=== PATIENT | female | born 1940 | race Caucasian/White ===

== ENCOUNTER 2017-09-10 00:07 | Inpatient (IN) ==
[2017-09-10] MEDS: Metoprolol Tartrate 25 MG Tablet PO SCH ×3 (08:24→18:34)
--- NOTE | 2017-09-10 08:25 | P.HP ---
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 Lawler from nephrology service, diabetic neuroapthy, Anxiety disorder who presented to ER complaining of chest pain- anterior chest wall steady burning pain 10 out of 10. There was no assoicated nausea, vomiting or diaphoresis. persistent prompted consult to [facility]. EKG show sinus rhythm, LAD, LAHB, incomplete LBBB patter. Initial troponin was .07. Patient was given ASA and Nitrol paste and is now chest pain free. REpeat troponin was 15. Patient transfered here for further evaluation and management Inpatient Certification: I certify that the inpatient services were ordered in accordance with Medicare regulations governing the order. This includes certification that hospital inpatient services are reasonable and necessary and in the case of services not specified as inpatient-only under 42 CFR 419.22(n), that they are appropriately provided as inpatient services in accordance to with the 2-midnight benchmark under 43 CFR 412.3(e) Estimated Total Length of Stay (Days): 2 Plans for Post Hospital Care: Not yet determined Review of Systems no melena or hematochezia no cough no weight los + neuropathy denies leg swelling PMFSH - History History Provided By: Patient - Medical History Medical History: Medical History (Last Updated 09/10/17 @ 00:19 by Michaela Pritchard) Diabetes Hypertension Neuropathy - Surgical History Surgical History: Surgical History (Last Updated 09/10/17 @ 00:19 by Michaela Pritchard) H/O exploratory laparotomy H/O lithotripsy Hx of appendectomy Medications and Allergies Active Medications: Active Medications Aspirin (Ecotrin) 325 mg PO DAILY ABHI Metoprolol Tartrate (Lopressor) 25 mg PO TID ABHI Nitroglycerin (Nitro-Bid 2% Oint) 1 inch TOPICAL Q6HR ABHI Allergies Allergy/AdvReac Type Severity Reaction Status Date / Time guaifenesin [From Mucinex] Allergy Anxiety Verified 09/10/17 00:12 Penicillins Allergy Itching Verified 09/10/17 00:12 Exam Vital signs: BP 2125/92 HR 102 T afebrile, heavy set Narrative: anicteric no nuchal rigidity no bruit lungs- no rales, decrease breath sounds regular rhythm HR 102 abdomen-flabby soft, nontender extremtiities= trace pretibial edema neuro exma- non focal Caprini VTE Risk Assessment Caprini VTE Risk Assessment: Moderate/High Risk (score >= 2) (on heparin drip for ACS) Caprini Risk Assessment Model: Point Value = 1 Point Value = 2 Point Value = 3 Point Value = 5 Age 41-60 Minor surgery BMI > 25 kg/m2 Swollen legs Varicose veins or History of unexplained or recurrent spontaneous Oral contraceptives or hormone replacement Sepsis (< 1 month) Serious lung disease, including pneumonia (< 1 month) Abnormal pulmonary function Acute myocardial infarction Congestive heart failure (< 1 month) History of inflammatory bowel disease Medical patient at bed rest Age 61-74 Arthroscopic surgery Major open surgery (> 45 min) Laparoscopic surgery (> 45 min) Malignancy Confined to bed (> 72 hours) Immobilizing plaster cast Central venous access Age >= 75 History of VTE Family history of VTE Factor V Leiden Prothrombin [id number] Lupus anticoagulant Anticardiolipin antibodies Elevated serum homocysteine Heparin-induced thrombocytopenia Other congenital or acquired thrombophilia Stroke (< 1 month) Elective arthroplasty Hip, pelvis, or leg fracture Acute spinal cord injury (< 1 month) Prophylaxis Regimen: Total Risk Factor Score Risk Level Prophylaxis Regimen 0-1 Low Early ambulation 2 Moderate Order ONE of the following: *Sequential Compression Device (SCD) *Heparin 5000 units SQ BID 3-4 Higher Order ONE of the following medications: *Heparin 5000 units SQ TID *Enoxaparin/Lovenox 40 mg SQ daily (WT < 150 kg, CrCl > 30 mL/min) *Enoxaparin/Lovenox 30 mg SQ daily (WT < 150 kg, CrCl > 10-29 mL/min) *Enoxaparin/Lovenox 30 mg SQ BID (WT < 150 kg, CrCl > 30 mL/min) AND/OR *Sequential Compression Device (SCD) 5 or more Highest Order ONE of the following medications: *Heparin 5000 units SQ TID (Preferred with Epidurals) *Enoxaparin/Lovenox 40 mg SQ daily (WT < 150 kg, CrCl > 30 mL/min) *Enoxaparin/Lovenox 30 mg SQ daily (WT < 150 kg, CrCl > 10-29 mL/min) *Enoxaparin/Lovenox 30 mg SQ BID (WT < 150 kg, CrCl > 30 mL/min) AND *Sequential Compression Device (SCD) Assessment and Plan - Plan 77 years old female ACS, NSTEMI Hypertension - start on heparin drip - ASA daily - start Lopressor 25 mg po q8 first dose now - Nitrol ointment 1 in to ant chest wall q 6 - get Echo - cardiology consult- d/w Dr. Foreman - ask family to bring in her meds - start statins- Lipitor 20 mg hs - get lipid panel, LFTs, CMP, TSH Diabetes mellitus, type 2, insulin requiring - NPO for now for possible procedure - sliding scale. check hemoglobin A1C - at home on Lantus 20 units q am, 25 units q pm- hold for now Diabetic nephropathy History of right urethral stone extraction , right in the past - nephrology consult for recommendation- patient will need cath - she is ff by Dr. Lawler as OP - start gentle hydration 42 cc/hr - get renal ultrasound - close monitoring of renal functions if we proceed with cardiac cath diabetic neuropathy - on Gabapentin as OP Anxiety disorder - continue on Xanax prn for anxiety Transfer to CIC bed- no bed available- get an C bed
[2017-09-10] MEDS ORDERED: Sod Chloride 0.9% Inj 1,000 ML IV.CONT SCH (08:30)
[2017-09-10] MEDS ORDERED: Dextrose 50% in Water 50 ML Vial IV.PUSH PRN (08:36)
[2017-09-10] MEDS ORDERED: Heparin 10,000 UNITS/10 ML Vial (for IV use) IV.PUSH STA (08:40)
[2017-09-10] MEDS ORDERED: Heparin/NS PF Inj 1,000 ML ONE (10:14)
[2017-09-10] MEDS ORDERED: Heparin 10,000 UNITS/10 ML Vial (for IV use) ONE (10:14)
[2017-09-10] MEDS ORDERED: fentaNYL Citrate Inj 100 MCG/2 ML Ampul ONE (10:29)
[2017-09-10] MEDS ORDERED: Lidocaine PF 1% Inj 30 ML Vial ONE (10:30)
--- NOTE | 2017-09-10 10:52 | MB ---
cc: Lemuel Foreman MD DATE: 09/10/2017 DATE OF CONSULTATION: 09/10/2017 INDICATION: Non-ST elevation myocardial infarction. HISTORY OF PRESENT ILLNESS: This is a 77-year-old Zimbabwean-speaking female. Her daughter was present at the bedside to [facility]. She has a history of hypertension, diabetes and diabetic nephropathy with chronic kidney disease, followed by Nephrology. She presented to the emergency department in [place] with acute onset of substernal chest pain. Electrocardiogram showed incomplete left bundle branch block pattern. Initial troponin was 0.07. She was transferred to [place] and her troponin went up to over 5. She is currently chest pain free. We are consulted for further recommendations. I called her service desk specialist's office, Dr. Lawler and her baseline creatinine looks to be about 2.3-2.5; that most recently was in June and there was discussion already about potential dialysis. PAST MEDICAL HISTORY: Diabetes, hypertension, neuropathy. MEDICATIONS: Aspirin and metoprolol. REVIEW OF SYSTEMS: A 12-point review of systems was performed, negative unless otherwise noted in the History Of Present Illness. PHYSICAL EXAMINATION: VITAL SIGNS: Temperature is 98, pulse 93, blood pressure 173/90 mmHg. GENERAL: Alert and oriented x 3, in no acute distress. HEENT: Shows pupils reactive to light and accommodation. Extraocular movements are intact. NECK: No elevation of jugular venous distention. No thyromegaly. No lymphadenopathy. No carotid bruits. LUNGS: Clear to auscultation bilaterally. CARDIOVASCULAR: Regular rate and rhythm without murmurs, rubs or gallops. ABDOMEN: Soft, nontender, nondistended. Good bowel sounds. No hepatosplenomegaly. EXTREMITIES: Show no clubbing, cyanosis or edema. Good peripheral pulses. NEUROLOGIC: Cranial nerves intact. Motor, sensory grossly intact. LABORATORY DATA: Hemoglobin is 10.2, platelet count is 278. Sodium 139, potassium 4.2, BUN 54, creatinine is 2.6. Serial troponins 5.4 and 6. Electrocardiogram shows sinus rhythm with ST depression inferiorly, incomplete left bundle branch block pattern. ASSESSMENT: 1. Non-ST elevation myocardial infarction. 2. Diabetes with diabetic nephropathy, chronic kidney disease. 3. Hypertension. 4. Hyperlipidemia. PLAN: At this point, she is pretty much at her baseline for her kidney function. I do not anticipate that her function is going to get much better. We will gently hydrate her. Risks, benefits, alternatives were discussed with the patient. We are going to plan to do a cardiac catheterization today and minimize contrast as much as absolutely possible. It is likely going to be only a diagnostic heart catheterization. If intervention is required, we may stage that in order to allow her kidneys to flush to minimize the risk for hemodialysis. The patient is aware that the risk for hemodialysis is potentially high given her baseline function. We will obtain a 2-D echocardiogram. We will monitor closely for any arrhythmias. She is currently on heparin drip. MD HEIDE Shore/SB , 10:32 AM , 10:52 AM
[2017-09-10] MEDS ORDERED: Sodium Chlor 0.9% Inj 250 ML IV.SIG ONE (11:35)
[2017-09-10] MEDS ORDERED: Atropine Inj 1 MG/ML Vial IV.PUSH PRN (11:35)
--- NOTE | 2017-09-10 11:38 | CATHPROC ---
Eventable HIS Report Study Information Study Number Admission Scheduled Start Study Start [id number] Sep 10 2017 7:22AM 09/10/2017 Sep 10 2017 8:52AM [place] [facility] Cardiac Pacer/ICD Admit Source Facility Department Other [facility] [address] - Chlorinator Physician and Clinical Staff Initial Lemuel Ivey [employer] Blaze Blum,RN Recorder Leeann Diamond,RT(R) [place]rub [place]a Begum ,RT(R) Procedures Performed Procedure Location (Site) Vessel Name Coronary Angiograms LCA Left Coronary Coronary Angiograms RCA Right Coronary L Heart Cath Wire insertion Radial (right) Radial Art. Equipment Time Fluid Pump Operator Description Size Mfg Part Number Used/Scraped TRANSDUCER, TRUWAVE [id number] 09:17 NOVOA MTZ * Used W/STOCKCOCK *[id number] 11:22 CARDIVA MEDICAL VASCADE, FR5 CLOSURE SYSTEM FR 5 Used *[id number] *[id number] [id number] *[id number] *[id number] WIRE, HYDROSTEER 150CM [id number] 10:56 DAIG/ST. KEVIN MEDICAL 150CM Used ANGLED GLIDE *[id number] 09:17 LifeLock BLANKET,WARM AIR CCL * Used *[id number] 09:17 LifeLock PACK, CCL CUSTOM * Used *[id number] 09:17 LifeLock SUPPORT, ARTERIAL ADULT 63283 *[id number] Used [id number] 09:17 Task Messenger PACER PEN, SKIN DUAL W/ RULER * Used *[id number] 10:55 CasenetTRONIC JL 3.5 DXTERITY CATHETER FR 5 Used *[id number] BAND, RADIAL COMPRESSION TR [id number] 11:27 Picaboo 24CM Used SHORT 24 *[id number] SHEATH, FR6 RADIAL PRELUDE 09:17 Picaboo FR 6 [id number] Used EASE 11CM [id number] 09:17 [employer]oo WIRE, EXCHANGE 260CM 3MMJ 260CM Used *[id number] 09:17 NAMIC MANIFOLD, 4 PORT * Used *[id number] 09:17 NYCOMED OMNIPAQUE, 350 MG, 150ML 150ML [id number] Used DYEVERT, CONTRAST HVOFF-RRS 10:19 [employer] INC NG Used MODULATION SYSTEM NG *[id number] 11:04 TERUMO MEDICAL SHEATH, FR5 TERUMO (10CM) FR 5 Used *[id number] Equipment Model, Serial, Lot Number and Expiration Data Description Model Number Serial Number Lot Number Expiration Date AVNI GIBBSEER 150CM [id number] 05-30-2020 ANGLED GLIDE History: Current Medications Medication Dosage/Unit Route Frequency Last Date/Time Taken ASA LIPITOR Glucophage LOPRESSOR History: Allergies Allergy Reaction Penicillins Itching guaifenesin Anxiety History: Risk Factors Family History of Hypertension Dyslipidemia Previous CT Previous Heart Failure Premature CAD Yes No No No No Prior Valve Prior PCI Prior CABG Surgery No No No Cerebrovascular Peripheral Artery Chronic Lung On Dialysis Diabetes Diabetes Therapy Disease Disease Disease No No No No Yes Insulin Labs Hgb (g/dl) Hct (%) WBC (l/cumm) Platelets (thousands) 11.60-17.00 35.00-51.00 4.00-11.00 150.00-450.00 10.2 29.7 8.9 278 Glucose (mg/dl) BUN (mg/dl) Creatinine (mg/dl) BUN:Creatinine (1:x) 74.00-106.00 7.00-18.00 0.50-1.30 10.00-20.00 289 54 2.6 20.8 Na (meq/l) K (meq/l) 136.00-145.00 3.50-5.10 139 4.2 INR (PTT:PT) 0.90-1.10 1 Troponin I (ng/ml) CPK (u/l) CPK-MB (ng/ML) 0.02-0.05 26.00-308.00 0.50-3.60 5.46 33.8 10.6 Medication Medication Total Dose (Bolus/Oral) Medication Total Dosage/Unit 1% XYLOCAINE 25 mL FENTANYL 50 mcg HEPARIN 3000 units NTG (IC) 200 mcg VERSED 3 mg Medications (Bolus/Oral) Medication Time Given Dosage/Unit Administered By Reason VERSED 09/10/2017 10:47:07 AM 2 mg Kulwant, Blaze 2 mg VERSED given in lab by Blaze Blum, RN in Left Antecubital via Peripheral IV. Ordered by Lemuel Foreman. FENTANYL 09/10/2017 10:49:19 AM 25 mcg Kulwant, Blaze 25 mcg FENTANYL given in lab by Blaze Blum RN in Left Antecubital via Peripheral IV. Ordered by Lemuel Gutierrez. 1% XYLOCAINE 09/10/2017 10:49:31 AM 5 mL Lemuel Foreman 5 mL 1% XYLOCAINE given in lab by Lemuel Foreman in Right Radial via Subcutaneous. NTG (IC) 09/10/2017 10:53:18 AM 200 mcg Lemuel Foreman 200 mcg NTG (IC) given in lab by Lemuel Foreman in Right Radial via Intra-arterial. HEPARIN 09/10/2017 10:53:36 AM 3000 units Blaze Blum 3000 units HEPARIN given in lab by Blaze Blum RN in Left Antecubital via Peripheral IV. Ordered by Lemuel Foreman. FENTANYL 09/10/2017 10:54:03 AM 25 mcg Blaze Blum 25 mcg FENTANYL given in lab by Blaze Blum RN in Left Antecubital via Peripheral IV. Ordered by Lemuel Gutierrez. VERSED 09/10/2017 10:56:03 AM 1 mg Blaze Blum 1 mg VERSED given in lab by Blaze Blum RN in Left Antecubital via Peripheral IV. Ordered by Lemuel Foreman. 1% XYLOCAINE 09/10/2017 11:06:23 AM 20 mL Lemuel Foreman 20 mL 1% XYLOCAINE given in lab by Lemuel Foreman in Right Groin via Subcutaneous. Medication (Drip) Medication Time Given Dosage/Unit Concentration/Unit Diluent (ml) Solution IV Solutions 09/10/2017 10:18:13 AM 50 mL (IV) NaCl .9 IV Solutions given in lab by Blaze Blum RN in Left Antecubital via Peripheral IV. Pump/Drip Flow u sing NaCl .9. Initial Case Assessment Cardiovascular HR Rhythm NIBP Chest Pain 95 tachy 180/95 0 Edema Present Skin color Skin None Normal Warm Dry Circulatory - Right Pulses Dorsalis Pedis Femoral Radial 1 1 2 Scale (0,1,2,3,4,d) Scale (0,1,2,3,4,d) Neurological State Oriented to time-place- Alert Moves all extremities person Respiration - General Respiration Rate SpO2 (%) (B/min) 13 97 Chronological Log Time Study Chronological Log 10:12:31 Patient arrived via Bed. 10:17:36 Patient Name, D.O.B, / Armband Verified By R.N. 10:17:37 Consent signed by the physician and the patient and verified by the Chlorinator staff. 10:17:37 Pre-op and post- op instructions given; patient acknowledges understanding of instructions. 10:17:38 Verbal Stimulation=2 Physical Stimulation=2 Airway=2 Respiration=2 TOTAL=8. (0=absent, 1=li mited, 2=present) 10:17:47 Presedation assessment performed by Chlorinator RN. 10:17:50 Patient has been NPO for More than 6Hrs. 10:17:53 Allens test performed on the right radial and ulnar artery. 10:17:55 Skin Breakdown-irritation in beliateral groins 10:17:59 Patient Warmer Placed on the Table. 10:18:02 Lacie Prominences Protected 10:18:04 A # 20 IV was noted in the Antecubital (left). Grade = 0 10:18:04 A # 20 IV was noted in the Antecubital (right). Grade = 0 10:18:13 IV Solutions given in lab by Blaze Blum RN in Left Antecubital via Peripheral IV. Pump/D rip Flow using NaCl .9. 10:18:24 History and physical on the chart or being dictated. Assessment: Initial Case, HR=95 BPM, Rhythm=tachy, NBGQ=372/95 mmhg, Chest Pain=0, Edema=None, Color=Normal, Skin = Warm, Dry 10:18:25 Right Pulses: Linwood Ped=1, Femoral=1, Radial=2 Neurological: State=Alert, Ox3, [place] Respiration: Resp=13 B/min, SpO2=97 % 10:25:52 Reference ECG taken Vitals capture started with the following parameters, Patient=Adult, Interval=5 min, Initial Pr vkatzf=549 mmHg, 10:25:54 Deflation Rate=5 mmHg, Cuff placed on Right Arm 10:27:09 HR=96 bpm, WODM=749/95 mmhg, SpO2=98.0 %, Resp=13 B/min, Pain=0, Sae=10, Baltazar=2 10:28:30 Right Radial and right groin prepped with 2% chlorhexidine, and draped after a 3 min. waiti ng time. 10:31:38 HR=95 bpm, RUVR=521/100 mmhg, SpO2=96.0 %, Resp=8 B/min 10:36:41 HR=96 bpm, GYJL=546/97 mmhg, SpO2=95.0 %, Resp=8 B/min 10:38:48 Pressure channel 1 zeroed. 10:41:40 HR=95 bpm, IAZR=626/101 mmhg, SpO2=95.0 %, Resp=12 B/min 10:42:19 MD paged Time Out. Correct patient, correct procedure, correct physician, labs, allergies, and equipment verified with lab manager 10:45:14 team present. Fire risk assesment completed (see hard stop sheet for coding). Time Out Conc urred by MD and individual staff in procedure. 10:45:37 MD arrived. 10:46:43 HR=95 bpm, GQJA=011/102 mmhg, SpO2=95.0 %, Resp=12 B/min 10:47:07 2 mg VERSED given in lab by Blaze Blum RN in Left Antecubital via Peripheral IV. Ordered by Lemuel Foreman. 10:49:19 25 mcg FENTANYL given in lab by Blaze Blum RN in Left Antecubital via Peripheral IV. Ord ered by Lemuel Foreman. 10:49:30 Case Start 10:49:31 5 mL 1% XYLOCAINE given in lab by Lemuel Foreman in Right Radial via Subcutaneous. 10:51:40 HR=86 bpm, XNFH=947/92 mmhg, SpO2=94.0 %, Resp=14 B/min 10:52:26 Access site was Right Radial Artery. A SHEATH, FR6 RADIAL PRELUDE EASE 11CM FR 6 was advanced into the Radial (right) using the Perc utaneous 10:53:09 technique. 10:53:18 200 mcg NTG (IC) given in lab by Lemuel Foreman in Right Radial via Intra-arterial. 10:53:36 3000 units HEPARIN given in lab by Blaze Blum RN in Left Antecubital via Peripheral IV. Ordered by Lemuel Foreman. 10:54:03 25 mcg FENTANYL given in lab by Blaze Blum RN in Left Antecubital via Peripheral IV. Ord ered by Lemuel Foreman. A JR 5.0 INFINITI CATHETER FR 5 was advanced over a wire. OMNIPAQUE, 350 MG, 150ML 150ML was us ed for 10:54:31 injections. 10:56:03 1 mg VERSED given in lab by Blaze Blum, RN in Left Antecubital via Peripheral IV. Ordered by Lemuel Foreman. 10:56:26 Catheter was removed 10:56:43 HR=86 bpm, XPFC=706/90 mmhg, SpO2=96.0 %, Resp=9 B/min A JR 4.0 INFINITI CATHETER FR 4 was advanced over a wire. OMNIPAQUE, 350 MG, 150ML 150ML was us ed for 10:59:14 injections. 10:59:25 A WIRE, HYDROSTEER 150CM ANGLED GLIDE 150CM was inserted via Radial (right). 10:59:30 Wire removed Recorded Pressure: Ao, HR=84, Condition=Condition 1 10:59:38 (Aorta) Ao 172/75/115 11:01:44 HR=83 bpm, DVVO=015/83 mmhg, SpO2=95.0 %, Resp=8 B/min 11:03:48 Catheter was removed 11:04:15 Radial access aborted 11:06:23 20 mL 1% XYLOCAINE given in lab by Lemuel Foreman in Right Groin via Subcutaneous. 11:06:35 Access site was Right Femoral Artery. 11:06:42 A SHEATH, FR5 TERUMO (10CM) FR 5 was advanced into the Fem Art (right) using the Percutaneo us technique. 11:07:20 HR=86 bpm, LIPL=255/100 mmhg, SpO2=97.0 %, Resp=10 B/min A JL 3.5 DXTERITY CATHETER FR 5 was advanced over a wire. OMNIPAQUE, 350 MG, 150ML 150ML was us ed for 11:09:19 injections. 11:10:19 The LCA was injected and visualized at various angles. OMNIPAQUE, 350 MG, 150ML 150ML used . 11:11:44 HR=84 bpm, MSOL=737/104 mmhg, SpO2=99.0 %, Resp=8 B/min 11:13:33 Catheter was removed A JR 5.0 INFINITI CATHETER FR 5 was advanced over a wire. OMNIPAQUE, 350 MG, 150ML 150ML was us ed for 11:14:43 injections. Recorded Pressure: LV, HR=67, Condition=Condition 1 11:15:23 (Left Ventricle) LV 180/-3/20 Recorded Pressure: LV, Ao, HR=94, Condition=Condition 1 11:15:31 (Left Ventricle) LV 190/2/27, (Aorta) Ao 171/73/116 11:16:47 HR=84 bpm, YCLI=983/105 mmhg, FqP3=246.0 %, Resp=9 B/min After removing the current catheter a 3DRC INFINITI CATHETER FR 5 was advanced over a WIRE, EXC HANGE 260CM 11:17:11 3MMJ 260CM. 11:19:45 The RCA was injected and visualized at various angles. OMNIPAQUE, 350 MG, 150ML 150ML used . 11:20:02 Catheter was removed 11:21:32 Case End (Physician broke scrub) 11:21:46 HR=84 bpm, NWVT=716/90 mmhg, SpO2=99.0 %, Resp=9 B/min 11:26:39 VASCADE, FR5 CLOSURE SYSTEM FR 5 placement in the Fem Art (right) Radial Compression Device Used. 13 mLs of air placed in BAND, RADIAL COMPRESSION TR SHORT 24 24 CM. Affected 11:26:46 hand 98 % O2 saturation. 11:26:50 HR=84 bpm, LGHU=503/101 mmhg, SpO2=99.0 %, Resp=12 B/min 11:26:56 Sterile dressing applied to site 11:27:09 No case complications noted. 11:27:11 Cine recording checked. 11:27:14 Bedside Report will be given. 11:27:14 Implantable Device card placed in patient's chart. 11:27:19 A Left Heart Cath was performed. 11:31:51 HR=85 bpm, FVTM=022/109 mmhg, SpO2=98.0 %, Resp=14 B/min 11:37:50 Vitals capture stopped. 11:40:20 [facility] Study - Contrast Media Used In Study Contrast Total Opened (mL) Total Used (mL) Total Wasted (mL) Omnipaque 20 20 0 End Study - Maximum Contrast Load Max Contrast Load (mL) 187.9 End Study - Radiation Exposure Fluoro Time (minutes) 6.2 End Study - Patient Disposition Complications Transferred To Interventional Outcome No Telemetry Bed No attempt made
--- NOTE | 2017-09-10 11:57 | MA ---
cc: Lemuel Foreman MD DATE: 09/10/2017 TOTAL AMOUNT OF CONTRAST ADMINISTERED: 20 mL. PROCEDURES PERFORMED: 1. Fluoroscopy with interpretation. 2. Left heart catheterization. 3. Coronary angiography. METHOD: Risks, benefits and alternatives were discussed with the patient. The patient understood and consented to the procedure. The patient was brought to the cardiac catheterization lab, placed on the catheterization table, right wrist and right groin were prepped and draped in sterile fashion. The right wrist was anesthetized with 2% lidocaine. Right radial artery was cannulated. We had difficulty navigating the radial artery and axillary, probably due to recurrent radial loop. Ultimately, we aborted radial access and obtained right common femoral access with a 5-Nigerien, 11 cm sheath. LEFT HEART CATHETERIZATION: Intraventricular hemodynamics were measured at 110/14 mmHg. CORONARY ANGIOGRAPHY: 1. Left main coronary artery has mild luminal irregularities. 2. Left anterior descending coronary artery has mild luminal irregularities. There is a smaller caliber size diagonal branch with 60-70% stenosis, but it is a less than 2 mm caliber size vessel. 3. Left circumflex has a 75% stenosis just prior to the bifurcation of the first obtuse marginal branch. There are several obtuse marginal branches, 4 in total, most are along the inferolateral distal distribution. There is a 50% stenosis throughout that distal portion smaller caliber size vessels. 4. Right coronary artery is heavily calcified proximally. There is a 90% stenosis. The mid segment has an 80% tubular stenosis. The right coronary artery is a dominant vessel. CONCLUSIONS: 1. Primarily 2-vessel [place] coronary artery disease involving the proximal left circumflex and right coronary arteries. 2. Small branch vessel coronary artery disease is also involved. 3. Normal left-sided filling pressures. PLAN: At this point, we will have to have a further discussion with the patient. We really tried to minimize the amount of contrast and did very well, but the next portion of the procedure with anticipation for intervention will likely require further contrast administration and may additionally risk the kidneys for need for dialysis. We will hopefully hydrate her and see how things go, may then make a decision in the next few days whether or not elective percutaneous intervention will be undertaken. Left anterior descending coronary artery is not involved and therefore cardiothoracic surgery for consideration of bypass surgery would not be necessary. MD MARY GRACE Shore , 11:40 AM , 11:56 AM
[2017-09-10 12:59] LABS: Hemoglobin 11.2 gm/dL (11.6-15.3); Mean Corpuscular HGB Conc 32.8 % (32.0-36.0); Mean Corpuscular Hemoglobin 29.7 pg (27.0-34.0); Mean Corpuscular Volume 90.5 fL (80.0-100.0); Mean Platelet Volume 8.3 fL (7.0-11.0); Platelet Count 286 th/mm3 (150-450); Red Blood Count 3.75 mil/mm3 (4.00-5.30); Red Cell Distribution Width 14.5 % (11.6-17.2); White Blood Count 9.1 th/mm3 (4.0-11.0)
[2017-09-10 13:09] LABS: Activated Partial Thrombo Time 55.3 sec (24.3-30.1); INR 1.1 Ratio; Prothrombin Time 10.7 sec (9.8-11.6)
[2017-09-10] MEDS: Sod Chloride 0.9% Inj 1,000 ML IV.CONT SCH (13:28)
[2017-09-10] MEDS: Insulin NovoLOG Aspart Correctional Sugar Inj SQ SCH ×3 (13:40→22:15)
[2017-09-10] MEDS ORDERED: Iohexol 350 MG/ML 50 ML Vial (for Cath Lab) IVCONTRAST ONE (14:21)
--- NOTE | 2017-09-10 18:14 | P.CONNP ---
<Iveth Millan - Last Filed: 09/10/17 17:52> History of Present Illness Service: Nephrology Consult date: 09/10/17 Requesting Physician: Vincent Ly Reason for Consult: CKD stage 4 Primary Care Provider: Raphael Clayton Chief Complaint: chest pain History of Present Illness: The patient is a 77 yo female who presented to [facility] today with complaints of chest pain and SOB. She was transferred to the main hospital as NSTEMI. Underwent diagnostic cardiac catheterization this AM showing 2 vessel disease: left circumflex and RCA. She has CKD stage [address] Mathur in [place]. Her baseline SCr is said to be 2.3-2.5 and this AM on admission was 2.6 with a estimated GFR of 18. Etiology of her renal disease is said to be related to sclerosis iof hypertension and diabetic nephropathy. She does state that she has been counseled about the severity of her renal decline and likely need for dialytic intervention very soon. Does not have specific plans regarding dialysis and no dialysis access. We have been consulted regarding opinion of risks associated with proceeding with intervention cardiac catheterization in relation to her renal disease. She is currently asymptomatic regarding chest pain and SOB. No known hx of CHF. [facility] - History History Provided By: Patient - Medical History Medical History: Medical History (Last Updated 09/10/17 @ 18:01 by RAFI Baumann) Chronic kidney disease, stage IV (severe) Diabetes Hypertension Neuropathy - Surgical History Surgical History: Surgical History (Last Updated 09/10/17 @ 00:19 by Michaela Pritchard) H/O exploratory laparotomy H/O lithotripsy Hx of appendectomy - Tobacco History Second Hand Smoke Exposure: No Tobacco Use In Past 30 Days: No Smoking Status: Never smoker - Alcohol History How Often Do You Have a Drink Containing Alcohol: Never - Substance Use History Substance History: No History of Abuse Medications and Allergies Allergies Allergy/AdvReac Type Severity Reaction Status Date / Time guaifenesin [From Mucinex] Allergy Anxiety Verified 09/10/17 00:12 Penicillins Allergy Itching Verified 09/10/17 00:12 Active Medications: Active Medications Aspirin (Ecotrin) 325 mg PO DAILY ABHI Atorvastatin Calcium (Lipitor) 20 mg PO HS ABHI Atropine Sulfate (Atropine Inj) 0.5 mg IV.PUSH UNSCH PRN PRN Reason: VAGAL REPONSE Chlorhexidine Gluconate (Chlorhexidine 2% Cloth) 3 pack TOPICAL DAILY@0400 ABHI Stop: 09/16/17 03:59 Chlorhexidine Gluconate (Chlorhexidine 2% Cloth) 3 pack TOPICAL DAILY@0400 PRN PRN Reason: Extra cloth needed Stop: 09/16/17 03:59 Dextrose (D50w Vial) 50 ml IV.PUSH UNSCH PRN PRN Reason: PER HYPOGLYCEMIA PROTOCOL Glucagon (Glucagon Inj) 1 mg OTHER PRN PRN PRN Reason: for Hypoglycemia Protocol Sodium Chloride (Ns Inj) 1,000 mls @ 42 mls/hr IV.CONT .[id number] [facility] Sodium Chloride (Ns Inj) 1,000 mls @ 100 mls/hr IV.CONT .Q10H [facility] Last Admin: 09/10/17 13:28 Dose: 100 mls/hr Insulin Aspart (Novolog Insulin Suppl Scale Inj) 0 unit SQ ACHS [facility]; Protocol Last Admin: 09/10/17 13:40 Dose: Not Given Metoprolol Tartrate (Lopressor) 25 mg PO TID [facility] Last Admin: 09/10/17 13:28 Dose: 25 mg Nitroglycerin (Nitro-Bid 2% Oint) 1 inch TOPICAL Q6HR [facility] Last Admin: 09/10/17 13:28 Dose: 1 inch Oxycodone/Acetaminophen (Percocet 5/325 Mg) 1 tab PO Q4H PRN PRN Reason: pain 1-10cath site Last Admin: 09/10/17 13:27 Dose: 1 tab Sodium Chloride (Ns Flush) 2 ml IV.FLUSH BID [facility] Sodium Chloride (Ns Flush) 2 ml IV.FLUSH PRN PRN PRN Reason: FLUSH AFTER USING IV ACCESS Exam Vital signs: Vital Signs 09/10/17 08:00 09/10/17 11:50 09/10/17 12:05 Temperature 98.1 F 97.6 F 97.6 F Pulse Rate 93 H 83 76 Respiratory Rate 14 14 22 Blood Pressure 173/90 H 176/79 H 195/86 H Pulse Oximetry 99 97 99 09/10/17 12:19 09/10/17 12:50 09/10/17 13:20 Temperature 97.7 F 97.7 F 97.7 F Pulse Rate 76 85 78 Respiratory Rate 16 14 22 Blood Pressure 185/88 H 177/76 H 181/81 H Pulse Oximetry 99 97 100 09/10/17 13:50 09/10/17 14:20 Temperature 97.8 F 97.7 F Pulse Rate 70 73 Respiratory Rate 10 L 18 Blood Pressure 187/85 H 187/85 H Pulse Oximetry 96 97 - Constitutional no acute distress - Routine HEENT Exam Head: Present: normocephalic, atraumatic - Routine Neck Exam Present: supple - Routine Respiratory Exam Present: CTA bilaterally - Routine Cardiovascular Exam Present: RRR, S1, S2 - Routine Abdominal Exam Present: soft, normoactive bowel sounds - Routine Extremities Exam Present: pulses intact, normal capillary refill - Routine Skin Exam Present: intact, warm - Routine Neurological Exam Present: alert, oriented X3 Results - Lab Results 09/10/17 12:15 Assessment and Plan - Assessment (1) Chronic kidney disease, stage IV (severe) Code(s): N18.4 - Chronic kidney disease, stage 4 (severe) Status: Acute Plan: Renal functions appear to be at her baseline. In regards to her risk of renal injury with iodinated contrast exposure, she was counselled there is no definitive treatment for this except hydration. Literature says that Mucomyst can be of some benefit as well. Given her current labs and co-morbidities accounting for 100mL contrast dose, she is at ~57% risk for development of contrast nephropathy that may or may not be reversible. She is at ~13% risk for sustaining renal injury that may require dialytic intervention. Given her already severely impaired renal functions, it is uncertain if dialysis would be temporary measure, and in all likelihood be chronic if needed. The risk would have to be assumed by the patient and the clearance coordinator, and risks versus benefits weighed. The patient and her daughter have both been counselled of the aforementioned (daughter did translate to Icelandic for the patient's better understanding) and they do seem to be in agreement to proceed. Will defer to cardiology in regards to the urgency to proceed as Dr. Foreman's note seems to indicate that he would like to wait a few days before next procedure. For the present, to continue on IV hydration with isotonic solution. (2) Non-ST elevated myocardial infarction (non-STEMI) Code(s): I21.4 - Non-ST elevation (NSTEMI) myocardial infarction Status: Acute Plan: As above. (3) Essential (primary) hypertension Code(s): I10 - Essential (primary) hypertension Status: Acute Plan: BP elevated. Will start on Amlodipine for better control. Consider Hydralazine if still not improved. (4) Diabetes mellitus Code(s): E11.9 - Type 2 diabetes mellitus without complications Status: Acute Plan: Mgmt as per primary <Marie Cedeno - Last Filed: 09/10/17 18:50> History of Present Illness Primary Care Provider: Raphael Clayton [facility] - Medical History Medical History: Medical History (Last Updated 09/10/17 @ 18:01 by RAFI Baumann) Chronic kidney disease, stage IV (severe) Diabetes Hypertension Neuropathy - Surgical History Surgical History: Surgical History (Last Updated 09/10/17 @ 00:19 by Michaela Pritchard) H/O exploratory laparotomy H/O lithotripsy Hx of appendectomy Medications and Allergies Active Medications: Active Medications Amlodipine Besylate (Norvasc) 5 mg PO DAILY ABHI Aspirin (Ecotrin) 325 mg PO DAILY [facility]HI Atorvastatin Calcium (Lipitor) 20 mg PO HS [facility] Atropine Sulfate (Atropine Inj) 0.5 mg IV.PUSH UNSCH PRN PRN Reason: VAGAL REPONSE Chlorhexidine Gluconate (Chlorhexidine 2% Cloth) 3 pack TOPICAL DAILY@0400 ABHI Stop: 09/16/17 03:59 Chlorhexidine Gluconate (Chlorhexidine 2% Cloth) 3 pack TOPICAL DAILY@0400 PRN PRN Reason: Extra cloth needed Stop: 09/16/17 03:59 Clonidine HCl (Catapres) 0.1 mg PO Q6H PRN PRN Reason: SBP>160, DBP>90 Dextrose (D50w Vial) 50 ml IV.PUSH UNSCH PRN PRN Reason: PER HYPOGLYCEMIA PROTOCOL Glucagon (Glucagon Inj) 1 mg OTHER PRN PRN PRN Reason: for Hypoglycemia Protocol Sodium Chloride (Ns Inj) 1,000 mls @ 100 mls/hr IV.CONT .Q10H [facility] Last Infusion: 09/10/17 18:40 Dose: Infused Insulin Aspart (Novolog Insulin Suppl Scale Inj) 0 unit SQ ACHS [facility]; Protocol Last Admin: 09/10/17 18:11 Dose: Not Given Metoprolol Tartrate (Lopressor) 25 mg PO TID [facility] Last Admin: 09/10/17 18:34 Dose: 25 mg Nitroglycerin (Nitro-Bid 2% Oint) 1 inch TOPICAL Q6HR [facility] Last Admin: 09/10/17 18:12 Dose: Not Given Oxycodone/Acetaminophen (Percocet 5/325 Mg) 1 tab PO Q4H PRN PRN Reason: pain 1-10cath site Last Admin: 09/10/17 18:34 Dose: 1 tab Sodium Chloride (Ns Flush) 2 ml IV.FLUSH BID [facility] Sodium Chloride (Ns Flush) 2 ml IV.FLUSH PRN PRN PRN Reason: FLUSH AFTER USING IV ACCESS Exam Vital signs: Vital Signs 09/10/17 08:00 09/10/17 11:50 09/10/17 12:05 Temperature 98.1 F 97.6 F 97.6 F Pulse Rate 93 H 83 76 Respiratory Rate 14 14 22 Blood Pressure 173/90 H 176/79 H 195/86 H Pulse Oximetry 99 97 99 09/10/17 12:19 09/10/17 12:50 09/10/17 13:20 Temperature 97.7 F 97.7 F 97.7 F Pulse Rate 76 85 78 Respiratory Rate 16 14 22 Blood Pressure 185/88 H 177/76 H 181/81 H Pulse Oximetry 99 97 100 09/10/17 13:50 09/10/17 14:20 09/10/17 15:20 Temperature 97.8 F 97.7 F 97.6 F Pulse Rate 70 73 73 Respiratory Rate 10 L 18 20 Blood Pressure 187/85 H 187/85 H 184/84 H Pulse Oximetry 96 97 95 09/10/17 16:20 09/10/17 17:20 Temperature 97.6 F 97.7 F Pulse Rate 73 86 Respiratory Rate 22 23 Blood Pressure 195/87 H 198/82 H Pulse Oximetry 96 97 Intake & Output 09/09/17 09/10/17 09/10/17 18:59 06:59 18:59 Intake Total 1120 / 1120 Balance 1120 / 1120 Intake: IV 1000 / 1000 NS Inj 1,000 ML @ 100 mls/hr IV 1000 / 1000 .CONT .Q10H [facility] Rx#:[id number] Oral 120 / 120 Other: # Voids 4 Results - Lab Results 09/10/17 12:15 Assessment and Plan - Assessment (1) Chronic kidney disease, stage IV (severe) Code(s): N18.4 - Chronic kidney disease, stage 4 (severe) Status: Acute (2) Non-ST elevated myocardial infarction (non-STEMI) Code(s): I21.4 - Non-ST elevation (NSTEMI) myocardial infarction Status: Acute (3) Essential (primary) hypertension Code(s): I10 - Essential (primary) hypertension Status: Acute (4) Diabetes mellitus Code(s): E11.9 - Type 2 diabetes mellitus without complications Status: Acute - Attending Attestation The exam, history, and the medical decision-making described in the above note were completed with the assistance of the AIDA. I reviewed and agree with the findings presented. I attest that I had a [id number] encounter with the patient on the same day, and personally performed and documented my assessment and findings in the medical record. Estimated risk for development of acute renal insufficiency secondary to contrast nephrotoxicity as indicated above. Contrast exposure is not absolutely contraindicated but the risk-benefit ratio has to be considered as discussed with the patient. Will defer to cardiology and patient in regard to making final decision for cardiac catheterization with probable stent placement.
[2017-09-10] MEDS ORDERED: ALPRAZolam 0.25 MG Tablet PO ONE (21:39)
[2017-09-11] MEDS: Sod Chloride 0.9% Inj 1,000 ML IV.CONT SCH ×3 (00:54→14:57)
--- NOTE | 2017-09-11 01:12 | US ---
EXAM DATE: 09/10/2017 11:59 PM EDT AGE/SEX: 77 years / Female INDICATIONS: Increased lab values. CLINICAL DATA: This is the patient's initial encounter. Patient reports that signs and symptoms have been present for 1 day and indicates a pain score of 10/10. MEDICAL/SURGICAL HISTORY: Diabetes mellitus type II. Hypertension. Diabetic neuropathy. Appen dectomy. Lithotripsy. Exploratory laparotomy. COMPARISON: No prior exams available for comparison. MEASUREMENTS: Right Kidney:__10.0 x 4.8 x 5.0 cm Left Kidney:__10.2 x 5.0 x 5.5 cm FINDINGS: Right Kidney: Borderline echogenic. Minimal perinephric fluid. No mass or hydronephrosis. Small simpl e cyst measures 11 mm. Left Kidney: Borderline echogenic. Echogenic focus left mid kidney measures 5 mm. Bladder: Within normal limits given the degree of distension. Other: None. CONCLUSION: 1. Kidneys are borderline echogenic which can be seen with medical renal disease. 2. Simple right renal cyst. 3. Possible nonobstructing left renal calculus. Electronically signed by: Guy Delgadillo MD 09/11/2017 1:11 AM EDT
[2017-09-11] MEDS ORDERED: Chlorhexidine Gluconate 2% 1 Pack (2 Cloths) TOPICAL PRN (04:00)
[2017-09-11 05:41] LABS: Baso % (Auto) 0.6 % (0.0-2.0); Eos # (Auto) 0.3 th/mm3 (0.0-0.4); Eos % (Auto) 3.5 % (0.0-4.0); Hemoglobin 8.7 gm/dL (11.6-15.3); Lymph # (Auto) 1.5 th/mm3 (1.0-4.8); Mean Corpuscular HGB Conc 33.6 % (32.0-36.0); Mean Corpuscular Hemoglobin 30.4 pg (27.0-34.0); Mean Corpuscular Volume 90.4 fL (80.0-100.0); Mean Platelet Volume 8.1 fL (7.0-11.0); Mono # (Auto) 0.6 th/mm3 (0.0-0.9); Mono % (Auto) 7.9 % (0.0-8.0); Neut # (Auto) 4.9 th/mm3 (1.8-7.7); Platelet Count 233 th/mm3 (150-450); Red Blood Count 2.88 mil/mm3 (4.00-5.30); Red Cell Distribution Width 14.5 % (11.6-17.2); White Blood Count 7.4 th/mm3 (4.0-11.0)
[2017-09-11 05:53] LABS: Alanine Aminotransferase 20 U/L (10-53); Albumin 2.4 g/dL (3.4-5.0); Anion Gap 9 meq/L (5-15); Aspartate Aminotransferase 70 U/L (15-37); Blood Urea Nitrogen 37 mg/dL (7-18); Calcium 7.8 mg/dL (8.5-10.1); Carbon Dioxide 22.1 meq/L (21.0-32.0); Chloride 112 meq/L (98-107); Cholesterol 236 mg/dL (120-200); Glomerular Filtration Rate 23 mL/min (>89); Glucose,Random 115 mg/dL (74-106); Phosphorus 3.2 mg/dL (2.5-4.9); Potassium 4.3 meq/L (3.5-5.1); Sodium 143 meq/L (136-145); Triglycerides 251 mg/dL (42-150)
[2017-09-11 05:55] LABS: Alkaline Phosphatase 103 U/L (45-117); Chol/HDL Ratio 6.36 Ratio; HDL Cholesterol 37.1 mg/dL (40.0-60.0); LDL Cholesterol,Calculated 149 mg/dL (0-99); Total Protein 5.7 g/dL (6.4-8.2)
[2017-09-11] MEDS: Chlorhexidine Gluconate 2% 1 Pack (2 Cloths) TOPICAL SCH (06:37)
[2017-09-11] MEDS: amLODIPine 5 MG Tablet PO SCH ×2 (06:39→08:43)
[2017-09-11] MEDS: Metoprolol Tartrate 25 MG Tablet PO SCH (08:43)
[2017-09-11] MEDS: Insulin NovoLOG Aspart Correctional Sugar Inj SQ SCH ×4 (08:43→20:45)
--- NOTE | 2017-09-11 09:19 | P.PNCA ---
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 No further chest pain or shortness of breath. The patient was seen by nephrology and is considering her options regarding catheterization and possible risks involved with that; spoke with patient at length regarding this. She is leaning towards being agreeable to catheterization with PCI on Thursday after hydration for kidneys. Physical Exam Vital signs: Vital Signs 09/10/17 11:50 09/10/17 12:05 09/10/17 12:19 Temperature 97.6 F 97.6 F 97.7 F Pulse Rate 83 76 76 Respiratory Rate 14 22 16 Blood Pressure 176/79 H 195/86 H 185/88 H Pulse Oximetry 97 99 99 09/10/17 12:50 09/10/17 13:20 09/10/17 13:50 Temperature 97.7 F 97.7 F 97.8 F Pulse Rate 85 78 70 Respiratory Rate 14 22 10 L Blood Pressure 177/76 H 181/81 H 187/85 H Pulse Oximetry 97 100 96 09/10/17 14:20 09/10/17 15:20 09/10/17 16:20 Temperature 97.7 F 97.6 F 97.6 F Pulse Rate 73 73 73 Respiratory Rate 18 20 22 Blood Pressure 187/85 H 184/84 H 195/87 H Pulse Oximetry 97 95 96 09/10/17 17:20 09/10/17 18:20 09/10/17 20:00 Temperature 97.7 F 97.8 F Pulse Rate 86 96 H 77 Respiratory Rate 23 22 Blood Pressure 198/82 H 206/90 H Pulse Oximetry 97 98 09/10/17 23:16 09/11/17 00:00 09/11/17 04:00 Temperature 98.1 F 98.2 F Pulse Rate 78 70 63 Respiratory Rate 16 13 18 Blood Pressure 168/76 H 176/79 H 148/55 H Pulse Oximetry 98 Intake & Output 09/10/17 09/11/17 09/11/17 18:59 06:59 18:59 Intake Total 1120 / 1120 480 / 480 1000 / 1000 Balance 1120 / 1120 480 / 480 1000 / 1000 Intake: IV 1000 / 1000 1000 / 1000 NS Inj 1,000 ML @ 100 mls/hr IV 1000 / 1000 1000 / 1000 .CONT .Q10H [facility] Rx#:[id number] Oral 120 / 120 480 / 480 Other: # Voids 4 4 # Bowel Movements 0 Weight On Admission 201 lb 11.567 oz Narrative: GENERAL: Well-developed well-nourished. In no acute distress. NECK: No carotid bruits. No JVD. CARDIOVASCULAR: Regular rate and rhythm. No murmur appreciated. Right wrist access site clean with intact pulses. RESPIRATORY: No accessory muscle use. Clear to auscultation. Breath sounds equal bilaterally. MUSCULOSKELETAL: No clubbing or cyanosis. No edema. NEUROLOGICAL: Awake and alert. Normal speech. Assessment and Plan - Plan 77-year-old Nauruan-speaking female with past medical history of HTN, DM, diabetic nephropathy, CKD who presented for chest pain/non-STEMI. CAD: LHC 09/10 showed primarily 2 vessel [place] CAD involving the proximal LCx and RCA. PCI on hold pending optimization of renal function, discussed risks/ benefits of elective PCI in the next few days, patient considering options. Echocardiogram pending. CKD: Continue IVF. Nephrology consulted to assist with risk stratification with possible LHC/PCI and advanced renal disease. Hypertension: Poorly controlled. Patient has been to bring in her medications for reconciliation. Amlodipine and metoprolol started. Clonidine as needed. <Lemuel Foreman - Last Filed: 09/11/17 14:17> Physical Exam Vital signs: Vital Signs 09/10/17 14:20 09/10/17 15:20 09/10/17 16:20 Temperature 97.7 F 97.6 F 97.6 F Pulse Rate 73 73 73 Respiratory Rate 18 20 22 Blood Pressure 187/85 H 184/84 H 195/87 H Pulse Oximetry 97 95 96 09/10/17 17:20 09/10/17 18:20 09/10/17 20:00 Temperature 97.7 F 97.8 F Pulse Rate 86 96 H 77 Respiratory Rate 23 22 Blood Pressure 198/82 H 206/90 H Pulse Oximetry 97 98 09/10/17 23:16 09/11/17 00:00 09/11/17 04:00 Temperature 98.1 F 98.2 F Pulse Rate 78 70 63 Respiratory Rate 16 13 18 Blood Pressure 168/76 H 176/79 H 148/55 H Pulse Oximetry 98 09/11/17 08:00 09/11/17 10:00 09/11/17 12:00 Temperature 98.3 F 98 F 98.1 F Pulse Rate 81 74 61 Respiratory Rate 16 18 15 Blood Pressure 199/94 H 188/75 H 188/81 H Pulse Oximetry Intake & Output 09/10/17 09/11/17 09/11/17 18:59 06:59 18:59 Intake Total 1120 / 1120 480 / 480 1000 / 1000 Balance 1120 / 1120 480 / 480 1000 / 1000 Weight 92.1 kg Intake: IV 1000 / 1000 1000 / 1000 NS Inj 1,000 ML @ 100 mls/hr IV 1000 / 1000 1000 / 1000 .CONT .Q10H [facility] Rx#:[id number] Oral 120 / 120 480 / 480 Other: # Voids 4 4 # Bowel Movements 0 Weight On Admission 91.5 kg Assessment and Plan - Attending Attestation NSTEMI 2 vessel CAD CKD Cr stable discussed options. Continue gentle hydration. Plan for PCI LCx and RCA on thursday. NPO p MN thursday no further cp ok to DC heparin gtt BP control. add hydralazine
[2017-09-11] MEDS: Metoprolol Tartrate 50 MG Tablet PO SCH ×3 (10:40→17:27)
--- NOTE | 2017-09-11 10:53 | P.PN ---
Subjective Interval history: telemetry- sinus rhythm SBPs still in the > 170s range denies any chest pains/shortness of breath Physical Exam Vital signs: Vital Signs 09/10/17 11:50 09/10/17 12:05 09/10/17 12:19 Temperature 97.6 F 97.6 F 97.7 F Pulse Rate 83 76 76 Respiratory Rate 14 22 16 Blood Pressure 176/79 H 195/86 H 185/88 H Pulse Oximetry 97 99 99 09/10/17 12:50 09/10/17 13:20 09/10/17 13:50 Temperature 97.7 F 97.7 F 97.8 F Pulse Rate 85 78 70 Respiratory Rate 14 22 10 L Blood Pressure 177/76 H 181/81 H 187/85 H Pulse Oximetry 97 100 96 09/10/17 14:20 09/10/17 15:20 09/10/17 16:20 Temperature 97.7 F 97.6 F 97.6 F Pulse Rate 73 73 73 Respiratory Rate 18 20 22 Blood Pressure 187/85 H 184/84 H 195/87 H Pulse Oximetry 97 95 96 09/10/17 17:20 09/10/17 18:20 09/10/17 20:00 Temperature 97.7 F 97.8 F Pulse Rate 86 96 H 77 Respiratory Rate 23 22 Blood Pressure 198/82 H 206/90 H Pulse Oximetry 97 98 09/10/17 23:16 09/11/17 00:00 09/11/17 04:00 Temperature 98.1 F 98.2 F Pulse Rate 78 70 63 Respiratory Rate 16 13 18 Blood Pressure 168/76 H 176/79 H 148/55 H Pulse Oximetry 98 Intake & Output 09/10/17 09/11/17 09/11/17 18:59 06:59 18:59 Intake Total 1120 / 1120 480 / 480 1000 / 1000 Balance 1120 / 1120 480 / 480 1000 / 1000 Intake: IV 1000 / 1000 1000 / 1000 NS Inj 1,000 ML @ 100 mls/hr IV 1000 / 1000 1000 / 1000 .CONT .Q10H [facility] Rx#:[id number] Oral 120 / 120 480 / 480 Other: # Voids 4 4 # Bowel Movements 0 Weight On Admission 91.5 kg Results - Labs CBC & Chem 7: 09/11/17 04:36 09/11/17 04:36 Laboratory Results - last 24 hr 09/10/17 09/10/17 09/10/17 09:00 12:15 12:15 WBC 9.1 RBC 3.75 L Hgb 11.2 L Hct 34.0 L MCV 90.5 MCH 29.7 MCHC 32.8 RDW 14.5 Plt Count 286 MPV 8.3 Neut % (Auto) Lymph % (Auto) [place] % (Auto) Eos % (Auto) Baso % (Auto) Neut # (Auto) Lymph # (Auto) [place] # (Auto) Eos # (Auto) Baso # (Auto) WBC Differential Differential Comment PT 10.7 INR 1.1 APTT 55.3 H D Sodium Potassium Chloride Carbon Dioxide Anion Gap BUN Creatinine Estimated GFR POC Glucose Random Glucose Calcium Phosphorus Total Bilirubin AST ALT Alkaline Phosphatase Total Protein Albumin Triglycerides Cholesterol LDL Cholesterol, Calc HDL Cholesterol Cholesterol/HDL Ratio Nasal Screen MRSA (PCR) Not detected 09/10/17 09/10/17 09/11/17 17:23 20:37 04:36 WBC RBC Hgb Hct MCV MCH MCHC RDW Plt Count MPV Neut % (Auto) Lymph % (Auto) [place] % (Auto) Eos % (Auto) Baso % (Auto) Neut # (Auto) Lymph # (Auto) [place] # (Auto) Eos # (Auto) Baso # (Auto) WBC Differential Differential Comment PT INR APTT 25.1 D Sodium 143 Potassium 4.3 Chloride 112 H D Carbon Dioxide 22.1 Anion Gap 9 BUN 37 H Creatinine 2.08 H Estimated GFR 23 L POC Glucose 173 H Random Glucose 115 H D Calcium 7.8 L D Phosphorus 3.2 Total Bilirubin 0.4 AST 70 H ALT 20 Alkaline Phosphatase 103 Total Protein 5.7 L Albumin 2.4 L Triglycerides 251 H Cholesterol 236 H LDL Cholesterol, Calc 149 H HDL Cholesterol 37.1 L Cholesterol/HDL Ratio 6.36 Nasal Screen MRSA (PCR) 09/11/17 09/11/17 04:36 04:36 WBC 7.4 RBC 2.88 L Hgb 8.7 L D Hct 26.0 L MCV 90.4 MCH 30.4 MCHC 33.6 RDW 14.5 Plt Count 233 MPV 8.1 Neut % (Auto) 67.0 Lymph % (Auto) 21.0 [place] % (Auto) 7.9 Eos % (Auto) 3.5 Baso % (Auto) 0.6 Neut # (Auto) 4.9 Lymph # (Auto) 1.5 [place] # (Auto) 0.6 Eos # (Auto) 0.3 Baso # (Auto) 0.0 WBC Differential . Differential Comment Auto diff final PT INR APTT 40.4 H D Sodium Potassium Chloride Carbon Dioxide Anion Gap BUN Creatinine Estimated GFR POC Glucose Random Glucose Calcium Phosphorus Total Bilirubin AST ALT Alkaline Phosphatase Total Protein Albumin Triglycerides Cholesterol LDL Cholesterol, Calc HDL Cholesterol Cholesterol/HDL Ratio Nasal Screen MRSA (PCR) - Imaging Impressions Abdomen/Bladder Ultrasound 09/10/17 00:00 CONCLUSION: 1. Kidneys are borderline echogenic which can be seen with medical renal disease. 2. Simple right renal cyst. 3. Possible nonobstructing left renal calculus. Assessment and Plan - Plan 77 years old female ACS, NSTEMI S/P cardiac cath Hypertension,uncontrolled - start on heparin drip - ASA daily - Increase Lopresor to 50 mg po q8 - continue on Amlodipine 5 mg daily (per patient at home was on CCB- Nifedipine) - Nitrol ointment 1 in to ant chest wall q 6 - get Echo - pending - cardiology ff - ask family to bring in her meds - start statins- Lipitor 20 mg hs - plan to eventually proceed with PCI- Diabetes mellitus, type 2, insulin requiring - cardaic diet/diabetic diet - sliding scale. check hemoglobin A1C- pending - at home on Lantus 20 units q am, 25 units q pm- hold for now Diabetic nephropathy- creatinine trended down from 2.6- 2.08- post cath History of right urethral stone extraction , right in the past - nephrology consult for recommendation- patient will need cath - she is ff by Dr. Lawler as OP - on hydration - post cath - get renal ultrasound- pending diabetic neuropathy - on Gabapentin as OP Anxiety disorder - continue on Xanax prn for anxiety Transfer to [facility] bed-
[2017-09-11] MEDS ORDERED: hydrALAZINE HCl Inj 20 MG/ML Vial IV.PUSH ONE (11:03)
[2017-09-11] MEDS ORDERED: Heparin 10,000 UNITS/10 ML Vial (for IV use) IV.PUSH STA (14:09)
[2017-09-11] MEDS ORDERED: Heparin Drip 25,000 UNIT/250 ML BAG IV.CONT PRN (14:15)
--- NOTE | 2017-09-11 15:17 | P.PNNP ---
Subjective Interval history: The patient is a 77 yo female who presented to [facility] today with complaints of chest pain and SOB. She was transferred to the main hospital as NSTEMI. Underwent diagnostic cardiac catheterization this AM showing 2 vessel disease: left circumflex and RCA. She has CKD stage [address] Mathur in [place]. Her baseline SCr is said to be 2.3-2.5 and this AM on admission was 2.6 with a estimated GFR of 18. Etiology of her renal disease is said to be related to sclerosis iof hypertension and diabetic nephropathy. She does state that she has been counseled about the severity of her renal decline and likely need for dialytic intervention very soon. Does not have specific plans regarding dialysis and no dialysis access. We have been consulted regarding opinion of risks associated with proceeding with intervention cardiac catheterization in relation to her renal disease. She is currently asymptomatic regarding chest pain and SOB. No known hx of CHF. Patient had no verbal complaints today. Physical Exam Vital signs: Vital Signs 09/10/17 15:20 09/10/17 16:20 09/10/17 17:20 Temperature 97.6 F 97.6 F 97.7 F Pulse Rate 73 73 86 Respiratory Rate 20 22 23 Blood Pressure 184/84 H 195/87 H 198/82 H Pulse Oximetry 95 96 97 09/10/17 18:20 09/10/17 20:00 09/10/17 23:16 Temperature 97.8 F 98.1 F Pulse Rate 96 H 77 78 Respiratory Rate 22 16 Blood Pressure 206/90 H 168/76 H Pulse Oximetry 98 09/11/17 00:00 09/11/17 04:00 09/11/17 08:00 Temperature 98.2 F 98.3 F Pulse Rate 70 63 81 Respiratory Rate 13 18 16 Blood Pressure 176/79 H 148/55 H 199/94 H Pulse Oximetry 98 09/11/17 10:00 09/11/17 12:00 Temperature 98 F 98.1 F Pulse Rate 74 61 Respiratory Rate 18 15 Blood Pressure 188/75 H 188/81 H Pulse Oximetry Intake & Output 09/10/17 09/11/17 09/11/17 18:59 06:59 18:59 Intake Total 1120 / 1120 480 / 480 3000 / 3000 Balance 1120 / 1120 480 / 480 3000 / 3000 Weight 92.1 kg Intake: IV 1000 / 1000 3000 / 3000 NS Inj 1,000 ML @ 100 mls/hr IV 1000 / 1000 3000 / 3000 .CONT .Q10H [facility] Rx#:[id number] Oral 120 / 120 480 / 480 Other: # Voids 4 4 # Bowel Movements 0 Weight On Admission 91.5 kg - Constitutional no acute distress - Routine HEENT Exam ENT: Present: mucous membranes moist - Routine Respiratory Exam Present: CTA bilaterally - Routine Cardiovascular Exam Present: RRR - Routine Abdominal Exam Present: soft - Routine Neurological Exam Present: alert Assessment and Plan - Assessment (1) Chronic kidney disease, stage IV (severe) Code(s): N18.4 - Chronic kidney disease, stage 4 (severe) Status: Acute Plan: Patient's renal indices have actually improved somewhat overnight. Continue IV hydration. Patient does appear to be clinically euvolemic at this time. Patient and family have accepted risk of nephrotoxicity associated with the cardiac angiogram and it is tentatively scheduled for this Thursday. Given her current labs and co-morbidities accounting for 100mL contrast dose, she is at ~57% risk for development of contrast nephropathy that may or may not be reversible. She is at ~13% risk for sustaining renal injury that may require dialytic intervention. Given her already severely impaired renal functions, it is uncertain if dialysis would be temporary measure, and in all likelihood be chronic if needed. The risk would have to be assumed by the patient and the supervisor blood donor recruiters, and risks versus benefits weighed. The patient and her daughter have both been counselled of the aforementioned (daughter did translate to Lao for the patient's better understanding) and they do seem to be in agreement to proceed. Will defer to cardiology in regards to the urgency to proceed Medications should be adjusted for the patient's estimated GFR if clinically indicated. Avoid additional agents with significant potential for nephrotoxicity if possible including NSAIDs for analgesia, s. Gadolinium is contraindicated if the GFR is below 30. (2) Non-ST elevated myocardial infarction (non-STEMI) Code(s): I21.4 - Non-ST elevation (NSTEMI) myocardial infarction Status: Inactive Plan: As above. (3) Essential (primary) hypertension Code(s): I10 - Essential (primary) hypertension Status: Acute Plan: BP elevated. Will start on Amlodipine for better control. Consider Hydralazine if still not improved. (4) Diabetes mellitus Code(s): E11.9 - Type 2 diabetes mellitus without complications Status: Acute Plan: Mgmt as per primary
--- NOTE | 2017-09-11 15:41 | ECHRPT ---
Indication: chest pain CONCLUSIONS The left ventricular systolic function is normal with an estimated ejection fraction in the range of 55-60%. Normal left ventricular size. Mild concentric left ventricular hypertrophy. No regional wall motion abnormalities are present. Trace mitral valve regurgitation. Aortic valve sclerosis is present. Trace aortic valve regurgitation. The pulmonary valve is not well visualized. BP: / HR: Rhythm: Sinus MEASUREMENTS (Male / Female) Normal Values Technical Quality:Fair 2D ECHO LV Diastolic Diameter PLAX 4.3 cm 4.2 - 5.9 / 3.9 - 5.3 cm LV Systolic Diameter PLAX 3.2 cm IVS Diastolic Thickness 1.3 cm 0.6 - 1.0 / 0.6 - 0.9 cm LVPW Diastolic Thickness 1.3 cm 0.6 - 1.0 / 0.6 - 0.9 cm LV Relative Wall Thickness 0.6 LVOT Diameter 2.0 cm LA Systolic Diameter LX 3.0 cm 3.0 - 4.0 / 2.7 - 3.8 cm M-MODE Aortic Root Diameter MM 2.3 cm AV Cusp Separation MM 1.5 cm DOPPLER AV Peak Velocity 114.0 cm/s AV Peak Gradient 5.2 mmHg AI Peak Velocity 289.0 cm/s AI Peak Gradient 33.4 mmHg AI Pressure Half Time 1178.5 ms LVOT Peak Velocity 81.4 cm/s LVOT Peak Gradient 2.7 mmHg AV Area Cont Eq pk 2.2 cm MV Area PHT 4.4 cm Mitral E Point Velocity 96.3 cm/s Mitral A Point Velocity 105.0 cm/s Mitral E to A Ratio 0.9 LV E' Lateral Velocity 6.4 cm/s Mitral E to LV E' Lateral Ratio 15.0 LV E' Septal Velocity 5.4 cm/s Mitral E to LV E' Septal Ratio 18.0 FINDINGS LEFT VENTRICLE The left ventricular systolic function is normal with an estimated ejection fraction in the range of 55-60%. Normal left ventricular size. Mild concentric left ventricular hypertrophy. No regional wall motion abnormalities are present. RIGHT VENTRICLE Normal right ventricular size and systolic function. LEFT ATRIUM The left atrial size is normal. RIGHT ATRIUM The right atrial size is normal. ATRIAL SEPTUM Normal atrial septal thickness without atrial level shunting by limited color doppler interrogation. AORTA The aortic root and proximal ascending aorta are normal in size on limited imaging. MITRAL VALVE Structurally normal mitral valve. Trace mitral valve regurgitation. AORTIC VALVE Trileaflet aortic valve. Aortic valve sclerosis is present. Trace aortic valve regurgitation. TRICUSPID VALVE Structurally normal tricuspid valve. No tricuspid valve stenosis or regurgitation. PULMONARY VALVE The pulmonary valve is not well visualized. VESSELS The inferior vena cava is normal in size. PERICARDIUM No pericardial effusion. Lemuel Foreman MD, FACC (Electronically Signed) Final Date:11 September 2017 15:41
[2017-09-11] MEDS: ALPRAZolam 0.25 MG Tablet PO PRN ×2 (15:54→20:44)
[2017-09-11 17:24] LABS: Hemoglobin A1c 8.1 % (4.3-6.0)
[2017-09-11] MEDS ORDERED: hydrALAZINE 50 MG Tablet PO SCH (18:00)
--- NOTE | 2017-09-11 19:22 | ECG ---
Date Performed: 09/11/2017 Time Performed: 11:08:40 PTAGE: 77 years EKG: Sinus rhythm . Left axis deviation Left ventricular hypertrophy Lateral ST-T changes are probably due to ventricul ar hypertrophy Abnormal ECG NO PREVIOUS TRACING DOCTOR: Sohail Andrews Interpretating Date/Time 09/11/2017 19:21:02
[2017-09-11] MEDS ORDERED: Heparin 10,000 UNITS/10 ML Vial (for IV use) IV.PUSH PRN ×2 (20:11)
[2017-09-11] MEDS: Gabapentin 300 MG Capsule PO SCH (20:44)
[2017-09-12] MEDS: Sod Chloride 0.9% Inj 1,000 ML IV.CONT SCH ×3 (04:53→14:58)
[2017-09-12] MEDS: Chlorhexidine Gluconate 2% 1 Pack (2 Cloths) TOPICAL SCH (04:55)
[2017-09-12 07:35] LABS: Hematocrit 26.6 % (35.0-46.0); Hemoglobin 9.1 gm/dL (11.6-15.3); Mean Corpuscular Hemoglobin 30.8 pg (27.0-34.0); Mean Corpuscular Volume 90.4 fL (80.0-100.0); Mean Platelet Volume 8.5 fL (7.0-11.0); Platelet Count 230 th/mm3 (150-450); Red Blood Count 2.94 mil/mm3 (4.00-5.30); Red Cell Distribution Width 14.4 % (11.6-17.2); White Blood Count 9.1 th/mm3 (4.0-11.0)
--- NOTE | 2017-09-12 07:56 | P.PN ---
Subjective Interval history: patient awake and alert, no chest pain or shortness of breath', no nausea or vomiting states "neuropathia" Physical Exam Vital signs: Vital Signs 09/11/17 08:00 09/11/17 10:00 09/11/17 12:00 Temperature 98.3 F 98 F 98.1 F Pulse Rate 81 74 61 Respiratory Rate 16 18 15 Blood Pressure 199/94 H 188/75 H 188/81 H 09/11/17 16:00 09/11/17 20:00 09/12/17 00:00 Temperature 98.7 F 98.2 F Pulse Rate 71 75 67 Respiratory Rate 13 16 16 Blood Pressure 164/83 H 161/70 H 146/66 H Intake & Output 09/11/17 09/12/17 09/12/17 18:59 06:59 18:59 Intake Total 3900 / 3900 1720 / 1720 Output Total 1600 / 1600 2000 / 1999 Balance 2300 / 2300 -280 / -280 Weight 92.1 kg Intake: IV 3000 / 3000 1000 / 1000 NS Inj 1,000 ML @ 100 mls/hr IV 3000 / 3000 1000 / 1000 .CONT .Q10H [facility] Rx#:[id number] Oral 900 / 900 720 / 720 Output: Urine 1600 / 1600 1999 / 1999 Stool 0 / 0 Narrative: awake and alert, no acute distress anicteric neck supple lungs- clear regular rhythm abdomen-soft nontender extremiteis no edema neuro exam- non focal Results - Labs CBC & Chem 7: 09/12/17 06:28 09/11/17 04:36 Laboratory Results - last 24 hr 09/11/17 09/11/17 09/11/17 04:36 13:45 17:17 WBC RBC Hgb Hct MCV MCH MCHC RDW Plt Count MPV APTT 41.2 H POC Glucose 218 H Hemoglobin A1c 8.1 H 09/11/17 09/12/17 20:34 06:28 WBC 9.1 RBC 2.94 L Hgb 9.1 L Hct 26.6 L MCV 90.4 MCH 30.8 MCHC 34.0 RDW 14.4 Plt Count 230 MPV 8.5 APTT POC Glucose 174 H Hemoglobin A1c Assessment and Plan - Plan 77 years old female ACS, NSTEMI S/P cardiac cath 2VD Hypertension- better controlled- SBPs- 140s HYperlipidemia - ASA daily - Lopresor to 50 mg po q8 - continue on Amlodipine 5 mg daily (per patient at home was on CCB- Nifedipine) - Nitrol ointment 1 in to ant chest wall q 6 - Echo 55.60%, normal LV size - cardiology ff - started statins- Lipitor 20 mg hs- LDL 149 - plan to eventually proceed with PCI- Thursday- with close monitoring of renal functions - continue to monitor BPs and adjust Diabetes mellitus, type 2, insulin requiring - cardaic diet/diabetic diet - sliding scale. check hemoglobin A1C- 8.1 - at home on Lantus 20 units q am, 25 units q pm- hold for now - start levemer q am daily today Diabetic nephropathy- ff creatinine, non oliguric History of right urethral stone extraction , right in the past - nephrology ff- Dr. Cedeno - she is ff by Dr. Lawler as OP - on hydration - post cath- will continue IVF- as plan for another cardiac cath on Thursday - check BMP today - Renal US- echogenic kidneys, possible left ureteral calculus diabetic neuropathy - continue on Gabapentin Anxiety disorder - continue on Xanax prn for anxiety Transfer to [facility] bed- May be out of be d to chair for all meal start Lovenox SQ for DVT prophylaxis
[2017-09-12 08:17] LABS: % Iron Saturation 21.9 % (20-50)
[2017-09-12] MEDS ORDERED: Enoxaparin Inj 30 MG/0.3 ML Syringe SQ SCH (09:00)
[2017-09-12] MEDS: Gabapentin 300 MG Capsule PO SCH ×2 (09:43→21:25)
[2017-09-12] MEDS: amLODIPine 5 MG Tablet PO SCH ×3 (09:44→21:25)
[2017-09-12] MEDS: Insulin Detemir Inj 1,000 UNIT/10 ML Vial SQ SCH (09:44)
[2017-09-12] MEDS: Insulin NovoLOG Aspart Correctional Sugar Inj SQ SCH ×4 (09:47→21:31)
--- NOTE | 2017-09-12 09:48 | P.PNCA ---
Subjective Interval history: No further chest pain or dyspnea. Only complaint is mild neck pain. tele - no events. echo - LVEF 55%, no RWMAs, no significant valvular disease Physical Exam Vital signs: Vital Signs 09/11/17 10:00 09/11/17 12:00 09/11/17 16:00 Temperature 98 F 98.1 F 98.7 F Pulse Rate 74 61 71 Respiratory Rate 18 15 13 Blood Pressure 188/75 H 188/81 H 164/83 H 09/11/17 20:00 09/12/17 00:00 Temperature 98.2 F Pulse Rate 75 67 Respiratory Rate 16 16 Blood Pressure 161/70 H 146/66 H Intake & Output 09/11/17 09/12/17 09/12/17 18:59 06:59 18:59 Intake Total 3900 / 3900 1720 / 1720 Output Total 1600 / 1600 1999 / 1999 Balance 2300 / 2300 -280 / -280 Weight 92.1 kg Intake: IV 3000 / 3000 1000 / 1000 NS Inj 1,000 ML @ 100 mls/hr IV 3000 / 3000 1000 / 1000 .CONT .Q10H [facility] Rx#:[id number] Oral 900 / 900 720 / 720 Output: Urine 1600 / 1600 2000 / 2000 Stool 0 / 0 Narrative: awake and alert, no acute distress anicteric neck supple lungs- clear regular rhythm abdomen-soft nontender extremiteis no edema neuro exam- non focal Assessment and Plan - Plan 77-year-old Turkmen-speaking female with past medical history of HTN, DM, diabetic nephropathy, CKD who presented for chest pain due to non-STEMI. NSTEMI: LHC 09/10 showed primarily 2 vessel [place] CAD involving the proximal LCx and RCA. PCI on hold pending optimization of renal function, discussed risks/benefits of elective PCI in the next few days, patient wishes to proceed. Will plan for [facility] with PCI on Thursday. Change lovenox dvt ppx dose to heparin gtt for medical management of NSTEMI and d/c on Thursday AM. Continue ASA, Atorvastatin, change metoprolol to atenolol for improved BP control. Hypertension: Poorly controlled. Amlodipine 5mg daily, Clonidine 0.1mg q8hr prn SBP > 160, d/c NTG paste and start Imdur 60mg daily, increase Hydralazine to 100mg q8hr, change metoprolol to atenolol 50mg bid with holding parameters. CKD: Continue IVF. Nephrology consulted to assist with risk stratification with possible LHC/PCI and advanced renal disease.
[2017-09-12 09:49] LABS: Calcium 8.4 mg/dL (8.5-10.1); Carbon Dioxide 17.2 meq/L (21.0-32.0); Potassium 4.2 meq/L (3.5-5.1)
[2017-09-12] MEDS: ALPRAZolam 0.25 MG Tablet PO PRN ×2 (10:27→19:25)
[2017-09-12 11:37] LABS: INR 1.1 Ratio; Prothrombin Time 10.7 sec (9.8-11.6)
[2017-09-12] MEDS: Heparin Drip 25,000 UNIT/250 ML BAG IV.CONT PRN (11:46)
[2017-09-12] MEDS: Isosorbide Mononitrate 60 MG ER 24HR Tablet (Imdur) PO SCH (12:35)
--- NOTE | 2017-09-12 13:43 | P.PNNP ---
Subjective Interval history: Remains asymptomatic. Family present in room. Daughter translates. Physical Exam Vital signs: Vital Signs 09/11/17 16:00 09/11/17 20:00 09/12/17 00:00 Temperature 98.7 F 98.2 F Pulse Rate 71 75 67 Respiratory Rate 13 16 16 Blood Pressure 164/83 H 161/70 H 146/66 H 09/12/17 08:00 Temperature 98.5 F Pulse Rate 88 Respiratory Rate 18 Blood Pressure 202/86 H Intake & Output 09/11/17 09/12/17 09/12/17 18:59 06:59 18:59 Intake Total 3900 / 3900 1720 / 1720 Output Total 1600 / 1600 2000 / 2000 Balance 2300 / 2300 -280 / -280 Weight 92.1 kg Intake: IV 3000 / 3000 1000 / 1000 NS Inj 1,000 ML @ 100 mls/hr IV 3000 / 3000 1000 / 1000 .CONT .Q10H [facility] Rx#:[id number] Oral 900 / 900 720 / 720 Output: Urine 1600 / 1600 1999 / 1999 Stool 0 / 0 - Constitutional no acute distress - Routine HEENT Exam Head: Present: normocephalic, atraumatic - Routine Neck Exam Present: supple - Routine Respiratory Exam Present: CTA bilaterally - Routine Cardiovascular Exam Present: RRR, S1, S2 - Routine Abdominal Exam Present: soft, normoactive bowel sounds - Routine Skin Exam Present: intact - Routine Neurological Exam Present: alert, oriented X3 - Routine Psychiatric Exam Present: normal affect, normal thought process Assessment and Plan - Assessment (1) Chronic kidney disease, stage IV (severe) Code(s): N18.4 - Chronic kidney disease, stage 4 (severe) Status: Acute Plan: Renal function stable. Cath planned on Thursday. Continue on IVF, but decrease rate given her hypertension. Continue adequate po intake. Given her current labs and co-morbidities accounting for 100mL contrast dose, she is at ~57% risk for development of contrast nephropathy that may or may not be reversible. She is at ~13% risk for sustaining renal injury that may require dialytic intervention. Given her already severely impaired renal functions, it is uncertain if dialysis would be temporary measure, and in all likelihood be chronic if needed. The risk would have to be assumed by the patient and the application engineer, and risks versus benefits weighed. The patient and her daughter have both been counselled of the aforementioned (daughter did translate to South Korean for the patient's better understanding) and they do seem to be in agreement to proceed. Will defer to cardiology in regards to the urgency to proceed Medications should be adjusted for the patient's estimated GFR if clinically indicated. Avoid additional agents with significant potential for nephrotoxicity if possible including NSAIDs for analgesia, s. Gadolinium is contraindicated if the GFR is below 30. (2) Essential (primary) hypertension Code(s): I10 - Essential (primary) hypertension Status: Acute Plan: BP remains elevated. Will decrease IVF to 40mL/hr Increase amlodipine to 5mg BID. (3) Diabetes mellitus Code(s): E11.9 - Type 2 diabetes mellitus without complications Status: Acute Plan: Mgmt as per primary
[2017-09-12] MEDS: Sodium Bicarbonate 650 MG Tablet PO SCH (17:45)
[2017-09-12] MEDS: Atenolol 50 MG Tablet PO SCH (21:24)
[2017-09-13] MEDS: Chlorhexidine Gluconate 2% 1 Pack (2 Cloths) TOPICAL SCH (06:13)
[2017-09-13] MEDS: Isosorbide Mononitrate 60 MG ER 24HR Tablet (Imdur) PO SCH (06:13)
--- NOTE | 2017-09-13 08:09 | P.PNCA ---
<Dayo Talbot - Last Filed: 09/13/17 08:05> Subjective Interval history: RN at bedside. No chest pain or shortness of breath. BP is better controlled today. Planning for cardiac catheterization tomorrow, all questions answered. Physical Exam Vital signs: Vital Signs 09/12/17 12:00 09/12/17 14:30 09/12/17 14:31 Temperature Pulse Rate 84 92 H Respiratory Rate 25 H 22 Blood Pressure 192/79 H 135/63 Pulse Oximetry 97 97 09/12/17 14:45 09/12/17 15:00 09/12/17 15:15 Temperature Pulse Rate 95 H 88 87 Respiratory Rate 30 H 15 22 Blood Pressure 136/58 L 144/64 H 141/56 H Pulse Oximetry 96 97 98 09/12/17 15:30 09/12/17 15:45 09/12/17 16:00 Temperature 98.8 F Pulse Rate 89 87 90 Respiratory Rate 38 H 16 19 Blood Pressure 148/66 H 144/65 H 141/65 H Pulse Oximetry 97 96 96 09/12/17 16:16 09/12/17 16:31 09/12/17 16:45 Temperature Pulse Rate 89 91 H 97 H Respiratory Rate 33 H 24 20 Blood Pressure 148/65 H 119/56 L 123/60 Pulse Oximetry 98 98 96 09/12/17 17:00 09/12/17 17:16 09/12/17 17:30 Temperature Pulse Rate 101 H 108 H 92 H Respiratory Rate 22 38 H 22 Blood Pressure 134/56 L 161/67 H 131/57 L Pulse Oximetry 97 97 98 09/12/17 19:24 09/12/17 20:00 09/13/17 00:00 Temperature 98.2 F 98.1 F Pulse Rate 109 H 68 Respiratory Rate 16 16 16 Blood Pressure 139/60 134/65 Pulse Oximetry 09/13/17 04:00 Temperature Pulse Rate 68 Respiratory Rate 18 Blood Pressure 141/61 H Pulse Oximetry Intake & Output 09/12/17 09/13/17 09/13/17 18:59 06:59 18:59 Intake Total 1720 / 1720 480 / 480 Output Total 1000 / 1000 1500 / 1500 Balance 720 / 720 -1020 / -1020 Weight 208 lb 5.389 oz Intake: IV 1000 / 1000 NS Inj 1,000 ML @ 40 mls/hr IV. 1000 / 1000 CONT .Q24H [facility] Rx#:[id number] Oral 720 / 720 480 / 480 Output: Urine 1000 / 1000 1500 / 1500 Stool 0 / 0 Other: # Bowel Movements 0 0 Narrative: GENERAL: Well-developed well-nourished. In no acute distress. NECK: No carotid bruits. No JVD. CARDIOVASCULAR: Regular rate and rhythm. No murmur appreciated. RESPIRATORY: No accessory muscle use. Clear to auscultation. Breath sounds equal bilaterally. MUSCULOSKELETAL: No clubbing or cyanosis. No edema. NEUROLOGICAL: Awake and alert. Normal speech. Assessment and Plan - Plan 77-year-old Lao-speaking female with past medical history of HTN, DM, diabetic nephropathy, CKD who presented for chest pain due to non-STEMI. NSTEMI: LHC 09/10 showed primarily 2 vessel [place] CAD involving the proximal LCx and RCA. PCI on hold pending optimization of renal function, discussed risks/benefits of elective PCI in the next few days, patient wishes to proceed. Will plan for LHC with PCI on Thursday. Continue heparin gtt for medical management of NSTEMI and d/c on Thursday AM. Continue ASA, Atorvastatin, change metoprolol to atenolol for improved BP control. Hypertension: Improved controlled. Amlodipine was increased to 5mg twice daily by nephrology. Clonidine 0.1mg q8hr prn SBP > 160. Cont Imdur 60mg daily, Hydralazine to 100mg q8hr, atenolol 50mg bid with holding parameters. CKD: Continue IVF. Nephrology consulted to assist with risk stratification with possible LHC/PCI and advanced renal disease. <Martin Gamino - Last Filed: 09/13/17 09:57> Physical Exam Vital signs: Vital Signs 09/12/17 12:00 09/12/17 14:30 09/12/17 14:31 Temperature Pulse Rate 84 92 H Respiratory Rate 25 H 22 Blood Pressure 192/79 H 135/63 Pulse Oximetry 97 97 09/12/17 14:45 09/12/17 15:00 09/12/17 15:15 Temperature Pulse Rate 95 H 88 87 Respiratory Rate 30 H 15 22 Blood Pressure 136/58 L 144/64 H 141/56 H Pulse Oximetry 96 97 98 09/12/17 15:30 09/12/17 15:45 09/12/17 16:00 Temperature 98.8 F Pulse Rate 89 87 90 Respiratory Rate 38 H 16 19 Blood Pressure 148/66 H 144/65 H 141/65 H Pulse Oximetry 97 96 96 09/12/17 16:16 09/12/17 16:31 09/12/17 16:45 Temperature Pulse Rate 89 91 H 97 H Respiratory Rate 33 H 24 20 Blood Pressure 148/65 H 119/56 L 123/60 Pulse Oximetry 98 98 96 09/12/17 17:00 09/12/17 17:16 09/12/17 17:30 Temperature Pulse Rate 101 H 108 H 92 H Respiratory Rate 22 38 H 22 Blood Pressure 134/56 L 161/67 H 131/57 L Pulse Oximetry 97 97 98 09/12/17 19:24 09/12/17 20:00 09/13/17 00:00 Temperature 98.2 F 98.1 F Pulse Rate 109 H 68 Respiratory Rate 16 16 16 Blood Pressure 139/60 134/65 Pulse Oximetry 09/13/17 04:00 Temperature Pulse Rate 68 Respiratory Rate 18 Blood Pressure 141/61 H Pulse Oximetry Intake & Output 09/12/17 09/13/17 09/13/17 18:59 06:59 18:59 Intake Total 1720 / 1720 480 / 480 Output Total 1000 / 1000 1500 / 1500 Balance 720 / 720 -1020 / -1020 Weight 94.5 kg Intake: IV 1000 / 1000 NS Inj 1,000 ML @ 40 mls/hr IV. 1000 / 1000 CONT .Q24H [facility] Rx#:[id number] Oral 720 / 720 480 / 480 Output: Urine 1000 / 1000 1500 / 1500 Stool 0 / 0 Other: # Bowel Movements 0 0 Assessment and Plan - Plan agree with above with change to clonidine 0.1mg q8hrs standing with holding parameters. [facility] tomorrow for PCI Labs from today are pending.
[2017-09-13] MEDS: amLODIPine 5 MG Tablet PO SCH ×2 (08:30→21:06)
[2017-09-13] MEDS: Atenolol 50 MG Tablet PO SCH ×2 (08:30→21:07)
[2017-09-13] MEDS: Insulin Detemir Inj 1,000 UNIT/10 ML Vial SQ SCH (08:31)
[2017-09-13] MEDS: Sodium Bicarbonate 650 MG Tablet PO SCH ×3 (08:31→18:16)
[2017-09-13] MEDS: Gabapentin 300 MG Capsule PO SCH ×2 (08:31→21:07)
[2017-09-13] MEDS: Insulin NovoLOG Aspart Correctional Sugar Inj SQ SCH ×4 (08:32→21:09)
[2017-09-13] MEDS: ALPRAZolam 0.25 MG Tablet PO PRN ×2 (08:42→21:08)
--- NOTE | 2017-09-13 10:49 | P.PNNP ---
Subjective Interval history: No family present. Language barrier, but voiced no specific complaints except that she was anxious about her procedure tomorrow. Physical Exam Vital signs: Vital Signs 09/12/17 12:00 09/12/17 14:30 09/12/17 14:31 Temperature Pulse Rate 84 92 H Respiratory Rate 25 H 22 Blood Pressure 192/79 H 135/63 Pulse Oximetry 97 97 09/12/17 14:45 09/12/17 15:00 09/12/17 15:15 Temperature Pulse Rate 95 H 88 87 Respiratory Rate 30 H 15 22 Blood Pressure 136/58 L 144/64 H 141/56 H Pulse Oximetry 96 97 98 09/12/17 15:30 09/12/17 15:45 09/12/17 16:00 Temperature 98.8 F Pulse Rate 89 87 90 Respiratory Rate 38 H 16 19 Blood Pressure 148/66 H 144/65 H 141/65 H Pulse Oximetry 97 96 96 09/12/17 16:16 09/12/17 16:31 09/12/17 16:45 Temperature Pulse Rate 89 91 H 97 H Respiratory Rate 33 H 24 20 Blood Pressure 148/65 H 119/56 L 123/60 Pulse Oximetry 98 98 96 09/12/17 17:00 09/12/17 17:16 09/12/17 17:30 Temperature Pulse Rate 101 H 108 H 92 H Respiratory Rate 22 38 H 22 Blood Pressure 134/56 L 161/67 H 131/57 L Pulse Oximetry 97 97 98 09/12/17 19:24 09/12/17 20:00 09/13/17 00:00 Temperature 98.2 F 98.1 F Pulse Rate 109 H 68 Respiratory Rate 16 16 16 Blood Pressure 139/60 134/65 Pulse Oximetry 09/13/17 04:00 09/13/17 08:00 Temperature 98.4 F Pulse Rate 68 64 Respiratory Rate 18 16 Blood Pressure 141/61 H 137/68 Pulse Oximetry 92 L Intake & Output 09/12/17 09/13/17 09/13/17 18:59 06:59 18:59 Intake Total 1720 / 1720 480 / 480 Output Total 1000 / 1000 1500 / 1500 Balance 720 / 720 -1020 / -1020 Weight 94.5 kg Intake: IV 1000 / 1000 NS Inj 1,000 ML @ 40 mls/hr IV. 1000 / 1000 CONT .Q24H ABHI Rx#:[id number] Oral 720 / 720 480 / 480 Output: Urine 1000 / 1000 1500 / 1500 Stool 0 / 0 Other: # Bowel Movements 0 0 - Constitutional no acute distress - Routine HEENT Exam Head: Present: normocephalic - Routine Neck Exam Present: supple - Routine Respiratory Exam Present: accessory muscle use, CTA bilaterally - Routine Cardiovascular Exam Present: RRR, S1, S2 - Routine Abdominal Exam Present: soft, normoactive bowel sounds - Routine Extremities Exam Absent: edema - Routine Skin Exam Present: intact - Routine Neurological Exam Present: alert, oriented X3 - Routine Psychiatric Exam Present: normal affect, normal thought process Assessment and Plan - Assessment (1) Chronic kidney disease, stage IV (severe) Code(s): N18.4 - Chronic kidney disease, stage 4 (severe) Status: Acute Plan: No labs today. Check in the AM. Will increase IVF tonight at 2200 impending cath tomorrow. Will continue to follow. Discussed again her relative risk for procedure. If contrast injury were to occur, usually happens within 24-48h post-exposure. Given her current labs and co-morbidities accounting for 100mL contrast dose, she is at ~57% risk for development of contrast nephropathy that may or may not be reversible. She is at ~13% risk for sustaining renal injury that may require dialytic intervention. Given her already severely impaired renal functions, it is uncertain if dialysis would be temporary measure, and in all likelihood be chronic if needed. The risk would have to be assumed by the patient and the biology professor, and risks versus benefits weighed. The patient and her daughter have both been counselled of the aforementioned (daughter did translate to Cambodian for the patient's better understanding) and they do seem to be in agreement to proceed. Will defer to cardiology in regards to the urgency to proceed Medications should be adjusted for the patient's estimated GFR if clinically indicated. Avoid additional agents with significant potential for nephrotoxicity if possible including NSAIDs for analgesia, s. Gadolinium is contraindicated if the GFR is below 30. (2) Essential (primary) hypertension Code(s): I10 - Essential (primary) hypertension Status: Acute Plan: Improved (3) Diabetes mellitus Code(s): E11.9 - Type 2 diabetes mellitus without complications Status: Acute Plan: Mgmt as per primary
[2017-09-13 13:13] LABS: Albumin 2.7 g/dL (3.4-5.0); Calcium 8.2 mg/dL (8.5-10.1); Carbon Dioxide 18.6 meq/L (21.0-32.0); Phosphorus 4.2 mg/dL (2.5-4.9); Potassium 4.4 meq/L (3.5-5.1)
[2017-09-13] MEDS: Heparin Drip 25,000 UNIT/250 ML BAG IV.CONT PRN (14:23)
[2017-09-13 16:03] LABS: Baso # (Auto) 0.1 th/mm3 (0.0-0.2); Baso % (Auto) 0.9 % (0.0-2.0); Eos # (Auto) 0.1 th/mm3 (0.0-0.4); Eos % (Auto) 1.3 % (0.0-4.0); Hematocrit 28.3 % (35.0-46.0); Hemoglobin 9.5 gm/dL (11.6-15.3); Lymph % (Auto) 10.5 % (9.0-44.0); Mean Corpuscular HGB Conc 33.5 % (32.0-36.0); Mean Corpuscular Hemoglobin 30.7 pg (27.0-34.0); Mean Corpuscular Volume 91.7 fL (80.0-100.0); Mean Platelet Volume 8.9 fL (7.0-11.0); Mono # (Auto) 0.6 th/mm3 (0.0-0.9); Mono % (Auto) 6.2 % (0.0-8.0); Neut % (Auto) 81.1 % (16.0-70.0); Platelet Count 237 th/mm3 (150-450); Red Blood Count 3.08 mil/mm3 (4.00-5.30); Red Cell Distribution Width 14.5 % (11.6-17.2); White Blood Count 9.9 th/mm3 (4.0-11.0)
--- NOTE | 2017-09-13 18:10 | P.PN ---
Subjective Interval history: no complains of chest pain ro shortness of breath voiding Physical Exam Vital signs: Vital Signs 09/12/17 19:24 09/12/17 20:00 09/13/17 00:00 Temperature 98.2 F 98.1 F Pulse Rate 109 H 68 Respiratory Rate 16 16 16 Blood Pressure 139/60 134/65 Pulse Oximetry 09/13/17 04:00 09/13/17 08:00 09/13/17 12:00 Temperature 98.4 F 98.6 F Pulse Rate 68 64 77 Respiratory Rate 18 16 18 Blood Pressure 141/61 H 137/68 138/62 Pulse Oximetry 92 L 92 L 09/13/17 16:00 Temperature 98.8 F Pulse Rate 71 Respiratory Rate 20 Blood Pressure 118/57 L Pulse Oximetry 93 L Intake & Output 09/12/17 09/13/17 09/13/17 18:59 06:59 18:59 Intake Total 1720 / 1720 480 / 480 250 / 250 Output Total 1000 / 1000 1500 / 1500 Balance 720 / 720 -1020 / -1020 250 / 250 Weight 94.5 kg Intake: IV 1000 / 1000 250 / 250 Heparin/D5W 25,000 U/250 mL 25, 250 / 250 000 unit In 250 ml @ Per Protocol IV.CONT TITRATE PRN Rx #:[id number] NS Inj 1,000 ML @ 40 mls/hr IV. 1000 / 1000 CONT .Q24H ABHI Rx#:[id number] Oral 720 / 720 480 / 480 Output: Urine 1000 / 1000 1500 / 1500 Stool 0 / 0 Other: # Bowel Movements 0 0 Results - Labs CBC & Chem 7: 09/13/17 14:48 09/13/17 12:17 Laboratory Results - last 24 hr 09/12/17 09/12/17 09/13/17 17:08 21:10 07:37 WBC RBC Hgb Hct MCV MCH MCHC RDW Plt Count MPV Neut % (Auto) Lymph % (Auto) [place] % (Auto) Eos % (Auto) Baso % (Auto) Neut # (Auto) Lymph # (Auto) [place] # (Auto) Eos # (Auto) Baso # (Auto) WBC Differential Differential Comment APTT 27.1 Sodium Potassium Chloride Carbon Dioxide Anion Gap BUN Creatinine Estimated GFR POC Glucose 181 H 204 H Random Glucose Calcium Phosphorus Albumin 09/13/17 09/13/17 09/13/17 12:17 13:29 14:48 WBC 9.9 RBC 3.08 L Hgb 9.5 L Hct 28.3 L MCV 91.7 MCH 30.7 MCHC 33.5 RDW 14.5 Plt Count 237 MPV 8.9 Neut % (Auto) 81.1 H Lymph % (Auto) 10.5 [place] % (Auto) 6.2 Eos % (Auto) 1.3 Baso % (Auto) 0.9 Neut # (Auto) 8.0 H Lymph # (Auto) 1.0 [place] # (Auto) 0.6 Eos # (Auto) 0.1 Baso # (Auto) 0.1 WBC Differential . Differential Comment Auto diff final APTT Sodium 139 Potassium 4.4 Chloride 110 H Carbon Dioxide 18.6 L Anion Gap 10 BUN 35 H Creatinine 2.57 H Estimated GFR 18 L POC Glucose 250 H Random Glucose 158 H Calcium 8.2 L Phosphorus 4.2 Albumin 2.7 L 09/13/17 14:48 WBC RBC Hgb Hct MCV MCH MCHC RDW Plt Count MPV Neut % (Auto) Lymph % (Auto) [place] % (Auto) Eos % (Auto) Baso % (Auto) Neut # (Auto) Lymph # (Auto) [place] # (Auto) Eos # (Auto) Baso # (Auto) WBC Differential Differential Comment APTT 36.4 H D Sodium Potassium Chloride Carbon Dioxide Anion Gap BUN Creatinine Estimated GFR POC Glucose Random Glucose Calcium Phosphorus Albumin Assessment and Plan - Plan 77 years old female ACS, NSTEMI S/P cardiac cath 2VD Hypertension- better controlled- HYperlipidemia - ASA daily - BB- Atenolol 50 mg bid - continue on Amlodipine 5 mg daily (per patient at home was on CCB- Nifedipine) - Clonidine 0.1 mg po q 8- started - Hydralazine 100 mg tid - Imdur 60mg daily - Echo 55.60%, normal LV size - cardiology ff - Lipitor 20 mg hs- LDL 149 - plan to eventually proceed with PCI- tomorrow - with close monitoring of renal functions - continue to monitor BP/renal functions Diabetes mellitus, type 2, insulin requiring - cardaic diet/diabetic diet - sliding scale. check hemoglobin A1C- 8.1. BS 170- low 200s - at home on Lantus 20 units q am, 25 units q pm- hold for now - Increase Levemir to 5 units bid- while here Diabetic nephropathy- ff creatinine, non oliguric - creatinine increasing History of right urethral stone extraction , right in the past - nephrology ff- Dr. Cedeno - she is ff by Dr. Lawler as OP - on hydration - post cath- will continue IVF- as plan for another cardiac cath on Thursday - BMP in am . ff renal functionspost cath - closely if proceeds with cath - Renal US- echogenic kidneys, possible left ureteral calculus diabetic neuropathy - continue on Gabapentin Anxiety disorder - continue on Xanax prn for anxiety Transfer to [facility] bed- May be out of be d to chair for all meal start Lovenox SQ for DVT prophylaxis
[2017-09-13] MEDS ORDERED: Sod Chloride 0.9% Inj 1,000 ML IV.CONT SCH (22:00)
[2017-09-14] MEDS: Chlorhexidine Gluconate 2% 1 Pack (2 Cloths) TOPICAL SCH (05:34)
[2017-09-14] MEDS: Isosorbide Mononitrate 60 MG ER 24HR Tablet (Imdur) PO SCH (06:14)
[2017-09-14 06:33] LABS: Baso # (Auto) 0.1 th/mm3 (0.0-0.2); Baso % (Auto) 1.1 % (0.0-2.0); Eos # (Auto) 0.2 th/mm3 (0.0-0.4); Eos % (Auto) 2.5 % (0.0-4.0); Hematocrit 26.1 % (35.0-46.0); Hemoglobin 8.9 gm/dL (11.6-15.3); Lymph # (Auto) 1.4 th/mm3 (1.0-4.8); Lymph % (Auto) 15.4 % (9.0-44.0); Mean Corpuscular HGB Conc 33.9 % (32.0-36.0); Mean Corpuscular Hemoglobin 31.1 pg (27.0-34.0); Mean Corpuscular Volume 91.7 fL (80.0-100.0); Mean Platelet Volume 8.4 fL (7.0-11.0); Mono # (Auto) 0.7 th/mm3 (0.0-0.9); Mono % (Auto) 7.4 % (0.0-8.0); Neut # (Auto) 6.8 th/mm3 (1.8-7.7); Neut % (Auto) 73.6 % (16.0-70.0); Platelet Count 222 th/mm3 (150-450); Red Blood Count 2.85 mil/mm3 (4.00-5.30); Red Cell Distribution Width 14.9 % (11.6-17.2); White Blood Count 9.3 th/mm3 (4.0-11.0)
[2017-09-14 07:12] LABS: Albumin 2.3 g/dL (3.4-5.0); Calcium 8.4 mg/dL (8.5-10.1); Carbon Dioxide 18.6 meq/L (21.0-32.0); Phosphorus 4.5 mg/dL (2.5-4.9); Potassium 4.3 meq/L (3.5-5.1)
--- NOTE | 2017-09-14 07:43 | P.PNCA ---
<Dayo Talbot - Last Filed: 09/14/17 07:39> Subjective Interval history: RN and family at bedside. Reports some chest pain overnight. No shortness of breath. No questions today. Physical Exam Vital signs: Vital Signs 09/13/17 08:00 09/13/17 12:00 09/13/17 16:00 Temperature 98.4 F 98.6 F 98.8 F Pulse Rate 64 77 71 Respiratory Rate 16 18 20 Blood Pressure 137/68 138/62 118/57 L Pulse Oximetry 92 L 92 L 93 L 09/13/17 20:00 09/13/17 22:05 09/13/17 23:00 Temperature 98.2 F Pulse Rate 85 63 Respiratory Rate 14 18 Blood Pressure 135/63 Pulse Oximetry 98 09/14/17 00:00 09/14/17 01:00 09/14/17 02:00 Temperature 98.7 F Pulse Rate 62 62 64 Respiratory Rate 18 Blood Pressure 141/65 H Pulse Oximetry 98 09/14/17 03:00 09/14/17 04:00 09/14/17 05:00 Temperature 98.9 F Pulse Rate 64 68 73 Respiratory Rate 18 Blood Pressure 143/80 H Pulse Oximetry 93 L 09/14/17 06:00 09/14/17 06:19 Temperature Pulse Rate 70 Respiratory Rate 18 Blood Pressure Pulse Oximetry Intake & Output 09/13/17 09/14/17 09/14/17 18:59 06:59 18:59 Intake Total 1050 / 1050 Output Total 1000 / 1000 200 / 200 Balance 50 / 50 -200 / -200 Weight 208 lb 5.389 oz Intake: IV 250 / 250 Heparin/D5W 25,000 U/250 mL 25, 250 / 250 000 unit In 250 ml @ Per Protocol IV.CONT TITRATE PRN Rx #:[id number] Oral 800 / 800 Output: Urine 1000 / 1000 200 / 200 Stool 0 / 0 Other: # Bowel Movements 0 Narrative: GENERAL: Well-developed well-nourished. In no acute distress. NECK: No carotid bruits. No JVD. CARDIOVASCULAR: Regular rate and rhythm. No murmur appreciated. RESPIRATORY: No accessory muscle use. Clear to auscultation. Breath sounds equal bilaterally. MUSCULOSKELETAL: No clubbing or cyanosis. No edema. NEUROLOGICAL: Awake and alert. Normal speech. Assessment and Plan - Plan 77-year-old Italian-speaking female with past medical history of HTN, DM, diabetic nephropathy, CKD who presented for chest pain due to non-STEMI. NSTEMI: LHC 09/10 showed primarily 2 vessel [place] CAD involving the proximal LCx and RCA. PCI on hold pending optimization of renal function, discussed risks/benefits of elective PCI, patient wishes to proceed. Will plan for LHC with PCI on Thursday. Continue heparin gtt for medical management of NSTEMI and d /c on Thursday AM. Continue ASA, Atorvastatin, beta-gonzález. Hypertension: Improved controlled. Amlodipine was increased to 5mg twice daily by nephrology. Continue clonidine 0.1mg q8hr, Imdur 60mg daily, Hydralazine to 100mg q8hr, atenolol 50mg bid with holding parameters. CKD: Continue IVF. Nephrology on board to assist with risk stratification and renal management with possible LHC/PCI and advanced renal disease. <Minor,Lemuel - Last Filed: 09/14/17 10:40> Physical Exam Vital signs: Vital Signs 09/13/17 12:00 09/13/17 16:00 09/13/17 20:00 Temperature 98.6 F 98.8 F 98.2 F Pulse Rate 77 71 85 Respiratory Rate 18 20 14 Blood Pressure 138/62 118/57 L 135/63 Pulse Oximetry 92 L 93 L 98 09/13/17 22:05 09/13/17 23:00 09/14/17 00:00 Temperature 98.7 F Pulse Rate 63 62 Respiratory Rate 18 18 Blood Pressure 141/65 H Pulse Oximetry 98 09/14/17 01:00 09/14/17 02:00 09/14/17 03:00 Temperature Pulse Rate 62 64 64 Respiratory Rate Blood Pressure Pulse Oximetry 09/14/17 04:00 09/14/17 05:00 09/14/17 06:00 Temperature 98.9 F Pulse Rate 68 73 70 Respiratory Rate 18 Blood Pressure 143/80 H Pulse Oximetry 93 L 09/14/17 06:19 09/14/17 07:54 Temperature 98.5 F Pulse Rate 69 Respiratory Rate 18 18 Blood Pressure 136/70 Pulse Oximetry 91 L Intake & Output 09/13/17 09/14/17 09/14/17 18:59 06:59 18:59 Intake Total 1050 / 1050 Output Total 1000 / 1000 200 / 200 Balance 50 / 50 -200 / -200 Weight 94.5 kg Intake: IV 250 / 250 Heparin/D5W 25,000 U/250 mL 25, 250 / 250 000 unit In 250 ml @ Per Protocol IV.CONT TITRATE PRN Rx #:[id number] Oral 800 / 800 Output: Urine 1000 / 1000 200 / 200 Stool 0 / 0 Other: # Bowel Movements 0 Assessment and Plan - 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 place carr catheter strict I/O's iron sulfate IV lasix monitor Cr closely hold on plavix for now, if creatine rises further, may need hemodialysis and port/catheter placement possible cath tomorrow or mid week depending upon status
[2017-09-14] MEDS: Sodium Bicarbonate 650 MG Tablet PO SCH ×3 (09:26→17:37)
[2017-09-14] MEDS: Gabapentin 300 MG Capsule PO SCH ×2 (09:27→21:23)
[2017-09-14] MEDS: Atenolol 50 MG Tablet PO SCH ×2 (09:27→21:23)
[2017-09-14] MEDS: amLODIPine 5 MG Tablet PO SCH ×2 (09:27→21:23)
[2017-09-14] MEDS: Insulin Detemir Inj 1,000 UNIT/10 ML Vial SQ SCH ×2 (09:28→21:25)
[2017-09-14] MEDS ORDERED: Heparin/NS PF Inj 1,500 ML ONE (10:07)
[2017-09-14] MEDS ORDERED: fentaNYL Citrate Inj 100 MCG/2 ML Ampul ONE (10:08)
--- NOTE | 2017-09-14 10:27 | CATHPROC ---
[employer] HIS Report Study Information Study Number Admission Scheduled Start Study Start [id number] Sep 10 2017 7:22AM 09/10/2017 Sep 14 2017 9:50AM [place] [facility] Cardiac Pacer/ICD Admit Source Facility Department Other [facility] - Software Sales Consultant Physician and Clinical Staff Initial MD Foreman, Lemuel [employer] Facertino Wyman RN, Mariano Recorder Roya Begum ,RT(R) Scrub Mary Jane Menezes,RT(R) (BS) Scrub Student, CASH APPLICATIONS COORDINATOR/RT(R) Equipment Time Base Filler Operator Description Size Mfg Part Number Used/Scraped COPILOT VALVE, BLEEDBACK [id number] 09:52 [employer] Used CONTROL *[id number] TRANSDUCER, TRUWAVE [id number] 09:52 NOVOA MTZ * Used W/STOCKCOCK *[id number] 09:52 [employer] BLANKET,WARM AIR CCL * Used *[id number] 09:52 [employer] PACK, CCL CUSTOM * Used *[id number] 09:52 [employer] PACER PEN, SKIN DUAL W/ RULER * Used *[id number] 09:52 [employer] Business Plan SHEATH, FR6.5 PRELUDE 11CM FR 6.5 038ACT Used *[id number] 09:52 [employer] Business Plan WIRE, 3MMJ .035 180CM 180CM Used *[id number] 09:52 NAMIC MANIFOLD, 4 PORT * Used *[id number] 09:52 [employer]COMED OMNIPAQUE, 350 MG, 150ML 150ML [id number] Used History: Current Medications Medication Dosage/Unit Route Frequency Last Date/Time Taken ASA LIPITOR Glucophage LOPRESSOR History: Allergies Allergy Reaction Penicillins Itching guaifenesin Anxiety History: Risk Factors Family History of Hypertension Dyslipidemia Previous KS Previous Heart Failure Premature CAD Yes No No No No Prior Valve Prior PCI Prior CABG Surgery No No No Cerebrovascular Peripheral Artery Chronic Lung On Dialysis Diabetes Diabetes Therapy Disease Disease Disease No No No No Yes Insulin History: Stress Tests Stress or Imaging Studies Performed No Labs Hgb (g/dl) Hct (%) RBC (MIL/MM3) WBC (l/cumm) Platelets (thousands) 11.60-17.00 35.00-51.00 4.00-5.90 4.00-11.00 150.00-450.00 8.9 26.1 2.8 9.3 222 Glucose (mg/dl) BUN (mg/dl) Creatinine (mg/dl) BUN:Creatinine (1:x) 74.00-106.00 7.00-18.00 0.50-1.30 10.00-20.00 155 42 2.8 15 Na (meq/l) K (meq/l) 136.00-145.00 3.50-5.10 139 4.3 INR (PTT:PT) 0.90-1.10 1.1 CPK-MB (ng/ML) 0.50-3.60 Not Drawn Medication Medication Total Dose (Bolus/Oral) Medication Total Dosage/Unit OXYGEN 4 l/min Medications (Bolus/Oral) Medication Time Given Dosage/Unit Administered By Reason OXYGEN 09/14/2017 10:15:26 AM 4 l/min Garo LUEVANO, Mariano 4 l/min OXYGEN given in lab by Mariano Wyman RN via Nasal. Ordered by Lemuel Foreman. Medication (Drip) Medication Time Given Dosage/Unit Concentration/Unit Diluent (ml) Solution HEPARIN DRIP STOPPED 09/14/2017 9:50:48 AM 0 units/hr 0 0 units/hr HEPARIN DRIP STOPPED given pre op in Right Antecubital via Peripheral IV. Pump/Drip Flow = 13 ml/hr using [Solution Name]. IV Solutions 09/14/2017 10:13:43 AM 50 mL (IV) NaCl .9 Patient arrived on IV Solutions in Left Antecubital via Peripheral IV. Pump/Drip Flow using NaCl .9. Initial Case Assessment Cardiovascular HR NIBP 81 179/82 Edema Present Skin color Skin Mild Normal Warm Dry Circulatory - Right Pulses Dorsalis Pedis Femoral 1 1 Scale (0,1,2,3,4,d) Circulatory - Left Pulses Dorsalis Pedis Femoral 1 1 Scale (0,1,2,3,4,d) Neurological State Oriented to time-place- Alert Moves all extremities person Respiration - General Respiration Rate SpO2 (%) O2 (lpm) (B/min) 26 86 4 Chronological Log Time Study Chronological Log 0 units/hr HEPARIN DRIP STOPPED given pre op in Right Antecubital via Peripheral IV. Pump/Drip Flow = 13 ml/hr 9:50:48 using [Solution Name]. 9:58:16 Patient arrived via Bed. 9:58:17 Patient Name, D.O.B, / Armband Verified By RMohinderN. 10:08:14 Reference ECG taken Vitals capture started with the following parameters, Patient=Adult, Interval=5 min, Initial Pr wjiafs=800 mmHg, 10:11:01 Deflation Rate=5 mmHg, Cuff placed on Right Arm 10:12:14 HR=82 bpm, XSPD=050/82 mmhg, SpO2=87.0 %, Resp=12 B/min 10:13:17 Pre-op and post- op instructions given; patient acknowledges understanding of instructions. 10:13:18 Verbal Stimulation=2 Physical Stimulation=2 Airway=2 Respiration=2 TOTAL=8. (0=absent, 1=li mited, 2=present) 10:13:28 Patient has been NPO for More than 6Hrs. 10:13:29 Skin Breakdown- rash in groin 10:13:34 Patient Warmer Placed on the Table. 10:13:36 Lacie Prominences Protected 10:13:42 A # 20 IV was noted in the Antecubital (left). Grade = 0 10:13:43 Patient arrived on IV Solutions in Left Antecubital via Peripheral IV. Pump/Drip Flow using NaCl .9. 10:13:43 History and physical on the chart or being dictated. Assessment: Initial Case, HR=81 BPM, AOTA=413/82 mmhg, Edema=Mild, Color=Normal, Skin = Warm, D ry Right Pulses: [place] Ped=1, Femoral=1 10:13:48 Left Pulses: [place] Ped=1, Femoral=1 Neurological: State=Alert, Ox3, [place] Respiration: Resp=26 B/min, SpO2=86 %, O2=4 lpm 10:15:26 4 l/min OXYGEN given in lab by Mariano Wyman RN via Nasal. Ordered by Lemuel Foreman. 10:15:47 arrived. 10:17:19 HR=82 bpm, AOZN=067/83 mmhg, SpO2=90.0 %, Resp=30 B/min 10:22:09 Case Cancelled 10:22:32 HR=84 bpm, ZAUZ=391/97 mmhg, SpO2=86.0 %, Resp=13 B/min 10:26:11 Vitals capture stopped. End Study - Maximum Contrast Load Max Contrast Load (mL) 168.8 End Study - Patient Disposition Complications No
--- NOTE | 2017-09-14 10:55 | P.PNFP ---
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 Nursing reports that it was not done because the patient developed acute onset shortness of breath and hypoxia. She desaturated to 84% on room air and was up to 6L O2 to stay high-80, low-90s saturation. The patient is complaining of centralized chest pressure. She feels short of breath and is coughing. Per her daughter, who is present at the bedside, the patient was breathing normally overnight and this morning but when asked the patient admits she started to feel "funny" overnight. She also had several episodes of urinary incontinence overnight. Results - Labs Result diagrams: 09/14/17 04:42 09/14/17 04:42 Abnormal lab results 09/13/17 09/13/17 09/13/17 Range/Units 12:17 13:29 14:48 RBC 3.08 L (4.00-5.30) mil/mm3 Hgb 9.5 L (11.6-15.3) gm/dL Hct 28.3 L (35.0-46.0) % Neut % (Auto) 81.1 H (16.0-70.0) % Neut # (Auto) 8.0 H (1.8-7.7) th/mm3 APTT (24.3-30.1) sec Chloride 110 H (98-107) meq/L Carbon Dioxide 18.6 L (21.0-32.0) meq/L BUN 35 H (7-18) mg/dL Creatinine 2.57 H (0.50-1.00) mg/dL Estimated GFR 18 L (>89) mL/min POC Glucose 250 H (68-110) mg/dl Random Glucose 158 H (74-106) mg/dL Calcium 8.2 L (8.5-10.1) mg/dL Albumin 2.7 L (3.4-5.0) g/dL 09/13/17 09/13/17 09/13/17 Range/Units 14:48 20:40 21:49 RBC (4.00-5.30) mil/mm3 Hgb (11.6-15.3) gm/dL Hct (35.0-46.0) % Neut % (Auto) (16.0-70.0) % Neut # (Auto) (1.8-7.7) th/mm3 APTT 36.4 H D 37.6 H (24.3-30.1) sec Chloride (98-107) meq/L Carbon Dioxide (21.0-32.0) meq/L BUN (7-18) mg/dL Creatinine (0.50-1.00) mg/dL Estimated GFR (>89) mL/min POC Glucose 134 H (68-110) mg/dl Random Glucose (74-106) mg/dL Calcium (8.5-10.1) mg/dL Albumin (3.4-5.0) g/dL 09/14/17 09/14/17 09/14/17 Range/Units 04:42 04:42 04:42 RBC 2.85 L (4.00-5.30) mil/mm3 Hgb 8.9 L (11.6-15.3) gm/dL Hct 26.1 L (35.0-46.0) % Neut % (Auto) 73.6 H (16.0-70.0) % Neut # (Auto) (1.8-7.7) th/mm3 APTT 55.3 H D (24.3-30.1) sec Chloride 109 H (98-107) meq/L Carbon Dioxide 18.6 L (21.0-32.0) meq/L BUN 42 H (7-18) mg/dL Creatinine 2.83 H (0.50-1.00) mg/dL Estimated GFR 16 L (>89) mL/min POC Glucose (68-110) mg/dl Random Glucose 155 H (74-106) mg/dL Calcium 8.4 L (8.5-10.1) mg/dL Albumin 2.3 L (3.4-5.0) g/dL 09/14/17 Range/Units 08:09 RBC (4.00-5.30) mil/mm3 Hgb (11.6-15.3) gm/dL Hct (35.0-46.0) % Neut % (Auto) (16.0-70.0) % Neut # (Auto) (1.8-7.7) th/mm3 APTT (24.3-30.1) sec Chloride (98-107) meq/L Carbon Dioxide (21.0-32.0) meq/L BUN (7-18) mg/dL Creatinine (0.50-1.00) mg/dL Estimated GFR (>89) mL/min POC Glucose 188 H (68-110) mg/dl Random Glucose (74-106) mg/dL Calcium (8.5-10.1) mg/dL Albumin (3.4-5.0) g/dL Short CBC 09/13/17 09/14/17 Range/Units 14:48 04:42 WBC 9.9 9.3 (4.0-11.0) th/mm3 Hgb 9.5 L 8.9 L (11.6-15.3) gm/dL Hct 28.3 L 26.1 L (35.0-46.0) % Plt Count 237 222 (150-450) th/mm3 BMP 09/13/17 09/14/17 12:17 04:42 Sodium 139 139 Potassium 4.4 4.3 Chloride 110 H 109 H Carbon Dioxide 18.6 L 18.6 L BUN 35 H 42 H Creatinine 2.57 H 2.83 H Calcium 8.2 L 8.4 L Liver Function 09/13/17 09/14/17 Range/Units 12:17 04:42 Albumin 2.7 L 2.3 L (3.4-5.0) g/dL Physical Exam Vital signs: Vital Signs 09/13/17 12:00 09/13/17 16:00 09/13/17 20:00 Temperature 98.6 F 98.8 F 98.2 F Pulse Rate 77 71 85 Respiratory Rate 18 20 14 Blood Pressure 138/62 118/57 L 135/63 Pulse Oximetry 92 L 93 L 98 09/13/17 22:05 09/13/17 23:00 09/14/17 00:00 Temperature 98.7 F Pulse Rate 63 62 Respiratory Rate 18 18 Blood Pressure 141/65 H Pulse Oximetry 98 09/14/17 01:00 09/14/17 02:00 09/14/17 03:00 Temperature Pulse Rate 62 64 64 Respiratory Rate Blood Pressure Pulse Oximetry 09/14/17 04:00 09/14/17 05:00 09/14/17 06:00 Temperature 98.9 F Pulse Rate 68 73 70 Respiratory Rate 18 Blood Pressure 143/80 H Pulse Oximetry 93 L 09/14/17 06:19 09/14/17 07:54 Temperature 98.5 F Pulse Rate 69 Respiratory Rate 18 18 Blood Pressure 136/70 Pulse Oximetry 91 L Intake & Output 09/13/17 09/14/17 09/14/17 18:59 06:59 18:59 Intake Total 1050 / 1050 Output Total 1000 / 1000 200 / 200 Balance 50 / 50 -200 / -200 Weight 94.5 kg Intake: IV 250 / 250 Heparin/D5W 25,000 U/250 mL 25, 250 / 250 000 unit In 250 ml @ Per Protocol IV.CONT TITRATE PRN Rx #:[id number] Oral 800 / 800 Output: Urine 1000 / 1000 200 / 200 Stool 0 / 0 Other: # Bowel Movements 0 Narrative: GENERAL: Obese female sitting up in bed, appears anxious. SKIN: Warm and dry. NECK: JVD difficult to assess secondary to neck habitus. HEART: RRR no m/r/g. LUNGS: Labored breathing. Diffuse crackles and inspiratory wheezing in all lung bang. ABDOMEN: +BS, soft, NT, ND. EXTREMITIES: Trace LE edema. NEURO: Awake and alert. PSYCH: Anxious. Assessment and Plan - Assessment and Plan 77 year old female with IDDM, HTN, CKD, and anxiety presented to [facility] ED on 09/10 with chest pain and subsequently transferred to the main hospital when her second troponin was found to be 5 (up from 0.07). 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 Given her renal insufficiency, it was decided to hold off on PCI given the amount of contrast needed for intervention. 1. NSTEMI - Troponins in the ED: 0.07, 5.46 - EKG in the ED with no ST changes - Echo 55-60% - Cardiology ff - Cath done 09/10 showing 2V-CAD involving L circumflex and RCA; PCI held off at the time secondary to renal function - Was scheduled for PCI today but patient developed acute respiratory distress, hypoxia, and chest pain on the table. Stat EKG showed some ST-depression in the lateral leads and a stat troponin was 1.03 (decreased from troponin on 09/10) - Continue heparin drip - Started on nitro drip today - Continue beta gonzález, Imdur, and ASA 2. Pulmonary edema - Stat CXR this morning showing hazy bilateral central interstitial and alveolar infiltrates, R>L - Lasix 40 mg IV BID - Supplemental O2 3. PNA - Start Levaquin - Supplemental O2 - DuoNeb Q4 4. Acute on CKD - Renal indices continuing to worsen - Likely secondary to recent contrast exposure during cath as well as cardiorenal decompensation - Nephrology following - Now with pulmonary edema, treating with diuresis - Avoid nephrotoxic agents, contrast, etc. - Renally dose meds 5. Anemia - H&H dropping - Likely combo of anemia of chronic disease and iron deficiency - Check Hemoccult - Hemodynamically stable - Monitor closely - Consider transfusion if Hb drops below 8 given her cardiac history 6. Diabetes - Continue Levemir 5 units BID - SSI with Accuchecks per protocol 7. HTN - BPs running high - On nitro gtt - Continue hydralazine, atenolol, Norvasc, and Imdur 8. Anxiety - Xanax PRN DVT prophylaxis: Heparin gtt
[2017-09-14] MEDS ORDERED: Nitroglycerin Drip Premix 50 MG/250 ML BOTTLE ONE (11:09)
[2017-09-14] MEDS ORDERED: Nitroglycerin Drip Premix 50 MG/250 ML BOTTLE IV.CONT PRN (11:22)
--- NOTE | 2017-09-14 11:26 | XR ---
EXAM DATE: 09/14/2017 11:10 AM EDT AGE/SEX: 77 years / Female INDICATIONS: . Shortness of breath. CLINICAL DATA: This is the patient's subsequent encounter. Patient reports that signs and symptoms h ave been present for 4 - 6 days and indicates a pain score of 0/10. MEDICAL/SURGICAL HISTORY: . Hypertension. Diabetes. . Appendectomy. COMPARISON: [facility], CHEST 1V SINGLE AP, 09/10/2017. . FINDINGS: Hazy bilateral central interstitial and alveolar infiltrates are present, right worse than left. Card iac contours are grossly stable. CONCLUSION: Worsening infiltrates Electronically signed by: Jimmie Sesay MD 09/14/2017 11:25 AM EDT
[2017-09-14 11:47] LABS: Reticulocyte Percent 2.7 % (0.4-3.0)
--- NOTE | 2017-09-14 12:09 | P.PNNP ---
Subjective Interval history: Patient's cardiac catheterization was canceled due to development of shortness of breath. Patient seen in her room with RN. She appears to have mild dyspnea. Daughter by bedside. Physical Exam Vital signs: Vital Signs 09/13/17 16:00 09/13/17 20:00 09/13/17 22:05 Temperature 98.8 F 98.2 F Pulse Rate 71 85 Respiratory Rate 20 14 18 Blood Pressure 118/57 L 135/63 Pulse Oximetry 93 L 98 09/13/17 23:00 09/14/17 00:00 09/14/17 01:00 Temperature 98.7 F Pulse Rate 63 62 62 Respiratory Rate 18 Blood Pressure 141/65 H Pulse Oximetry 98 09/14/17 02:00 09/14/17 03:00 09/14/17 04:00 Temperature 98.9 F Pulse Rate 64 64 68 Respiratory Rate 18 Blood Pressure 143/80 H Pulse Oximetry 93 L 09/14/17 05:00 09/14/17 06:00 09/14/17 06:19 Temperature Pulse Rate 73 70 Respiratory Rate 18 Blood Pressure Pulse Oximetry 09/14/17 07:54 09/14/17 10:57 Temperature 98.5 F Pulse Rate 69 82 Respiratory Rate 18 18 Blood Pressure 136/70 Pulse Oximetry 91 L Intake & Output 09/13/17 09/14/17 09/14/17 18:59 06:59 18:59 Intake Total 1050 / 1050 Output Total 1000 / 1000 200 / 200 Balance 50 / 50 -200 / -200 Weight 94.5 kg Intake: IV 250 / 250 Heparin/D5W 25,000 U/250 mL 25, 250 / 250 000 unit In 250 ml @ Per Protocol IV.CONT TITRATE PRN Rx #:[id number] Oral 800 / 800 Output: Urine 1000 / 1000 200 / 200 Stool 0 / 0 Other: # Bowel Movements 0 Narrative: GENERAL: Patient appears to have mild dyspnea. SKIN: Warm and dry. HEAD: Normocephalic. EYES: No scleral icterus. No injection or drainage. NECK: Supple, trachea midline. No JVD or lymphadenopathy. CARDIOVASCULAR: Regular rate and rhythm without murmurs, gallops, or rubs. RESPIRATORY: Breath sounds equal bilaterally. Bibasal rales audible. GASTROINTESTINAL: Abdomen soft, non-tender, nondistended. MUSCULOSKELETAL: No cyanosis, trace edema ankles and pretibial. Assessment and Plan - Assessment (1) Chronic kidney disease, stage IV (severe) Code(s): N18.4 - Chronic kidney disease, stage 4 (severe) Status: Acute Plan: Patient's renal indices have deteriorated progressively over the weekend despite IV hydration and patient now developing signs of pulmonary edema.. Suspect this is related to her previous cardiac catheterization with contrast nephrotoxicity developing. May also reflect progression of her intrinsic renal disease. She has responded to parenteral furosemide administered earlier today. Will give another dose this p.m. If her renal indices continued to deteriorate however we may have to consider initiating dialysis as discussed with the patient daughter and the patient via her daughter. Questions were answered to their satisfaction. I have requested her RN contact me later this afternoon regarding patient's status. Medications should be adjusted for the patient's estimated GFR if clinically indicated. Avoid additional agents with significant potential for nephrotoxicity if possible including NSAIDs for analgesia, s. Gadolinium is contraindicated if the GFR is below 30. (2) Essential (primary) hypertension Code(s): I10 - Essential (primary) hypertension Status: Acute (3) Diabetes mellitus Code(s): E11.9 - Type 2 diabetes mellitus without complications Status: Acute Plan: Mgmt as per primary
[2017-09-14 12:59] LABS: % Iron Saturation 16.5 % (20-50)
[2017-09-14] MEDS: Insulin NovoLOG Aspart Correctional Sugar Inj SQ SCH ×4 (13:46→21:25)
[2017-09-14] MEDS: ALPRAZolam 0.25 MG Tablet PO PRN (15:56)
[2017-09-14] MEDS: Ferrous Sulfate 325 MG Tablet PO SCH ×2 (18:02→21:22)
[2017-09-14 18:48] LABS: Bacteria,Urine Many /hpf; Bilirubin,Urine Negative (Negative); Clarity,Urine Turbid (Clear); Color,Urine Yellow (Yellw/Straw); Glucose,Urine (UA) 50 mg/dL (Negative); Leukocyte Esterase,Urine Large (Negative); Nitrite,Urine Negative (Negative); Specific Gravity,Urine 1.009 (1.002-1.035)
[2017-09-14] MEDS: Heparin Drip 25,000 UNIT/250 ML BAG IV.CONT PRN (19:05)
[2017-09-14 20:49] LABS: Hematocrit 26.1 % (35.0-46.0); Hemoglobin 8.7 gm/dL (11.6-15.3); Mean Corpuscular HGB Conc 33.5 % (32.0-36.0); Mean Corpuscular Hemoglobin 30.7 pg (27.0-34.0); Mean Corpuscular Volume 91.7 fL (80.0-100.0); Mean Platelet Volume 9.3 fL (7.0-11.0); Platelet Count 226 th/mm3 (150-450); Red Blood Count 2.84 mil/mm3 (4.00-5.30); Red Cell Distribution Width 14.7 % (11.6-17.2); White Blood Count 10.5 th/mm3 (4.0-11.0)
[2017-09-14 21:12] LABS: Calcium 8.6 mg/dL (8.5-10.1); Carbon Dioxide 17.3 meq/L (21.0-32.0); Potassium 4.4 meq/L (3.5-5.1)
[2017-09-14] MEDS ORDERED: ALPRAZolam 0.25 MG Tablet PO ONE (22:55)
[2017-09-15 02:14] LABS: Hematocrit 24.5 % (35.0-46.0); Hemoglobin 8.5 gm/dL (11.6-15.3); Mean Corpuscular HGB Conc 34.6 % (32.0-36.0); Mean Corpuscular Hemoglobin 31.6 pg (27.0-34.0); Mean Corpuscular Volume 91.5 fL (80.0-100.0); Mean Platelet Volume 8.5 fL (7.0-11.0); Platelet Count 217 th/mm3 (150-450); Red Blood Count 2.68 mil/mm3 (4.00-5.30); Red Cell Distribution Width 14.5 % (11.6-17.2); White Blood Count 9.5 th/mm3 (4.0-11.0)
[2017-09-15 02:38] LABS: Albumin 2.3 g/dL (3.4-5.0); Calcium 7.9 mg/dL (8.5-10.1); Carbon Dioxide 18.1 meq/L (21.0-32.0); Phosphorus 5.4 mg/dL (2.5-4.9); Potassium 4.2 meq/L (3.5-5.1)
[2017-09-15] MEDS: Chlorhexidine Gluconate 2% 1 Pack (2 Cloths) TOPICAL SCH (04:58)
[2017-09-15] MEDS: Isosorbide Mononitrate 60 MG ER 24HR Tablet (Imdur) PO SCH (06:40)
[2017-09-15] MEDS: Gabapentin 300 MG Capsule PO SCH (08:09)
[2017-09-15] MEDS: Atenolol 50 MG Tablet PO SCH (08:09)
[2017-09-15] MEDS: Ferrous Sulfate 325 MG Tablet PO SCH (08:09)
[2017-09-15] MEDS: Sodium Bicarbonate 650 MG Tablet PO SCH ×3 (08:10→17:04)
[2017-09-15] MEDS: amLODIPine 5 MG Tablet PO SCH (08:10)
[2017-09-15] MEDS: Insulin Detemir Inj 1,000 UNIT/10 ML Vial SQ SCH (08:11)
[2017-09-15] MEDS: Insulin NovoLOG Aspart Correctional Sugar Inj SQ SCH ×3 (08:12→17:05)
--- NOTE | 2017-09-15 08:24 | P.PNCA ---
<Dayo Talbot - Last Filed: 09/15/17 08:18> Subjective Interval history: Daughter and RN at bedside. Was given IV diuretics yesterday with good urine output overnight and shortness of breath has improved today. Reportedly had some chest pain yesterday, resolved nitro drip which has been titrated down. Nephrology considering potential dialysis. Physical Exam Vital signs: Vital Signs 09/14/17 09:00 09/14/17 10:30 09/14/17 10:57 Temperature Pulse Rate 70 82 Respiratory Rate 18 Blood Pressure Pulse Oximetry 95 09/14/17 11:00 09/14/17 12:00 09/14/17 13:00 Temperature 98.2 F Pulse Rate 76 73 70 Respiratory Rate 18 Blood Pressure 152/65 H Pulse Oximetry 96 09/14/17 14:00 09/14/17 15:00 09/14/17 15:05 Temperature Pulse Rate 74 71 70 Respiratory Rate Blood Pressure Pulse Oximetry 09/14/17 15:43 09/14/17 16:00 09/14/17 17:00 Temperature 98.2 F Pulse Rate 87 68 68 Respiratory Rate 18 18 Blood Pressure 123/56 L Pulse Oximetry 97 09/14/17 18:00 09/14/17 19:00 09/14/17 19:24 Temperature Pulse Rate 73 74 74 Respiratory Rate 18 Blood Pressure Pulse Oximetry 99 09/14/17 20:00 09/14/17 21:00 09/14/17 21:30 Temperature 98.8 F Pulse Rate 74 76 Respiratory Rate 16 Blood Pressure 142/60 H 138/70 Pulse Oximetry 99 09/14/17 22:00 09/14/17 23:00 09/14/17 23:28 Temperature Pulse Rate 70 72 68 Respiratory Rate 18 Blood Pressure 138/66 Pulse Oximetry 09/15/17 00:00 09/15/17 01:00 09/15/17 02:00 Temperature 98.5 F Pulse Rate 70 71 67 Respiratory Rate 16 Blood Pressure 136/49 L 134/66 125/62 Pulse Oximetry 98 09/15/17 03:00 09/15/17 04:00 09/15/17 05:00 Temperature 98.3 F Pulse Rate 70 70 69 Respiratory Rate 16 Blood Pressure 133/62 136/60 Pulse Oximetry 97 09/15/17 06:00 09/15/17 06:40 09/15/17 07:00 Temperature 98.3 F Pulse Rate 62 65 Respiratory Rate 18 Blood Pressure 118/53 L 139/71 Pulse Oximetry 97 09/15/17 07:43 Temperature Pulse Rate 66 Respiratory Rate 15 Blood Pressure Pulse Oximetry 95 Intake & Output 09/14/17 09/15/17 09/15/17 18:59 06:59 18:59 Intake Total 730 / 730 Output Total 1000 / 1000 1450 / 1450 Balance -1000 / -1000 -720 / -720 Weight 201 lb 8.04 oz Intake: IV 250 / 250 Heparin/D5W 25,000 U/250 mL 25, 250 / 250 000 unit In 250 ml @ Per Protocol IV.CONT TITRATE PRN Rx #:[id number] Oral 480 / 480 Output: Urine Amount (Catheter) 1000 / 1000 1450 / 1450 Indwelling Urethral Catheter 1000 / 1000 1450 / 1450 Other: # Bowel Movements 0 Narrative: GENERAL: Well-developed well-nourished. In no acute distress. NECK: No carotid bruits. No JVD. CARDIOVASCULAR: Regular rate and rhythm. No murmur appreciated. RESPIRATORY: No accessory muscle use. Clear to auscultation. Breath sounds equal bilaterally. MUSCULOSKELETAL: No clubbing or cyanosis. No edema. NEUROLOGICAL: Awake and alert. Normal speech. - Urinary Catheter Management Indwelling Urethral Catheter Cath placed during this visit: yes Reason for continuing: Hourly intake/output Insertion date: 09/14/17 Insertion time: 14:00 Assessment and Plan - Plan 77-year-old Gabonese-speaking female with past medical history of HTN, DM, diabetic nephropathy, CKD who presented for chest pain due to non-STEMI. NSTEMI: LHC 09/10 showed primarily 2 vessel [place] CAD involving the proximal LCx and RCA. PCI on hold pending optimization of renal function, discussed risks/benefits of elective PCI, patient wishes to proceed. Will tentatively plan for [facility] with PCI after nephrology decision regarding Vas-Cath and GI evaluation. Continue heparin gtt for medical management of NSTEMI. Continue ASA , Atorvastatin, beta-gonzález. Hypertension: Improved controlled. Continue amlodipine 5mg twice daily, clonidine 0.1mg q8hr, Imdur 60mg daily, Hydralazine to 100mg q8hr, atenolol 50mg bid with holding parameters. DONA on CKD: Nephrology on board to assist with risk stratification and renal management with possible LHC/PCI and advanced renal disease. Creatinine worsened yesterday with associated volume retention, improved after IV diuretics. Await nephrology input, if dialysis needed, would recommend Vas- Cath placement prior to cath/Plavix. Normocytic anemia: Hemoglobin 11.2 -> 8.5. Will ask GI to evaluate the patient prior to committing patient to Plavix. Okay from cardiology standpoint to proceed with EGD or colonoscopy if necessary. Discussed Condition With: Patient with RN and daughter at bedside, Dr. Foreman <Lemuel Foreman - Last Filed: 09/15/17 12:31> Physical Exam Vital signs: Vital Signs 09/14/17 13:00 09/14/17 14:00 09/14/17 15:00 Temperature Pulse Rate 70 74 71 Respiratory Rate Blood Pressure Pulse Oximetry 09/14/17 15:05 09/14/17 15:43 09/14/17 16:00 Temperature 98.2 F Pulse Rate 70 87 68 Respiratory Rate 18 18 Blood Pressure 123/56 L Pulse Oximetry 97 09/14/17 17:00 09/14/17 18:00 09/14/17 19:00 Temperature Pulse Rate 68 73 74 Respiratory Rate Blood Pressure Pulse Oximetry 09/14/17 19:24 09/14/17 20:00 09/14/17 21:00 Temperature 98.8 F Pulse Rate 74 74 76 Respiratory Rate 18 16 Blood Pressure 142/60 H Pulse Oximetry 99 99 09/14/17 21:30 09/14/17 22:00 09/14/17 23:00 Temperature Pulse Rate 70 72 Respiratory Rate Blood Pressure 138/70 138/66 Pulse Oximetry 09/14/17 23:28 09/15/17 00:00 09/15/17 01:00 Temperature 98.5 F Pulse Rate 68 70 71 Respiratory Rate 18 16 Blood Pressure 136/49 L 134/66 Pulse Oximetry 98 09/15/17 02:00 09/15/17 03:00 09/15/17 04:00 Temperature 98.3 F Pulse Rate 67 70 70 Respiratory Rate 16 Blood Pressure 125/62 133/62 Pulse Oximetry 97 09/15/17 05:00 09/15/17 06:00 09/15/17 06:40 Temperature Pulse Rate 69 62 Respiratory Rate Blood Pressure 136/60 118/53 L Pulse Oximetry 09/15/17 07:00 09/15/17 07:43 09/15/17 08:00 Temperature 98.3 F Pulse Rate 65 66 74 Respiratory Rate 18 15 Blood Pressure 139/71 Pulse Oximetry 97 95 98 09/15/17 09:00 09/15/17 09:30 09/15/17 10:00 Temperature Pulse Rate 72 66 Respiratory Rate Blood Pressure Pulse Oximetry 93 L 09/15/17 12:04 Temperature Pulse Rate 68 Respiratory Rate 15 Blood Pressure Pulse Oximetry Intake & Output 09/14/17 09/15/17 09/15/17 18:59 06:59 18:59 Intake Total 730 / 730 Output Total 1000 / 1000 1450 / 1450 Balance -1000 / -1000 -720 / -720 Weight 91.4 kg Intake: IV 250 / 250 Heparin/D5W 25,000 U/250 mL 25, 250 / 250 000 unit In 250 ml @ Per Protocol IV.CONT TITRATE PRN Rx #:[id number] Oral 480 / 480 Output: Urine Amount (Catheter) 1000 / 1000 1450 / 1450 Indwelling Urethral Catheter 1000 / 1000 1450 / 1450 Other: # Bowel Movements 0 - Urinary Catheter Management Indwelling Urethral Catheter Cath placed during this visit: no Assessment and Plan - Attending Attestation NSTEMI - 2 vessel CAD Cr worsening. I suspect she will ultimately require dialysis. Should have Vascath prior to PCI and plavix anemia - await GI workup then PCI probably or thursday
--- NOTE | 2017-09-15 09:55 | P.PN ---
Physical Exam Vital signs: Vital Signs 09/14/17 10:30 09/14/17 10:57 09/14/17 11:00 Temperature Pulse Rate 82 76 Respiratory Rate 18 Blood Pressure Pulse Oximetry 95 09/14/17 12:00 09/14/17 13:00 09/14/17 14:00 Temperature 98.2 F Pulse Rate 73 70 74 Respiratory Rate 18 Blood Pressure 152/65 H Pulse Oximetry 96 09/14/17 15:00 09/14/17 15:05 09/14/17 15:43 Temperature Pulse Rate 71 70 87 Respiratory Rate 18 Blood Pressure Pulse Oximetry 09/14/17 16:00 09/14/17 17:00 09/14/17 18:00 Temperature 98.2 F Pulse Rate 68 68 73 Respiratory Rate 18 Blood Pressure 123/56 L Pulse Oximetry 97 09/14/17 19:00 09/14/17 19:24 09/14/17 20:00 Temperature 98.8 F Pulse Rate 74 74 74 Respiratory Rate 18 16 Blood Pressure 142/60 H Pulse Oximetry 99 99 09/14/17 21:00 09/14/17 21:30 09/14/17 22:00 Temperature Pulse Rate 76 70 Respiratory Rate Blood Pressure 138/70 Pulse Oximetry 09/14/17 23:00 09/14/17 23:28 09/15/17 00:00 Temperature 98.5 F Pulse Rate 72 68 70 Respiratory Rate 18 16 Blood Pressure 138/66 136/49 L Pulse Oximetry 98 09/15/17 01:00 09/15/17 02:00 09/15/17 03:00 Temperature Pulse Rate 71 67 70 Respiratory Rate Blood Pressure 134/66 125/62 Pulse Oximetry 09/15/17 04:00 09/15/17 05:00 09/15/17 06:00 Temperature 98.3 F Pulse Rate 70 69 62 Respiratory Rate 16 Blood Pressure 133/62 136/60 Pulse Oximetry 97 09/15/17 06:40 09/15/17 07:00 09/15/17 07:43 Temperature 98.3 F Pulse Rate 65 66 Respiratory Rate 18 15 Blood Pressure 118/53 L 139/71 Pulse Oximetry 97 95 09/15/17 08:00 09/15/17 09:00 Temperature Pulse Rate 74 72 Respiratory Rate Blood Pressure Pulse Oximetry Intake & Output 09/14/17 09/15/17 09/15/17 18:59 06:59 18:59 Intake Total 730 / 730 Output Total 1000 / 1000 1450 / 1450 Balance -1000 / -1000 -720 / -720 Weight 91.4 kg Intake: IV 250 / 250 Heparin/D5W 25,000 U/250 mL 25, 250 / 250 000 unit In 250 ml @ Per Protocol IV.CONT TITRATE PRN Rx #:[id number] Oral 480 / 480 Output: Urine Amount (Catheter) 1000 / 1000 1450 / 1450 Indwelling Urethral Catheter 1000 / 1000 1450 / 1450 Other: # Bowel Movements 0 Narrative: Subjective Interval history: Cath not done yesterday as patient with acute onset shortness of breath and hypoxia. She is less sob now and sattign wellon 2L NC. Improved after Lasix. She has some chest pressure however significantly improved. No nausea vomiting no sweating no diaphoresis no lightheadedness. Physical Exam GENERAL: Obese female appears in not acute distress at this time SKIN: Warm and dry. NECK: JVD difficult to assess secondary to neck habitus. HEART: RRR no m/r/g. LUNGS: Decreased breath sounds no wheezing. ABDOMEN: +BS, soft, NT, ND. EXTREMITIES: Trace LE edema. NEURO: Awake and alert. Assessment and Plan 77 year old female with IDDM, HTN, CKD, and anxiety presented to [place] ED on 09/10 with chest pain and subsequently transferred to the main hospital when her second troponin was found to be 5 (up from 0.07). 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 Given her renal insufficiency, it was decided to hold off on PCI given the amount of contrast needed for intervention. 1. NSTEMI - Troponins in the ED: 0.07, 5.46 - EKG in the ED with no ST changes - Echo 55-60% - Cardiology ff - Cath done 09/10 showing 2V-CAD involving L circumflex and RCA; PCI held off at the time secondary to renal function - Was scheduled for PCI 09/14 but patient developed acute respiratory distress , hypoxia, and chest pain on the table. Stat EKG showed some ST-depression in the lateral leads and a stat troponin was 1.03 (decreased from troponin on 09/10) - Continue heparin drip - Started on nitro drip today - Continue beta gonzález, Imdur, and ASA - Cardiology ff - received lasix with some improvement - nitro drip titrating down - Nephro considers HD 2. Pulmonary edema - 7.16 CXR with hazy bilateral central interstitial and alveolar infiltrates, R>L - Lasix 40 mg IV BID - Supplemental O2 - Monitor oxygen saturation 3. PNA - Start Levaquin - Supplemental O2 - DuoNeb Q4 4. Acute on CKD - Renal indices continuing to worsen - Likely secondary to recent contrast exposure during cath as well as cardiorenal decompensation - Nephrology following - Now with pulmonary edema, treating with diuresis - Avoid nephrotoxic agents, contrast, etc. - Renally dose meds 5. Anemia - H&H dropping - Likely combo of anemia of chronic disease and iron deficiency - Check Hemoccult - Hemodynamically stable - Monitor closely - Consider transfusion if Hb drops below 8 given her cardiac history -Plan for colonoscopy EGD tomorrow 6. Diabetes - Continue Levemir 5 units BID - SSI with Accuchecks per protocol 7. HTN - BPs running high - On nitro gtt - Continue hydralazine, atenolol, Norvasc, and Imdur 8. Anxiety - Xanax PRN DVT prophylaxis: Heparin gtt Discussed with the patient, nurse, family at bedside Discharge plan Discharge when improved and cleared by consultants. Plan for EGD colonoscopy tomorrow. - Urinary Catheter Management Indwelling Urethral Catheter Cath placed during this visit: yes Reason for continuing: Hourly intake/output Insertion date: 09/14/17 Insertion time: 14:00 Results - Labs CBC & Chem 7: 09/15/17 01:52 09/15/17 01:52 Laboratory Results - last 24 hr 09/14/17 09/14/17 09/14/17 11:25 11:25 11:25 WBC RBC Hgb Hct MCV MCH MCHC RDW Plt Count MPV Retic Count 2.7 Absolute Retic 83.9 APTT 34.2 H D Sodium Potassium Chloride Carbon Dioxide Anion Gap BUN Creatinine Estimated GFR POC Glucose Random Glucose Calcium Phosphorus Iron 44 L TIBC 267 % Saturation 16.5 L Ferritin 114 Lactate Dehydrogenase 325 H Troponin I Albumin Urine Color Urine Clarity Urine pH Ur Specific [place] Urine Protein Urine Glucose (UA) Urine Ketones Urine Occult Blood Urine Nitrate Urine Bilirubin Urine Urobilinogen Ur Leukocyte Esterase Urine RBC Urine WBC Urine WBC Clumps Urine Bacteria Micro UA Comment Urine Culture Comments 09/14/17 09/14/17 09/14/17 11:25 13:07 14:55 WBC RBC Hgb Hct MCV MCH MCHC RDW Plt Count MPV Retic Count Absolute Retic APTT Sodium Potassium Chloride Carbon Dioxide Anion Gap BUN Creatinine Estimated GFR POC Glucose 217 H Random Glucose Calcium Phosphorus Iron TIBC % Saturation Ferritin Lactate Dehydrogenase Troponin I 1.03 H* D Albumin Urine Color Yellow Urine Clarity Turbid H Urine pH 5.0 Ur Specific [place] 1.009 Urine Protein 100 H Urine Glucose (UA) 50 Urine Ketones Negative Urine Occult Blood Small H Urine Nitrate Negative Urine Bilirubin Negative Urine Urobilinogen Less than 2 Ur Leukocyte Esterase Large H Urine RBC 13 H Urine WBC Urine WBC Clumps Many H Urine Bacteria Many H Micro UA Comment Cath-culture ind Urine Culture Comments Cath-cult indicated 09/14/17 09/14/17 09/14/17 17:40 19:53 19:53 WBC 10.5 RBC 2.84 L Hgb 8.7 L Hct 26.1 L MCV 91.7 MCH 30.7 MCHC 33.5 RDW 14.7 Plt Count 226 MPV 9.3 Retic Count Absolute Retic APTT 46.0 H D Sodium Potassium Chloride Carbon Dioxide Anion Gap BUN Creatinine Estimated GFR POC Glucose 227 H Random Glucose Calcium Phosphorus Iron TIBC % Saturation Ferritin Lactate Dehydrogenase Troponin I Albumin Urine Color Urine Clarity Urine pH Ur Specific [place] Urine Protein Urine Glucose (UA) Urine Ketones Urine Occult Blood Urine Nitrate Urine Bilirubin Urine Urobilinogen Ur Leukocyte Esterase Urine RBC Urine WBC Urine WBC Clumps Urine Bacteria Micro UA Comment Urine Culture Comments 09/14/17 09/14/17 09/15/17 19:53 20:19 01:52 WBC 9.5 RBC 2.68 L Hgb 8.5 L Hct 24.5 L MCV 91.5 MCH 31.6 MCHC 34.6 RDW 14.5 Plt Count 217 MPV 8.5 Retic Count Absolute Retic APTT Sodium 135 L Potassium 4.4 Chloride 103 Carbon Dioxide 17.3 L Anion Gap 15 BUN 50 H Creatinine 3.15 H Estimated GFR 14 L POC Glucose 267 H Random Glucose 275 H D Calcium 8.6 Phosphorus Iron TIBC % Saturation Ferritin Lactate Dehydrogenase Troponin I Albumin Urine Color Urine Clarity Urine pH Ur Specific [place] Urine Protein Urine Glucose (UA) Urine Ketones Urine Occult Blood Urine Nitrate Urine Bilirubin Urine Urobilinogen Ur Leukocyte Esterase Urine RBC Urine WBC Urine WBC Clumps Urine Bacteria Micro UA Comment Urine Culture Comments 09/15/17 09/15/17 09/15/17 01:52 01:52 07:36 WBC RBC Hgb Hct MCV MCH MCHC RDW Plt Count MPV Retic Count Absolute Retic APTT 55.4 H D Sodium 136 Potassium 4.2 Chloride 104 Carbon Dioxide 18.1 L Anion Gap 14 BUN 52 H Creatinine 3.19 H Estimated GFR 14 L POC Glucose 236 H Random Glucose 194 H Calcium 7.9 L Phosphorus 5.4 H Iron TIBC % Saturation Ferritin Lactate Dehydrogenase Troponin I Albumin 2.3 L Urine Color Urine Clarity Urine pH Ur Specific [place] Urine Protein Urine Glucose (UA) Urine Ketones Urine Occult Blood Urine Nitrate Urine Bilirubin Urine Urobilinogen Ur Leukocyte Esterase Urine RBC Urine WBC Urine WBC Clumps Urine Bacteria Micro UA Comment Urine Culture Comments - Imaging Impressions Chest X-Ray 09/14/17 10:41 CONCLUSION: Worsening infiltrates
--- NOTE | 2017-09-15 11:03 | P.CONGI ---
History of Present Illness Consult date: 09/15/17 Consult reason: Anemia Chief complaint: Non-STEMI, renal insufficiency, elevated d-dimer History of Present Illness: This is a 77 yo F with PMH significant for HTN, DM, diabetic nephropathy with CKD who presented to the [place] [facility] on 09/10 with complaints of chest pain and was found to have an elevated Troponin. Initial cardiac cath on 09/10 revealed 2- vessel [place] CAD involving the proximal left circumflex and right coronary arteries, small branch vessel CAD, and normal left-sided filling pressures. Due to patients poor renal function, java sybase developer attempted to minimize contrast but are anticipating a repeat catheterization with intervention. Pt currently on Heparin gtt. They have cleared here for EGD and colonoscopy. Our service has been consulted to evaluate pt for anemia and to rule out bleeding in anticipation for pt to be placed on Plavix after PCI. Pt denies nausea, vomiting, abdominal pain. States has occasional issues with constipation and uses Glycerin suppositories when needed. Denies hematochezia and melena. Does report some occasion heartburn and takes Tums as needed. Last EGD was over 5 years ago and sounds like pt may have had a gastric ulcer secondary to H. Pylori. Last colonoscopy was 3 years ago and she states findings of polyps. Procedures done by Dr Escobedo in [place]. Denies family history of colon cancer. Denies ETOH and smoking. <Mis Daniels - Last Filed: 09/15/17 10:45> Review of Systems Gastrointestinal: Reports constipation, Reports heartburn, Denies abdominal pain , Denies black, tarry stools, Denies bright, red blood in stools, Denies loose stools, Denies nausea, Denies vomiting <Mis Daniels - Last Filed: 09/15/17 10:45> [facility] - History History Provided By: Patient, Family Member - Medical History Medical History: Medical History (Last Updated 09/10/17 @ 18:01 by RAFI Baumann) Chronic kidney disease, stage IV (severe) Diabetes Hypertension Neuropathy - Surgical History Surgical History: Surgical History (Last Updated 09/10/17 @ 00:19 by Michaela Pritchard) H/O exploratory laparotomy H/O lithotripsy Hx of appendectomy - Tobacco History Second Hand Smoke Exposure: No Tobacco Use In Past 30 Days: No Smoking Status: Never smoker - Alcohol History How Often Do You Have a Drink Containing Alcohol: Never - Substance Use History Substance History: No History of Abuse <Mis Daniels - Last Filed: 09/15/17 10:45> - Medical History Medical History: Medical History (Last Updated 09/10/17 @ 18:01 by RAFI Baumann) Chronic kidney disease, stage IV (severe) Diabetes Hypertension Neuropathy - Surgical History Surgical History: Surgical History (Last Updated 09/10/17 @ 00:19 by Michaela Pritchard) H/O exploratory laparotomy H/O lithotripsy Hx of appendectomy <Dani Collins - Last Filed: 09/15/17 18:19> Medications and Allergies Active Medications: Active Medications Albuterol (Duoneb Neb ([facility])) 1 ampul NEB Q4HR NEB [facility] Last Admin: 09/15/17 07:45 Dose: 1 ampul Alprazolam (Xanax) 0.125 mg PO Q12H PRN PRN Reason: ANXIETY Amlodipine Besylate (Norvasc) 5 mg PO BID [facility] Last Admin: 09/15/17 08:10 Dose: 5 mg Aspirin (Ecotrin) 81 mg PO DAILY [facility] Last Admin: 09/15/17 08:10 Dose: 81 mg Atenolol (Tenormin) 50 mg PO Q12HR [facility] Last Admin: 09/15/17 08:09 Dose: 50 mg Atorvastatin Calcium (Lipitor) 20 mg PO HS [facility] Last Admin: 09/14/17 21:23 Dose: 20 mg Atropine Sulfate (Atropine Inj) 0.5 mg IV.PUSH UNSCH PRN PRN Reason: VAGAL REPONSE Chlorhexidine Gluconate (Chlorhexidine 2% Cloth) 3 pack TOPICAL DAILY@0400 [facility] Stop: 09/16/17 03:59 Last Admin: 09/15/17 04:58 Dose: Not Given Chlorhexidine Gluconate (Chlorhexidine 2% Cloth) 3 pack TOPICAL DAILY@0400 PRN PRN Reason: Extra cloth needed Stop: 09/16/17 03:59 Clonidine HCl (Catapres) 0.1 mg PO Q8HR [facility] Last Admin: 09/15/17 06:41 Dose: 0.1 mg Dextrose (D50w Vial) 50 ml IV.PUSH UNSCH PRN PRN Reason: PER HYPOGLYCEMIA PROTOCOL Ferrous Sulfate (Ferosul) 325 mg PO BID [facility] Last Admin: 09/15/17 08:09 Dose: 325 mg Furosemide (Lasix Inj) 40 mg IV.PUSH BID@0900,1800 [facility] Last Admin: 09/15/17 08:10 Dose: 40 mg Gabapentin (Neurontin) 300 mg PO BID [facility] Last Admin: 09/15/17 08:09 Dose: 300 mg Glucagon (Glucagon Inj) 1 mg OTHER PRN PRN PRN Reason: for Hypoglycemia Protocol Hydralazine HCl (Apresoline) 100 mg PO TID [facility] Last Admin: 09/15/17 08:09 Dose: 100 mg Heparin Sodium/Dextrose (Heparin/D5w 25,000 U/250 Ml) 25,000 unit in 250 mls @ 0 mls/hr IV.CONT TITRATE PRN; Protocol PRN Reason: Per Protocol Last Admin: 09/14/17 19:05 Dose: 1,300 units/hr, 13 mls/hr Nitroglycerin/Dextrose (Nitroglycerin Drip Premix) 50 mg in 250 mls @ 0 mls/hr IV.CONT TITRATE PRN; Protocol PRN Reason: Per Protocol Last Titration: 09/15/17 06:29 Dose: 20 mcg/min, 6 mls/hr Levofloxacin/Dextrose (Levaquin 500 Mg Premix Inj) 500 mg in 100 mls @ 100 mls/ hr IV.SIG Q48H [facility] Insulin Aspart (Novolog Insulin Suppl Scale Inj) 0 unit SQ ACHS [facility]; Protocol Last Admin: 09/15/17 08:12 Dose: 3 unit Insulin Detemir (Levemir Inj) 5 unit SQ BID [facility] Last Admin: 09/15/17 08:11 Dose: 5 unit Isosorbide Mononitrate (Imdur) 60 mg PO DAILY@0700 [facility] Last Admin: 09/15/17 06:40 Dose: 60 mg Miscellaneous (Pill Splitter) 1 each OTHER UNSCH PRN PRN Reason: SEE LABEL COMMENTS Oxycodone/Acetaminophen (Percocet 5/325 Mg) 1 tab PO Q4H PRN PRN Reason: pain 1-10cath site Last Admin: 09/14/17 05:34 Dose: 1 tab Sodium Bicarbonate (Sodium Bicarbonate) 650 mg PO TID [facility] Last Admin: 09/15/17 08:10 Dose: 650 mg Sodium Chloride (Ns Flush) 2 ml IV.FLUSH BID [facility] Last Admin: 09/14/17 21:27 Dose: 2 ml Sodium Chloride (Ns Flush) 2 ml IV.FLUSH PRN PRN PRN Reason: FLUSH AFTER USING IV ACCESS Last Admin: 09/15/17 08:11 Dose: 2 ml Vitamin D (Vitamin D3) 2,000 unit PO DAILY [facility] Last Admin: 09/15/17 08:09 Dose: 2,000 unit <Mis Daniels - Last Filed: 09/15/17 10:45> Active Medications: Active Medications Albuterol (Duoneb Neb ([facility])) 1 ampul NEB Q4HR NEB [facility] Last Admin: 09/15/17 15:09 Dose: 1 ampul Alprazolam (Xanax) 0.125 mg PO Q12H PRN PRN Reason: ANXIETY Amlodipine Besylate (Norvasc) 5 mg PO BID [facility] Last Admin: 09/15/17 08:10 Dose: 5 mg Aspirin (Ecotrin) 81 mg PO DAILY [facility] Last Admin: 09/15/17 08:10 Dose: 81 mg Atenolol (Tenormin) 50 mg PO Q12HR [facility] Last Admin: 09/15/17 08:09 Dose: 50 mg Atorvastatin Calcium (Lipitor) 20 mg PO HS [facility] Last Admin: 09/14/17 21:23 Dose: 20 mg Atropine Sulfate (Atropine Inj) 0.5 mg IV.PUSH UNSCH PRN PRN Reason: VAGAL REPONSE Chlorhexidine Gluconate (Chlorhexidine 2% Cloth) 3 pack TOPICAL DAILY@0400 [facility] Stop: 09/16/17 03:59 Last Admin: 09/15/17 04:58 Dose: Not Given Chlorhexidine Gluconate (Chlorhexidine 2% Cloth) 3 pack TOPICAL DAILY@0400 PRN PRN Reason: Extra cloth needed Stop: 09/16/17 03:59 Clonidine HCl (Catapres) 0.1 mg PO Q8HR [facility] Last Admin: 09/15/17 14:08 Dose: 0.1 mg Dextrose (D50w Vial) 50 ml IV.PUSH UNSCH PRN PRN Reason: PER HYPOGLYCEMIA PROTOCOL Ferrous Sulfate (Ferosul) 325 mg PO BID [facility] Last Admin: 09/15/17 08:09 Dose: 325 mg Furosemide (Lasix Inj) 40 mg IV.PUSH BID@0900,1800 [facility] Last Admin: 09/15/17 17:05 Dose: 40 mg Gabapentin (Neurontin) 300 mg PO BID [facility] Last Admin: 09/15/17 08:09 Dose: 300 mg Glucagon (Glucagon Inj) 1 mg OTHER PRN PRN PRN Reason: for Hypoglycemia Protocol Hydralazine HCl (Apresoline) 100 mg PO TID [facility] Last Admin: 09/15/17 17:04 Dose: 100 mg Heparin Sodium/Dextrose (Heparin/D5w 25,000 U/250 Ml) 25,000 unit in 250 mls @ 0 mls/hr IV.CONT TITRATE PRN; Protocol PRN Reason: Per Protocol Last Admin: 09/15/17 13:01 Dose: 1,300 units/hr, 13 mls/hr Nitroglycerin/Dextrose (Nitroglycerin Drip Premix) 50 mg in 250 mls @ 0 mls/hr IV.CONT TITRATE PRN; Protocol PRN Reason: Per Protocol Last Titration: 09/15/17 11:45 Dose: 10 mcg/min, 3 mls/hr Levofloxacin/Dextrose (Levaquin 500 Mg Premix Inj) 500 mg in 100 mls @ 100 mls/ hr IV.SIG Q48H [facility] Insulin Aspart (Novolog Insulin Suppl Scale Inj) 0 unit SQ ACHS [facility]; Protocol Last Admin: 09/15/17 17:05 Dose: 5 unit Insulin Detemir (Levemir Inj) 5 unit SQ BID [facility] Last Admin: 09/15/17 08:11 Dose: 5 unit Isosorbide Mononitrate (Imdur) 60 mg PO DAILY@0700 [facility] Last Admin: 09/15/17 06:40 Dose: 60 mg Miscellaneous (Pill Splitter) 1 each OTHER UNSCH PRN PRN Reason: SEE LABEL COMMENTS Oxycodone/Acetaminophen (Percocet 5/325 Mg) 1 tab PO Q4H PRN PRN Reason: pain 1-10cath site Last Admin: 09/14/17 05:34 Dose: 1 tab Sodium Bicarbonate (Sodium Bicarbonate) 650 mg PO TID [facility] Last Admin: 09/15/17 17:04 Dose: 650 mg Sodium Chloride (Ns Flush) 2 ml IV.FLUSH BID [facility] Last Admin: 09/15/17 10:49 Dose: 2 ml Sodium Chloride (Ns Flush) 2 ml IV.FLUSH PRN PRN PRN Reason: FLUSH AFTER USING IV ACCESS Last Admin: 09/15/17 08:11 Dose: 2 ml Vitamin D (Vitamin D3) 2,000 unit PO DAILY [facility] Last Admin: 09/15/17 08:09 Dose: 2,000 unit <Dani Collins E - Last Filed: 09/15/17 18:19> Allergies Allergy/AdvReac Type Severity Reaction Status Date / Time guaifenesin [From Mucinex] Allergy Anxiety Verified 09/10/17 00:12 Penicillins Allergy Itching Verified 09/10/17 00:12 Home Medications Medication Instructions Recorded Confirmed Type gabapentin 600 mg PO TID 09/11/17 09/11/17 History metformin 1,000 mg PO BID 09/11/17 09/11/17 History nifedipine 60 mg PO QAM 09/11/17 09/11/17 History Exam Vital signs: Vital Signs 09/14/17 10:57 09/14/17 11:00 09/14/17 12:00 Temperature 98.2 F Pulse Rate 82 76 73 Respiratory Rate 18 18 Blood Pressure 152/65 H Pulse Oximetry 96 09/14/17 13:00 09/14/17 14:00 09/14/17 15:00 Temperature Pulse Rate 70 74 71 Respiratory Rate Blood Pressure Pulse Oximetry 09/14/17 15:05 09/14/17 15:43 09/14/17 16:00 Temperature 98.2 F Pulse Rate 70 87 68 Respiratory Rate 18 18 Blood Pressure 123/56 L Pulse Oximetry 97 09/14/17 17:00 09/14/17 18:00 09/14/17 19:00 Temperature Pulse Rate 68 73 74 Respiratory Rate Blood Pressure Pulse Oximetry 09/14/17 19:24 09/14/17 20:00 09/14/17 21:00 Temperature 98.8 F Pulse Rate 74 74 76 Respiratory Rate 18 16 Blood Pressure 142/60 H Pulse Oximetry 99 99 09/14/17 21:30 09/14/17 22:00 09/14/17 23:00 Temperature Pulse Rate 70 72 Respiratory Rate Blood Pressure 138/70 138/66 Pulse Oximetry 09/14/17 23:28 09/15/17 00:00 09/15/17 01:00 Temperature 98.5 F Pulse Rate 68 70 71 Respiratory Rate 18 16 Blood Pressure 136/49 L 134/66 Pulse Oximetry 98 09/15/17 02:00 09/15/17 03:00 09/15/17 04:00 Temperature 98.3 F Pulse Rate 67 70 70 Respiratory Rate 16 Blood Pressure 125/62 133/62 Pulse Oximetry 97 09/15/17 05:00 09/15/17 06:00 09/15/17 06:40 Temperature Pulse Rate 69 62 Respiratory Rate Blood Pressure 136/60 118/53 L Pulse Oximetry 09/15/17 07:00 09/15/17 07:43 09/15/17 08:00 Temperature 98.3 F Pulse Rate 65 66 74 Respiratory Rate 18 15 Blood Pressure 139/71 Pulse Oximetry 97 95 98 09/15/17 09:00 09/15/17 09:30 09/15/17 10:00 Temperature Pulse Rate 72 66 Respiratory Rate Blood Pressure Pulse Oximetry 93 L Intake & Output 09/14/17 09/15/17 09/15/17 18:59 06:59 18:59 Intake Total 730 / 730 Output Total 1000 / 1000 1450 / 1450 Balance -1000 / -1000 -720 / -720 Weight 91.4 kg Intake: IV 250 / 250 Heparin/D5W 25,000 U/250 mL 25, 250 / 250 000 unit In 250 ml @ Per Protocol IV.CONT TITRATE PRN Rx #:[id number] Oral 480 / 480 Output: Urine Amount (Catheter) 1000 / 1000 1450 / 1450 Indwelling Urethral Catheter 1000 / 1000 1450 / 1450 Other: # Bowel Movements 0 - Constitutional no acute distress - Routine HEENT Exam Head: Present: normocephalic, atraumatic - Routine Respiratory Exam Absent: accessory muscle use - Routine Cardiovascular Exam Present: RRR - Routine Abdominal Exam Present: soft, normoactive bowel sounds. Absent: tenderness, distended, rebound , guarding, firm - Routine Skin Exam Present: dry, warm - Routine Neurological Exam Present: alert, oriented X3 <Mis Daniels - Last Filed: 09/15/17 10:45> Vital signs: Vital Signs 09/14/17 19:00 09/14/17 19:24 09/14/17 20:00 Temperature 98.8 F Pulse Rate 74 74 74 Respiratory Rate 18 16 Blood Pressure 142/60 H Pulse Oximetry 99 99 07/16/18 21:00 09/14/17 21:30 09/14/17 22:00 Temperature Pulse Rate 76 70 Respiratory Rate Blood Pressure 138/70 Pulse Oximetry 09/14/17 23:00 09/14/17 23:28 09/15/17 00:00 Temperature 98.5 F Pulse Rate 72 68 70 Respiratory Rate 18 16 Blood Pressure 138/66 136/49 L Pulse Oximetry 98 09/15/17 01:00 09/15/17 02:00 09/15/17 03:00 Temperature Pulse Rate 71 67 70 Respiratory Rate Blood Pressure 134/66 125/62 Pulse Oximetry 09/15/17 04:00 09/15/17 05:00 09/15/17 06:00 Temperature 98.3 F Pulse Rate 70 69 62 Respiratory Rate 16 Blood Pressure 133/62 136/60 Pulse Oximetry 97 09/15/17 06:40 09/15/17 07:00 09/15/17 07:43 Temperature 98.3 F Pulse Rate 65 66 Respiratory Rate 18 15 Blood Pressure 118/53 L 139/71 Pulse Oximetry 97 95 09/15/17 08:00 09/15/17 09:00 09/15/17 09:30 Temperature Pulse Rate 74 72 Respiratory Rate Blood Pressure Pulse Oximetry 98 93 L 09/15/17 10:00 09/15/17 11:00 09/15/17 12:00 Temperature 98.1 F Pulse Rate 66 69 70 Respiratory Rate 18 Blood Pressure 129/58 L Pulse Oximetry 94 L 09/15/17 12:04 09/15/17 13:00 09/15/17 14:00 Temperature Pulse Rate 68 70 72 Respiratory Rate 15 Blood Pressure Pulse Oximetry 09/15/17 15:00 09/15/17 15:11 09/15/17 15:12 Temperature 98.4 F Pulse Rate 72 72 Respiratory Rate 18 18 Blood Pressure 126/64 Pulse Oximetry 94 L 95 09/15/17 16:00 09/15/17 17:00 Temperature Pulse Rate 70 68 Respiratory Rate Blood Pressure Pulse Oximetry Intake & Output 09/14/17 09/15/17 09/15/17 18:59 06:59 18:59 Intake Total 730 / 730 250 / 250 Output Total 1000 / 1000 1450 / 1450 Balance -1000 / -1000 -720 / -720 250 / 250 Weight 91.4 kg Intake: IV 250 / 250 250 / 250 Heparin/D5W 25,000 U/250 mL 25, 250 / 250 250 / 250 000 unit In 250 ml @ Per Protocol IV.CONT TITRATE PRN Rx #:[id number] Oral 480 / 480 Output: Urine Amount (Catheter) 1000 / 1000 1450 / 1450 Indwelling Urethral Catheter 1000 / 1000 1450 / 1450 Other: # Bowel Movements 0 <Dani Collins E - Last Filed: 09/15/17 18:19> Results - Labs CBC & Chem 7: 09/15/17 01:52 09/15/17 01:52 Labs: Laboratory Results - last 24 hr 09/14/17 09/14/17 09/14/17 11:25 11:25 11:25 WBC RBC Hgb Hct MCV MCH MCHC RDW Plt Count MPV Retic Count 2.7 Absolute Retic 83.9 APTT 34.2 H D Sodium Potassium Chloride Carbon Dioxide Anion Gap BUN Creatinine Estimated GFR POC Glucose Random Glucose Calcium Phosphorus Iron 44 L TIBC 267 % Saturation 16.5 L Ferritin 114 Lactate Dehydrogenase 325 H Troponin I Albumin Urine Color Urine Clarity Urine pH Ur Specific [place] Urine Protein Urine Glucose (UA) Urine Ketones Urine Occult Blood Urine Nitrate Urine Bilirubin Urine Urobilinogen Ur Leukocyte Esterase Urine RBC Urine WBC Urine WBC Clumps Urine Bacteria Micro UA Comment Urine Culture Comments 09/14/17 09/14/17 09/14/17 11:25 13:07 14:55 WBC RBC Hgb Hct MCV MCH MCHC RDW Plt Count MPV Retic Count Absolute Retic APTT Sodium Potassium Chloride Carbon Dioxide Anion Gap BUN Creatinine Estimated GFR POC Glucose 217 H Random Glucose Calcium Phosphorus Iron TIBC % Saturation Ferritin Lactate Dehydrogenase Troponin I 1.03 H* D Albumin Urine Color Yellow Urine Clarity Turbid H Urine pH 5.0 Ur Specific [place] 1.009 Urine Protein 100 H Urine Glucose (UA) 50 Urine Ketones Negative Urine Occult Blood Small H Urine Nitrate Negative Urine Bilirubin Negative Urine Urobilinogen Less than 2 Ur Leukocyte Esterase Large H Urine RBC 13 H Urine WBC Urine WBC Clumps Many H Urine Bacteria Many H Micro UA Comment Cath-culture ind Urine Culture Comments Cath-cult indicated 09/14/17 09/14/17 09/14/17 17:40 19:53 19:53 WBC 10.5 RBC 2.84 L Hgb 8.7 L Hct 26.1 L MCV 91.7 MCH 30.7 MCHC 33.5 RDW 14.7 Plt Count 226 MPV 9.3 Retic Count Absolute Retic APTT 46.0 H D Sodium Potassium Chloride Carbon Dioxide Anion Gap BUN Creatinine Estimated GFR POC Glucose 227 H Random Glucose Calcium Phosphorus Iron TIBC % Saturation Ferritin Lactate Dehydrogenase Troponin I Albumin Urine Color Urine Clarity Urine pH Ur Specific [place] Urine Protein Urine Glucose (UA) Urine Ketones Urine Occult Blood Urine Nitrate Urine Bilirubin Urine Urobilinogen Ur Leukocyte Esterase Urine RBC Urine WBC Urine WBC Clumps Urine Bacteria Micro UA Comment Urine Culture Comments 09/14/17 09/14/17 09/15/17 19:53 20:19 01:52 WBC 9.5 RBC 2.68 L Hgb 8.5 L Hct 24.5 L MCV 91.5 MCH 31.6 MCHC 34.6 RDW 14.5 Plt Count 217 MPV 8.5 Retic Count Absolute Retic APTT Sodium 135 L Potassium 4.4 Chloride 103 Carbon Dioxide 17.3 L Anion Gap 15 BUN 50 H Creatinine 3.15 H Estimated GFR 14 L POC Glucose 267 H Random Glucose 275 H D Calcium 8.6 Phosphorus Iron TIBC % Saturation Ferritin Lactate Dehydrogenase Troponin I Albumin Urine Color Urine Clarity Urine pH Ur Specific [place] Urine Protein Urine Glucose (UA) Urine Ketones Urine Occult Blood Urine Nitrate Urine Bilirubin Urine Urobilinogen Ur Leukocyte Esterase Urine RBC Urine WBC Urine WBC Clumps Urine Bacteria Micro UA Comment Urine Culture Comments 09/15/17 09/15/17 09/15/17 01:52 01:52 07:36 WBC RBC Hgb Hct MCV MCH MCHC RDW Plt Count MPV Retic Count Absolute Retic APTT 55.4 H D Sodium 136 Potassium 4.2 Chloride 104 Carbon Dioxide 18.1 L Anion Gap 14 BUN 52 H Creatinine 3.19 H Estimated GFR 14 L POC Glucose 236 H Random Glucose 194 H Calcium 7.9 L Phosphorus 5.4 H Iron TIBC % Saturation Ferritin Lactate Dehydrogenase Troponin I Albumin 2.3 L Urine Color Urine Clarity Urine pH Ur Specific [place] Urine Protein Urine Glucose (UA) Urine Ketones Urine Occult Blood Urine Nitrate Urine Bilirubin Urine Urobilinogen Ur Leukocyte Esterase Urine RBC Urine WBC Urine WBC Clumps Urine Bacteria Micro UA Comment Urine Culture Comments - Imaging Impressions Chest X-Ray 09/14/17 10:41 CONCLUSION: Worsening infiltrates <Mis Daniels - Last Filed: 09/15/17 10:45> - Labs CBC & Chem 7: 09/15/17 01:52 09/15/17 01:52 Labs: Laboratory Results - last 24 hr 09/14/17 09/14/17 09/14/17 14:55 19:53 19:53 WBC 10.5 RBC 2.84 L Hgb 8.7 L Hct 26.1 L MCV 91.7 MCH 30.7 MCHC 33.5 RDW 14.7 Plt Count 226 MPV 9.3 APTT 46.0 H D Sodium Potassium Chloride Carbon Dioxide Anion Gap BUN Creatinine Estimated GFR POC Glucose Random Glucose Calcium Phosphorus Albumin Urine Color Yellow Urine Clarity Turbid H Urine pH 5.0 Ur Specific [place] 1.009 Urine Protein 100 H Urine Glucose (UA) 50 Urine Ketones Negative Urine Occult Blood Small H Urine Nitrate Negative Urine Bilirubin Negative Urine Urobilinogen Less than 2 Ur Leukocyte Esterase Large H Urine RBC 13 H Urine WBC Urine WBC Clumps Many H Urine Bacteria Many H Micro UA Comment Cath-culture ind Urine Culture Comments Cath-cult indicated 09/14/17 09/14/17 09/15/17 19:53 20:19 01:52 WBC 9.5 RBC 2.68 L Hgb 8.5 L Hct 24.5 L MCV 91.5 MCH 31.6 MCHC 34.6 RDW 14.5 Plt Count 217 MPV 8.5 APTT Sodium 135 L Potassium 4.4 Chloride 103 Carbon Dioxide 17.3 L Anion Gap 15 BUN 50 H Creatinine 3.15 H Estimated GFR 14 L POC Glucose 267 H Random Glucose 275 H D Calcium 8.6 Phosphorus Albumin Urine Color Urine Clarity Urine pH Ur Specific [place] Urine Protein Urine Glucose (UA) Urine Ketones Urine Occult Blood Urine Nitrate Urine Bilirubin Urine Urobilinogen Ur Leukocyte Esterase Urine RBC Urine WBC Urine WBC Clumps Urine Bacteria Micro UA Comment Urine Culture Comments 09/15/17 09/15/17 09/15/17 01:52 01:52 07:36 WBC RBC Hgb Hct MCV MCH MCHC RDW Plt Count MPV APTT 55.4 H D Sodium 136 Potassium 4.2 Chloride 104 Carbon Dioxide 18.1 L Anion Gap 14 BUN 52 H Creatinine 3.19 H Estimated GFR 14 L POC Glucose 236 H Random Glucose 194 H Calcium 7.9 L Phosphorus 5.4 H Albumin 2.3 L Urine Color Urine Clarity Urine pH Ur Specific [place] Urine Protein Urine Glucose (UA) Urine Ketones Urine Occult Blood Urine Nitrate Urine Bilirubin Urine Urobilinogen Ur Leukocyte Esterase Urine RBC Urine WBC Urine WBC Clumps Urine Bacteria Micro UA Comment Urine Culture Comments 09/15/17 09/15/17 09/15/17 10:42 12:12 16:31 WBC RBC Hgb Hct MCV MCH MCHC RDW Plt Count MPV APTT 53.3 H Sodium Potassium Chloride Carbon Dioxide Anion Gap BUN Creatinine Estimated GFR POC Glucose 273 H 276 H Random Glucose Calcium Phosphorus Albumin Urine Color Urine Clarity Urine pH Ur Specific [place] Urine Protein Urine Glucose (UA) Urine Ketones Urine Occult Blood Urine Nitrate Urine Bilirubin Urine Urobilinogen Ur Leukocyte Esterase Urine RBC Urine WBC Urine WBC Clumps Urine Bacteria Micro UA Comment Urine Culture Comments <Dani Collins - Last Filed: 09/15/17 18:19> Assessment and Plan (1) Anemia Status: Acute Code(s): D64.9 - Anemia, unspecified (2) History of Helicobacter pylori infection Status: Acute Code(s): Z86.19 - Personal history of other infectious and parasitic diseases - Plan Assessment: - Anemia, normocytic- Pt presented to ER with chest pain S/P cath on 09/10 with abnormal findings, due to poor renal function, java sybase developer minimized use of contrast but are planning on a repeat cath with PCI. According to notes planning on Plavix after PCI and have cleared pt to undergo EGD and colonoscopy to rule out GIB prior to initiation of Plavix. Currently 8.5/24.5 Denies nausea, vomiting, abdominal pain. Occasional heartburn, takes Tums as needed. Occasional constipation, takes Glycerin suppository as needed. Denies unintentional weight loss. Last EGD over 5 years ago- sounds like pt had an ulcer and H. Pylori infection Last colonoscopy 3 years ago and states colon polyps Procedures done by Dr. Escobedo in [place]. Denies family history of colon cancer. Denies ETOH and smoking. Plan: EGD and colonoscopy tomorrow Obtain consent Clear liquids today Golytely prep NPO after MN Stop Heparin gtt at 5am Further recommendations based on clinical course and results of above Pt has been seen and examined by myself and Dr. Collins and this note is written on his behalf <Mis Daniels - Last Filed: 09/15/17 10:45> (1) Anemia Status: Acute Code(s): D64.9 - Anemia, unspecified (2) History of Helicobacter pylori infection Status: Acute Code(s): Z86.19 - Personal history of other infectious and parasitic diseases - Attending Attestation Patient seen and examined agree with above Continue with current supportive care Monitor labs Plan for an EGD and colonoscopy tomorrow <Dani Collins - Last Filed: 09/15/17 18:19>
--- NOTE | 2017-09-15 11:24 | P.PNNP ---
Subjective Interval history: Pt reports that her breathing and CP has resolved. Daughter and present. Daughter translated partially as well as . Also had hospital staff to translate as well. Physical Exam Vital signs: Vital Signs 09/14/17 12:00 09/14/17 13:00 09/14/17 14:00 Temperature 98.2 F Pulse Rate 73 70 74 Respiratory Rate 18 Blood Pressure 152/65 H Pulse Oximetry 96 09/14/17 15:00 09/14/17 15:05 09/14/17 15:43 Temperature Pulse Rate 71 70 87 Respiratory Rate 18 Blood Pressure Pulse Oximetry 09/14/17 16:00 09/14/17 17:00 09/14/17 18:00 Temperature 98.2 F Pulse Rate 68 68 73 Respiratory Rate 18 Blood Pressure 123/56 L Pulse Oximetry 97 09/14/17 19:00 09/14/17 19:24 09/14/17 20:00 Temperature 98.8 F Pulse Rate 74 74 74 Respiratory Rate 18 16 Blood Pressure 142/60 H Pulse Oximetry 99 99 09/14/17 21:00 09/14/17 21:30 09/14/17 22:00 Temperature Pulse Rate 76 70 Respiratory Rate Blood Pressure 138/70 Pulse Oximetry 09/14/17 23:00 09/14/17 23:28 09/15/17 00:00 Temperature 98.5 F Pulse Rate 72 68 70 Respiratory Rate 18 16 Blood Pressure 138/66 136/49 L Pulse Oximetry 98 09/15/17 01:00 09/15/17 02:00 09/15/17 03:00 Temperature Pulse Rate 71 67 70 Respiratory Rate Blood Pressure 134/66 125/62 Pulse Oximetry 09/15/17 04:00 09/15/17 05:00 09/15/17 06:00 Temperature 98.3 F Pulse Rate 70 69 62 Respiratory Rate 16 Blood Pressure 133/62 136/60 Pulse Oximetry 97 09/15/17 06:40 09/15/17 07:00 09/15/17 07:43 Temperature 98.3 F Pulse Rate 65 66 Respiratory Rate 18 15 Blood Pressure 118/53 L 139/71 Pulse Oximetry 97 95 09/15/17 08:00 09/15/17 09:00 09/15/17 09:30 Temperature Pulse Rate 74 72 Respiratory Rate Blood Pressure Pulse Oximetry 98 93 L 07/17/18 10:00 Temperature Pulse Rate 66 Respiratory Rate Blood Pressure Pulse Oximetry Intake & Output 09/14/17 09/15/17 09/15/17 18:59 06:59 18:59 Intake Total 730 / 730 Output Total 1000 / 1000 1450 / 1450 Balance -1000 / -1000 -720 / -720 Weight 91.4 kg Intake: IV 250 / 250 Heparin/D5W 25,000 U/250 mL 25, 250 / 250 000 unit In 250 ml @ Per Protocol IV.CONT TITRATE PRN Rx #:[id number] Oral 480 / 480 Output: Urine Amount (Catheter) 1000 / 1000 1450 / 1450 Indwelling Urethral Catheter 1000 / 1000 1450 / 1450 Other: # Bowel Movements 0 - Constitutional no acute distress - Routine HEENT Exam Head: Present: normocephalic ENT: Present: mucous membranes moist - Routine Neck Exam Present: supple - Routine Respiratory Exam Present: CTA bilaterally - Routine Cardiovascular Exam Present: RRR, S1, S2 - Routine Abdominal Exam Present: soft - Routine Extremities Exam Present: edema (trace edema in bilat hips, but otherwise improved) - Routine Neurological Exam Present: alert, oriented X3 - Routine Psychiatric Exam Present: normal affect - Urinary Catheter Management Indwelling Urethral Catheter Cath placed during this visit: yes Reason for continuing: Hourly intake/output Insertion date: 09/14/17 Insertion time: 14:00 Assessment and Plan - Assessment (1) Chronic kidney disease, stage IV (severe) Code(s): N18.4 - Chronic kidney disease, stage 4 (severe) Status: Acute Plan: The patient's acute renal decline potentially related to contrast exposure, but may also represent intrinsic decline. She is doing better on Lasix and diuresing well. Episode of CP yesterday that has resolved. Discussion was had with cardiology who does want to proceed with cardiac cath. It is thought that she will require hemodialysis after cardiac cath given her worsening azotemia and previous decompensation. Had discussion with the patient and her family and we will proceed with placement of hemodialysis PermCath in the AM as she will be placed on Plavix post-cath that will preclude placement of CVC once this is started. Will defer to cardiology regarding timing of cardiac cath. We discussed the procedure of PermCath placement as well as dialysis including the risk of bleeding, infection, and . All questions were answered to the patient and her family's satisfaction. NPO after midnight. IR consultation placed. Medications should be adjusted for the patient's estimated GFR if clinically indicated. Avoid additional agents with significant potential for nephrotoxicity if possible including NSAIDs for analgesia, s. Gadolinium is contraindicated if the GFR is below 30. (2) Essential (primary) hypertension Code(s): I10 - Essential (primary) hypertension Status: Acute Plan: Improved (3) Diabetes mellitus Code(s): E11.9 - Type 2 diabetes mellitus without complications Status: Acute Plan: Mgmt as per primary (4) Anemia Code(s): D64.9 - Anemia, unspecified Status: Acute Plan: Mild iron deficiency. 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 GI seeing.
[2017-09-15] MEDS: Heparin Drip 25,000 UNIT/250 ML BAG IV.CONT PRN (13:01)
[2017-09-15] MEDS ORDERED: PEG 3350/E-Lyte Soln 4000 ML Bottle PO ONE (16:00)
--- NOTE | 2017-09-15 21:06 | ECG ---
Date Performed: 09/14/2017 Time Performed: 14:51:48 PTAGE: 77 years EKG: Sinus rhythm . --- Suspect arm lead reversal - only aVF, V1-V6 analyzed --- Lateral ST-T changes suggest myocardia l injury/ischemia Abnormal ECG PREVIOUS TRACING : 09/14/2017 12.08 No significant change when compared with previous DOCTOR: Demetria Handley Interpretating Date/Time 09/15/2017 21:04:40
--- NOTE | 2017-09-15 21:10 | ECG ---
Date Performed: 09/14/2017 Time Performed: 12:08:18 PTAGE: 77 years EKG: Sinus rhythm . --- Suspect arm lead reversal - only aVF, V1-V6 analyzed --- Lateral ST-T changes suggest myocardia l injury/ischemia Abnormal ECG PREVIOUS TRACING : 09/14/2017 10.59 No significant change when compared with previous DOCTOR: Demetria Handley Interpretating Date/Time 09/15/2017 21:08:58
--- NOTE | 2017-09-15 21:12 | ECG ---
Date Performed: 09/14/2017 Time Performed: 10:59:44 PTAGE: 77 years EKG: Sinus rhythm . Left axis deviation Possible lateral infarct - age undetermined Inferior ST-T changes may be due to myocardial ischemia Abnormal ECG PREVIOUS TRACING : 09/11/2017 11.08 When compared with previous there are marked ischemic blanca es DOCTOR: Demetria Handley Interpretating Date/Time 09/15/2017 21:11:15
[2017-09-16] MEDS: Insulin Detemir Inj 1,000 UNIT/10 ML Vial SQ SCH ×3 (00:38→22:00)
[2017-09-16] MEDS: Gabapentin 300 MG Capsule PO SCH ×3 (00:40→21:31)
[2017-09-16] MEDS: Atenolol 50 MG Tablet PO SCH ×3 (00:40→21:31)
[2017-09-16] MEDS: Ferrous Sulfate 325 MG Tablet PO SCH ×3 (00:40→21:32)
[2017-09-16] MEDS: Witch Hazel 50%/Glyderin 12.5% 40 Pad Jar RECTAL PRN (00:40)
[2017-09-16] MEDS: amLODIPine 5 MG Tablet PO SCH ×3 (00:41→23:21)
[2017-09-16] MEDS: Insulin NovoLOG Aspart Correctional Sugar Inj SQ SCH ×4 (00:44→22:00)
[2017-09-16 05:35] LABS: Baso # (Auto) 0.1 th/mm3 (0.0-0.2); Baso % (Auto) 0.5 % (0.0-2.0); Eos # (Auto) 0.1 th/mm3 (0.0-0.4); Eos % (Auto) 0.7 % (0.0-4.0); Hematocrit 25.3 % (35.0-46.0); Hemoglobin 8.5 gm/dL (11.6-15.3); Lymph # (Auto) 1.4 th/mm3 (1.0-4.8); Lymph % (Auto) 12.1 % (9.0-44.0); Mean Corpuscular HGB Conc 33.6 % (32.0-36.0); Mean Corpuscular Hemoglobin 30.6 pg (27.0-34.0); Mean Corpuscular Volume 90.9 fL (80.0-100.0); Mean Platelet Volume 8.8 fL (7.0-11.0); Mono % (Auto) 8.7 % (0.0-8.0); Neut # (Auto) 8.9 th/mm3 (1.8-7.7); Platelet Count 244 th/mm3 (150-450); Red Blood Count 2.78 mil/mm3 (4.00-5.30); Red Cell Distribution Width 14.6 % (11.6-17.2); White Blood Count 11.4 th/mm3 (4.0-11.0)
[2017-09-16 05:46] LABS: Activated Partial Thrombo Time 57.4 sec (24.3-30.1); INR 1.2 Ratio; Prothrombin Time 11.7 sec (9.8-11.6)
[2017-09-16 06:20] LABS: Albumin 2.6 g/dL (3.4-5.0); Calcium 8.3 mg/dL (8.5-10.1); Carbon Dioxide 21.1 meq/L (21.0-32.0); Phosphorus 6.3 mg/dL (2.5-4.9); Potassium 3.7 meq/L (3.5-5.1)
[2017-09-16] MEDS: Isosorbide Mononitrate 60 MG ER 24HR Tablet (Imdur) PO SCH (08:12)
[2017-09-16] MEDS: Sodium Bicarbonate 650 MG Tablet PO SCH ×3 (08:12→20:03)
[2017-09-16] MEDS: ALPRAZolam 0.25 MG Tablet PO PRN (08:13)
--- NOTE | 2017-09-16 08:47 | P.PNCA ---
Subjective Interval history: Some mild chest discomfort overnight but overall improved. no dyspnea. plans for EGD/colonoscopy and placement of vas cath for initiation of HD today. Physical Exam Vital signs: Vital Signs 09/15/17 09:00 09/15/17 09:30 09/15/17 10:00 Temperature Pulse Rate 72 66 Respiratory Rate Blood Pressure Pulse Oximetry 93 L 09/15/17 11:00 09/15/17 12:00 09/15/17 12:04 Temperature 98.1 F Pulse Rate 69 70 68 Respiratory Rate 18 15 Blood Pressure 129/58 L Pulse Oximetry 94 L 09/15/17 13:00 09/15/17 14:00 09/15/17 15:00 Temperature 98.4 F Pulse Rate 70 72 72 Respiratory Rate 18 Blood Pressure 126/64 Pulse Oximetry 94 L 09/15/17 15:11 09/15/17 15:12 09/15/17 16:00 Temperature Pulse Rate 72 70 Respiratory Rate 18 Blood Pressure Pulse Oximetry 95 09/15/17 17:00 09/15/17 18:00 09/15/17 19:00 Temperature Pulse Rate 68 70 71 Respiratory Rate 18 Blood Pressure 153/66 H Pulse Oximetry 95 09/15/17 19:05 09/15/17 20:00 09/15/17 21:00 Temperature Pulse Rate 70 74 70 Respiratory Rate 16 Blood Pressure Pulse Oximetry 09/15/17 22:00 09/15/17 23:00 09/15/17 23:47 Temperature Pulse Rate 68 76 77 Respiratory Rate 18 18 Blood Pressure Pulse Oximetry 95 09/16/17 00:00 09/16/17 01:00 09/16/17 02:00 Temperature Pulse Rate 73 72 66 Respiratory Rate Blood Pressure Pulse Oximetry 09/16/17 03:00 09/16/17 04:00 09/16/17 04:34 Temperature Pulse Rate 74 75 69 Respiratory Rate 18 18 Blood Pressure 157/66 H Pulse Oximetry 94 L 09/16/17 05:00 09/16/17 06:00 09/16/17 07:36 Temperature Pulse Rate 74 76 70 Respiratory Rate 14 Blood Pressure Pulse Oximetry 96 Intake & Output 09/15/17 09/16/17 09/16/17 18:59 06:59 18:59 Intake Total 1210 / 1210 290 / 290 Output Total 1650 / 1650 1510 / 1510 Balance -440 / -440 -1220 / -1220 Weight 99.3 kg Intake: IV 250 / 250 50 / 50 Heparin/D5W 25,000 U/250 mL 25, 250 / 250 000 unit In 250 ml @ Per Protocol IV.CONT TITRATE PRN Rx #:[id number] Nitroglycerin Drip Premix 50 mg 50 / 50 In 250 ml @ Per Protocol IV. CONT TITRATE PRN Rx#:[id number] Oral 960 / 960 240 / 240 Output: Urine 1510 / 1510 Urine Amount (Catheter) 1650 / 1650 Indwelling Urethral Catheter 1650 / 1650 GENERAL: SKIN: Warm and dry. HEAD: Atraumatic. Normocephalic. NECK: Trachea midline. No JVD. CARDIOVASCULAR: Regular rate and rhythm. RESPIRATORY: No accessory muscle use. Clear to auscultation. Breath sounds equal bilaterally. GASTROINTESTINAL: Abdomen soft, non-tender, nondistended. MUSCULOSKELETAL: Extremities without clubbing, cyanosis, or edema. No obvious deformities. NEUROLOGICAL: Awake and alert. No obvious cranial nerve deficits. Normal speech. PSYCHIATRIC: Appropriate mood and affect; insight and judgment normal. - Urinary Catheter Management Indwelling Urethral Catheter Cath placed during this visit: yes Reason for continuing: Acute urinary retention Insertion date: 09/16/17 Insertion time: 14:00 Assessment and Plan - Plan 77-year-old Pakistani-speaking female with past medical history of HTN, DM, diabetic nephropathy, CKD who presented for chest pain due to non-STEMI. NSTEMI: C 09/10 showed primarily 2 vessel chit[place] CAD involving the proximal LCx and RCA. PCI on hold pending optimization of renal function, discussed risks/benefits of elective PCI, patient wishes to proceed. Will tentatively plan for [facility] with PCI after evaluation of anemia with GI today and placement of a Vas-Cath for initiation of HD. Continue heparin gtt for medical management of NSTEMI. Continue ASA, Atorvastatin, beta-gonzález. Hypertension: Improved. Continue amlodipine 5mg twice daily, clonidine 0.1mg q8hr, Imdur 60mg daily, Hydralazine to 100mg q8hr, atenolol 50mg bid with holding parameters. DONA on CKD: Creatinine worsened yesterday with associated volume retention, improved after IV diuretics. Pending Vas-Cath placement prior to cath/Plavix. Normocytic anemia: Hemoglobin 11.2 -> 8.5. GI to evaluate the patient prior to committing patient to Plavix. Okay from cardiology standpoint to proceed with EGD or colonoscopy if necessary.
[2017-09-16] MEDS ORDERED: Vancomycin Inj 1 GM/200 ML PIGGYBACK IV.SIG SCH (10:17)
[2017-09-16] MEDS ORDERED: Lidocaine PF 1% Inj 5 ML Syringe INFILTRATN ONE (12:00)
[2017-09-16] MEDS ORDERED: Vancomycin Inj 1,000 MG in Sodium Chlor 0.9% Inj 250 ML IV.SIG SCH (12:00)
[2017-09-16] MEDS ORDERED: fentaNYL Citrate Inj 100 MCG/2 ML Ampul ONE (13:07)
[2017-09-16] MEDS ORDERED: *Heparin 10,000 UNITS/10 ML Vial Periprocedural ONLY ONE (13:10)
[2017-09-16] MEDS ORDERED: Lidocaine 1%/Epinephrine 1:100,000 Inj 20 ML Vial ONE (13:10)
--- NOTE | 2017-09-16 14:27 | IR ---
EXAM DATE: 09/16/2017 2:17 PM EDT AGE/SEX: 77 years / Female INDICATIONS: Patient needs a permcath for dialysis. CLINICAL DATA: This is the patient's initial encounter. Patient reports that signs and symptoms have been present for 1 week and indicates a pain score of 0/10. MEDICAL/SURGICAL HISTORY: Hypertension. Diabetes. Renal disease. chest pain,neuropathy.kidne y stones Lithotripsy. Appendectomy. exploratory laparotomy COMPARISON: No prior exams available for comparison. FLUORO TIME (min): 0.36 IMAGE SERIES: 1 ACCESS SITE: SEDATION TIME (min): 10 MEDICATION(S): 2 mg midazolam (Versed) IV 100 mcg fentanyl (Sublimaze) IV Prophylactic antibiotics were administered with appropriate pre-procedure timing. Vancomycin within 2 hrs of procedure, Ancef (or alternative) within 1 hr of procedure. DEVICE(S): 19 CM VANESAS CATH . . PROCEDURE: 1. Ultrasound-guided venipuncture. 2. PermaCath placement. 3. Conscious sedation with continuous EKG and oximetry monitoring. The risks, benefits and alternatives to the procedure were explained and verbal and written consent w as obtained. The site was prepped in sterile fashion. Full sterile technique was used, including ca p, mask, sterile gloves and gown and a large sterile sheet. Hand hygiene and 2% chlorhexidine and/or betadine/alcohol prep was utilized per protocol for cutaneous antisepsis. Sterile gel and sterile p robe cover were utilized for ultrasound guidance. The skin and subcutaneous tissues were infiltrated with local anesthetic solution. With ultrasound and fluoroscopic guidance a dermatotomy was created over the prescribed vein. A micr opuncture set was used to access the targeted vein and serial dilatation was performed to accept the prescribed length catheter. A subcutaneous tunnel was created in a retrograde fashion the catheter w as pulled through the tunnel. The catheter was flushed and assembled and locked with heparin. The c atheter was sutured in place. Conscious sedation was performed with the prescribed dosages and duration as above in the presence of an independent trained radiology nurse to assist in the monitoring of the patient. EKG and oximetry remained stable throughout the procedure. The patient tolerated the procedure well and there were n o complications. The patient was sent to post anesthesia recovery in stable condition. CONCLUSION: 1. Uncomplicated PermaCath placement as above. Electronically signed by: Tim Wallace MD 09/16/2017 2:26 PM EDT
--- NOTE | 2017-09-16 14:57 | P.PN ---
Physical Exam Vital signs: Vital Signs 09/15/17 15:00 09/15/17 15:11 09/15/17 15:12 Temperature 98.4 F Pulse Rate 72 72 Respiratory Rate 18 18 Blood Pressure 126/64 Pulse Oximetry 94 L 95 09/15/17 16:00 09/15/17 17:00 09/15/17 18:00 Temperature Pulse Rate 70 68 70 Respiratory Rate Blood Pressure Pulse Oximetry 09/15/17 19:00 09/15/17 19:05 09/15/17 20:00 Temperature Pulse Rate 71 70 74 Respiratory Rate 18 16 Blood Pressure 153/66 H Pulse Oximetry 95 09/15/17 21:00 09/15/17 22:00 09/15/17 23:00 Temperature Pulse Rate 70 68 76 Respiratory Rate 18 Blood Pressure Pulse Oximetry 95 09/15/17 23:47 09/16/17 00:00 09/16/17 01:00 Temperature Pulse Rate 77 73 72 Respiratory Rate 18 Blood Pressure Pulse Oximetry 09/16/17 02:00 09/16/17 03:00 09/16/17 04:00 Temperature Pulse Rate 66 74 75 Respiratory Rate 18 Blood Pressure 157/66 H Pulse Oximetry 94 L 09/16/17 04:34 09/16/17 05:00 09/16/17 06:00 Temperature Pulse Rate 69 74 76 Respiratory Rate 18 Blood Pressure Pulse Oximetry 09/16/17 07:00 09/16/17 07:36 09/16/17 08:00 Temperature 98.2 F Pulse Rate 70 70 74 Respiratory Rate 18 14 Blood Pressure 139/64 Pulse Oximetry 94 L 96 94 L 09/16/17 09:00 09/16/17 10:00 09/16/17 11:00 Temperature 98.8 F Pulse Rate 74 70 73 Respiratory Rate 18 Blood Pressure 146/65 H Pulse Oximetry 96 09/16/17 11:30 Temperature Pulse Rate 68 Respiratory Rate 14 Blood Pressure Pulse Oximetry Intake & Output 09/15/17 09/16/17 09/16/17 18:59 06:59 18:59 Intake Total 1210 / 1210 290 / 290 Output Total 1650 / 1650 1510 / 1510 Balance -440 / -440 -1220 / -1220 Weight 99.3 kg Intake: IV 250 / 250 50 / 50 Heparin/D5W 25,000 U/250 mL 25, 250 / 250 000 unit In 250 ml @ Per Protocol IV.CONT TITRATE PRN Rx #:[id number] Nitroglycerin Drip Premix 50 mg 50 / 50 In 250 ml @ Per Protocol IV. CONT TITRATE PRN Rx#:[id number] Oral 960 / 960 240 / 240 Output: Urine 1510 / 1510 Urine Amount (Catheter) 1650 / 1650 Indwelling Urethral Catheter 1650 / 1650 Narrative: Subjective Interval history: Less sob sattign well on 2L NC. No chest pain , diaphoresis, nausea. No fever or chills. No fever or chills. Physical Exam GENERAL: Obese female appears in not acute distress at this time SKIN: Warm and dry. NECK: JVD difficult to assess secondary to neck habitus. HEART: RRR no m/r/g. LUNGS: Decreased breath sounds no wheezing. ABDOMEN: +BS, soft, NT, ND. EXTREMITIES: Trace LE edema. NEURO: Awake and alert. Assessment and Plan 77 year old female with IDDM, HTN, CKD, and anxiety presented to [place] ED on 09/10 with chest pain and subsequently transferred to the main hospital when her second troponin was found to be 5 (up from 0.07). 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 Given her renal insufficiency, it was decided to hold off on PCI given the amount of contrast needed for intervention. 1. NSTEMI - Troponins in the ED: 0.07, 5.46 - EKG in the ED with no ST changes - Echo 55-60% - Cardiology ff - Cath done 09/10 showing 2V-CAD involving L circumflex and RCA; PCI held off at the time secondary to renal function - Was scheduled for PCI 09/14 but patient developed acute respiratory distress , hypoxia, and chest pain on the table. Stat EKG showed some ST-depression in the lateral leads and a stat troponin was 1.03 (decreased from troponin on 09/10) - Continue heparin drip - Started on nitro drip today - Continue beta gonzález, Imdur, and ASA - Cardiology ff - received lasix with some improvement - nitro drip titrating down - Nephro considers HD. Plan for vascath placement 2. Pulmonary edema - . CXR with hazy bilateral central interstitial and alveolar infiltrates, R>L - Lasix 40 mg IV BID - Supplemental O2 - Monitor oxygen saturation 3. PNA - Start Levaquin - Supplemental O2 - DuoNeb Q4 4. Acute on CKD - Renal indices continuing to worsen - Likely secondary to recent contrast exposure during cath as well as cardiorenal decompensation - Nephrology following - Now with pulmonary edema, treating with diuresis - Avoid nephrotoxic agents, contrast, etc. - Renally dose meds 5. Anemia - H&H dropping - Likely combo of anemia of chronic disease and iron deficiency - Check Hemoccult - Hemodynamically stable - Monitor closely - Consider transfusion if Hb drops below 8 given her cardiac history -Plan for colonoscopy EGD tomorrow 6. Diabetes - Continue Levemir 5 units BID - SSI with Accuchecks per protocol 7. HTN - BPs running high - On nitro gtt - Continue hydralazine, atenolol, Norvasc, and Imdur 8. Anxiety - Xanax PRN DVT prophylaxis: Heparin gtt Discussed with the patient, nurse, family at bedside Discharge plan Discharge when improved and cleared by consultants. Plan for EGD colonoscopy and also for vas cath placement for hd - Urinary Catheter Management Indwelling Urethral Catheter Cath placed during this visit: yes Reason for continuing: Acute urinary retention Insertion date: 09/16/17 Insertion time: 14:00 Results - Labs CBC & Chem 7: 09/16/17 04:50 09/16/17 04:50 Laboratory Results - last 24 hr 09/14/17 09/15/17 09/15/17 14:55 16:31 21:45 WBC RBC Hgb Hct MCV MCH MCHC RDW Plt Count MPV Neut % (Auto) Lymph % (Auto) [place] % (Auto) Eos % (Auto) Baso % (Auto) Neut # (Auto) Lymph # (Auto) [place] # (Auto) Eos # (Auto) Baso # (Auto) WBC Differential Differential Comment PT INR APTT Sodium Potassium Chloride Carbon Dioxide Anion Gap BUN Creatinine Estimated GFR POC Glucose 276 H 221 H Random Glucose Calcium Phosphorus Albumin Urine Color Yellow Urine Clarity Turbid H Urine pH 5.0 Ur Specific [place] 1.009 Urine Protein 100 H Urine Glucose (UA) 50 Urine Ketones Negative Urine Occult Blood Small H Urine Nitrate Negative Urine Bilirubin Negative Urine Urobilinogen Less than 2 Ur Leukocyte Esterase Large H Urine RBC 13 H Urine WBC Urine WBC Clumps Many H Urine Bacteria Many H Micro UA Comment Cath-culture ind Urine Culture Comments Cath-cult indicated 09/16/17 09/16/17 09/16/17 04:50 04:50 04:50 WBC 11.4 H RBC 2.78 L Hgb 8.5 L Hct 25.3 L MCV 90.9 MCH 30.6 MCHC 33.6 RDW 14.6 Plt Count 244 MPV 8.8 Neut % (Auto) 78.0 H Lymph % (Auto) 12.1 [place] % (Auto) 8.7 H Eos % (Auto) 0.7 Baso % (Auto) 0.5 Neut # (Auto) 8.9 H Lymph # (Auto) 1.4 [place] # (Auto) 1.0 H Eos # (Auto) 0.1 Baso # (Auto) 0.1 WBC Differential . Differential Comment Auto diff final PT 11.7 H INR 1.2 APTT 57.4 H Sodium 136 Potassium 3.7 Chloride 101 Carbon Dioxide 21.1 Anion Gap 14 BUN 60 H Creatinine 3.33 H Estimated GFR 13 L POC Glucose Random Glucose 200 H Calcium 8.3 L Phosphorus 6.3 H Albumin 2.6 L Urine Color Urine Clarity Urine pH Ur Specific [place] Urine Protein Urine Glucose (UA) Urine Ketones Urine Occult Blood Urine Nitrate Urine Bilirubin Urine Urobilinogen Ur Leukocyte Esterase Urine RBC Urine WBC Urine WBC Clumps Urine Bacteria Micro UA Comment Urine Culture Comments 09/16/17 09/16/17 07:32 11:34 WBC RBC Hgb Hct MCV MCH MCHC RDW Plt Count MPV Neut % (Auto) Lymph % (Auto) [place] % (Auto) Eos % (Auto) Baso % (Auto) Neut # (Auto) Lymph # (Auto) [place] # (Auto) Eos # (Auto) Baso # (Auto) WBC Differential Differential Comment PT INR APTT Sodium Potassium Chloride Carbon Dioxide Anion Gap BUN Creatinine Estimated GFR POC Glucose 233 H 251 H Random Glucose Calcium Phosphorus Albumin Urine Color Urine Clarity Urine pH Ur Specific [place] Urine Protein Urine Glucose (UA) Urine Ketones Urine Occult Blood Urine Nitrate Urine Bilirubin Urine Urobilinogen Ur Leukocyte Esterase Urine RBC Urine WBC Urine WBC Clumps Urine Bacteria Micro UA Comment Urine Culture Comments Microbiology 09/14/17 14:55 Catheterized Urine Urine Culture - Preliminary gram negative rods Proteus species - Imaging Impressions Central Venous Line 09/16/17 00:00 CONCLUSION: 1. Uncomplicated PermaCath placement as above.
--- NOTE | 2017-09-16 16:16 | P.RAD ---
Post Procedure Progress Note - Pre Procedure Diagnosis (1) Chronic kidney disease, stage IV (severe) - Post Procedure Diagnosis (1) Chronic kidney disease, stage IV (severe) - Procedure Information Supervising Radiologist: Tim Wallace MD - Plan of Activity See PACS Report for procedural detail/treatment. [facility] Radiology Procedures right Internal Jugular Hemodialysis Catheter Tunneled Device: dual lumen
--- NOTE | 2017-09-16 18:12 | P.PNNP ---
Subjective Interval history: Attempted to see patient today, but up in EGD procedure. Spoke to family in room. Had YobaniCatmanpreet placed this AM without any apparent issues. Advised family we would reassess her in the AM and decide if she may require HD prior to cardiac cath. They report she has been in NAD and breathing well. Physical Exam Vital signs: Vital Signs 09/15/17 19:00 09/15/17 19:05 09/15/17 20:00 Temperature Pulse Rate 71 70 74 Respiratory Rate 18 16 Blood Pressure 153/66 H Pulse Oximetry 95 09/15/17 21:00 09/15/17 22:00 09/15/17 23:00 Temperature Pulse Rate 70 68 76 Respiratory Rate 18 Blood Pressure Pulse Oximetry 95 09/15/17 23:47 09/16/17 00:00 09/16/17 01:00 Temperature Pulse Rate 77 73 72 Respiratory Rate 18 Blood Pressure Pulse Oximetry 09/16/17 02:00 09/16/17 03:00 09/16/17 04:00 Temperature Pulse Rate 66 74 75 Respiratory Rate 18 Blood Pressure 157/66 H Pulse Oximetry 94 L 09/16/17 04:34 09/16/17 05:00 09/16/17 06:00 Temperature Pulse Rate 69 74 76 Respiratory Rate 18 Blood Pressure Pulse Oximetry 09/16/17 07:00 09/16/17 07:36 09/16/17 08:00 Temperature 98.2 F Pulse Rate 70 70 74 Respiratory Rate 18 14 Blood Pressure 139/64 Pulse Oximetry 94 L 96 94 L 09/16/17 09:00 09/16/17 10:00 09/16/17 11:00 Temperature 98.8 F Pulse Rate 74 70 73 Respiratory Rate 18 Blood Pressure 146/65 H Pulse Oximetry 96 09/16/17 11:30 09/16/17 12:00 09/16/17 15:00 Temperature 98.3 F Pulse Rate 68 76 66 Respiratory Rate 14 18 Blood Pressure 124/57 L Pulse Oximetry 95 09/16/17 15:33 09/16/17 16:00 09/16/17 17:00 Temperature Pulse Rate 71 70 72 Respiratory Rate 17 Blood Pressure Pulse Oximetry Intake & Output 09/15/17 09/16/17 09/16/17 18:59 06:59 18:59 Intake Total 1210 / 1210 290 / 290 250 / 250 Output Total 1650 / 1650 1510 / 1510 Balance -440 / -440 -1220 / -1220 250 / 250 Weight 99.3 kg Intake: IV 250 / 250 50 / 50 250 / 250 Heparin/D5W 25,000 U/250 mL 25, 250 / 250 000 unit In 250 ml @ Per Protocol IV.CONT TITRATE PRN Rx #:[id number] Nitroglycerin Drip Premix 50 mg 50 / 50 In 250 ml @ Per Protocol IV. CONT TITRATE PRN Rx#:[id number] Vancomycin Inj 1,000 MG In NS 250 / 250 Inj 250 ML @ 250 mls/hr IV.SIG LITIGATION COUNSEL ABHI Rx#:[id number] Oral 960 / 960 240 / 240 Output: Urine 1510 / 1510 Urine Amount (Catheter) 1650 / 1650 Indwelling Urethral Catheter 1650 / 1650 - Urinary Catheter Management Indwelling Urethral Catheter Cath placed during this visit: yes Reason for continuing: Hourly intake/output Insertion date: 09/16/17 Insertion time: 14:00 Assessment and Plan - Assessment (1) Chronic kidney disease, stage IV (severe) Code(s): N18.4 - Chronic kidney disease, stage 4 (severe) Status: Acute Plan: The patient's acute renal decline potentially related to contrast exposure, but may also represent intrinsic decline. As per Subjective. Will see pt tomorrow as she was in procedure today. Medications should be adjusted for the patient's estimated GFR if clinically indicated. Avoid additional agents with significant potential for nephrotoxicity if possible including NSAIDs for analgesia, s. Gadolinium is contraindicated if the GFR is below 30. (2) Essential (primary) hypertension Code(s): I10 - Essential (primary) hypertension Status: Acute Plan: Improved (3) Diabetes mellitus Code(s): E11.9 - Type 2 diabetes mellitus without complications Status: Acute Plan: Mgmt as per primary (4) Anemia Code(s): D64.9 - Anemia, unspecified Status: Acute Plan: Mild iron deficiency. 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 GI seeing.
--- NOTE | 2017-09-16 18:19 | P.PCN ---
Date of procedure: 09/16/17 Pre-op diagnosis: Anemia Post-op diagnosis: other Procedure: PROCEDURE PERFORMED EGD with biopsy followed by a colonoscopy with snare polypectomy and clip placement INDICATION FOR PROCEDURE Anemia PROCEDURE: The procedure, risks and benefits were discussed with Patient/POA and informed consent was obtained. Anesthesia sedated Patient with Diprivan. Patient was placed in the left lateral decubitus position. EGD: The Pentax videoscope was introduced through the oropharynx and advanced to the second portion of the duodenum under direct visualization. Retroflexion was performed in the stomach. FINDINGS: The esophagus this appeared to be unremarkable and within normal limits The stomach there was a small nodule in the upper gastric body this was biopsied there was patchy erythema in the antrum and the and this too was biopsied otherwise the stomach was unremarkable The duodenum this was normal Colonoscopy: The Pentax videoscope was introduced through the rectum and advanced to cecum where the ileocecal valve and appendiceal orifice were identified. Retroflexion was performed in the rectum. Colonic prep was good FINDINGS: Colonic withdrawal time greater than 6 minutes. As the scope was slowly withdrawn colonic mucosa was carefully inspected patient was noted to have 2 polyps in the distal transverse colon the first was small and was excised using cold snare technique the next was large measuring about a centimeter this was excised using hot snare technique and subsequently due to the fact that the patient will be anticoagulated a clip was placed over the polypectomy site the polyps were retrieved for further evaluation the patient was also noted to have mild diverticulosis of the sigmoid region retroflexion in the rectum and rectal examination were unremarkable ESTIMATED BLOOD LOSS: None SPECIMENS REMOVED: Gastric and colon biopsies COMPLICATIONS: None IMPRESSION: Gastric nodule Gastritis Colon polyps Diverticulosis PLAN: Patient cleared from a GI perspective for anticoagulation as necessary Await biopsies Cardiac diet Monitor labs Continue with current supportive care Anesthesia: MAC Surgeon: Dani Collins Pathology: other Condition: stable Disposition: PACU
[2017-09-16] MEDS: Levofloxacin 500 mg Premix Inj 500 MG/100 ML PIGGYBACK IV.SIG SCH (20:03)
[2017-09-17] MEDS: ALPRAZolam 0.25 MG Tablet PO PRN (00:49)
[2017-09-17 06:06] LABS: Baso # (Auto) 0.1 th/mm3 (0.0-0.2); Eos # (Auto) 0.4 th/mm3 (0.0-0.4); Eos % (Auto) 4.2 % (0.0-4.0); Hematocrit 24.2 % (35.0-46.0); Hemoglobin 8.4 gm/dL (11.6-15.3); Lymph # (Auto) 1.4 th/mm3 (1.0-4.8); Lymph % (Auto) 14.8 % (9.0-44.0); Mean Corpuscular HGB Conc 34.5 % (32.0-36.0); Mean Corpuscular Hemoglobin 31.3 pg (27.0-34.0); Mean Corpuscular Volume 90.8 fL (80.0-100.0); Mono # (Auto) 1.1 th/mm3 (0.0-0.9); Neut # (Auto) 6.7 th/mm3 (1.8-7.7); Platelet Count 234 th/mm3 (150-450); Red Blood Count 2.67 mil/mm3 (4.00-5.30); Red Cell Distribution Width 14.7 % (11.6-17.2); White Blood Count 9.7 th/mm3 (4.0-11.0)
[2017-09-17 06:34] LABS: Albumin 2.5 g/dL (3.4-5.0); Calcium 8.5 mg/dL (8.5-10.1); Carbon Dioxide 23.8 meq/L (21.0-32.0); Potassium 3.4 meq/L (3.5-5.1)
[2017-09-17 06:36] LABS: Phosphorus 5.6 mg/dL (2.5-4.9)
--- NOTE | 2017-09-17 07:36 | P.PNCA ---
<AntioneDayo - Last Filed: 09/17/17 07:32> Subjective Interval history: The patient had dialysis catheter placed and EGD/colonoscopy done yesterday. Per nephrology note from yesterday, will reassess patient this morning to decide if she needs dialysis prior to catheterization. The patient denies any chest pain or shortness of breath. Physical Exam Vital signs: Vital Signs 09/16/17 07:36 09/16/17 08:00 09/16/17 09:00 Temperature Pulse Rate 70 74 74 Respiratory Rate 14 Blood Pressure Pulse Oximetry 96 94 L 09/16/17 10:00 09/16/17 11:00 09/16/17 11:30 Temperature 98.8 F Pulse Rate 70 73 68 Respiratory Rate 18 14 Blood Pressure 146/65 H Pulse Oximetry 96 09/16/17 12:00 09/16/17 15:00 09/16/17 15:33 Temperature 98.3 F Pulse Rate 76 66 71 Respiratory Rate 18 17 Blood Pressure 124/57 L Pulse Oximetry 95 09/16/17 16:00 09/16/17 17:00 09/16/17 18:08 Temperature 98.4 F Pulse Rate 70 72 67 Respiratory Rate 16 Blood Pressure 119/56 L Pulse Oximetry 09/16/17 19:00 09/16/17 20:00 09/16/17 21:07 Temperature Pulse Rate 69 69 76 Respiratory Rate 16 14 Blood Pressure 153/63 H Pulse Oximetry 94 L 94 L 09/16/17 22:00 09/16/17 23:00 09/17/17 00:00 Temperature Pulse Rate 76 72 69 Respiratory Rate Blood Pressure Pulse Oximetry 09/17/17 00:16 09/17/17 01:00 09/17/17 02:00 Temperature 99.0 F Pulse Rate 68 71 67 Respiratory Rate 22 18 Blood Pressure 138/67 Pulse Oximetry 92 L 09/17/17 03:00 09/17/17 04:00 09/17/17 04:29 Temperature Pulse Rate 62 84 63 Respiratory Rate 16 17 Blood Pressure Pulse Oximetry 09/17/17 05:00 09/17/17 05:49 09/17/17 06:00 Temperature Pulse Rate 71 66 Respiratory Rate 18 16 Blood Pressure 140/60 Pulse Oximetry 94 L Intake & Output 09/16/17 09/17/17 09/17/17 18:59 06:59 18:59 Intake Total 450 / 450 460 / 460 Output Total 770 / 770 1250 / 1250 Balance -320 / -320 -790 / -790 Weight 217 lb 2.485 oz Intake: IV 250 / 250 100 / 100 Levaquin 500 mg Premix Inj 500 100 / 100 mg In 100 ml @ 100 mls/hr IV. SIG Q48H ABHI Rx#:[id number] Vancomycin Inj 1,000 MG In NS 250 / 250 Inj 250 ML @ 250 mls/hr IV.SIG AUTO WINDER ABHI Rx#:[id number] Oral 360 / 360 Anesthesia Amount 200 / 200 Output: Urine Amount (Catheter) 770 / 770 1250 / 1250 Indwelling Urethral Catheter 770 / 770 1250 / 1250 Other: Date of Last Bowel Movement 09/16/17 Narrative: GENERAL: Well-developed well-nourished. In no acute distress. NECK: No carotid bruits. No JVD. Dialysis catheter in place in right chest wall. CARDIOVASCULAR: Regular rate and rhythm. No murmur appreciated. RESPIRATORY: No accessory muscle use. Clear to auscultation. Breath sounds equal bilaterally. MUSCULOSKELETAL: No clubbing or cyanosis. No edema. NEUROLOGICAL: Awake and alert. Normal speech. - Urinary Catheter Management Indwelling Urethral Catheter Cath placed during this visit: yes Reason for continuing: Acute urinary retention Insertion date: 09/16/17 Insertion time: 14:00 Assessment and Plan - Plan 77-year-old Somali-speaking female with past medical history of HTN, DM, diabetic nephropathy, CKD who presented for chest pain due to non-STEMI. NSTEMI: LHC 09/10 showed primarily 2 vessel ute CAD involving the proximal LCx and RCA. PCI on hold pending optimization of renal function, discussed risks/benefits of elective PCI, patient wishes to proceed. Will tentatively plan for [facility] with PCI when cleared by nephrology. S/P heparin gtt for medical management of NSTEMI. Continue ASA, Atorvastatin, beta-gonzález. Hypertension: Improved. Continue amlodipine 5mg twice daily, clonidine 0.1mg q8hr, Imdur 60mg daily, Hydralazine to 100mg q8hr, atenolol 50mg bid with holding parameters. DONA on CKD: S/P Vas-Cath placement for initiation of HD. Nephrology on board. Normocytic anemia: Hemoglobin 11.2 -> 8.5, currently stable. GI performed EGD and colonoscopy without bleeding noted, cleared from GI perspective for anticoagulation as needed. Per nephrology at least some component of anemia of renal disease. <Martin Gamino - Last Filed: 09/17/17 08:23> Physical Exam Vital signs: Vital Signs 09/16/17 09:00 09/16/17 10:00 09/16/17 11:00 Temperature 98.8 F Pulse Rate 74 70 73 Respiratory Rate 18 Blood Pressure 146/65 H Pulse Oximetry 96 09/16/17 11:30 09/16/17 12:00 09/16/17 15:00 Temperature 98.3 F Pulse Rate 68 76 66 Respiratory Rate 14 18 Blood Pressure 124/57 L Pulse Oximetry 95 09/16/17 15:33 09/16/17 16:00 09/16/17 17:00 Temperature Pulse Rate 71 70 72 Respiratory Rate 17 Blood Pressure Pulse Oximetry 09/16/17 18:08 09/16/17 19:00 09/16/17 20:00 Temperature 98.4 F Pulse Rate 67 69 69 Respiratory Rate 16 16 Blood Pressure 119/56 L 153/63 H Pulse Oximetry 94 L 09/16/17 21:07 09/16/17 22:00 09/16/17 23:00 Temperature Pulse Rate 76 76 72 Respiratory Rate 14 Blood Pressure Pulse Oximetry 94 L 09/17/17 00:00 09/17/17 00:16 09/17/17 01:00 Temperature 99.0 F Pulse Rate 69 68 71 Respiratory Rate 22 18 Blood Pressure 138/67 Pulse Oximetry 92 L 09/17/17 02:00 09/17/17 03:00 09/17/17 04:00 Temperature Pulse Rate 67 62 84 Respiratory Rate 16 Blood Pressure Pulse Oximetry 09/17/17 04:29 09/17/17 05:00 09/17/17 05:49 Temperature Pulse Rate 63 71 Respiratory Rate 17 18 16 Blood Pressure 140/60 Pulse Oximetry 94 L 09/17/17 06:00 09/17/17 08:19 09/17/17 08:20 Temperature Pulse Rate 66 64 Respiratory Rate Blood Pressure Pulse Oximetry 93 L Intake & Output 09/16/17 09/17/17 09/17/17 18:59 06:59 18:59 Intake Total 450 / 450 460 / 460 Output Total 770 / 770 1250 / 1250 Balance -320 / -320 -790 / -790 Weight 98.5 kg Intake: IV 250 / 250 100 / 100 Levaquin 500 mg Premix Inj 500 100 / 100 mg In 100 ml @ 100 mls/hr IV. SIG Q48H ABHI Rx#:[id number] Vancomycin Inj 1,000 MG In NS 250 / 250 Inj 250 ML @ 250 mls/hr IV.SIG AUTO WINDER ABHI Rx#:[id number] Oral 360 / 360 Anesthesia Amount 200 / 200 Output: Urine Amount (Catheter) 770 / 770 1250 / 1250 Indwelling Urethral Catheter 770 / 770 1250 / 1250 Other: Date of Last Bowel Movement 09/16/17 - Urinary Catheter Management Indwelling Urethral Catheter Cath placed during this visit: no Assessment and Plan - Plan s/p Vas-cath placement and EGD/Colonoscopy yesterday. Cleared by GI for DAPT will discuss with Dr Foreman timing of [facility] with PCI to LCx & RCA, later this morning vs tomorrow. <Lemuel Foreman - Last Filed: 09/17/17 08:35> Physical Exam Vital signs: Vital Signs 09/16/17 09:00 09/16/17 10:00 09/16/17 11:00 Temperature 98.8 F Pulse Rate 74 70 73 Respiratory Rate 18 Blood Pressure 146/65 H Pulse Oximetry 96 09/16/17 11:30 09/16/17 12:00 09/16/17 15:00 Temperature 98.3 F Pulse Rate 68 76 66 Respiratory Rate 14 18 Blood Pressure 124/57 L Pulse Oximetry 95 09/16/17 15:33 09/16/17 16:00 09/16/17 17:00 Temperature Pulse Rate 71 70 72 Respiratory Rate 17 Blood Pressure Pulse Oximetry 09/16/17 18:08 09/16/17 19:00 09/16/17 20:00 Temperature 98.4 F Pulse Rate 67 69 69 Respiratory Rate 16 16 Blood Pressure 119/56 L 153/63 H Pulse Oximetry 94 L 09/16/17 21:07 09/16/17 22:00 09/16/17 23:00 Temperature Pulse Rate 76 76 72 Respiratory Rate 14 Blood Pressure Pulse Oximetry 94 L 09/17/17 00:00 09/17/17 00:16 09/17/17 01:00 Temperature 99.0 F Pulse Rate 69 68 71 Respiratory Rate 22 18 Blood Pressure 138/67 Pulse Oximetry 92 L 09/17/17 02:00 09/17/17 03:00 09/17/17 04:00 Temperature Pulse Rate 67 62 84 Respiratory Rate 16 Blood Pressure Pulse Oximetry 09/17/17 04:29 09/17/17 05:00 09/17/17 05:49 Temperature Pulse Rate 63 71 Respiratory Rate 17 18 16 Blood Pressure 140/60 Pulse Oximetry 94 L 09/17/17 06:00 09/17/17 08:19 09/17/17 08:20 Temperature Pulse Rate 66 64 Respiratory Rate Blood Pressure Pulse Oximetry 93 L Intake & Output 09/16/17 09/17/17 09/17/17 18:59 06:59 18:59 Intake Total 450 / 450 460 / 460 Output Total 770 / 770 1250 / 1250 Balance -320 / -320 -790 / -790 Weight 98.5 kg Intake: IV 250 / 250 100 / 100 Levaquin 500 mg Premix Inj 500 100 / 100 mg In 100 ml @ 100 mls/hr IV. SIG Q48H ABHI Rx#:[id number] Vancomycin Inj 1,000 MG In NS 250 / 250 Inj 250 ML @ 250 mls/hr IV.SIG AUTO WINDER ABHI Rx#:[id number] Oral 360 / 360 Anesthesia Amount 200 / 200 Output: Urine Amount (Catheter) 770 / 770 1250 / 1250 Indwelling Urethral Catheter 770 / 770 1250 / 1250 Other: Date of Last Bowel Movement 09/16/17 - Urinary Catheter Management Indwelling Urethral Catheter Cath placed during this visit: no Assessment and Plan - Attending Attestation [facility] scheduled for thursday NPO p MN
[2017-09-17] MEDS: Sodium Bicarbonate 650 MG Tablet PO SCH ×3 (09:56→17:28)
[2017-09-17] MEDS: Gabapentin 300 MG Capsule PO SCH ×2 (09:56→20:46)
[2017-09-17] MEDS: Atenolol 50 MG Tablet PO SCH ×2 (09:56→20:46)
[2017-09-17] MEDS: Isosorbide Mononitrate 60 MG ER 24HR Tablet (Imdur) PO SCH (09:56)
[2017-09-17] MEDS: amLODIPine 5 MG Tablet PO SCH ×2 (09:56→21:49)
[2017-09-17] MEDS: Ferrous Sulfate 325 MG Tablet PO SCH ×2 (09:56→20:46)
[2017-09-17] MEDS: Insulin Detemir Inj 1,000 UNIT/10 ML Vial SQ SCH ×2 (09:57→20:45)
--- NOTE | 2017-09-17 14:22 | P.PN ---
Physical Exam Vital signs: Vital Signs 09/16/17 15:00 09/16/17 15:33 09/16/17 16:00 Temperature 98.3 F Pulse Rate 66 71 70 Respiratory Rate 18 17 Blood Pressure 124/57 L Pulse Oximetry 95 09/16/17 17:00 09/16/17 18:08 09/16/17 19:00 Temperature 98.4 F Pulse Rate 72 67 69 Respiratory Rate 16 16 Blood Pressure 119/56 L 153/63 H Pulse Oximetry 94 L 09/16/17 20:00 09/16/17 21:07 09/16/17 22:00 Temperature Pulse Rate 69 76 76 Respiratory Rate 14 Blood Pressure Pulse Oximetry 94 L 09/16/17 23:00 09/17/17 00:00 09/17/17 00:16 Temperature Pulse Rate 72 69 68 Respiratory Rate 22 Blood Pressure Pulse Oximetry 09/17/17 01:00 09/17/17 02:00 09/17/17 03:00 Temperature 99.0 F Pulse Rate 71 67 62 Respiratory Rate 18 Blood Pressure 138/67 Pulse Oximetry 92 L 09/17/17 04:00 09/17/17 04:29 09/17/17 05:00 Temperature Pulse Rate 84 63 71 Respiratory Rate 16 17 18 Blood Pressure 140/60 Pulse Oximetry 94 L 09/17/17 05:49 09/17/17 06:00 09/17/17 08:00 Temperature 98.1 F Pulse Rate 66 73 Respiratory Rate 16 18 Blood Pressure 146/59 H Pulse Oximetry 92 L 09/17/17 08:19 09/17/17 08:20 09/17/17 11:58 Temperature Pulse Rate 64 65 Respiratory Rate 14 Blood Pressure Pulse Oximetry 93 L Intake & Output 09/16/17 09/17/17 09/17/17 18:59 06:59 18:59 Intake Total 450 / 450 460 / 460 Output Total 770 / 770 1250 / 1250 Balance -320 / -320 -790 / -790 Weight 98.5 kg Intake: IV 250 / 250 100 / 100 Levaquin 500 mg Premix Inj 500 100 / 100 mg In 100 ml @ 100 mls/hr IV. SIG Q48H ABHI Rx#:[id number] Vancomycin Inj 1,000 MG In NS 250 / 250 Inj 250 ML @ 250 mls/hr IV.SIG ROLLER PRINTER ABHI Rx#:[id number] Oral 360 / 360 Anesthesia Amount 200 / 200 Output: Urine Amount (Catheter) 770 / 770 1250 / 1250 Indwelling Urethral Catheter 770 / 770 1250 / 1250 Other: Date of Last Bowel Movement 09/16/17 Narrative: Subjective Interval history: F/up NSTEMI/pulm edema/acute on CKD. Anemia Less sob sattign well on room air at this time. No chest pain , diaphoresis, nausea. No fever or chills. Family at bedside. Cleared by GI for use of anticoagulation .Plan for cardiac cath tomorrow Physical Exam GENERAL: Obese very pleasant female appears in not acute distress. NECK: JVD difficult to assess secondary to neck habitus. HEART: RRR no m/r/g. LUNGS: Decreased breath sounds no wheezing. ABDOMEN: +BS, soft, NT, ND. EXTREMITIES: Trace LE edema. NEURO: Awake and alert. Assessment and Plan 77 year old female with IDDM, HTN, CKD, and anxiety presented to [place] ED on 09/10 with chest pain and subsequently transferred to the main hospital when her second troponin was found to be 5 (up from 0.07). 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 Given her renal insufficiency, it was decided to hold off on PCI given the amount of contrast needed for intervention. 1. NSTEMI - Troponins in the ED: 0.07, 5.46 - EKG in the ED with no ST changes - Echo 55-60% - Cardiology ff - Cath done 09/10 showing 2V-CAD involving L circumflex and RCA; PCI held off at the time secondary to renal function - Was scheduled for PCI 09/14 but patient developed acute respiratory distress , hypoxia, and chest pain on the table. Stat EKG showed some ST-depression in the lateral leads and a stat troponin was 1.03 (decreased from troponin on 09/10) - Continue heparin drip - Started on nitro drip today - Continue beta gonzález, Imdur, and ASA - Cardiology ff - received lasix with some improvement - nitro drip titrating down - Nephro considers HD. Plan for vascath placement 2. Pulmonary edema - 09.14 CXR with hazy bilateral central interstitial and alveolar infiltrates, R>L - Lasix 40 mg IV BID - Supplemental O2 - Monitor oxygen saturation 3. PNA - Start Levaquin - Supplemental O2 - DuoNeb Q4 4. Acute on CKD - Renal indices continuing to worsen - Likely secondary to recent contrast exposure during cath as well as cardiorenal decompensation - Nephrology following - Now with pulmonary edema, treating with diuresis - Avoid nephrotoxic agents, contrast, etc. - Renally dose meds 5. Anemia. Anemia likely of chronic disease (renal) - Monitor H&H and transfuse if symptomatic and or HGB < 7 - Likely combo of anemia of chronic disease and iron deficiency - Check Hemoccult - Hemodynamically stable - Monitor closely - Consider transfusion if Hb drops below 8 given her cardiac history - S/p colonoscopy EGD. Polyps , biopsies taken. cleared by GI for use of anticoagulation 6. Diabetes mellitus insulin dependent - Continue Levemir 5 units BID - SSI with Accuchecks per protocol 7. HTN - BPs running high - On nitro gtt - Continue hydralazine, atenolol, Norvasc, and Imdur 8. Anxiety - Xanax PRN DVT prophylaxis: Heparin gtt Discussed with the patient, nurse, family at bedside Discharge plan Discharge when improved and cleared by consultants. S/p EGD colonoscopy, vas cath placement for HD Plan for cardiac cath . Nephrology to determine and coordinate need of HD prior or post cardiac cath - Urinary Catheter Management Indwelling Urethral Catheter Cath placed during this visit: yes Reason for continuing: Acute urinary retention Insertion date: 09/16/17 Insertion time: 14:00 Results - Labs CBC & Chem 7: 09/17/17 05:03 09/17/17 05:03 Laboratory Results - last 24 hr 09/16/17 09/16/17 09/16/17 16:51 18:31 21:28 WBC RBC Hgb Hct MCV MCH MCHC RDW Plt Count MPV Neut % (Auto) Lymph % (Auto) [place] % (Auto) Eos % (Auto) Baso % (Auto) Neut # (Auto) Lymph # (Auto) [place] # (Auto) Eos # (Auto) Baso # (Auto) WBC Differential Differential Comment Sodium Potassium Chloride Carbon Dioxide Anion Gap BUN Creatinine Estimated GFR POC Glucose 188 H 188 H 343 H Random Glucose Calcium Phosphorus Albumin Blood Type Blood Type Recheck Antibody Screen MTS Gel Crossmatch 09/17/17 09/17/17 09/17/17 05:03 05:03 07:56 WBC 9.7 RBC 2.67 L Hgb 8.4 L Hct 24.2 L MCV 90.8 MCH 31.3 MCHC 34.5 RDW 14.7 Plt Count 234 MPV 9.0 Neut % (Auto) 69.0 Lymph % (Auto) 14.8 [place] % (Auto) 11.0 H Eos % (Auto) 4.2 H Baso % (Auto) 1.0 Neut # (Auto) 6.7 Lymph # (Auto) 1.4 [place] # (Auto) 1.1 H Eos # (Auto) 0.4 Baso # (Auto) 0.1 WBC Differential . Differential Comment Auto diff final Sodium 138 Potassium 3.4 L Chloride 100 Carbon Dioxide 23.8 Anion Gap 14 BUN 65 H Creatinine 3.28 H Estimated GFR 14 L POC Glucose 149 H Random Glucose 121 H Calcium 8.5 Phosphorus 5.6 H Albumin 2.5 L Blood Type Blood Type Recheck Antibody Screen MTS Gel Crossmatch 09/17/17 09/17/17 11:30 12:04 WBC RBC Hgb Hct MCV MCH MCHC RDW Plt Count MPV Neut % (Auto) Lymph % (Auto) [place] % (Auto) Eos % (Auto) Baso % (Auto) Neut # (Auto) Lymph # (Auto) [place] # (Auto) Eos # (Auto) Baso # (Auto) WBC Differential Differential Comment Sodium Potassium Chloride Carbon Dioxide Anion Gap BUN Creatinine Estimated GFR POC Glucose 335 H Random Glucose Calcium Phosphorus Albumin Blood Type O Positive Blood Type Recheck Required Antibody Screen Negative MTS Gel Crossmatch See Detail Microbiology 09/14/17 14:55 Catheterized Urine Urine Culture - Final Klebsiella pneumoniae Proteus mirabilis - Imaging Impressions Central Venous Line 09/16/17 00:00 CONCLUSION: 1. Uncomplicated PermaCath placement as above.
--- NOTE | 2017-09-17 14:57 | P.PNNP ---
Subjective Interval history: Patient lying comfortably in bed. by bedside. Physical Exam Vital signs: Vital Signs 09/16/17 15:00 09/16/17 15:33 09/16/17 16:00 Temperature 98.3 F Pulse Rate 66 71 70 Respiratory Rate 18 17 Blood Pressure 124/57 L Pulse Oximetry 95 09/16/17 17:00 09/16/17 18:08 09/16/17 19:00 Temperature 98.4 F Pulse Rate 72 67 69 Respiratory Rate 16 16 Blood Pressure 119/56 L 153/63 H Pulse Oximetry 94 L 09/16/17 20:00 09/16/17 21:07 09/16/17 22:00 Temperature Pulse Rate 69 76 76 Respiratory Rate 14 Blood Pressure Pulse Oximetry 94 L 09/16/17 23:00 09/17/17 00:00 09/17/17 00:16 Temperature Pulse Rate 72 69 68 Respiratory Rate 22 Blood Pressure Pulse Oximetry 09/17/17 01:00 09/17/17 02:00 09/17/17 03:00 Temperature 99.0 F Pulse Rate 71 67 62 Respiratory Rate 18 Blood Pressure 138/67 Pulse Oximetry 92 L 09/17/17 04:00 09/17/17 04:29 09/17/17 05:00 Temperature Pulse Rate 84 63 71 Respiratory Rate 16 17 18 Blood Pressure 140/60 Pulse Oximetry 94 L 09/17/17 05:49 09/17/17 06:00 09/17/17 08:00 Temperature 98.1 F Pulse Rate 66 73 Respiratory Rate 16 18 Blood Pressure 146/59 H Pulse Oximetry 92 L 09/17/17 08:19 09/17/17 08:20 09/17/17 11:58 Temperature Pulse Rate 64 65 Respiratory Rate 14 Blood Pressure Pulse Oximetry 93 L Intake & Output 09/16/17 09/17/17 09/17/17 18:59 06:59 18:59 Intake Total 450 / 450 460 / 460 Output Total 770 / 770 1250 / 1250 Balance -320 / -320 -790 / -790 Weight 98.5 kg Intake: IV 250 / 250 100 / 100 Levaquin 500 mg Premix Inj 500 100 / 100 mg In 100 ml @ 100 mls/hr IV. 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 No respiratory distress. SKIN: Warm and dry. HEAD: Normocephalic. EYES: No scleral icterus. No injection or drainage. NECK: Supple, trachea midline. No JVD or lymphadenopathy. CARDIOVASCULAR: Regular rate and rhythm without murmurs, gallops, or rubs. RESPIRATORY: Breath sounds equal bilaterally. No accessory muscle use. GASTROINTESTINAL: Abdomen soft, non-tender, nondistended. MUSCULOSKELETAL: No cyanosis, or edema. - Urinary Catheter Management Indwelling Urethral Catheter Cath placed during this visit: yes Reason for continuing: Acute urinary retention Insertion date: 09/16/17 Insertion time: 14:00 Assessment and Plan - Assessment (1) Chronic kidney disease, stage IV (severe) Code(s): N18.4 - Chronic kidney disease, stage 4 (severe) Status: Acute Plan: The patient's acute renal decline potentially related to contrast exposure, but may also represent intrinsic decline. Maintaining good urine output however GFR remains below 15. Scheduled for cardiac catheterization tomorrow with angioplasty and stent placement most likely. Most likely will have to initiate dialysis post procedure either tomorrow or Thursday. Medications should be adjusted for the patient's estimated GFR if clinically indicated. Avoid additional agents with significant potential for nephrotoxicity if possible including NSAIDs for analgesia, s. Gadolinium is contraindicated if the GFR is below 30. (2) Essential (primary) hypertension Code(s): I10 - Essential (primary) hypertension Status: Acute Plan: Improved (3) Diabetes mellitus Code(s): E11.9 - Type 2 diabetes mellitus without complications Status: Acute Plan: Mgmt as per primary (4) Anemia Code(s): D64.9 - Anemia, unspecified Status: Acute Plan: Mild iron deficiency. 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 GI seeing.
--- NOTE | 2017-09-17 17:04 | P.PNGI ---
Subjective Interval history: Pt resting in bed, no GI complaints at this time. <Mis Daniels - Last Filed: 09/17/17 17:02> Physical Exam Vital signs: Vital Signs 09/16/17 18:08 09/16/17 19:00 09/16/17 20:00 Temperature 98.4 F Pulse Rate 67 69 69 Respiratory Rate 16 16 Blood Pressure 119/56 L 153/63 H Pulse Oximetry 94 L 09/16/17 21:07 09/16/17 22:00 09/16/17 23:00 Temperature Pulse Rate 76 76 72 Respiratory Rate 14 Blood Pressure Pulse Oximetry 94 L 09/17/17 00:00 09/17/17 00:16 09/17/17 01:00 Temperature 99.0 F Pulse Rate 69 68 71 Respiratory Rate 22 18 Blood Pressure 138/67 Pulse Oximetry 92 L 09/17/17 02:00 09/17/17 03:00 09/17/17 04:00 Temperature Pulse Rate 67 62 84 Respiratory Rate 16 Blood Pressure Pulse Oximetry 09/17/17 04:29 09/17/17 05:00 09/17/17 05:49 Temperature Pulse Rate 63 71 Respiratory Rate 17 18 16 Blood Pressure 140/60 Pulse Oximetry 94 L 09/17/17 06:00 09/17/17 08:00 09/17/17 08:19 Temperature 98.1 F Pulse Rate 66 73 64 Respiratory Rate 18 Blood Pressure 146/59 H Pulse Oximetry 92 L 09/17/17 08:20 09/17/17 11:58 09/17/17 12:00 Temperature 98.4 F Pulse Rate 65 74 Respiratory Rate 14 16 Blood Pressure 131/98 H Pulse Oximetry 93 L 94 L 09/17/17 14:55 09/17/17 15:51 Temperature 98.5 F Pulse Rate 72 71 Respiratory Rate 18 18 Blood Pressure 138/43 L Pulse Oximetry 97 97 Intake & Output 09/16/17 09/17/17 09/17/17 18:59 06:59 18:59 Intake Total 450 / 450 460 / 460 0 / 0 Output Total 770 / 770 1250 / 1250 Balance -320 / -320 -790 / -790 0 / 0 Weight 98.5 kg Intake: IV 250 / 250 100 / 100 Levaquin 500 mg Premix Inj 500 100 / 100 mg In 100 ml @ 100 mls/hr IV. 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 Absent: tenderness - Routine Skin Exam Present: dry, warm - Routine Neurological Exam Present: alert, oriented X3 - Urinary Catheter Management Indwelling Urethral Catheter Cath placed during this visit: yes Reason for continuing: Acute urinary retention Insertion date: 09/16/17 Insertion time: 14:00 <Mis Daniels - Last Filed: 09/17/17 17:02> Vital signs: Vital Signs 09/16/17 22:00 09/16/17 23:00 09/17/17 00:00 Temperature Pulse Rate 76 72 69 Respiratory Rate Blood Pressure Pulse Oximetry 09/17/17 00:16 09/17/17 01:00 09/17/17 02:00 Temperature 99.0 F Pulse Rate 68 71 67 Respiratory Rate 22 18 Blood Pressure 138/67 Pulse Oximetry 92 L 09/17/17 03:00 09/17/17 04:00 09/17/17 04:29 Temperature Pulse Rate 62 84 63 Respiratory Rate 16 17 Blood Pressure Pulse Oximetry 09/17/17 05:00 09/17/17 05:49 09/17/17 06:00 Temperature Pulse Rate 71 66 Respiratory Rate 18 16 Blood Pressure 140/60 Pulse Oximetry 94 L 09/17/17 07:00 09/17/17 08:00 09/17/17 08:19 Temperature 98.1 F Pulse Rate 64 62 64 Respiratory Rate 18 Blood Pressure 146/59 H Pulse Oximetry 92 L 09/17/17 08:20 09/17/17 10:00 07/19/18 11:58 Temperature Pulse Rate 68 65 Respiratory Rate 14 Blood Pressure Pulse Oximetry 93 L 09/17/17 12:00 09/17/17 13:00 09/17/17 14:00 Temperature 98.4 F Pulse Rate 72 74 74 Respiratory Rate 16 Blood Pressure 131/98 H Pulse Oximetry 94 L 09/17/17 14:55 09/17/17 15:51 09/17/17 16:00 Temperature 98.5 F 98.2 F Pulse Rate 72 71 70 Respiratory Rate 18 18 18 Blood Pressure 138/43 L 131/86 Pulse Oximetry 97 97 09/17/17 17:00 09/17/17 18:00 09/17/17 19:49 Temperature Pulse Rate 73 72 84 Respiratory Rate 18 Blood Pressure Pulse Oximetry Intake & Output 09/17/17 09/17/17 09/18/17 06:59 18:59 06:59 Intake Total 460 / 460 780 / 780 Output Total 1250 / 1250 1400 / 1400 Balance -790 / -790 -620 / -620 Weight 98.5 kg Intake: IV 100 / 100 Levaquin 500 mg Premix Inj 500 100 / 100 mg In 100 ml @ 100 mls/hr IV. SIG Q48H [facility] Rx#:[id number] Oral 360 / 360 780 / 780 Intake (Blood Product) Amt 0 / 0 Rbc As-3 Leukoreduced Unit 0 / 0 [id number] Output: Urine 1400 / 1400 Urine Amount (Catheter) 1250 / 1250 Indwelling Urethral Catheter 1250 / 1250 Other: Date of Last Bowel Movement 09/16/17 09/16/17 - Urinary Catheter Management Indwelling Urethral Catheter Cath placed during this visit: no <Dani Collins E - Last Filed: 09/17/17 21:54> Results - Labs CBC & Chem 7: 09/17/17 05:03 09/17/17 05:03 Laboratory Results - last 24 hr 09/16/17 09/16/17 09/17/17 18:31 21:28 05:03 WBC 9.7 RBC 2.67 L Hgb 8.4 L Hct 24.2 L MCV 90.8 MCH 31.3 MCHC 34.5 RDW 14.7 Plt Count 234 MPV 9.0 Neut % (Auto) 69.0 Lymph % (Auto) 14.8 [place] % (Auto) 11.0 H Eos % (Auto) 4.2 H Baso % (Auto) 1.0 Neut # (Auto) 6.7 Lymph # (Auto) 1.4 [place] # (Auto) 1.1 H Eos # (Auto) 0.4 Baso # (Auto) 0.1 WBC Differential . Differential Comment Auto diff final Sodium Potassium Chloride Carbon Dioxide Anion Gap BUN Creatinine Estimated GFR POC Glucose 188 H 343 H Random Glucose Calcium Phosphorus Albumin Blood Type Blood Type Recheck Antibody Screen MTS Gel Crossmatch 09/17/17 09/17/17 09/17/17 05:03 07:56 11:30 WBC RBC Hgb Hct MCV MCH MCHC RDW Plt Count MPV Neut % (Auto) Lymph % (Auto) [place] % (Auto) Eos % (Auto) Baso % (Auto) Neut # (Auto) Lymph # (Auto) [place] # (Auto) Eos # (Auto) Baso # (Auto) WBC Differential Differential Comment Sodium 138 Potassium 3.4 L Chloride 100 Carbon Dioxide 23.8 Anion Gap 14 BUN 65 H Creatinine 3.28 H Estimated GFR 14 L POC Glucose 149 H Random Glucose 121 H Calcium 8.5 Phosphorus 5.6 H Albumin 2.5 L Blood Type O Positive Blood Type Recheck Required Antibody Screen Negative MTS Gel Crossmatch See Detail 09/17/17 12:04 WBC RBC Hgb Hct MCV MCH MCHC RDW Plt Count MPV Neut % (Auto) Lymph % (Auto) [place] % (Auto) Eos % (Auto) Baso % (Auto) Neut # (Auto) Lymph # (Auto) [place] # (Auto) Eos # (Auto) Baso # (Auto) WBC Differential Differential Comment Sodium Potassium Chloride Carbon Dioxide Anion Gap BUN Creatinine Estimated GFR POC Glucose 335 H Random Glucose Calcium Phosphorus Albumin Blood Type Blood Type Recheck Antibody Screen MTS Gel Crossmatch Microbiology 09/14/17 14:55 Catheterized Urine Urine Culture - Final Klebsiella pneumoniae Proteus mirabilis <Mis Daniels - Last Filed: 09/17/17 17:02> - Labs CBC & Chem 7: 09/17/17 05:03 09/17/17 05:03 Laboratory Results - last 24 hr 09/17/17 09/17/17 09/17/17 05:03 05:03 07:56 WBC 9.7 RBC 2.67 L Hgb 8.4 L Hct 24.2 L MCV 90.8 MCH 31.3 MCHC 34.5 RDW 14.7 Plt Count 234 MPV 9.0 Neut % (Auto) 69.0 Lymph % (Auto) 14.8 [place] % (Auto) 11.0 H Eos % (Auto) 4.2 H Baso % (Auto) 1.0 Neut # (Auto) 6.7 Lymph # (Auto) 1.4 [place] # (Auto) 1.1 H Eos # (Auto) 0.4 Baso # (Auto) 0.1 WBC Differential . Differential Comment Auto diff final Sodium 138 Potassium 3.4 L Chloride 100 Carbon Dioxide 23.8 Anion Gap 14 BUN 65 H Creatinine 3.28 H Estimated GFR 14 L POC Glucose 149 H Random Glucose 121 H Calcium 8.5 Phosphorus 5.6 H Albumin 2.5 L Blood Type Blood Type Recheck Antibody Screen MTS Gel Crossmatch 09/17/17 09/17/17 09/17/17 11:30 12:04 17:08 WBC RBC Hgb Hct MCV MCH MCHC RDW Plt Count MPV Neut % (Auto) Lymph % (Auto) [place] % (Auto) Eos % (Auto) Baso % (Auto) Neut # (Auto) Lymph # (Auto) [place] # (Auto) Eos # (Auto) Baso # (Auto) WBC Differential Differential Comment Sodium Potassium Chloride Carbon Dioxide Anion Gap BUN Creatinine Estimated GFR POC Glucose 335 H 216 H Random Glucose Calcium Phosphorus Albumin Blood Type O Positive Blood Type Recheck Required Antibody Screen Negative MTS Gel Crossmatch See Detail 09/17/17 20:43 WBC RBC Hgb Hct MCV MCH MCHC RDW Plt Count MPV Neut % (Auto) Lymph % (Auto) [place] % (Auto) Eos % (Auto) Baso % (Auto) Neut # (Auto) Lymph # (Auto) [place] # (Auto) Eos # (Auto) Baso # (Auto) WBC Differential Differential Comment Sodium Potassium Chloride Carbon Dioxide Anion Gap BUN Creatinine Estimated GFR POC Glucose 204 H Random Glucose Calcium Phosphorus Albumin Blood Type Blood Type Recheck Antibody Screen MTS Gel Crossmatch Microbiology 09/14/17 14:55 Catheterized Urine Urine Culture - Final Klebsiella pneumoniae Proteus mirabilis <Dani Collins E - Last Filed: 09/17/17 21:54> Assessment and Plan (1) Anemia Status: Acute Code(s): D64.9 - Anemia, unspecified (2) History of Helicobacter pylori infection Status: Acute Code(s): Z86.19 - Personal history of other infectious and parasitic diseases - Plan Assessment: - Anemia, normocytic- Pt presented to ER with chest pain S/P cath on 09/10 with abnormal findings, due to poor renal function, padder minimized use of contrast but are planning on a repeat cath with PCI. According to notes planning on Plavix after PCI and have cleared pt to undergo EGD and colonoscopy to rule out GIB prior to initiation of Plavix. Currently 8.5/24.5 Denies nausea, vomiting, abdominal pain. Occasional heartburn, takes Tums as needed. Occasional constipation, takes Glycerin suppository as needed. Denies unintentional weight loss. Last EGD over 5 years ago- sounds like pt had an ulcer and H. Pylori infection Last colonoscopy 3 years ago and states colon polyps Procedures done by Dr. Escobedo in [place]. Denies family history of colon cancer. Denies ETOH and smoking. (09/17) S/P EGD and colonoscopy yesterday, pt with no GI complaints at this time. H/H stable overnight. EGD --> Gastric nodule, gastritis Colonoscopy --> Colon polyps, diverticulosis Plan: EGD and colonoscopy biopsy pending OK for anticoagulation from a GI standpoint Diet per attending GI will sign off, please reconsult as needed Have pt follow up with GI After DC Pt has been seen and examined by myself and Dr. Collins and this note is written on his behalf <Mis Daniels - Last Filed: 09/17/17 17:02> (1) Anemia Status: Acute Code(s): D64.9 - Anemia, unspecified (2) History of Helicobacter pylori infection Status: Acute Code(s): Z86.19 - Personal history of other infectious and parasitic diseases - Attending Attestation Patient seen and examined Agree with above Continue with current supportive care Monitor labs Biopsies pending Follow-up with GI post discharge Not much to add from a GI perspective we will sign off <Dani Collins - Last Filed: 09/17/17 21:54>
[2017-09-17] MEDS: Insulin NovoLOG Aspart Correctional Sugar Inj SQ SCH ×3 (20:51→21:55)
[2017-09-18 02:27] LABS: Baso # (Auto) 0.1 th/mm3 (0.0-0.2); Baso % (Auto) 0.6 % (0.0-2.0); Eos # (Auto) 0.4 th/mm3 (0.0-0.4); Eos % (Auto) 3.7 % (0.0-4.0); Hematocrit 27.6 % (35.0-46.0); Hemoglobin 9.6 gm/dL (11.6-15.3); Lymph # (Auto) 1.1 th/mm3 (1.0-4.8); Mean Corpuscular HGB Conc 34.7 % (32.0-36.0); Mean Corpuscular Hemoglobin 31.2 pg (27.0-34.0); Mean Platelet Volume 8.7 fL (7.0-11.0); Mono # (Auto) 1.2 th/mm3 (0.0-0.9); Neut # (Auto) 7.9 th/mm3 (1.8-7.7); Neut % (Auto) 74.7 % (16.0-70.0); Platelet Count 215 th/mm3 (150-450); Red Blood Count 3.07 mil/mm3 (4.00-5.30); Red Cell Distribution Width 14.1 % (11.6-17.2); White Blood Count 10.5 th/mm3 (4.0-11.0)
[2017-09-18 02:54] LABS: Calcium 8.1 mg/dL (8.5-10.1); Carbon Dioxide 26.7 meq/L (21.0-32.0); Potassium 3.7 meq/L (3.5-5.1)
[2017-09-18 04:36] LABS: Eosinophils 3 % (0-4); Lymphocytes 10 % (9-44); Metamyelocytes 1 % (0-1); Monocytes 12 % (0-8); Myelocytes 1 % (0-0); Tallied Nucleated RBC 1 (0-0)
[2017-09-18 04:38] LABS: Platelet Estimate Normal (Normal); Platelet Morphology Normal (Normal); Polychromasia 2.1 % (0.0-1.9); RBC Morphology Normal (Normal)
[2017-09-18] MEDS: Isosorbide Mononitrate 60 MG ER 24HR Tablet (Imdur) PO SCH (06:40)
--- NOTE | 2017-09-18 07:31 | P.PNCA ---
<Fredi Talbotis - Last Filed: 09/18/17 07:28> Subjective Interval history: at bedside. No chest pain or shortness of breath. Going for [facility] today. Physical Exam Vital signs: Vital Signs 09/17/17 08:00 09/17/17 08:19 09/17/17 08:20 Temperature 98.1 F Pulse Rate 62 64 Respiratory Rate 18 Blood Pressure 146/59 H Pulse Oximetry 92 L 93 L 09/17/17 10:00 09/17/17 11:58 09/17/17 12:00 Temperature 98.4 F Pulse Rate 68 65 72 Respiratory Rate 14 16 Blood Pressure 131/98 H Pulse Oximetry 94 L 09/17/17 13:00 09/17/17 14:00 09/17/17 14:55 Temperature 98.5 F Pulse Rate 74 74 72 Respiratory Rate 18 Blood Pressure 138/43 L Pulse Oximetry 97 09/17/17 15:51 09/17/17 16:00 09/17/17 17:00 Temperature 98.2 F Pulse Rate 71 70 73 Respiratory Rate 18 18 Blood Pressure 131/86 Pulse Oximetry 97 09/17/17 18:00 09/17/17 19:00 09/17/17 19:49 Temperature Pulse Rate 72 71 84 Respiratory Rate 18 Blood Pressure Pulse Oximetry 09/17/17 20:00 09/17/17 21:00 09/17/17 22:00 Temperature 99.2 F Pulse Rate 74 66 66 Respiratory Rate 18 Blood Pressure 127/58 L Pulse Oximetry 98 09/17/17 23:00 09/18/17 00:00 09/18/17 00:37 Temperature 99 F Pulse Rate 67 69 71 Respiratory Rate 18 16 Blood Pressure 158/68 H Pulse Oximetry 97 09/18/17 01:00 09/18/17 03:34 09/18/17 04:00 Temperature 98.9 F Pulse Rate 69 67 67 Respiratory Rate 15 18 Blood Pressure 130/59 L Pulse Oximetry 96 09/18/17 05:00 Temperature Pulse Rate 67 Respiratory Rate Blood Pressure Pulse Oximetry Intake & Output 09/17/17 09/18/17 09/18/17 18:59 06:59 18:59 Intake Total 780 / 780 240 / 240 Output Total 1400 / 1400 2049 Balance -620 / -620 -1810 / -1810 Weight 216 lb 14.958 oz Intake: Oral 780 / 780 240 / 240 Intake (Blood Product) Amt 0 / 0 Rbc As-3 Leukoreduced Unit 0 / 0 [id number] Output: Urine 1400 / 1400 2049 Other: Date of Last Bowel Movement 09/16/17 09/16/17 Narrative: GENERAL: Well-developed well-nourished. In no acute distress. NECK: No carotid bruits. No JVD. CARDIOVASCULAR: Regular rate and rhythm. No murmur appreciated. RESPIRATORY: No accessory muscle use. Clear to auscultation. Breath sounds equal bilaterally. MUSCULOSKELETAL: No clubbing or cyanosis. No edema. NEUROLOGICAL: Awake and alert. Normal speech. - Urinary Catheter Management Indwelling Urethral Catheter Cath placed during this visit: yes Reason for continuing: Terminally ill/Comfort care Insertion date: 09/16/17 Insertion time: 14:00 Assessment and Plan - Plan 77-year-old [place]-speaking female with past medical history of HTN, DM, diabetic nephropathy, CKD who presented for chest pain due to non-STEMI. NSTEMI: LHC 09/10 showed primarily 2 vessel [place] CAD involving the proximal LCx and RCA. PCI was placed on hold pending optimization of renal function, discussed risks/benefits of elective PCI, patient wishes to proceed. Planning for [facility] with PCI today. Continue ASA, Atorvastatin, beta-gonzález. Hypertension: Improved. Continue amlodipine 5mg twice daily, clonidine 0.1mg q8hr, Imdur 60mg daily, Hydralazine to 100mg q8hr, atenolol 50mg bid with holding parameters. DONA on CKD: S/P Vas-Cath placement for initiation of HD. Nephrology on board. Likely dialysis after LHC. Normocytic anemia: Hemoglobin 11.2 -> 8.5, currently stable. GI performed EGD and colonoscopy without bleeding noted, cleared from GI perspective for anticoagulation as needed. Per nephrology at least some component of anemia of renal disease. <Martin Gamino - Last Filed: 09/18/17 08:40> Physical Exam Vital signs: Vital Signs 09/17/17 10:00 09/17/17 11:58 09/17/17 12:00 Temperature 98.4 F Pulse Rate 68 65 72 Respiratory Rate 14 16 Blood Pressure 131/98 H Pulse Oximetry 94 L 09/17/17 13:00 09/17/17 14:00 09/17/17 14:55 Temperature 98.5 F Pulse Rate 74 74 72 Respiratory Rate 18 Blood Pressure 138/43 L Pulse Oximetry 97 09/17/17 15:51 09/17/17 16:00 09/17/17 17:00 Temperature 98.2 F Pulse Rate 71 70 73 Respiratory Rate 18 18 Blood Pressure 131/86 Pulse Oximetry 97 09/17/17 18:00 09/17/17 19:00 09/17/17 19:49 Temperature Pulse Rate 72 71 84 Respiratory Rate 18 Blood Pressure Pulse Oximetry 09/17/17 20:00 09/17/17 21:00 09/17/17 22:00 Temperature 99.2 F Pulse Rate 74 66 66 Respiratory Rate 18 Blood Pressure 127/58 L Pulse Oximetry 98 09/17/17 23:00 09/18/17 00:00 09/18/17 00:37 Temperature 99 F Pulse Rate 67 69 71 Respiratory Rate 18 16 Blood Pressure 158/68 H Pulse Oximetry 97 09/18/17 01:00 09/18/17 03:34 09/18/17 04:00 Temperature 98.9 F Pulse Rate 69 67 67 Respiratory Rate 15 18 Blood Pressure 130/59 L Pulse Oximetry 96 09/18/17 05:00 Temperature Pulse Rate 67 Respiratory Rate Blood Pressure Pulse Oximetry Intake & Output 09/17/17 09/18/17 09/18/17 18:59 06:59 18:59 Intake Total 780 / 780 240 / 240 Output Total 1400 / 1400 2049 Balance -620 / -620 -1810 / -1810 Weight 98.4 kg Intake: Oral 780 / 780 240 / 240 Intake (Blood Product) Amt 0 / 0 Rbc As-3 Leukoreduced Unit 0 / 0 [id number] Output: Urine 1400 / 1400 2049 Other: Date of Last Bowel Movement 09/16/17 09/16/17 - Urinary Catheter Management Indwelling Urethral Catheter Cath placed during this visit: no Assessment and Plan - Plan NSTEMI s/p LHC 09/10 with proxLCx and RCA high-grade stenosis. Course complicated by worsening of CKD, GIB, anemia and respiratory distress. She is now stable and s/p Vas-cath placement for initiation of HD if needed (likely) and cleared by GI for DAPT. s/p PRBC transfusion yesterday with appropriate Hgb response. Plan for LHC with PCI LCx and RCA today. She will require DAPT with ASA/Plavix uninterrupted for minimum 1 year thereafter. continue atorvastatin 20mg qHS. Reduce Lasix to 40mg po daily today. Maintain K>4. HTN: reasonably controlled: continue amlodipine 5mg bid, atenolol 50mg bid, Hydralazine 100mg tid, Imdur 60mg daily, clonidine 0.1mg tid
[2017-09-18] MEDS ORDERED: Heparin/NS PF Inj 1,500 ML ONE (09:11)
[2017-09-18] MEDS ORDERED: fentaNYL Citrate Inj 100 MCG/2 ML Ampul ONE (09:12)
[2017-09-18] MEDS ORDERED: Heparin 10,000 UNITS/10 ML Vial (for IV use) ONE (09:12)
--- NOTE | 2017-09-18 10:19 | P.PNNP ---
Subjective Interval history: Attempted to see patient this AM, but was in cardiac procedure. Physical Exam Vital signs: Vital Signs 09/17/17 11:58 09/17/17 12:00 09/17/17 13:00 Temperature 98.4 F Pulse Rate 65 72 74 Respiratory Rate 14 16 Blood Pressure 131/98 H Pulse Oximetry 94 L 09/17/17 14:00 09/17/17 14:55 09/17/17 15:51 Temperature 98.5 F Pulse Rate 74 72 71 Respiratory Rate 18 18 Blood Pressure 138/43 L Pulse Oximetry 97 97 09/17/17 16:00 09/17/17 17:00 09/17/17 18:00 Temperature 98.2 F Pulse Rate 70 73 72 Respiratory Rate 18 Blood Pressure 131/86 Pulse Oximetry 09/17/17 19:00 09/17/17 19:49 09/17/17 20:00 Temperature 99.2 F Pulse Rate 71 84 74 Respiratory Rate 18 18 Blood Pressure 127/58 L Pulse Oximetry 98 09/17/17 21:00 09/17/17 22:00 09/17/17 23:00 Temperature Pulse Rate 66 66 67 Respiratory Rate Blood Pressure Pulse Oximetry 09/18/17 00:00 09/18/17 00:37 09/18/17 01:00 Temperature 99 F Pulse Rate 69 71 69 Respiratory Rate 18 16 Blood Pressure 158/68 H Pulse Oximetry 97 09/18/17 03:34 09/18/17 04:00 09/18/17 05:00 Temperature 98.9 F Pulse Rate 67 67 67 Respiratory Rate 15 18 Blood Pressure 130/59 L Pulse Oximetry 96 09/18/17 08:51 Temperature Pulse Rate 66 Respiratory Rate 20 Blood Pressure Pulse Oximetry 93 L Intake & Output 09/17/17 09/18/17 09/18/17 18:59 06:59 18:59 Intake Total 780 / 780 240 / 240 Output Total 1400 / 1400 2049 Balance -620 / -620 -1810 / -0 Weight 98.4 kg Intake: Oral 780 / 780 240 / 240 Intake (Blood Product) Amt 0 / 0 Rbc As-3 Leukoreduced Unit 0 / 0 [id number] Output: Urine 1400 / 1400 2049 Other: Date of Last Bowel Movement 09/16/17 09/16/17 - Urinary Catheter Management Indwelling Urethral Catheter Cath placed during this visit: yes Reason for continuing: Terminally ill/Comfort care Insertion date: 09/16/17 Insertion time: 14:00 Assessment and Plan - Assessment (1) Chronic kidney disease, stage IV (severe) Code(s): N18.4 - Chronic kidney disease, stage 4 (severe) Status: Acute Plan: The patient's acute renal decline potentially related to contrast exposure, but may also represent intrinsic decline. SCr slightly worse today and anticipate even further deterioration s/p cardiac cath. Will check labs this PM and again in the AM. If her clinical condition should worsen tonight after cardiac procedure, we may have to start HD tonight. If stable, will re-assess in the AM and further recommendations to follow. Dialysis team notified. Medications should be adjusted for the patient's estimated GFR if clinically indicated. Avoid additional agents with significant potential for nephrotoxicity if possible including NSAIDs for analgesia, s. Gadolinium is contraindicated if the GFR is below 30. (2) Essential (primary) hypertension Code(s): I10 - Essential (primary) hypertension Status: Acute (3) Diabetes mellitus Code(s): E11.9 - Type 2 diabetes mellitus without complications Status: Acute (4) Anemia Code(s): D64.9 - Anemia, unspecified Status: Acute
[2017-09-18] MEDS ORDERED: Misc Info for Pharmacy OTHER STA (10:20)
[2017-09-18] MEDS ORDERED: Lidocaine 1% Inj 50 ML Vial INFILTRATN PRN (10:20)
[2017-09-18] MEDS ORDERED: Sod Chloride 0.9% Inj 1,000 ML IV.CONT SCH (10:30)
--- NOTE | 2017-09-18 10:47 | CATHPROC ---
[employer] HIS Report Study Information Study Number Admission Scheduled Start Study Start [id number] Sep 10 2017 7:22AM 09/18/2017 Sep 18 2017 8:14AM [place] Service Cardiac Catheterization Admit Source Facility Department Other [facility] - Shipping Manager Physician and Clinical Staff Initial Lemuel Ivey Label Drier Blaze Blum,RN Other cathlab, cathlab Recorder Danielle Jarrell,WATER RESOURCE PROJECT MANAGER TECH2 Scrub Rose Montejo,RT(R) Procedures Performed Procedure Location (Site) Vessel Name Stent CIRC Prox CIRC Stent RCA Mid Right Coronary Stent RCA Ost Right Coronary Wire insertion Fem Art (right) Femoral Art Equipment Time Shingle Grader Description Size Mfg Part Number Used/Scraped COPILOT VALVE, BLEEDBACK [id number] 08:16 LATIF [employer]ITICAL CARE Used CONTROL *[id number] TRANSDUCER, TRUWAVE [id number] 08:16 NOVOA MTZ * Used W/STOCKCOCK *[id number] 670-130-00 *[id number] 670-054-00 *[id number] 08:16 [employer] BLANKET,WARM AIR CCL * Used *[id number] 08:16 [employer] PACK, CCL CUSTOM * Used *[id number] 08:16 [employer] PACER PEN, SKIN DUAL W/ RULER * Used *[id number] 10:05 MEDTRONIC STENT, 2.25 14 INTEGRITY 2.25 14 Used *[id number] 10:09 MEDTRONIC STENT, 2.25 8 INTEGRITY 2.25 8 Used *[id number] 09:53 MEDTRONIC STENT, 2.5 18 INTEGRITY 2.5 18 Used *[id number] 09:56 [employer] MEDICAL 30 SANTI INDEFLATOR Used *[id number] 08:16 [employer] MEDICAL SHEATH, FR6.5 PRELUDE 11CM FR 6.5 038ACT Used *[id number] 08:16 [employer] MEDICAL WIRE, 3MMJ .035 180CM 180CM Used *[id number] 08:16 NAMIC MANIFOLD, 4 PORT * Used *[id number] 08:16 NYCOMED OMNIPAQUE, 350 MG, 150ML 150ML [id number] Used WIRE, RUNTHROUGH NS FLOPPY [id number] 09:56 [employer] MEDICAL 300CM Used .014 300CM *[id number] Equipment Model, Serial, Lot Number and Expiration Data Description Model Number Serial Number Lot Number Expiration Date STENT, 2.25 14 INTEGRITY [id number] 05-27-2018 STENT, 2.25 8 INTEGRITY [id number] 05-13-2019 STENT, 2.5 18 INTEGRITY [id number] 11-12-2018 History: Current Medications Medication Dosage/Unit Route Frequency Last Date/Time Taken ASA LIPITOR Glucophage LOPRESSOR NORVASC LASIX Imdur History: Allergies Allergy Reaction Penicillins Itching guaifenesin Anxiety History: Risk Factors Family History of Hypertension Dyslipidemia Previous MN Previous Heart Failure Premature CAD Yes No No No No Prior Valve Prior PCI Prior CABG Surgery No No No Cerebrovascular Peripheral Artery Chronic Lung On Dialysis Diabetes Diabetes Therapy Disease Disease Disease No No No No Yes Insulin History: Stress Tests Stress or Imaging Studies Performed No Labs Hgb (g/dl) Hct (%) RBC (MIL/MM3) WBC (l/cumm) Platelets (thousands) 11.60-17.00 35.00-51.00 4.00-5.90 4.00-11.00 150.00-450.00 9.6 27.6 3 10.5 215 Glucose (mg/dl) BUN (mg/dl) Creatinine (mg/dl) BUN:Creatinine (1:x) 74.00-106.00 7.00-18.00 0.50-1.30 10.00-20.00 213 69 3.4 20.3 Na (meq/l) K (meq/l) 136.00-145.00 3.50-5.10 137 3.7 CPK-MB (ng/ML) 0.50-3.60 Not Drawn Medication Medication Total Dose (Bolus/Oral) Medication Total Dosage/Unit 1% XYLOCAINE 20 mL FENTANYL 75 mcg HEPARIN 5000 units OXYGEN 2 l/min PLAVIX 75 mg VERSED 2.5 mg Medications (Bolus/Oral) Medication Time Given Dosage/Unit Administered By Reason OXYGEN 09/18/2017 9:22:38 AM 2 l/min Blaze Blum Patient arrived on 2 l/min OXYGEN given by Blaze Blum RN via Nasal. Ordered by Lemuel Foreman. VERSED 09/18/2017 9:39:54 AM 1 mg Blaze Blum Patient arrived on 1 mg VERSED given by Blaze Blum RN in Right Antecubital via Peripheral IV. Orde red by Lemuel Foreman. FENTANYL 09/18/2017 9:40:20 AM 25 mcg Kulwant, Blaze Patient arrived on 25 mcg FENTANYL given by Blaze Blum RN in Right Antecubital via Peripheral IV. Ordered by Lemuel Foreman. 1% XYLOCAINE 09/18/2017 9:43:30 AM 20 mL Lemuel Foreman Patient arrived on 20 mL 1% XYLOCAINE given by Lemuel Foreman in Right Groin via Subcutaneous. Ordere d by Lemuel Foreman. VERSED 09/18/2017 9:44:14 AM 0.5 mg Kulwant, Blaze Patient arrived on 0.5 mg VERSED given by Blaze Blum RN in Right Antecubital via Peripheral IV. Or dered by Lemuel Foreman. FENTANYL 09/18/2017 9:45:23 AM 25 mcg Kulwant, Blaze Patient arrived on 25 mcg FENTANYL given by Blaze Blum RN in Right Hand via Peripheral IV. Ordered by Lemuel Foreman. HEPARIN 09/18/2017 9:52:24 AM 5000 units Kulwant, Blaze Patient arrived on 5000 units HEPARIN given by Blaze Blum RN in Right Antecubital via Peripheral I V. Ordered by Lemuel Foreman. FENTANYL 09/18/2017 9:59:00 AM 25 mcg Kulwant, Blaze Patient arrived on 25 mcg FENTANYL given by Blaze Blum RN in Right Antecubital via Peripheral IV. Ordered by Lemuel Foreman. VERSED 09/18/2017 10:00:02 AM 1 mg Kulwant, Blaze Patient arrived on 1 mg VERSED given by Blaze Blum RN in Right Antecubital via Peripheral IV. Orde red by Lemuel Foreman. PLAVIX 09/18/2017 10:21:33 AM 75 mg Blaze Blum Patient arrived on 75 mg PLAVIX given by Blaze Blum RN via Oral. Ordered by Lemuel Foreman. Medication (Drip) Medication Time Given Dosage/Unit Concentration/Unit Diluent (ml) Solution IV Solutions 09/18/2017 9:13:10 AM 0 mL (IV) 500 NaCl .9 IV Solutions given in lab by Blaze Blum RN in Left Forearm via Peripheral IV. Pump/Drip Flow = 20 ml/hr using NaCl .9. Ordered by Lemuel Foreman. NITROGLYCERIN DRIP 09/18/2017 9:13:30 AM 10 mcg/min 50 mg 250 NaCl .9 Patient arrived on 10 mcg/min NITROGLYCERIN DRIP given by Lemuel Foreman in Right Antecubital via Per ipheral IV. Pump/Drip Flow = 3 ml/hr using NaCl .9 with a concentration of 50 mg in 250 ml. Ordered by Lemuel Foreman. Final Case Assessment Cardiovascular HR NIBP 75 157/66 Edema Present Skin color Skin None Normal Warm Dry Circulatory - Right Pulses Dorsalis Pedis Femoral 2 2 Scale (0,1,2,3,4,d) Circulatory - Left Pulses Dorsalis Pedis Femoral 2 Scale (0,1,2,3,4,d) Neurological State Oriented to time-place- Alert Moves all extremities person Respiration - General Respiration Rate SpO2 (%) (B/min) 14 91 Chronological Log Time Study Chronological Log 9:12:38 Patient arrived via Bed. 9:12:40 Patient Name, D.O.B, / Armband Verified By R.N. 9:12:40 Consent signed by the physician and the patient and verified by the Shipping Manager staff. 9:12:49 Pre-op and post- op instructions given; patient acknowledges understanding of instructions. 9:13:02 Allens test performed on the right radial and ulnar artery. 9:13:04 Patient has been NPO for More than 6Hrs. 9:13:05 NO Skin Breakdown- 9:13:07 Patient Warmer Placed on the Table. 9:13:09 Lacie Prominences Protected 9:13:09 A # 20 IV was noted in the Antecubital (right). Grade = 0 IV Solutions given in lab by Blaze Blum, RN in Left Forearm via Peripheral IV. Pump/Drip Flow = 20 ml/hr using NaCl 9:13:10 .9. Ordered by Lemuel Foreman. 9:13:11 History and physical on the chart or being dictated. Patient arrived on 10 mcg/min NITROGLYCERIN DRIP given by Lemuel Foreman in Right Antecubital v ia Peripheral IV. 9:13:30 Pump/Drip Flow = 3 ml/hr using NaCl .9 with a concentration of 50 mg in 250 ml. Ordered by Lemuel Hill. 9:13:46 A # 20 IV was noted in the Forearm (left). Grade = 0 Vitals capture started with the following parameters, Patient=Adult, Interval=5 min, Initial Pr xuuiar=106 mmHg, 9:20:38 Deflation Rate=5 mmHg, Cuff placed on Left Arm Assessment: Final Case, HR=75 BPM, HHNT=437/66 mmhg, Edema=None, Color=Normal, Skin = Warm, Dry Right Pulses: [place] Ped=2, Femoral=2 9:21:45 Left Pulses: Femoral=2 Neurological: State=Alert, Ox3, [place] Respiration: Resp=14 B/min, SpO2=91 % 9:21:47 HR=75 bpm, HYBV=967/66 mmhg, SpO2=91 %, Resp=14 B/min, Pain=0, Sae=10, Baltazar=2 9:22:38 Patient arrived on 2 l/min OXYGEN given by Blaze Blum RN via Nasal. Ordered by Akshat Foreman. 9:26:40 HR=74 bpm, CUIW=170/68 mmhg, SpO2=95.0 %, Resp=17 B/min, Pain=0, Sae=10, Baltazar=2 9:27:46 Reference ECG taken 9:31:41 HR=73 bpm, LCZC=113/68 mmhg, SpO2=94.0 %, Resp=13 B/min, Pain=0, Sae=10, Baltazar=2 9:34:01 Pressure channel 1 zeroed. Time Out. Correct patient, correct procedure, correct physician, labs, allergies, and equipment verified with ammunition assembly laborer 9:34:59 team present. Fire risk assesment completed (see hard stop sheet for coding). Time Out Concu rred by MD and individual staff in procedure. 9:36:38 HR=73 bpm, OSLJ=197/71 mmhg, SpO2=95.0 %, Resp=17 B/min, Pain=0, Sae=10, Baltazar=2 9:38:39 NITRO DISCONTINUED Patient arrived on 1 mg VERSED given by Blaze Blum RN in Right Antecubital via Peripheral IV. Ordered by Ahsan 9:39:54 Lemuel. Patient arrived on 25 mcg FENTANYL given by Blaze Blum RN in Right Antecubital via Peripheral IV. Ordered by 9:40:20 Lemuel Foreman. 9:41:33 Case Start 9:41:41 HR=73 bpm, DLGM=337/63 mmhg, SpO2=95 %, Resp=12 B/min, Pain=0, Sae=10, Baltazar=2 Patient arrived on 20 mL 1% XYLOCAINE given by Lemuel Foreman in Right Groin via Subcutaneous. O rdered by Ahsan, 9:43:30 Lemuel. Patient arrived on 0.5 mg VERSED given by Blaze Blum RN in Right Antecubital via Peripheral I V. Ordered by Ahsan, 9:44:14 Lemuel. Patient arrived on 25 mcg FENTANYL given by Blaze Blum RN in Right Hand via Peripheral IV. Or dered by Ahsan, 9:45:23 Lemuel. 9:46:38 HR=71 bpm, AHGL=815/66 mmhg, SpO2=94 %, Resp=12 B/min, Pain=0, Sae=10, Baltazar=2 9:48:30 Access site was Right Femoral Artery. 9:48:32 A WIRE, 3MMJ .035 180CM 180CM was inserted via Fem Art (right). 9:48:40 A SHEATH, FR6.5 PRELUDE 11CM FR 6.5 was advanced into the Fem Art (right) using the Modified Seldinger technique. A XB 3.5 GUIDE CATHETER FR 6 was advanced over a wire. OMNIPAQUE, 350 MG, 150ML 150ML was used f or 9:49:21 injections. Recorded Pressure: Ao, HR=69, Condition=Condition 1 9:51:19 (Aorta) Ao 141/44/79 9:51:35 HR=69 bpm, RKHR=586/63 mmhg, SpO2=96.0 %, Resp=10 B/min, Pain=0, Sae=10, Baltazar=2 9:51:53 A WIRE, RUNTHROUGH NS FLOPPY .014 300CM 300CM was inserted via Fem Art (right). Patient arrived on 5000 units HEPARIN given by Blaze Blum RN in Right Antecubital via Periphe ral IV. Ordered by 9:52:24 Lemuel Foreman. 9:53:18 Interventional wire has crossed the lesion An STENT, 2.5 18 INTEGRITY 2.5 18 Bare Metal Stent was inserted through a XB 3.5 GUIDE CATHETER FR 6 over a 9:54:33 WIRE, RUNTHROUGH NS FLOPPY .014 300CM 300CM. A STENT, 2.5 18 INTEGRITY 2.5 18 was deployed using a 30 SANTI INDEFLATOR at 15 atmospheres for 10 seconds in 9:55:49 the CIRC Prox. 9:56:36 HR=70 bpm, TZRY=826/64 mmhg, SpO2=96.0 %, Resp=15 B/min, Pain=0, Sae=10, Baltazar=2 9:56:55 Delivery device removed 9:57:34 Wire removed After removing the current catheter a 3DRC GUIDE CATHETER FR 6 was advanced over a WIRE, 3MMJ .0 35 180CM 9:57:54 180CM. Patient arrived on 25 mcg FENTANYL given by Blaze Blum RN in Right Antecubital via Periphera l IV. Ordered by 9:59:00 Lemuel Froeman. 10:00:00 Activated Clotting Time Drawn Patient arrived on 1 mg VERSED given by Blaze Blum RN in Right Antecubital via Peripheral IV . Ordered by Ahsan 10:00:02 Lemuel. 10:01:35 HR=71 bpm, YTXO=058/57 mmhg, SpO2=96.0 %, Resp=18 B/min, Pain=0, Sae=10, Baltazar=2 An STENT, 2.5 18 INTEGRITY 2.5 18 Bare Metal Stent was inserted through a 3DRC GUIDE CATHETER F R 6 over a 10:04:15 WIRE, RUNTHROUGH NS FLOPPY .014 300CM 300CM. 10:04:42 Re-inflated the stent balloon in the RCA Ost to 8 SANTI for 10 seconds. 10:04:57 Re-inflated the stent balloon in the RCA Ost to 6 SANTI for 5 seconds. 10:05:05 ACT (Normal Range 90-180) = 288 10:06:19 Delivery device removed An STENT, 2.25 14 INTEGRITY 2.25 14 Bare Metal Stent was inserted through a 3DRC GUIDE CATHETER FR 6 over a 10:06:23 WIRE, RUNTHROUGH NS FLOPPY .014 300CM 300CM. 10:06:36 HR=68 bpm, GJJV=914/58 mmhg, SpO2=92.0 %, Resp=11 B/min, Pain=0, Sae=10, Baltazar=2 10:07:16 A implantable was deployed using a 30 SANTI INDEFLATOR at 16 atmospheres for 10 seconds in th e RCA Mid. 10:09:28 Delivery device removed An STENT, 2.25 8 INTEGRITY 2.25 8 Bare Metal Stent was inserted through a 3D GUIDE CATHETER F R 6 over a 10:11:16 WIRE, RUNTHROUGH NS FLOPPY .014 300CM 300CM. A STENT, 2.25 8 INTEGRITY 2.25 8 was deployed using a 30 SANTI INDEFLATOR at 16 atmospheres for 1 5 seconds in 10:11:31 the RCA Ost. 10:11:37 HR=69 bpm, PVKA=495/54 mmhg, SpO2=96 %, Resp=13 B/min, Pain=0, Sae=10, Baltazar=2 A STENT, 2.25 8 INTEGRITY 2.25 8 was deployed using a 30 SANTI INDEFLATOR at 16 atmospheres for 1 0 seconds in 10:11:52 the RCA Ost. 10:12:21 Delivery device removed 10:13:50 Wire removed 10:14:13 A WIRE, 3MMJ .035 180CM 180CM was inserted via Fem Art (right). 10:14:23 Catheter was removed 10:15:55 Case End (Physician broke scrub) 10:16:30 HR=70 bpm, OYZF=544/65 mmhg, SpO2=96.0 %, Resp=11 B/min, Pain=0, Sae=10, Baltazar=2 PCI QA completed: Pre-Mitul - 3, Post Mitul - 3, Type - ~TYPE~, Length - 15 mm, Morphology - ~MOR PHOLOGY~, 10:17:01 Indications - ~INDICATIONS~, Pre-Stenosis - 75% and Post Stenosis - 0%. PCI QA completed: Pre-Mitul - 3, Post Mitul - 3, Type - ~TYPE~, Length - 10 mm, Morphology - ~MOR PHOLOGY~, 10:17:02 Indications - ~INDICATIONS~, Pre-Stenosis - 90% and Post Stenosis - 0%. PCI QA completed: Pre-Mitul - 3, Post Mitul - 3, Type - ~TYPE~, Length - 5 mm, Morphology - ~MORP HOLOGY~, 10:17:04 Indications - ~INDICATIONS~, Pre-Stenosis - 90% and Post Stenosis - 0%. 10:17:05 PCI QA obtained from Health Information Coder 10:17:14 Catheter(s) removed without difficulty 10:17:17 In the Fem Art (right) the sheath was sutured in place by Lemuel Foreman. 10:17:20 Sterile dressing applied to site 10:17:21 No case complications noted. 10:17:22 Cine recording checked. 10:17:24 Bedside Report will be given. 10:17:25 Implantable Device card placed in patient's chart. 10:21:33 Patient arrived on 75 mg PLAVIX given by Blaze Blum, RN via Oral. Ordered by Lorin Foreman. 10:21:41 HR=70 bpm, RLDJ=526/49 mmhg, SpO2=96.0 %, Resp=14 B/min, Pain=0, Sae=10, Baltazar=2 10:26:04 Vitals capture stopped. 10:28:00 Patient moved to [facility] End Study - Contrast Media Used In Study Contrast Total Opened (mL) Total Used (mL) Total Wasted (mL) Omnipaque 60 60 0 End Study - Maximum Contrast Load Max Contrast Load (mL) 144.9 End Study - Radiation Exposure Fluoro Time (minutes) 6.8 End Study - Patient Disposition Complications Transferred To Interventional Outcome No Telemetry Bed successful
--- NOTE | 2017-09-18 10:54 | MA ---
cc: Lemuel Foreman MD DATE: 09/18/2017 DATE OF PROCEDURE: 09/18/2017 INDICATION: Non-ST elevation myocardial infarction. CONTRAST: Total amount of contrast administered was 50 mL. PROCEDURES PERFORMED: 1. Fluoroscopy with interpretation. 2. Coronary angiography. 3. Percutaneous coronary intervention with bare-metal stent to the proximal and mid-right coronary artery and proximal left circumflex coronary artery. METHOD: Risks, benefits and alternatives discussed with the patient. The patient understood and consented to the procedure. The patient was brought into the cardiac catheterization lab, placed on the catheterization table. The right groin was prepped and draped in sterile fashion. The right groin was anesthetized with 2% lidocaine. The right common femoral artery was cannulated. A 6-[place], 11 cm sheath was placed without difficulty. CORONARY ANGIOGRAPHY: 1. Left main coronary has mild luminal irregularities. 2. Left anterior descending coronary artery has mild luminal irregularities. There is a diagonal branch, which has a 70-80% stenosis, but is small caliber size. 3. Left circumflex proximally has a 75% stenosis. Distally, there are several obtuse marginal branches with moderate disease, but it is small caliber size. 4. Right coronary artery is also a smaller caliber size vessel. Ostial 95% stenosis with a mid 75% stenosis. Posterior descending branch has mild luminal irregularities. PERCUTANEOUS INTERVENTION: Left coronary circulation is selectively engaged with a 6-[place] XB 3.5 guide catheter. A 0.014-inch, 300-cm Terumo Runthrough wire was navigated down the distal circumflex coronary artery. A 2.5 x 18 mm RX bare metal stent, Integrity, was advanced to the proximal circumflex and deployed. Repeat angiography showed no residual stenosis, KERON-3 flow. Wires removed. Guide catheter removed. Attention was then directed towards the right coronary artery. The right coronary was selectively engaged with a 6-[place] 3DRC guide catheter. A 0.014-inch, 300-cm Terumo Runthrough wire was navigated down to the posterior descending branch. The 2.5 mm stent balloon was deployed in the ostium of the right coronary artery given dampening upon engagement. A 2.25 x 14 mm RX Integrity bare-metal stent was advanced down to the mid-right coronary artery and deployed. A 2.25 x 8 mm RX Integrity bare-metal stent was advanced in the proximal right coronary artery to the ostium without extending into the aorta and deployed. The proximal stent margin was flared with a second post-dilatation to 16 atmospheres. Heparin was administered throughout the entire procedure to maintain appropriate anticoagulation. The patient tolerated the procedure well without any periprocedural complication. The groin sheath was sewn into place to be removed, manual hemostasis. CONCLUSIONS: 1. Severe two-vessel [place] coronary artery disease involving the left circumflex and right coronary arteries. 2. Successful percutaneous intervention with bare metal stents to the proximal left circumflex and proximal and mid-right coronary arteries. RECOMMENDATIONS: The patient will be monitored closely for any postprocedure complications. We did the best we could to minimize total amount of contrast, which was only 50 mL. She already has a Vascath catheter in place in anticipation of hemodialysis, which was already planned. She will need to be monitored for hemoglobin following her endoscopy procedure. We will continue aspirin and Plavix, beta gonzález, ferrous sulfate, isosorbide. She has diastolic congestive heart failure, ejection fraction 55%. Her breathing is much improved. Lasix was reduced to 40 mg a day. I am going to consult Case Management to help coordinate for discharge potentially over the weekend. MD HEIDE Shore/[place] , 10:31 AM , 10:53 AM
[2017-09-18] MEDS ORDERED: Bacitracin Oint 0.9 GM Packet TOPICAL ONE (11:00)
[2017-09-18] MEDS: Insulin NovoLOG Aspart Correctional Sugar Inj SQ SCH ×4 (11:43→20:52)
[2017-09-18] MEDS: Gabapentin 300 MG Capsule PO SCH ×2 (11:43→20:52)
[2017-09-18] MEDS: Insulin Detemir Inj 1,000 UNIT/10 ML Vial SQ SCH ×2 (11:43→20:52)
[2017-09-18] MEDS: Sodium Bicarbonate 650 MG Tablet PO SCH ×3 (11:44→17:04)
[2017-09-18] MEDS: Ferrous Sulfate 325 MG Tablet PO SCH ×2 (11:44→20:51)
[2017-09-18] MEDS ORDERED: Iohexol 350 MG/ML 100 ML Vial (for Cath Lab) IVCONTRAST ONE (14:34)
[2017-09-18] MEDS: Furosemide 40 MG Tablet PO SCH (15:09)
[2017-09-18] MEDS: Atenolol 50 MG Tablet PO SCH ×2 (15:10→20:51)
[2017-09-18 15:49] LABS: Calcium 8.1 mg/dL (8.5-10.1); Potassium 3.7 meq/L (3.5-5.1)
[2017-09-18] MEDS: Levofloxacin 500 mg Premix Inj 500 MG/100 ML PIGGYBACK IV.SIG SCH (17:03)
--- NOTE | 2017-09-18 17:26 | P.PN ---
Physical Exam Vital signs: Vital Signs 09/17/17 18:00 09/17/17 19:00 09/17/17 19:49 Temperature Pulse Rate 72 71 84 Respiratory Rate 18 Blood Pressure Pulse Oximetry 09/17/17 20:00 09/17/17 21:00 09/17/17 22:00 Temperature 99.2 F Pulse Rate 74 66 66 Respiratory Rate 18 Blood Pressure 127/58 L Pulse Oximetry 98 09/17/17 23:00 09/18/17 00:00 09/18/17 00:37 Temperature 99 F Pulse Rate 67 69 71 Respiratory Rate 18 16 Blood Pressure 158/68 H Pulse Oximetry 97 09/18/17 01:00 09/18/17 03:34 09/18/17 04:00 Temperature 98.9 F Pulse Rate 69 67 67 Respiratory Rate 15 18 Blood Pressure 130/59 L Pulse Oximetry 96 09/18/17 05:00 09/18/17 08:51 Temperature Pulse Rate 67 66 Respiratory Rate 20 Blood Pressure Pulse Oximetry 93 L Intake & Output 09/17/17 09/18/17 09/18/17 18:59 06:59 18:59 Intake Total 780 / 780 240 / 240 Output Total 1400 / 1400 2049 Balance -620 / -620 -1810 / -1810 Weight 98.4 kg Intake: Oral 780 / 780 240 / 240 Intake (Blood Product) Amt 0 / 0 Rbc As-3 Leukoreduced Unit 0 / 0 [id number] Output: Urine 1400 / 1400 2049 Other: Date of Last Bowel Movement 09/16/17 09/16/17 Narrative: Subjective Interval history: F/up NSTEMI/pulm edema/acute on CKD. Anemia Has no chest pain, diaphoresis, nausea. No fever or chills. She is breathing well on room air. No coughing. Family at bedside. Going for cath. No nausea or vomiting no diarrhea constipation. Physical Exam GENERAL: Obese very pleasant female appears in not acute distress. NECK: JVD difficult to assess secondary to neck habitus. HEART: RRR no m/r/g. LUNGS: Decreased breath sounds no wheezing. ABDOMEN: +BS, soft, NT, ND. EXTREMITIES: Trace LE edema. NEURO: Awake and alert. Assessment and Plan 77 year old female with IDDM, HTN, CKD, and anxiety presented to [place] ED on 09/10 with chest pain and subsequently transferred to the main hospital when her second troponin was found to be 5 (up from 0.07). 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 Given her renal insufficiency, it was decided to hold off on PCI given the amount of contrast needed for intervention. 1. NSTEMI - Troponins in the ED: 0.07, 5.46 - EKG in the ED with no ST changes - Echo 55-60% - Cardiology ff - Cath done 09/10 showing 2V-CAD involving L circumflex and RCA; PCI held off at the time secondary to renal function - Was scheduled for PCI 09/14 but patient developed acute respiratory distress , hypoxia, and chest pain on the table. Stat EKG showed some ST-depression in the lateral leads and a stat troponin was 1.03 (decreased from troponin on 09/10) - Continue heparin drip - Started on nitro drip today - Continue beta gonzález, Imdur, and ASA - Cardiology ff - received lasix with some improvement - nitro drip titrating down - Nephro considers HD. s/p vascath placement. -Cardiac cath 09/18/17 2. Pulmonary edema - 7.16 CXR with hazy bilateral central interstitial and alveolar infiltrates, R>L - Lasix 40 mg IV BID - Supplemental O2 - Monitor oxygen saturation 3. PNA - Start Levaquin - Supplemental O2 - DuoNeb Q4 4. Acute on CKD - Renal indices continuing to worsen - Likely secondary to recent contrast exposure during cath as well as cardiorenal decompensation - Nephrology following - Now with pulmonary edema, treating with diuresis - Avoid nephrotoxic agents, contrast, etc. - Renally dose meds 5. Anemia. Anemia likely of chronic disease (renal) - Monitor H&H and transfuse if symptomatic and or HGB < 7 - Likely combo of anemia of chronic disease and iron deficiency - Check Hemoccult - Hemodynamically stable - Monitor closely - Consider transfusion if Hb drops below 8 given her cardiac history - S/p colonoscopy EGD. Polyps , biopsies taken. cleared by GI for use of anticoagulation 6. Diabetes mellitus insulin dependent - Continue Levemir 5 units BID - SSI with Accuchecks per protocol 7. HTN - BPs running high - On nitro gtt - Continue hydralazine, atenolol, Norvasc, and Imdur 8. Anxiety - Xanax PRN DVT prophylaxis: Heparin gtt Discussed with the patient, nurse, family at bedside Discharge plan Discharge when improved and cleared by consultants. S/p EGD colonoscopy, vas cath placement for HD went for cardiac cath . Nephrology to determine and coordinate need of HD as patient is post cardiac cath - Urinary Catheter Management Indwelling Urethral Catheter Cath placed during this visit: yes Reason for continuing: Terminally ill/Comfort care Insertion date: 09/16/17 Insertion time: 14:00 Results - Labs CBC & Chem 7: 09/18/17 02:13 09/18/17 15:14 Laboratory Results - last 24 hr 09/17/17 09/18/17 09/18/17 20:43 02:13 02:13 WBC 10.5 RBC 3.07 L Hgb 9.6 L Hct 27.6 L MCV 90.0 MCH 31.2 MCHC 34.7 RDW 14.1 Plt Count 215 MPV 8.7 Prelim Diff (Auto) Slide review pending Neut % (Auto) 74.7 H Lymph % (Auto) 10.0 Anderson % (Auto) 11.0 H Eos % (Auto) 3.7 Baso % (Auto) 0.6 Neut # (Auto) 7.9 H Lymph # (Auto) 1.1 Anderson # (Auto) 1.2 H Eos # (Auto) 0.4 Baso # (Auto) 0.1 WBC Differential Manual diff final Seg Neuts % (Manual) 72 H Band Neuts % (Manual) 1 Lymphocytes % (Manual) 10 Monocytes % (Manual) 12 H Eosinophils % (Manual) 3 Metamyelocytes % (Man) 1 Myelocytes % (Man) 1 H Abs Neuts (Manual) 7.9 H Nucleated RBCs/100 WBC 1 H Differential Comment . Platelet Estimate Normal Platelet Morphology Normal RBC Morphology Normal Polychromasia 2.1 H APTT Plt Funct P2Y12 Units Sodium 137 Potassium 3.7 Chloride 100 Carbon Dioxide 26.7 Anion Gap 10 BUN 69 H Creatinine 3.38 H Estimated GFR 13 L POC Glucose 204 H Random Glucose 213 H Calcium 8.1 L 09/18/17 09/18/17 09/18/17 02:13 02:13 08:08 WBC RBC Hgb Hct MCV MCH MCHC RDW Plt Count MPV Prelim Diff (Auto) Neut % (Auto) Lymph % (Auto) Anderson % (Auto) Eos % (Auto) Baso % (Auto) Neut # (Auto) Lymph # (Auto) Anderson # (Auto) Eos # (Auto) Baso # (Auto) WBC Differential Seg Neuts % (Manual) Band Neuts % (Manual) Lymphocytes % (Manual) Monocytes % (Manual) Eosinophils % (Manual) Metamyelocytes % (Man) Myelocytes % (Man) Abs Neuts (Manual) Nucleated RBCs/100 WBC Differential Comment Platelet Estimate Platelet Morphology RBC Morphology Polychromasia APTT 52.5 H Plt Funct P2Y12 Units 307 Sodium Potassium Chloride Carbon Dioxide Anion Gap BUN Creatinine Estimated GFR POC Glucose 258 H Random Glucose Calcium 09/18/17 09/18/17 09/18/17 11:58 12:28 15:14 WBC RBC Hgb Hct MCV MCH MCHC RDW Plt Count MPV Prelim Diff (Auto) Neut % (Auto) Lymph % (Auto) Anderson % (Auto) Eos % (Auto) Baso % (Auto) Neut # (Auto) Lymph # (Auto) Anderson # (Auto) Eos # (Auto) Baso # (Auto) WBC Differential Seg Neuts % (Manual) Band Neuts % (Manual) Lymphocytes % (Manual) Monocytes % (Manual) Eosinophils % (Manual) Metamyelocytes % (Man) Myelocytes % (Man) Abs Neuts (Manual) Nucleated RBCs/100 WBC Differential Comment Platelet Estimate Platelet Morphology RBC Morphology Polychromasia APTT 63.0 H Plt Funct P2Y12 Units Sodium 136 Potassium 3.7 Chloride 100 Carbon Dioxide 24.0 Anion Gap 12 BUN 64 H Creatinine 3.17 H Estimated GFR 14 L POC Glucose 254 H Random Glucose 228 H Calcium 8.1 L
[2017-09-19] MEDS: ALPRAZolam 0.25 MG Tablet PO PRN ×2 (01:38→21:25)
--- NOTE | 2017-09-19 02:16 | XR ---
EXAM DATE: 09/19/2017 2:04 AM EDT AGE/SEX: 77 years / Female INDICATIONS: . Evaluate pleural effusion. CLINICAL DATA: This is the patient's subsequent encounter. Patient reports that signs and symptoms h ave been present for 3 days and indicates a pain score of 0/10. MEDICAL/SURGICAL HISTORY: . Hypertension. Diabetes. .. . Appendectomy COMPARISON: [facility] [place], CHEST 1V SINGLE AP, 09/14/2017. . FINDINGS: PA and lateral views of the chest. Dual-lumen right IJ central venous catheter is in place with the t ip at the cavoatrial junction. No evidence of pneumothorax. The lungs are clear. There is been interv al resolution of bilateral lung opacity. No evidence of pleural effusion. Cardiomediastinal silhouett e within normal limits. CONCLUSION: Right IJ dual-lumen catheter in place. No evidence of pneumothorax. No acute cardiopulmonary disease identified. Electronically signed by: Reynold Vasquez MD 09/19/2017 2:15 AM EDT
[2017-09-19 05:04] LABS: Baso # (Auto) 0.1 th/mm3 (0.0-0.2); Baso % (Auto) 0.5 % (0.0-2.0); Eos # (Auto) 0.2 th/mm3 (0.0-0.4); Eos % (Auto) 2.1 % (0.0-4.0); Hematocrit 26.1 % (35.0-46.0); Lymph # (Auto) 0.8 th/mm3 (1.0-4.8); Lymph % (Auto) 8.7 % (9.0-44.0); Mean Corpuscular HGB Conc 34.5 % (32.0-36.0); Mean Corpuscular Hemoglobin 31.3 pg (27.0-34.0); Mean Corpuscular Volume 90.9 fL (80.0-100.0); Mean Platelet Volume 8.8 fL (7.0-11.0); Mono # (Auto) 1.1 th/mm3 (0.0-0.9); Mono % (Auto) 11.6 % (0.0-8.0); Neut # (Auto) 7.3 th/mm3 (1.8-7.7); Neut % (Auto) 77.1 % (16.0-70.0); Platelet Count 207 th/mm3 (150-450); Red Blood Count 2.87 mil/mm3 (4.00-5.30); Red Cell Distribution Width 14.7 % (11.6-17.2); White Blood Count 9.5 th/mm3 (4.0-11.0)
[2017-09-19 05:25] LABS: Albumin 2.3 g/dL (3.4-5.0); Carbon Dioxide 22.9 meq/L (21.0-32.0); Potassium 3.6 meq/L (3.5-5.1)
[2017-09-19 05:26] LABS: Phosphorus 5.1 mg/dL (2.5-4.9)
[2017-09-19 05:28] LABS: Chol/HDL Ratio 2.8 Ratio; HDL Cholesterol 40.6 mg/dL (40.0-60.0)
[2017-09-19] MEDS: Isosorbide Mononitrate 60 MG ER 24HR Tablet (Imdur) PO SCH (06:05)
[2017-09-19] MEDS: Atenolol 50 MG Tablet PO SCH ×2 (08:51→21:25)
[2017-09-19] MEDS: Furosemide 40 MG Tablet PO SCH (08:51)
[2017-09-19] MEDS: Insulin NovoLOG Aspart Correctional Sugar Inj SQ SCH ×5 (08:51→21:26)
[2017-09-19] MEDS: Sodium Bicarbonate 650 MG Tablet PO SCH ×3 (08:51→17:47)
[2017-09-19] MEDS: Insulin Detemir Inj 1,000 UNIT/10 ML Vial SQ SCH ×2 (08:52→21:26)
[2017-09-19] MEDS: amLODIPine 5 MG Tablet PO SCH (08:52)
[2017-09-19] MEDS: Gabapentin 300 MG Capsule PO SCH (08:52)
[2017-09-19] MEDS: Ferrous Sulfate 325 MG Tablet PO SCH ×2 (08:52→21:25)
--- NOTE | 2017-09-19 12:14 | P.PN ---
Physical Exam Vital signs: Vital Signs 09/18/17 13:00 09/18/17 14:00 09/18/17 15:00 Temperature 98.9 F Pulse Rate 62 68 70 Respiratory Rate 16 Blood Pressure 112/69 Pulse Oximetry 96 09/18/17 16:00 09/18/17 17:00 09/18/17 18:00 Temperature Pulse Rate 71 74 72 Respiratory Rate Blood Pressure Pulse Oximetry 09/18/17 19:00 09/18/17 20:00 09/18/17 21:00 Temperature 99.4 F Pulse Rate 75 72 74 Respiratory Rate 18 Blood Pressure 160/62 H Pulse Oximetry 94 L 94 L 09/18/17 22:00 09/18/17 23:00 09/19/17 00:00 Temperature 98.2 F Pulse Rate 70 70 68 Respiratory Rate 20 18 Blood Pressure 126/51 L Pulse Oximetry 96 09/19/17 01:00 09/19/17 02:00 09/19/17 03:00 Temperature 98.2 F Pulse Rate 70 68 69 Respiratory Rate 18 Blood Pressure 131/69 Pulse Oximetry 95 09/19/17 04:00 09/19/17 05:00 09/19/17 06:00 Temperature Pulse Rate 62 64 74 Respiratory Rate 18 Blood Pressure Pulse Oximetry 09/19/17 07:00 09/19/17 07:51 09/19/17 08:00 Temperature 98.6 F Pulse Rate 61 63 60 Respiratory Rate 16 Blood Pressure 119/53 L Pulse Oximetry 96 96 09/19/17 09:00 09/19/17 10:00 09/19/17 11:00 Temperature 97.9 F Pulse Rate 62 64 64 Respiratory Rate 19 Blood Pressure 115/48 L Pulse Oximetry 96 Intake & Output 09/18/17 09/19/17 09/19/17 18:59 06:59 18:59 Intake Total 960 / 960 100 / 100 Output Total 650 / 650 Balance 310 / 310 100 / 100 Weight 91.6 kg Intake: IV 100 / 100 Levaquin 500 mg Premix Inj 500 100 / 100 mg In 100 ml @ 100 mls/hr IV. SIG Q48H [facility] Rx#:[id number] Oral 960 / 960 Output: Urine Amount (Catheter) 650 / 650 Indwelling Urethral Catheter 650 / 650 Other: Date of Last Bowel Movement 09/16/17 09/16/17 Narrative: Subjective Interval history: F/up NSTEMI/pulm edema/acute on CKD. Anemia S/P cath yesterday. Denies chest pain, diaphoresis, nausea. Fels tired today. Kidney function worsening. No fever or chills. She is breathing well on room air. No coughing. Family at bedside. No nausea or vomiting no diarrhea constipation. Physical Exam GENERAL: Obese very pleasant female appears in not acute distress. NECK: JVD difficult to assess secondary to neck habitus. HEART: RRR no m/r/g. LUNGS: Decreased breath sounds no wheezing. ABDOMEN: +BS, soft, NT, ND. EXTREMITIES: Trace LE edema. NEURO: Awake and alert. Assessment and Plan 77 year old female with IDDM, HTN, CKD, and anxiety presented to [place] ED on 09/10 with chest pain and subsequently transferred to the main hospital when her second troponin was found to be 5 (up from 0.07). 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 Given her renal insufficiency, it was decided to hold off on PCI given the amount of contrast needed for intervention. 1. NSTEMI - Troponins in the ED: 0.07, 5.46 - EKG in the ED with no ST changes - Echo 55-60% - Cardiology ff - Cath done 09/10 showing 2V-CAD involving L circumflex and RCA; PCI held off at the time secondary to renal function - Was scheduled for PCI 09/14 but patient developed acute respiratory distress , hypoxia, and chest pain on the table. Stat EKG showed some ST-depression in the lateral leads and a stat troponin was 1.03 (decreased from troponin on 09/10) - Continue heparin drip - Started on nitro drip today - Continue beta gonzález, Imdur, and ASA - Cardiology ff - received lasix with some improvement - nitro drip titrating down - Nephro considers HD. s/p vascath placement. -Cardiac cath 09/18/17 2. Pulmonary edema - 09.14 CXR with hazy bilateral central interstitial and alveolar infiltrates, R>L - Lasix 40 mg IV BID - Supplemental O2 - Monitor oxygen saturation 3. PNA - Start Levaquin - Supplemental O2 - DuoNeb Q4 4. Acute on CKD - Renal indices continuing to worsen - Likely secondary to recent contrast exposure during cath as well as cardiorenal decompensation - Nephrology following - Now with pulmonary edema, treating with diuresis - Avoid nephrotoxic agents, contrast, etc. - Renally dose meds 5. Anemia. Anemia likely of chronic disease (renal) - Monitor H&H and transfuse if symptomatic and or HGB < 7 - Likely combo of anemia of chronic disease and iron deficiency - Check Hemoccult - Hemodynamically stable - Monitor closely - Consider transfusion if Hb drops below 8 given her cardiac history - S/p colonoscopy EGD. Polyps , biopsies taken. cleared by GI for use of anticoagulation 6. Diabetes mellitus insulin dependent - Continue Levemir 5 units BID - SSI with Accuchecks per protocol 7. HTN - BPs running high - On nitro gtt - Continue hydralazine, atenolol, Norvasc, and Imdur 8. Anxiety - Xanax PRN DVT prophylaxis: Heparin gtt Discussed with the patient, nurse, family at bedside Discharge plan Discharge when improved and cleared by consultants. S/p EGD colonoscopy, vas cath placement for HD went for cardiac cath . Nephrology to determine and coordinate need of HD as patient is post cardiac cath - Urinary Catheter Management Indwelling Urethral Catheter Cath placed during this visit: yes Reason for continuing: Hourly intake/output Insertion date: 09/16/17 Insertion time: 14:00 Results - Labs CBC & Chem 7: 09/19/17 03:56 09/19/17 03:56 Laboratory Results - last 24 hr 09/17/17 09/18/17 09/18/17 11:30 11:58 12:28 WBC RBC Hgb Hct MCV MCH MCHC RDW Plt Count MPV Neut % (Auto) Lymph % (Auto) Mcdonough % (Auto) Eos % (Auto) Baso % (Auto) Neut # (Auto) Lymph # (Auto) Mcdonough # (Auto) Eos # (Auto) Baso # (Auto) WBC Differential Differential Comment APTT 63.0 H Sodium Potassium Chloride Carbon Dioxide Anion Gap BUN Creatinine Estimated GFR POC Glucose 254 H Random Glucose Calcium Phosphorus Total Creatine Kinase Albumin Triglycerides Cholesterol LDL Cholesterol, Calc HDL Cholesterol Cholesterol/HDL Ratio MTS Gel Crossmatch See Detail 09/18/17 09/18/17 09/18/17 15:14 17:06 20:33 WBC RBC Hgb Hct MCV MCH MCHC RDW Plt Count MPV Neut % (Auto) Lymph % (Auto) Mcdonough % (Auto) Eos % (Auto) Baso % (Auto) Neut # (Auto) Lymph # (Auto) Mcdonough # (Auto) Eos # (Auto) Baso # (Auto) WBC Differential Differential Comment APTT Sodium 136 Potassium 3.7 Chloride 100 Carbon Dioxide 24.0 Anion Gap 12 BUN 64 H Creatinine 3.17 H Estimated GFR 14 L POC Glucose 257 H 286 H Random Glucose 228 H Calcium 8.1 L Phosphorus Total Creatine Kinase Albumin Triglycerides Cholesterol LDL Cholesterol, Calc HDL Cholesterol Cholesterol/HDL Ratio MTS Gel Crossmatch 09/19/17 09/19/17 09/19/17 03:56 03:56 07:41 WBC 9.5 RBC 2.87 L Hgb 9.0 L Hct 26.1 L MCV 90.9 MCH 31.3 MCHC 34.5 RDW 14.7 Plt Count 207 MPV 8.8 Neut % (Auto) 77.1 H Lymph % (Auto) 8.7 L Mcdonough % (Auto) 11.6 H Eos % (Auto) 2.1 Baso % (Auto) 0.5 Neut # (Auto) 7.3 Lymph # (Auto) 0.8 L Mcdonough # (Auto) 1.1 H Eos # (Auto) 0.2 Baso # (Auto) 0.1 WBC Differential . Differential Comment Auto diff final APTT Sodium 134 L Potassium 3.6 Chloride 97 L Carbon Dioxide 22.9 Anion Gap 14 BUN 67 H Creatinine 3.31 H Estimated GFR 14 L POC Glucose 210 H Random Glucose 207 H Calcium 8.0 L Phosphorus 5.1 H Total Creatine Kinase 108 Albumin 2.3 L Triglycerides 153 H Cholesterol 114 L LDL Cholesterol, Calc 43 HDL Cholesterol 40.6 Cholesterol/HDL Ratio 2.80 MTS Gel Crossmatch - Imaging Impressions Chest X-Ray 09/18/17 00:00 CONCLUSION: Right IJ dual-lumen catheter in place. No evidence of pneumothorax. No acute cardiopulmonary disease identified.
--- NOTE | 2017-09-19 14:11 | P.PNNP ---
Subjective Interval history: patient lying comfortablyPatient lying comfortably in bed. No verbal complaints. Physical Exam Vital signs: Vital Signs 09/18/17 15:00 09/18/17 16:00 09/18/17 17:00 Temperature 98.9 F Pulse Rate 70 71 74 Respiratory Rate 16 Blood Pressure 112/69 Pulse Oximetry 96 09/18/17 18:00 09/18/17 19:00 09/18/17 20:00 Temperature 99.4 F Pulse Rate 72 75 72 Respiratory Rate 18 Blood Pressure 160/62 H Pulse Oximetry 94 L 94 L 09/18/17 21:00 09/18/17 22:00 09/18/17 23:00 Temperature 98.2 F Pulse Rate 74 70 70 Respiratory Rate 20 Blood Pressure 126/51 L Pulse Oximetry 96 09/19/17 00:00 09/19/17 01:00 09/19/17 02:00 Temperature Pulse Rate 68 70 68 Respiratory Rate 18 Blood Pressure Pulse Oximetry 09/19/17 03:00 09/19/17 04:00 09/19/17 05:00 Temperature 98.2 F Pulse Rate 69 62 64 Respiratory Rate 18 18 Blood Pressure 131/69 Pulse Oximetry 95 09/19/17 06:00 09/19/17 07:00 09/19/17 07:51 Temperature 98.6 F Pulse Rate 74 61 63 Respiratory Rate 16 Blood Pressure 119/53 L Pulse Oximetry 96 09/19/17 08:00 09/19/17 09:00 09/19/17 10:00 Temperature Pulse Rate 60 62 64 Respiratory Rate Blood Pressure 131/61 Pulse Oximetry 96 09/19/17 11:00 09/19/17 12:00 09/19/17 12:38 Temperature 97.9 F Pulse Rate 64 65 Respiratory Rate 19 19 Blood Pressure 115/48 L 114/51 L Pulse Oximetry 96 09/19/17 13:00 Temperature Pulse Rate 64 Respiratory Rate Blood Pressure Pulse Oximetry Intake & Output 09/18/17 09/19/17 09/19/17 18:59 06:59 18:59 Intake Total 960 / 960 100 / 100 Output Total 650 / 650 Balance 310 / 310 100 / 100 Weight 91.6 kg Intake: IV 100 / 100 Levaquin 500 mg Premix Inj 500 100 / 100 mg In 100 ml @ 100 mls/hr IV. SIG Q48H [facility] Rx#:[id number] Oral 960 / 960 Output: Urine Amount (Catheter) 650 / 650 Indwelling Urethral Catheter 650 / 650 Other: Date of Last Bowel Movement 09/16/17 09/16/17 Narrative: Subjective Interval history: F/up NSTEMI/pulm edema/acute on CKD. Anemia S/P cath yesterday. Denies chest pain, diaphoresis, nausea. Feesl tired today. Kidney function worsening. No fever or chills. She is breathing well on room air. No coughing. Family at bedside. No nausea or vomiting no diarrhea constipation. Physical Exam GENERAL: Obese very pleasant female appears in not acute distress. NECK: JVD difficult to assess secondary to neck habitus. HEART: RRR no m/r/g. LUNGS: Decreased breath sounds no wheezing. ABDOMEN: +BS, soft, NT, ND. EXTREMITIES: Trace LE edema. NEURO: Awake and alert. Assessment and Plan 77 year old female with IDDM, HTN, CKD, and anxiety presented to [place] ED on 09/10 with chest pain and subsequently transferred to the main hospital when her second troponin was found to be 5 (up from 0.07). 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 Given her renal insufficiency, it was decided to hold off on PCI given the amount of contrast needed for intervention. 1. NSTEMI - Troponins in the ED: 0.07, 5.46 - EKG in the ED with no ST changes - Echo 55-60% - Cardiology ff - Cath done 09/10 showing 2V-CAD involving L circumflex and RCA; PCI held off at the time secondary to renal function - Was scheduled for PCI 09/14 but patient developed acute respiratory distress , hypoxia, and chest pain on the table. Stat EKG showed some ST-depression in the lateral leads and a stat troponin was 1.03 (decreased from troponin on 09/10) - Continue heparin drip - Started on nitro drip today - Continue beta gonzález, Imdur, and ASA - Cardiology ff - received lasix with some improvement - nitro drip titrating down - Nephro considers HD. s/p vascath placement. -Cardiac cath 09/18/17 2. Pulmonary edema - . CXR with hazy bilateral central interstitial and alveolar infiltrates, R>L - Lasix 40 mg IV BID - Supplemental O2 - Monitor oxygen saturation GENERAL: No respiratory distress. Eating lunch. SKIN: Warm and dry. HEAD: Normocephalic. EYES: No scleral icterus. No injection or drainage. NECK: Supple, trachea midline. No JVD or lymphadenopathy. CARDIOVASCULAR: Regular rate and rhythm without murmurs, gallops, or rubs. RESPIRATORY: Breath sounds equal bilaterally. No accessory muscle use. GASTROINTESTINAL: Abdomen soft, non-tender, nondistended. MUSCULOSKELETAL: No cyanosis, trace edema ankles. - Urinary Catheter Management Indwelling Urethral Catheter Cath placed during this visit: yes Reason for continuing: Hourly intake/output Insertion date: 09/16/17 Insertion time: 14:00 Assessment and Plan - Assessment (1) Chronic kidney disease, stage IV (severe) Code(s): N18.4 - Chronic kidney disease, stage 4 (severe) Status: Acute Plan: Renal indices have deteriorated slightly since yesterday. Volume status however stable and no evidence of hyperkalemia and acid-base status is stable. Repeat renal indices tomorrow. We will likely have to initiate dialysis during this admission depending upon progression of azotemia post cardiac cath. If dialysis not initiated prior to discharge she will require close follow-up with her outpatient geospatial developer. Unfortunately she does not reside in this community and is established with a geospatial developer in [place]. Arrangements will have to be made with that geospatial developer for early follow-up post discharge if dialysis is not initiated. This will likely not be able to be done until Thursday. If dialysis is initiated prior to discharge we still have to make arrangements for outpatient dialysis at the dialysis facility that her outpatient geospatial developer is affiliated with , again this may take a few days. Medications should be adjusted for the patient's estimated GFR if clinically indicated. Avoid additional agents with significant potential for nephrotoxicity if possible including NSAIDs for analgesia, s. Gadolinium is contraindicated if the GFR is below 30. (2) Essential (primary) hypertension Code(s): I10 - Essential (primary) hypertension Status: Acute Plan: Improved (3) Diabetes mellitus Code(s): E11.9 - Type 2 diabetes mellitus without complications Status: Acute Plan: Mgmt as per primary (4) Anemia Code(s): D64.9 - Anemia, unspecified Status: Acute Plan: Mild iron deficiency. 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 GI seeing.
--- NOTE | 2017-09-19 16:22 | ECG ---
Date Performed: 09/19/2017 Time Performed: 06:20:44 PTAGE: 77 years EKG: Intraventricular conduction disturbance Probable LVH ST-T changes most likely due to LVH Pr evious tracing showed limb lead reversal. Precordial leads have no significant change. Abnormal ECG PREVIOUS TRACING : 09/14/2017 14.51 DOCTOR: Fabián Cheek Interpretating Date/Time 09/19/2017 16:21:30
--- NOTE | 2017-09-19 21:39 | P.PNCA ---
Subjective Interval history: NO chest pain, no arrhythmia Physical Exam Vital signs: Vital Signs 09/18/17 22:00 09/18/17 23:00 09/19/17 00:00 Temperature 98.2 F Pulse Rate 70 70 68 Respiratory Rate 20 18 Blood Pressure 126/51 L Pulse Oximetry 96 09/19/17 01:00 09/19/17 02:00 09/19/17 03:00 Temperature 98.2 F Pulse Rate 70 68 69 Respiratory Rate 18 Blood Pressure 131/69 Pulse Oximetry 95 09/19/17 04:00 09/19/17 05:00 09/19/17 06:00 Temperature Pulse Rate 62 64 74 Respiratory Rate 18 Blood Pressure Pulse Oximetry 09/19/17 07:00 09/19/17 07:51 09/19/17 08:00 Temperature 98.6 F Pulse Rate 61 63 60 Respiratory Rate 16 Blood Pressure 119/53 L Pulse Oximetry 96 96 09/19/17 09:00 09/19/17 10:00 09/19/17 11:00 Temperature 97.9 F Pulse Rate 62 64 64 Respiratory Rate 19 Blood Pressure 131/61 115/48 L Pulse Oximetry 96 09/19/17 12:00 09/19/17 12:38 09/19/17 13:00 Temperature Pulse Rate 65 64 Respiratory Rate 19 Blood Pressure 114/51 L Pulse Oximetry 09/19/17 14:00 09/19/17 14:11 09/19/17 15:00 Temperature Pulse Rate 70 70 Respiratory Rate Blood Pressure 123/80 Pulse Oximetry 09/19/17 15:48 09/19/17 16:00 09/19/17 17:00 Temperature 98.5 F Pulse Rate 73 62 59 L Respiratory Rate 16 Blood Pressure 148/67 H Pulse Oximetry 96 09/19/17 18:00 09/19/17 19:00 09/19/17 20:00 Temperature 98.4 F Pulse Rate 60 63 68 Respiratory Rate 18 Blood Pressure 135/75 Pulse Oximetry 96 96 09/19/17 21:00 Temperature Pulse Rate 62 Respiratory Rate Blood Pressure Pulse Oximetry Intake & Output 09/19/17 09/19/17 09/20/17 06:59 18:59 06:59 Intake Total 960 / 960 460 / 460 Output Total 650 / 650 350 / 350 Balance 310 / 310 110 / 110 Weight 91.6 kg Intake: IV 100 / 100 Levaquin 500 mg Premix Inj 500 100 / 100 mg In 100 ml @ 100 mls/hr IV. SIG Q48H [facility] Rx#:[id number] Oral 960 / 960 360 / 360 Output: Urine Amount (Catheter) 650 / 650 350 / 350 Indwelling Urethral Catheter 650 / 650 350 / 350 Other: Date of Last Bowel Movement 09/16/17 - Additional findings Additional findings: GENERAL: Well-developed well-nourished. In no acute distress.Mild obese NECK: No carotid bruits. No JVD. CARDIOVASCULAR: Regular rate and rhythm. normal S2 and S1. No murmur appreciated. RESPIRATORY: No accessory muscle use. Clear to auscultation. Breath sounds equal bilaterally. MUSCULOSKELETAL: No clubbing or cyanosis. No edema. NEUROLOGICAL: Awake and alert. Normal speech. - Urinary Catheter Management Indwelling Urethral Catheter Cath placed during this visit: yes Reason for continuing: Hourly intake/output Insertion date: 09/16/17 Insertion time: 14:00 Assessment and Plan - Assessment (1) CAD (coronary artery disease) Code(s): I25.10 - Atherosclerotic heart disease of [place] coronary artery without angina pectoris Status: Acute (2) Chronic kidney disease, stage IV (severe) Code(s): N18.4 - Chronic kidney disease, stage 4 (severe) Status: Acute (3) Essential (primary) hypertension Code(s): I10 - Essential (primary) hypertension Status: Acute (4) Diabetes mellitus Code(s): E11.9 - Type 2 diabetes mellitus without complications Status: Acute (5) Anemia Code(s): D64.9 - Anemia, unspecified Status: Acute - Plan 77-year-old Beninese-speaking female with past medical history of HTN, DM, diabetic nephropathy, CKD who presented for chest pain due to non-STEMI. NSTEMI: [facility] 09/10 showed primarily 2 vessel [place] CAD involving the proximal LCx and RCA. stage PCI of RCA and circumflex with BMS 09/18/2017 Dr. Foreman. continue aspirin, Plavix, and statin. Hypertension: Improved. Continue amlodipine 5mg twice daily, clonidine 0.1mg q8hr, Imdur 60mg daily, Hydralazine to 100mg q8hr, atenolol 50mg bid with holding parameters. DONA on CKD: S/P Vas-Cath placement for initiation of HD. Nephrology on board. Likely dialysis after [facility]. Normocytic anemia: Hemoglobin 11.2 -> 8.5, currently stable. GI performed EGD and colonoscopy without bleeding noted, cleared from GI perspective for anticoagulation as needed. Per nephrology at least some component of anemia of renal disease. I am seeing patient for Dr. Foreman this weakened.
[2017-09-20] MEDS: Gabapentin 100 MG Capsule PO SCH ×4 (06:00→17:18)
[2017-09-20] MEDS: Isosorbide Mononitrate 60 MG ER 24HR Tablet (Imdur) PO SCH (06:00)
[2017-09-20 06:30] LABS: Calcium 8.5 mg/dL (8.5-10.1); Carbon Dioxide 24.4 meq/L (21.0-32.0); Potassium 3.9 meq/L (3.5-5.1)
[2017-09-20 06:58] LABS: Hepatitits B Surface Antigen Nonreactive (Nonreactive)
[2017-09-20 07:07] LABS: Hepatitis A IgM Antibody Nonreactive (Nonreactive)
[2017-09-20] MEDS: amLODIPine 5 MG Tablet PO SCH (09:10)
[2017-09-20] MEDS: Sodium Bicarbonate 650 MG Tablet PO SCH ×3 (09:10→17:18)
[2017-09-20] MEDS: Furosemide 40 MG Tablet PO SCH (09:12)
[2017-09-20] MEDS: Atenolol 50 MG Tablet PO SCH ×2 (09:13→21:50)
[2017-09-20] MEDS: Ferrous Sulfate 325 MG Tablet PO SCH ×2 (09:13→21:50)
[2017-09-20] MEDS: Insulin NovoLOG Aspart Correctional Sugar Inj SQ SCH ×4 (09:15→21:51)
[2017-09-20] MEDS: Insulin Detemir Inj 1,000 UNIT/10 ML Vial SQ SCH ×2 (09:15→21:51)
[2017-09-20] MEDS ORDERED: Bisacodyl 10 MG Supp RECTAL PRN (11:25)
[2017-09-20] MEDS: ALPRAZolam 0.25 MG Tablet PO PRN (12:11)
--- NOTE | 2017-09-20 14:13 | P.PN ---
Physical Exam Vital signs: Vital Signs 09/19/17 15:00 09/19/17 15:48 09/19/17 16:00 Temperature 98.5 F Pulse Rate 70 73 62 Respiratory Rate 16 Blood Pressure 148/67 H Pulse Oximetry 96 09/19/17 17:00 09/19/17 18:00 09/19/17 19:00 Temperature 98.4 F Pulse Rate 59 L 60 63 Respiratory Rate 18 Blood Pressure 135/75 Pulse Oximetry 96 09/19/17 20:00 09/19/17 21:00 09/19/17 22:00 Temperature Pulse Rate 68 62 62 Respiratory Rate Blood Pressure Pulse Oximetry 96 09/19/17 23:00 09/20/17 00:00 09/20/17 01:00 Temperature 97.6 F Pulse Rate 56 L 56 L 54 L Respiratory Rate 18 Blood Pressure 129/63 Pulse Oximetry 95 09/20/17 02:00 09/20/17 03:00 09/20/17 04:00 Temperature 98.1 F Pulse Rate 54 L 57 L 56 L Respiratory Rate 18 Blood Pressure 137/90 Pulse Oximetry 96 09/20/17 05:00 09/20/17 06:00 09/20/17 07:00 Temperature Pulse Rate 58 L 59 L 55 L Respiratory Rate Blood Pressure Pulse Oximetry 09/20/17 08:00 09/20/17 08:04 09/20/17 09:00 Temperature 98.4 F Pulse Rate 56 L 57 L 58 L Respiratory Rate 14 Blood Pressure 141/78 H Pulse Oximetry 94 L 94 L 09/20/17 10:00 09/20/17 11:00 09/20/17 12:00 Temperature 98.7 F Pulse Rate 64 71 63 Respiratory Rate 15 Blood Pressure 130/60 Pulse Oximetry 96 09/20/17 13:00 09/20/17 14:00 Temperature Pulse Rate 62 62 Respiratory Rate Blood Pressure Pulse Oximetry Intake & Output 09/19/17 09/20/17 09/20/17 18:59 06:59 18:59 Intake Total 460 / 460 240 / 240 Output Total 350 / 350 300 / 300 Balance 110 / 110 -60 / -60 Weight 90.8 kg Intake: IV 100 / 100 Levaquin 500 mg Premix Inj 500 100 / 100 mg In 100 ml @ 100 mls/hr IV. SIG Q48H [facility] Rx#:[id number] Oral 360 / 360 240 / 240 Output: Urine Amount (Catheter) 350 / 350 300 / 300 Indwelling Urethral Catheter 350 / 350 300 / 300 Other: Date of Last Bowel Movement 09/17/17 Narrative: Subjective Interval history: F/up NSTEMI/pulm edema/acute on CKD. Anemia In bed he she does not appear in acute distress at this time. No shortness of breath or chest pain. Eating fairly well appetite is better. She is saturating well on room air. Physical Exam GENERAL: Very pleasant female appears in not acute distress. NECK: JVD difficult to assess secondary to neck habitus. HEART: RRR no m/r/g. LUNGS: Decreased breath sounds no wheezing. ABDOMEN: +BS, soft, NT, ND. EXTREMITIES: Trace LE edema. NEURO: Awake and alert. Assessment and Plan 77 year old female with IDDM, HTN, CKD, and anxiety presented to [place] ED on 09/10 with chest pain and [facility] when her second troponin was found to be 5 (up from 0.07). 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 Given her renal insufficiency, it was decided to hold off on PCI given the amount of contrast needed for intervention. 77 year old female with IDDM, HTN, CKD, and anxiety presented to [place] ED on 09/10 with chest pain and subsequently [facility] when her second troponin was found to be 5 (up from 0.07). 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 Given her renal insufficiency, it was decided to hold off on PCI given the amount of contrast needed for intervention. 1. NSTEMI - Troponins in the ED: 0.07, 5.46 - EKG in the ED with no ST changes - Echo 55-60% - Cardiology ff - Cath done 09/10 showing 2V-CAD involving L circumflex and RCA; PCI held off at the time secondary to renal function - Was scheduled for PCI 09/14 but patient developed acute respiratory distress , hypoxia, and chest pain on the table. Stat EKG showed some ST-depression in the lateral leads and a stat troponin was 1.03 (decreased from troponin on 09/10) - Continue heparin drip - Started on nitro drip today - Continue beta gonzález, Imdur, and ASA - Cardiology ff - received lasix with some improvement - nitro drip titrating down - Nephro considers HD as OP to be arraged by CM, by her nephrology in [place]. s/p vascath placement. -Cardiac cath 09/18/17 Patient with NSTEMI: [facility] 09/10 showed primarily 2 vessel [place] CAD involving the proximal LCx and RCA. stage PCI of RCA and circumflex with BMS 09/18/[address] Foreman. continue aspirin, Plavix, and statin. 2. Pulmonary edema - 7.16 CXR with hazy bilateral central interstitial and alveolar infiltrates, R>L - Lasix 40 mg IV BID - Supplemental O2 - Monitor oxygen saturation 3. PNA - Start Levaquin - Supplemental O2 - DuoNeb Q4 4. Acute on CKD - Renal indices continuing to worsen - Likely secondary to recent contrast exposure during cath as well as cardiorenal decompensation - Nephrology following - Noted with pulmonary edema, treating with diuresis - Avoid nephrotoxic agents, contrast, etc. - Renally dose meds -Per Dr Cedeno nephrology defer follow-up and decision regarding ongoing dialysis to the primary retail loss prevention investigator in [place] post discharge. Case management to coordinate. Discharge okay from renal point of view once outpatient dialysis has been arranged in [place]. 5. Anemia. Anemia likely of chronic disease (renal) - Monitor H&H and transfuse if symptomatic and or HGB < 7 - Likely combo of anemia of chronic disease and iron deficiency - Check Hemoccult - Hemodynamically stable - Monitor closely - Consider transfusion if Hb drops below 8 given her cardiac history - S/p colonoscopy EGD. Polyps , biopsies taken. cleared by GI for use of anticoagulation 6. Diabetes mellitus insulin dependent - Continue Levemir 5 units BID - SSI with Accuchecks per protocol 7. HTN - BPs running high - On nitro gtt - Continue hydralazine, atenolol, Norvasc, and Imdur 8. Anxiety - Xanax PRN DVT prophylaxis: Heparin gtt Discussed with the patient, nurse, family at bedside Discharge plan Discharge when improved and cleared by consultants. S/p EGD colonoscopy, vas cath placement for HD went for cardiac cath . Her nephrology in [place] to arrange HD. Dr Cedeno will discuss with her nephrology 09/21/17 for arrangements. CM is also ff for DC. Once HD established as OP patient can be DC. Transfer out of [facility] - Urinary Catheter Management Indwelling Urethral Catheter Cath placed during this visit: yes Reason for continuing: Hourly intake/output Insertion date: 09/16/17 Insertion time: 14:00 Results - Labs CBC & Chem 7: 09/19/17 03:56 09/20/17 05:08 Laboratory Results - last 24 hr 09/19/17 09/19/17 09/20/17 17:18 20:27 05:08 Sodium Potassium Chloride Carbon Dioxide Anion Gap BUN Creatinine Estimated GFR POC Glucose 279 H 262 H Random Glucose Calcium Hepatitis A IgM Ab Nonreactive Hep Bs Antigen Nonreactive Hep B Core IgM Ab Nonreactive Hep C IgG Ab Nonreactive 09/20/17 09/20/17 09/20/17 05:08 08:07 11:54 Sodium 135 L Potassium 3.9 Chloride 98 Carbon Dioxide 24.4 Anion Gap 13 BUN 86 H Creatinine 4.40 H Estimated GFR 10 L POC Glucose 164 H 394 H Random Glucose 130 H Calcium 8.5 Hepatitis A IgM Ab Hep Bs Antigen Hep B Core IgM Ab Hep C IgG Ab 09/20/17 11:56 Sodium Potassium Chloride Carbon Dioxide Anion Gap BUN Creatinine Estimated GFR POC Glucose 341 H Random Glucose Calcium Hepatitis A IgM Ab Hep Bs Antigen Hep B Core IgM Ab Hep C IgG Ab
[2017-09-20] MEDS ORDERED: Sod Chloride 0.9% Inj 1,000 ML OTHER PRN ×2 (15:34)
[2017-09-20] MEDS ORDERED: Heparin 10,000 UNITS/10 ML Vial (for IV use) OTHER PRN ×2 (15:34)
[2017-09-20] MEDS ORDERED: Gelatin 12 MM/7 MM Topical Foam TOPICAL PRN (15:34)
[2017-09-20] MEDS ORDERED: Sod Chloride 0.9% Inj 1,000 ML IV.CONT PRN (15:34)
[2017-09-20] MEDS ORDERED: Albumin Human 25% Inj 100 ML IV.SIG PRN (15:34)
[2017-09-20] MEDS ORDERED: Acetaminophen 325 MG Tablet PO PRN (15:34)
--- NOTE | 2017-09-20 15:41 | P.PNNP ---
Subjective Interval history: Patient lying in bed not in respiratory distress. by bedside. Physical Exam Vital signs: Vital Signs 09/19/17 15:48 09/19/17 16:00 09/19/17 17:00 Temperature 98.5 F Pulse Rate 73 62 59 L Respiratory Rate 16 Blood Pressure 148/67 H Pulse Oximetry 96 09/19/17 18:00 09/19/17 19:00 09/19/17 20:00 Temperature 98.4 F Pulse Rate 60 63 68 Respiratory Rate 18 Blood Pressure 135/75 Pulse Oximetry 96 96 09/19/17 21:00 09/19/17 22:00 09/19/17 23:00 Temperature 97.6 F Pulse Rate 62 62 56 L Respiratory Rate 18 Blood Pressure 129/63 Pulse Oximetry 95 09/20/17 00:00 09/20/17 01:00 09/20/17 02:00 Temperature Pulse Rate 56 L 54 L 54 L Respiratory Rate Blood Pressure Pulse Oximetry 09/20/17 03:00 09/20/17 04:00 09/20/17 05:00 Temperature 98.1 F Pulse Rate 57 L 56 L 58 L Respiratory Rate 18 Blood Pressure 137/90 Pulse Oximetry 96 09/20/17 06:00 09/20/17 07:00 09/20/17 08:00 Temperature Pulse Rate 59 L 55 L 56 L Respiratory Rate Blood Pressure Pulse Oximetry 94 L 09/20/17 08:04 09/20/17 09:00 09/20/17 10:00 Temperature 98.4 F Pulse Rate 57 L 58 L 64 Respiratory Rate 14 Blood Pressure 141/78 H Pulse Oximetry 94 L 09/20/17 11:00 09/20/17 12:00 09/20/17 13:00 Temperature 98.7 F Pulse Rate 71 63 62 Respiratory Rate 15 Blood Pressure 130/60 Pulse Oximetry 96 09/20/17 14:00 09/20/17 15:00 Temperature 98.6 F Pulse Rate 62 66 Respiratory Rate 14 Blood Pressure 145/61 H Pulse Oximetry 94 L Intake & Output 09/19/17 09/20/17 09/20/17 18:59 06:59 18:59 Intake Total 460 / 460 240 / 240 Output Total 350 / 350 300 / 300 Balance 110 / 110 -60 / -60 Weight 90.8 kg Intake: IV 100 / 100 Levaquin 500 mg Premix Inj 500 100 / 100 mg In 100 ml @ 100 mls/hr IV. SIG Q48H [facility] Rx#:[id number] Oral 360 / 360 240 / 240 Output: Urine Amount (Catheter) 350 / 350 300 / 300 Indwelling Urethral Catheter 350 / 350 300 / 300 Other: Date of Last Bowel Movement 09/17/17 Narrative: Subjective Interval history: F/up NSTEMI/pulm edema/acute on CKD. Anemia S/P cath yesterday. Denies chest pain, diaphoresis, nausea. Fels tired today. Kidney function worsening. No fever or chills. She is breathing well on room air. No coughing. Family at bedside. No nausea or vomiting no diarrhea constipation. Physical Exam GENERAL: Obese very pleasant female appears in not acute distress. NECK: JVD difficult to assess secondary to neck habitus. HEART: RRR no m/r/g. LUNGS: Decreased breath sounds no wheezing. ABDOMEN: +BS, soft, NT, ND. EXTREMITIES: Trace LE edema. NEURO: Awake and alert. Assessment and Plan 77 year old female with IDDM, HTN, CKD, and anxiety presented to [place] ED on 09/10 with chest pain and subsequently transferred to the main hospital when her second troponin was found to be 5 (up from 0.07). 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 Given her renal insufficiency, it was decided to hold off on PCI given the amount of contrast needed for intervention. 1. NSTEMI - Troponins in the ED: 0.07, 5.46 - EKG in the ED with no ST changes - Echo 55-60% - Cardiology ff - Cath done 09/10 showing 2V-CAD involving L circumflex and RCA; PCI held off at the time secondary to renal function - Was scheduled for PCI 09/14 but patient developed acute respiratory distress , hypoxia, and chest pain on the table. Stat EKG showed some ST-depression in the lateral leads and a stat troponin was 1.03 (decreased from troponin on 09/10) - Continue heparin drip - Started on nitro drip today - Continue beta gonzález, Imdur, and ASA - Cardiology ff - received lasix with some improvement - nitro drip titrating down - Nephro considers HD. s/p vascath placement. -Cardiac cath 09/18/17 2. Pulmonary edema - 7.16 CXR with hazy bilateral central interstitial and alveolar infiltrates, R>L - Lasix 40 mg IV BID - Supplemental O2 - Monitor oxygen saturation GENERAL: Lying in bed. Comfortable. Not in respiratory distress. SKIN: Warm and dry. HEAD: Normocephalic. EYES: No scleral icterus. No injection or drainage. NECK: Supple, trachea midline. CARDIOVASCULAR: Regular rate and rhythm without murmurs, gallops, or rubs. RESPIRATORY: Breath sounds equal bilaterally. No accessory muscle use. GASTROINTESTINAL: Abdomen soft, non-tender, nondistended. MUSCULOSKELETAL: No cyanosis, or edema. - Urinary Catheter Management Indwelling Urethral Catheter Cath placed during this visit: yes Reason for continuing: Hourly intake/output Insertion date: 09/16/17 Insertion time: 14:00 Assessment and Plan - Assessment (1) Chronic kidney disease, stage IV (severe) Code(s): N18.4 - Chronic kidney disease, stage 4 (severe) Status: Acute Plan: Patient's renal indices have deteriorated significantly in the last 2 days. Most likely patient has progressive end-stage renal disease at this point in time. Discussed with patient and family and they have agreed to proceed with initiation of dialysis tomorrow. They are hopeful that dialysis will be able to be discontinued and that his acute deterioration is temporary. I advised him that I will defer follow-up and decision regarding ongoing dialysis to the primary photograph finisher in [place] post discharge. We will contact the photograph finisher tomorrow to update him regarding the situation and to make arrangements for outpatient dialysis in [place]. Case management to coordinate same. Discharge okay from renal point of view once outpatient dialysis has been arranged in [place]. Medications should be adjusted for the patient's estimated GFR if clinically indicated. Avoid additional agents with significant potential for nephrotoxicity if possible including NSAIDs for analgesia, s. Gadolinium is contraindicated if the GFR is below 30. (2) Essential (primary) hypertension Code(s): I10 - Essential (primary) hypertension Status: Acute Plan: Improved (3) Diabetes mellitus Code(s): E11.9 - Type 2 diabetes mellitus without complications Status: Acute Plan: Mgmt as per primary (4) Anemia Code(s): D64.9 - Anemia, unspecified Status: Acute Plan: Mild iron deficiency. 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 GI seeing.
[2017-09-20] MEDS ORDERED: Epoetin Alfa Inj 4,000 UNIT/ML Vial IV.PUSH PRN (16:00)
[2017-09-20] MEDS: Levofloxacin 500 mg Premix Inj 500 MG/100 ML PIGGYBACK IV.SIG SCH (17:18)
--- NOTE | 2017-09-20 19:15 | P.PNCA ---
Subjective Interval history: Feeling well, no chest pain, no arrhythmia Physical Exam Vital signs: Vital Signs 09/19/17 20:00 09/19/17 21:00 09/19/17 22:00 Temperature Pulse Rate 68 62 62 Respiratory Rate Blood Pressure Pulse Oximetry 96 09/19/17 23:00 09/20/17 00:00 09/20/17 01:00 Temperature 97.6 F Pulse Rate 56 L 56 L 54 L Respiratory Rate 18 Blood Pressure 129/63 Pulse Oximetry 95 09/20/17 02:00 09/20/17 03:00 09/20/17 04:00 Temperature 98.1 F Pulse Rate 54 L 57 L 56 L Respiratory Rate 18 Blood Pressure 137/90 Pulse Oximetry 96 09/20/17 05:00 09/20/17 06:00 09/20/17 07:00 Temperature Pulse Rate 58 L 59 L 55 L Respiratory Rate Blood Pressure Pulse Oximetry 09/20/17 08:00 09/20/17 08:04 09/20/17 09:00 Temperature 98.4 F Pulse Rate 56 L 57 L 58 L Respiratory Rate 14 Blood Pressure 141/78 H Pulse Oximetry 94 L 94 L 09/20/17 10:00 09/20/17 11:00 09/20/17 12:00 Temperature 98.7 F Pulse Rate 64 71 63 Respiratory Rate 15 Blood Pressure 130/60 Pulse Oximetry 96 09/20/17 13:00 09/20/17 14:00 09/20/17 15:00 Temperature 98.6 F Pulse Rate 62 62 66 Respiratory Rate 14 Blood Pressure 145/61 H Pulse Oximetry 94 L 09/20/17 16:00 09/20/17 17:00 09/20/17 18:00 Temperature Pulse Rate 62 58 L 62 Respiratory Rate Blood Pressure Pulse Oximetry Intake & Output 09/20/17 09/20/17 09/21/17 06:59 18:59 06:59 Intake Total 240 / 240 580 / 580 Output Total 300 / 300 350 / 350 Balance -60 / -60 230 / 230 Weight 90.8 kg Intake: IV 100 / 100 Levaquin 500 mg Premix Inj 500 100 / 100 mg In 100 ml @ 100 mls/hr IV. SIG Q48H [facility] Rx#:[id number] Oral 240 / 240 480 / 480 Output: Urine Amount (Catheter) 300 / 300 350 / 350 Indwelling Urethral Catheter 300 / 300 350 / 350 Other: Date of Last Bowel Movement 09/17/17 - Constitutional no acute distress - Routine HEENT Exam Head: Present: normocephalic, atraumatic - Routine Neck Exam Present: supple, full ROM. Absent: JVD - Routine Respiratory Exam Present: CTA bilaterally. Absent: accessory muscle use - Routine Cardiovascular Exam Present: RRR, S1, S2, murmur - Routine Abdominal Exam Present: soft, normoactive bowel sounds - Routine Extremities Exam Present: full ROM, normal capillary refill. Absent: edema - Urinary Catheter Management Indwelling Urethral Catheter Cath placed during this visit: yes, but has since been removed by the nurse Reason for continuing: Hourly intake/output Insertion date: 09/16/17 Insertion time: 14:00 Removal date: 09/20/17 Removal time: 16:13 Assessment and Plan - Assessment (1) CAD (coronary artery disease) Code(s): I25.10 - Atherosclerotic heart disease of [place] coronary artery without angina pectoris Status: Acute (2) Chronic kidney disease, stage IV (severe) Code(s): N18.4 - Chronic kidney disease, stage 4 (severe) Status: Acute (3) Essential (primary) hypertension Code(s): I10 - Essential (primary) hypertension Status: Acute (4) Diabetes mellitus Code(s): E11.9 - Type 2 diabetes mellitus without complications Status: Acute (5) Anemia Code(s): D64.9 - Anemia, unspecified Status: Acute - Plan 77-year-old [place]-speaking female with past medical history of HTN, DM, diabetic nephropathy, CKD who presented for chest pain due to non-STEMI. NSTEMI: [facility] 09/10 showed primarily 2 vessel [place] CAD involving the proximal LCx and RCA. stage PCI of RCA and circumflex with BMS 09/18/2017 Dr. Foreman. continue aspirin, Plavix, and statin. Hypertension: Improved. Continue amlodipine 5mg twice daily, clonidine 0.1mg q8hr, Imdur 60mg daily, Hydralazine to 100mg q8hr, atenolol 50mg bid with holding parameters. DONA on CKD: S/P Vas-Cath placement for initiation of HD. Nephrology on board. dialysis starting tomorrow. Normocytic anemia: Hemoglobin 11.2 -> 8.5, currently stable. GI performed EGD and colonoscopy without bleeding noted, cleared from GI perspective for anticoagulation as needed. Per nephrology at least some component of anemia of renal disease. I am seeing patient for Dr. Foreman this weakened.
[2017-09-20] MEDS: Senna/Docusate Sodium 8.6/50 MG Tablet PO SCH (21:50)
[2017-09-21] MEDS: Isosorbide Mononitrate 60 MG ER 24HR Tablet (Imdur) PO SCH (06:24)
[2017-09-21 06:54] LABS: Baso # (Auto) 0.1 th/mm3 (0.0-0.2); Baso % (Auto) 0.8 % (0.0-2.0); Eos # (Auto) 0.3 th/mm3 (0.0-0.4); Eos % (Auto) 3.3 % (0.0-4.0); Hematocrit 26.4 % (35.0-46.0); Lymph # (Auto) 0.9 th/mm3 (1.0-4.8); Mean Corpuscular Hemoglobin 31.1 pg (27.0-34.0); Mean Corpuscular Volume 91.7 fL (80.0-100.0); Mean Platelet Volume 8.8 fL (7.0-11.0); Mono # (Auto) 1.2 th/mm3 (0.0-0.9); Mono % (Auto) 11.3 % (0.0-8.0); Neut # (Auto) 7.7 th/mm3 (1.8-7.7); Neut % (Auto) 75.6 % (16.0-70.0); Platelet Count 218 th/mm3 (150-450); Red Blood Count 2.88 mil/mm3 (4.00-5.30); Red Cell Distribution Width 14.5 % (11.6-17.2); White Blood Count 10.2 th/mm3 (4.0-11.0)
[2017-09-21 07:09] LABS: Calcium 8.4 mg/dL (8.5-10.1); Carbon Dioxide 22.5 meq/L (21.0-32.0); Potassium 3.7 meq/L (3.5-5.1)
--- NOTE | 2017-09-21 07:34 | P.PNCA ---
<Dayo Talbot - Last Filed: 09/21/17 07:31> Subjective Interval history: Patient seen with and RN at bedside. Neck chest pain or shortness of breath. Patient received dialysis 1 over the weekend and is going for dialysis again today. Physical Exam Vital signs: Vital Signs 09/20/17 08:00 09/20/17 08:04 09/20/17 09:00 Temperature 98.4 F Pulse Rate 56 L 57 L 58 L Respiratory Rate 14 Blood Pressure 141/78 H Pulse Oximetry 94 L 94 L 09/20/17 10:00 09/20/17 11:00 09/20/17 12:00 Temperature 98.7 F Pulse Rate 64 71 63 Respiratory Rate 15 Blood Pressure 130/60 Pulse Oximetry 96 09/20/17 13:00 09/20/17 14:00 09/20/17 15:00 Temperature 98.6 F Pulse Rate 62 62 66 Respiratory Rate 14 Blood Pressure 145/61 H Pulse Oximetry 94 L 09/20/17 16:00 09/20/17 17:00 09/20/17 18:00 Temperature Pulse Rate 62 58 L 62 Respiratory Rate Blood Pressure Pulse Oximetry 09/20/17 19:00 09/20/17 20:00 09/20/17 21:00 Temperature 98.4 F Pulse Rate 64 62 60 Respiratory Rate 20 Blood Pressure 140/65 Pulse Oximetry 94 L 94 L 09/20/17 22:00 09/20/17 23:00 09/21/17 00:00 Temperature 97.4 F L Pulse Rate 62 63 60 Respiratory Rate 18 Blood Pressure 135/62 Pulse Oximetry 95 09/21/17 01:00 09/21/17 02:00 09/21/17 03:00 Temperature 98.2 F Pulse Rate 58 L 59 L 63 Respiratory Rate 18 Blood Pressure 127/59 L Pulse Oximetry 95 09/21/17 04:00 09/21/17 05:00 09/21/17 06:00 Temperature Pulse Rate 58 L 58 L 58 L Respiratory Rate Blood Pressure Pulse Oximetry Intake & Output 09/20/17 09/21/17 09/21/17 18:59 06:59 18:59 Intake Total 580 / 580 240 / 240 Output Total 350 / 350 200 / 200 Balance 230 / 230 40 / 40 Weight 200 lb 2.876 oz Intake: IV 100 / 100 Levaquin 500 mg Premix Inj 500 100 / 100 mg In 100 ml @ 100 mls/hr IV. SIG Q48H [facility] Rx#:[id number] Oral 480 / 480 240 / 240 Output: Urine 200 / 200 Urine Amount (Catheter) 350 / 350 Indwelling Urethral Catheter 350 / 350 Other: Date of Last Bowel Movement 09/17/17 Narrative: GENERAL: Well-developed well-nourished. In no acute distress. NECK: No carotid bruits. No JVD. CARDIOVASCULAR: Regular rate and rhythm. No murmur appreciated. RESPIRATORY: No accessory muscle use. Clear to auscultation. Breath sounds equal bilaterally. MUSCULOSKELETAL: No clubbing or cyanosis. No edema. NEUROLOGICAL: Awake and alert. Normal speech. - Urinary Catheter Management Indwelling Urethral Catheter Cath placed during this visit: yes, but has since been removed by the nurse Reason for continuing: Hourly intake/output Insertion date: 09/16/17 Insertion time: 14:00 Removal date: 09/20/17 Removal time: 16:13 Assessment and Plan - Plan 77-year-old Kazakh-speaking female with past medical history of HTN, DM, diabetic nephropathy, CKD who presented for chest pain due to non-STEMI. NSTEMI: LHC 09/10 showed primarily 2 vessel [place] CAD involving the proximal LCx and RCA. staged PCI of RCA and circumflex with BMS 09/18/2017 w/ Dr. Foreman. continue aspirin, Plavix, and statin. Hypertension: Controlled on amlodipine 5mg twice daily, clonidine 0.1mg q8hr, Imdur 60mg daily, Hydralazine to 100mg q8hr, atenolol 50mg bid with holding parameters. DONA on CKD: S/P Vas-Cath placement for initiation of HD. Nephrology on board. Dialysis initiated and outpatient dialysis arrangements being made. Normocytic anemia: Hemoglobin 11.2 -> 8.5, currently stable at 9. GI performed EGD and colonoscopy without bleeding noted, cleared from GI perspective for anticoagulation as needed. Per nephrology at least some component of anemia of renal disease. Discharge planning from cardiology perspective. Awaiting renal arrangements. <Lemuel Foreman - Last Filed: 09/21/17 08:28> Physical Exam Vital signs: Vital Signs 09/20/17 09:00 09/20/17 10:00 09/20/17 11:00 Temperature 98.7 F Pulse Rate 58 L 64 71 Respiratory Rate 15 Blood Pressure 130/60 Pulse Oximetry 96 09/20/17 12:00 09/20/17 13:00 09/20/17 14:00 Temperature Pulse Rate 63 62 62 Respiratory Rate Blood Pressure Pulse Oximetry 09/20/17 15:00 09/20/17 16:00 09/20/17 17:00 Temperature 98.6 F Pulse Rate 66 62 58 L Respiratory Rate 14 Blood Pressure 145/61 H Pulse Oximetry 94 L 09/20/17 18:00 09/20/17 19:00 09/20/17 20:00 Temperature 98.4 F Pulse Rate 62 64 62 Respiratory Rate 20 Blood Pressure 140/65 Pulse Oximetry 94 L 94 L 09/20/17 21:00 09/20/17 22:00 09/20/17 23:00 Temperature 97.4 F L Pulse Rate 60 62 63 Respiratory Rate 18 Blood Pressure 135/62 Pulse Oximetry 95 09/21/17 00:00 09/21/17 01:00 09/21/17 02:00 Temperature Pulse Rate 60 58 L 59 L Respiratory Rate Blood Pressure Pulse Oximetry 09/21/17 03:00 09/21/17 04:00 09/21/17 05:00 Temperature 98.2 F Pulse Rate 63 58 L 58 L Respiratory Rate 18 Blood Pressure 127/59 L Pulse Oximetry 95 09/21/17 06:00 Temperature Pulse Rate 58 L Respiratory Rate Blood Pressure Pulse Oximetry Intake & Output 09/20/17 09/21/17 09/21/17 18:59 06:59 18:59 Intake Total 580 / 580 240 / 240 Output Total 350 / 350 200 / 200 Balance 230 / 230 40 / 40 Weight 90.8 kg Intake: IV 100 / 100 Levaquin 500 mg Premix Inj 500 100 / 100 mg In 100 ml @ 100 mls/hr IV. SIG Q48H [facility] Rx#:[id number] Oral 480 / 480 240 / 240 Output: Urine 200 / 200 Urine Amount (Catheter) 350 / 350 Indwelling Urethral Catheter 350 / 350 Other: Date of Last Bowel Movement 09/17/17 - Urinary Catheter Management Indwelling Urethral Catheter Cath placed during this visit: no Assessment and Plan - Attending Attestation doing well continue asa plavix statin bb DC planning Hb stable dialysis today. coordinate dialysis as outpatient
--- NOTE | 2017-09-21 08:28 | P.DS ---
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 Lawler from nephrology service, diabetic neuroapthy, Anxiety disorder who presented to ER complaining of chest pain- anterior chest wall steady burning pain 10 out of 10. There was no assoicated nausea, vomiting or diaphoresis. persistent prompted consult to [facility]. EKG show sinus rhythm, LAD, LAHB, incomplete LBBB patter. Initial troponin was .07. Patient was given ASA and Nitrol paste and is now chest pain free. REpeat troponin was 15. Patient transfered here for further evaluation and management DS: Diagnosis - Discharge Diagnosis (1) Chronic kidney disease, stage IV (severe) Status: Acute (2) Essential (primary) hypertension Status: Acute (3) Diabetes mellitus Status: Acute (4) Anemia Status: Acute (5) History of Helicobacter pylori infection Status: Acute (6) CAD (coronary artery disease) Status: Acute DS: Medications - Discharge Medications Prescriptions: amlodipine [Norvasc] 5 mg PO DAILY #30 tab aspirin 81 mg PO DAILY #30 tab atenolol 50 mg PO Q12HR #60 tab atorvastatin 40 mg PO HS #30 tab clonidine HCl [Catapres] 0.1 mg PO Q8HR #120 tab clopidogrel [Plavix] 75 mg PO DAILY #30 tab ferrous sulfate [FeroSul] 325 mg PO BID #60 tab furosemide 40 mg PO DAILY #30 tab hydralazine 100 mg PO TID #90 tab isosorbide mononitrate 60 mg PO DAILY@0700 #30 tab nitroglycerin [Nitrostat] 0.4 mg SUBLINGUAL Q5M PRN #30 tab PRN Reason: Chest Pain DS: Summary Hospital Course: 77 year old female with IDDM, HTN, CKD, and anxiety presented to [place] ED on 09/10 with chest pain and subsequently transferred to the main hospital when her second troponin was found to be 5 (up from 0.07). 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 Given her renal insufficiency, it was decided to hold off on PCI given the amount of contrast needed for intervention. Patient improved significantly. Cleared by consultants. S/p EGD colonoscopy, vas cath placement for HD. Patient received HD on 09/21 and 09/22. DC in stable condition to follow up with her nephrology Dr for HD in [place]. CM followed for arrangements Patient had stage PCI of RCA and circumflex with BMS 09/18/[address] Foreman. Patient improved significantly. Cleared by consultants for DC . DC in stable condition to follow up as OP with PCP and consultants. 1. NSTEMI - Troponins in the ED: 0.07, 5.46 - EKG in the ED with no ST changes - Echo 55-60% - Cardiology ff - Cath done 09/10 showing 2V-CAD involving L circumflex and RCA; PCI held off at the time secondary to renal function - Was scheduled for PCI 09/14 but patient developed acute respiratory distress , hypoxia, and chest pain on the table. Stat EKG showed some ST-depression in the lateral leads and a stat troponin was 1.03 (decreased from troponin on 09/10) - Continue heparin drip - Started on nitro drip today - Continue beta gonzález, Imdur, and ASA - Cardiology ff - received lasix with some improvement - nitro drip titrating down - Nephro considers HD as OP to be arraged by CM, by her nephrology in [place]. s/p vascath placement. -Cardiac cath 09/18/17 Patient with NSTEMI: [facility] 09/10 showed primarily 2 vessel [place] CAD involving the proximal LCx and RCA. stage PCI of RCA and circumflex with BMS 09/18/[address] Foreman. continue aspirin, Plavix, and statin. 2. Pulmonary edema - 09.14 CXR with hazy bilateral central interstitial and alveolar infiltrates, R>L - Lasix 40 mg IV BID - Supplemental O2 - Monitor oxygen saturation 3. PNA - Start Levaquin - Supplemental O2 - DuoNeb Q4 4. Acute on CKD - Renal indices continuing to worsen - Likely secondary to recent contrast exposure during cath as well as cardiorenal decompensation - Nephrology following - Noted with pulmonary edema, treating with diuresis - Avoid nephrotoxic agents, contrast, etc. - Renally dose meds -Per Dr Cedeno nephrology defer follow-up and decision regarding ongoing dialysis to the primary rig site engineer in [place] post discharge. Case management to coordinate. Discharge okay from renal point of view once outpatient dialysis has been arranged in [place]. 5. Anemia. Anemia likely of chronic disease (renal) - Monitor H&H and transfuse if symptomatic and or HGB < 7 - Likely combo of anemia of chronic disease and iron deficiency - Check Hemoccult - Hemodynamically stable - Monitor closely - Consider transfusion if Hb drops below 8 given her cardiac history - S/p colonoscopy EGD. Polyps , biopsies taken. cleared by GI for use of anticoagulation 6. Diabetes mellitus insulin dependent - Continue Levemir 5 units BID - SSI with Accuchecks per protocol 7. HTN - BPs running high - On nitro gtt - Continue hydralazine, atenolol, Norvasc, and Imdur 8. Anxiety - Xanax PRN 9. Oral candidiasis mild. Start nystatin swish and swallow. Patient also with dry mouth to have Biotene as outpatient this is not available here - Time Spent with Patient Total time spent providing and/or coordinating discharge services: Greater than 30 minutes - Quality: VTE Deep Vein Thrombosis/Pulmonary Embolism Present on Admission: No Exam Vital signs: Vital Signs 09/20/17 09:00 09/20/17 10:00 09/20/17 11:00 Temperature 98.7 F Pulse Rate 58 L 64 71 Respiratory Rate 15 Blood Pressure 130/60 Pulse Oximetry 96 09/20/17 12:00 09/20/17 13:00 09/20/17 14:00 Temperature Pulse Rate 63 62 62 Respiratory Rate Blood Pressure Pulse Oximetry 09/20/17 15:00 09/20/17 16:00 09/20/17 17:00 Temperature 98.6 F Pulse Rate 66 62 58 L Respiratory Rate 14 Blood Pressure 145/61 H Pulse Oximetry 94 L 09/20/17 18:00 09/20/17 19:00 09/20/17 20:00 Temperature 98.4 F Pulse Rate 62 64 62 Respiratory Rate 20 Blood Pressure 140/65 Pulse Oximetry 94 L 94 L 09/20/17 21:00 09/20/17 22:00 09/20/17 23:00 Temperature 97.4 F L Pulse Rate 60 62 63 Respiratory Rate 18 Blood Pressure 135/62 Pulse Oximetry 95 09/21/17 00:00 09/21/17 01:00 09/21/17 02:00 Temperature Pulse Rate 60 58 L 59 L Respiratory Rate Blood Pressure Pulse Oximetry 09/21/17 03:00 09/21/17 04:00 09/21/17 05:00 Temperature 98.2 F Pulse Rate 63 58 L 58 L Respiratory Rate 18 Blood Pressure 127/59 L Pulse Oximetry 95 09/21/17 06:00 Temperature Pulse Rate 58 L Respiratory Rate Blood Pressure Pulse Oximetry Intake & Output 09/20/17 09/21/17 09/21/17 18:59 06:59 18:59 Intake Total 580 / 580 240 / 240 Output Total 350 / 350 200 / 200 Balance 230 / 230 40 / 40 Weight 90.8 kg Intake: IV 100 / 100 Levaquin 500 mg Premix Inj 500 100 / 100 mg In 100 ml @ 100 mls/hr IV. SIG Q48H [facility] Rx#:[id number] Oral 480 / 480 240 / 240 Output: Urine 200 / 200 Urine Amount (Catheter) 350 / 350 Indwelling Urethral Catheter 350 / 350 Other: Date of Last Bowel Movement 09/17/17 Narrative: GENERAL: Very pleasant female appears in not acute distress. Oropharynx: Minimal white discharge from tongue thrush NECK: JVD difficult to assess secondary to neck habitus. HEART: RRR no m/r/g. LUNGS: Decreased breath sounds no wheezing. ABDOMEN: +BS, soft, NT, ND. EXTREMITIES: Trace LE edema. NEURO: Awake and alert. Results Procedures completed during hospitalization: Cardiac cath 09/18/[address] Foreman Completed studies during hospitalization: Pending at discharge 09/16/17 07:34 Surgical [PTH] Routine Labs on day of discharge: Labs from last 24 hours 09/21/17 09/21/17 09/21/17 08:04 05:00 05:00 WBC 10.2 RBC 2.88 L Hgb 9.0 L Hct 26.4 L MCV 91.7 MCH 31.1 MCHC 34.0 RDW 14.5 Plt Count 218 MPV 8.8 Neut % (Auto) 75.6 H Lymph % (Auto) 9.0 [place] % (Auto) 11.3 H Eos % (Auto) 3.3 Baso % (Auto) 0.8 Neut # (Auto) 7.7 Lymph # (Auto) 0.9 L [place] # (Auto) 1.2 H Eos # (Auto) 0.3 Baso # (Auto) 0.1 WBC Differential . Differential Comment Auto diff final Sodium 135 L Potassium 3.7 Chloride 98 Carbon Dioxide 22.5 Anion Gap 15 BUN 92 H Creatinine 4.84 H Estimated GFR 9 L POC Glucose 191 H Random Glucose 117 H Calcium 8.4 L 09/20/17 09/20/17 09/20/17 21:50 16:46 11:56 WBC RBC Hgb Hct MCV MCH MCHC RDW Plt Count MPV Neut % (Auto) Lymph % (Auto) [place] % (Auto) Eos % (Auto) Baso % (Auto) Neut # (Auto) Lymph # (Auto) [place] # (Auto) Eos # (Auto) Baso # (Auto) WBC Differential Differential Comment Sodium Potassium Chloride Carbon Dioxide Anion Gap BUN Creatinine Estimated GFR POC Glucose 164 H 244 H 341 H Random Glucose Calcium 09/20/17 11:54 WBC RBC Hgb Hct MCV MCH MCHC RDW Plt Count MPV Neut % (Auto) Lymph % (Auto) [place] % (Auto) Eos % (Auto) Baso % (Auto) Neut # (Auto) Lymph # (Auto) [place] # (Auto) Eos # (Auto) Baso # (Auto) WBC Differential Differential Comment Sodium Potassium Chloride Carbon Dioxide Anion Gap BUN Creatinine Estimated GFR POC Glucose 394 H Random Glucose Calcium - Impressions ITS Impressions Abdomen/Bladder Ultrasound 09/10/17 00:00 CONCLUSION: 1. Kidneys are borderline echogenic which can be seen with medical renal disease. 2. Simple right renal cyst. 3. Possible nonobstructing left renal calculus. Central Venous Line 09/16/17 00:00 CONCLUSION: 1. Uncomplicated PermaCath placement as above. Chest X-Ray 09/18/17 00:00 CONCLUSION: Right IJ dual-lumen catheter in place. No evidence of pneumothorax. No acute cardiopulmonary disease identified. Discharge Plan - Discharge Disposition Patient Disposition: 01 Discharge Home - Discharge Condition Condition: Stable - Discharge Order Discharge Orders: Discharge Order (Routine); Ordered 09/23/17 Ordered By: Yu Campos Cardiology Clear for Discharge (Routine); Ordered 09/21/17 Ordered By: Lemuel Foreman - Discharge Details Anticipated Discharge Date: 09/23/17 - Physicians Team Primary Care Provider: Raphael Clayton Attending Provider: Yu Campos Other Providers: Lemuel Foreman MD ; Marie Cedeno MD ; Dani Collins MD - Rxs /Orders / Referrals /Forms Prescriptions: New amlodipine [Norvasc] 5 mg Tablet 5 mg PO DAILY Qty: 30 RF: 0 aspirin 81 mg Tablet,Delayed Release (Dr/Ec) 81 mg PO DAILY Qty: 30 RF: 0 atenolol 50 mg Tablet 50 mg PO Q12HR Qty: 60 RF: 0 atorvastatin 20 mg Tablet 40 mg PO HS Qty: 30 RF: 0 clonidine HCl [Catapres] 0.1 mg Tablet 0.1 mg PO Q8HR Qty: 120 RF: 0 clopidogrel [Plavix] 75 mg Tablet 75 mg PO DAILY Qty: 30 RF: 0 ferrous sulfate [FeroSul] 325 mg (65 mg iron) Tablet 325 mg PO BID Qty: 60 RF: 0 furosemide 40 mg Tablet 40 mg PO DAILY Qty: 30 RF: 0 hydralazine 100 mg Tablet 100 mg PO TID Qty: 90 RF: 0 isosorbide mononitrate 60 mg Tablet Extended Release 24 Hr 60 mg PO DAILY@0700 Qty: 30 RF: 0 nitroglycerin [Nitrostat] 0.4 mg Tablet, Sublingual 0.4 mg Sublingual Q5M PRN (Reason: Chest Pain) Qty: 30 RF: 0 Continue gabapentin tablet 600 mg PO TID metformin tablet 1,000 mg PO BID nifedipine 60 mg PO QAM Referrals: Raphael Clayton MD [Primary Care Provider] - See Instructions ( Please call the physician's office to book the appointment to be seen within [2-3 days ].) Marie Cedeno MD [Physician] - See Instructions ( Please call the physician's office to book the appointment to be seen within [2-3 days ]. Please follow up with your nephrology Dr In [place] ) Lemuel Foreman MD [Physician] - See Instructions ( Please call the physician's office to book the appointment to be seen within [ 1 week]. Please follow up with your cardiology Dr In [place] ) Dani Collins MD [Physician] - See Instructions ( Please call the physician's office to book the appointment to be seen within [2-3 weeks ].) - Discharge Instructions Patient Printed Instructions: Furosemide (By mouth), Nitroglycerin, Rapid Release (By mouth), Clopidogrel (By mouth), Myocardial Infarction (GEN), Dialysis Diet (GEN), Heart Healthy Diet (GEN), Hypoglycemia in a Person with Diabetes (ED), Dyspnea (GEN), Anemia (ED), Heart Catheterization (DC), Hemodialysis (DC) Additional Instructions: PATIENT IS SCHEDULED FOR DIALYSIS AT [facility], AT 12:30 PM ON Thursday, PATIENT TO BE THERE EARLY TO COMPLETE PAPERWORK FOR NEW PATIENT, DIALYSIS CENTER IS LOCATED AT [address] [place] [address]. [place] [address], CONTACT#
[2017-09-21] MEDS: Ferrous Sulfate 325 MG Tablet PO SCH ×2 (12:17→21:46)
[2017-09-21] MEDS: Senna/Docusate Sodium 8.6/50 MG Tablet PO SCH ×2 (12:18→21:46)
[2017-09-21] MEDS: Insulin Detemir Inj 1,000 UNIT/10 ML Vial SQ SCH ×2 (12:18→21:47)
[2017-09-21] MEDS: Insulin NovoLOG Aspart Correctional Sugar Inj SQ SCH ×4 (12:20→21:47)
[2017-09-21] MEDS: Gabapentin 100 MG Capsule PO SCH ×3 (12:22→17:15)
[2017-09-21] MEDS: Furosemide 40 MG Tablet PO SCH (12:22)
[2017-09-21] MEDS: amLODIPine 5 MG Tablet PO SCH (12:23)
[2017-09-21] MEDS: Sodium Bicarbonate 650 MG Tablet PO SCH ×3 (12:24→17:15)
[2017-09-21] MEDS: Atenolol 50 MG Tablet PO SCH ×2 (12:24→21:46)
--- NOTE | 2017-09-21 12:49 | P.PNNP ---
Subjective Interval history: Pt seen during 1st HD today and tolerating well. Physical Exam Vital signs: Vital Signs 09/20/17 13:00 09/20/17 14:00 09/20/17 15:00 Temperature 98.6 F Pulse Rate 62 62 66 Respiratory Rate 14 Blood Pressure 145/61 H Pulse Oximetry 94 L 09/20/17 16:00 09/20/17 17:00 09/20/17 18:00 Temperature Pulse Rate 62 58 L 62 Respiratory Rate Blood Pressure Pulse Oximetry 09/20/17 19:00 09/20/17 20:00 09/20/17 21:00 Temperature 98.4 F Pulse Rate 64 62 60 Respiratory Rate 20 Blood Pressure 140/65 Pulse Oximetry 94 L 94 L 09/20/17 22:00 09/20/17 23:00 09/21/17 00:00 Temperature 97.4 F L Pulse Rate 62 63 60 Respiratory Rate 18 Blood Pressure 135/62 Pulse Oximetry 95 09/21/17 01:00 09/21/17 02:00 09/21/17 03:00 Temperature 98.2 F Pulse Rate 58 L 59 L 63 Respiratory Rate 18 Blood Pressure 127/59 L Pulse Oximetry 95 09/21/17 04:00 09/21/17 05:00 09/21/17 06:00 Temperature Pulse Rate 58 L 58 L 58 L Respiratory Rate Blood Pressure Pulse Oximetry 09/21/17 07:00 09/21/17 08:00 09/21/17 09:00 Temperature 98.2 F Pulse Rate 58 L 56 L 58 L Respiratory Rate 16 Blood Pressure 113/55 L Pulse Oximetry 95 95 09/21/17 10:00 09/21/17 11:00 Temperature Pulse Rate 60 65 Respiratory Rate Blood Pressure Pulse Oximetry Intake & Output 09/20/17 09/21/17 09/21/17 18:59 06:59 18:59 Intake Total 580 / 580 240 / 240 Output Total 350 / 350 200 / 200 1000 / 1000 Balance 230 / 230 40 / 40 -1000 / -1000 Weight 90.8 kg Intake: IV 100 / 100 Levaquin 500 mg Premix Inj 500 100 / 100 mg In 100 ml @ 100 mls/hr IV. SIG Q48H [facility] Rx#:[id number] Oral 480 / 480 240 / 240 Output: Urine 200 / 200 Hemodialysis Amount 1000 / 1000 Urine Amount (Catheter) 350 / 350 Indwelling Urethral Catheter 350 / 350 Other: Date of Last Bowel Movement 09/17/17 - Constitutional no acute distress - Routine HEENT Exam Head: Present: normocephalic - Routine Neck Exam Present: supple - Routine Respiratory Exam Present: CTA bilaterally - Routine Cardiovascular Exam Present: RRR, S1, S2 - Routine Extremities Exam Present: edema (trace bilat hips) - Routine Skin Exam Present: intact - Routine Neurological Exam Present: alert, oriented X3 - Detailed Neurological Exam: Coma Scale Verbal Response: Oriented - Routine Psychiatric Exam Present: normal affect, normal thought process - Urinary Catheter Management Indwelling Urethral Catheter Cath placed during this visit: yes, but has since been removed by the nurse Reason for continuing: Hourly intake/output Insertion date: 09/16/17 Insertion time: 14:00 Removal date: 09/20/17 Removal time: 16:13 Assessment and Plan - Assessment (1) Chronic kidney disease, stage IV (severe) Code(s): N18.4 - Chronic kidney disease, stage 4 (severe) Status: Acute Plan: Pt seen during first dialysis session today. Will plan on 2nd HD tomorrow. Call placed out to her home mercerizer, but had to leave message. Will attempt to call again this afternoon. As discussed with the patient and her , it is thought that dialysis will likely be lifelong, but will defer this to her regular outpatient mercerizer to determine (Dr. Mathur in [place]). Case management assistance appreciated to arrange outpatient hemodialysis at [facility]. This must be arranged prior to the patient's discharge. The patient is clear for discharge after HD 09/22/17 contingent upon outpatient HD arrangements. Medications should be adjusted for the patient's estimated GFR if clinically indicated. Avoid additional agents with significant potential for nephrotoxicity if possible including NSAIDs for analgesia, s. Gadolinium is contraindicated if the GFR is below 30. (2) Essential (primary) hypertension Code(s): I10 - Essential (primary) hypertension Status: Acute Plan: Improved (3) Diabetes mellitus Code(s): E11.9 - Type 2 diabetes mellitus without complications Status: Acute Plan: Mgmt as per primary (4) Anemia Code(s): D64.9 - Anemia, unspecified Status: Acute Plan: Mild iron deficiency. 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 GI seeing.
[2017-09-21] MEDS: Nystatin Liq 500,000 UNIT/5 ML UDC SWISH-SWAL SCH ×3 (13:54→21:46)
--- NOTE | 2017-09-21 15:40 | P.PN ---
Physical Exam Vital signs: Vital Signs 09/20/17 16:00 09/20/17 17:00 09/20/17 18:00 Temperature Pulse Rate 62 58 L 62 Respiratory Rate Blood Pressure Pulse Oximetry 09/20/17 19:00 09/20/17 20:00 09/20/17 21:00 Temperature 98.4 F Pulse Rate 64 62 60 Respiratory Rate 20 Blood Pressure 140/65 Pulse Oximetry 94 L 94 L 09/20/17 22:00 09/20/17 23:00 09/21/17 00:00 Temperature 97.4 F L Pulse Rate 62 63 60 Respiratory Rate 18 Blood Pressure 135/62 Pulse Oximetry 95 09/21/17 01:00 09/21/17 02:00 09/21/17 03:00 Temperature 98.2 F Pulse Rate 58 L 59 L 63 Respiratory Rate 18 Blood Pressure 127/59 L Pulse Oximetry 95 09/21/17 04:00 09/21/17 05:00 09/21/17 06:00 Temperature Pulse Rate 58 L 58 L 58 L Respiratory Rate Blood Pressure Pulse Oximetry 09/21/17 07:00 09/21/17 08:00 09/21/17 09:00 Temperature 98.2 F Pulse Rate 58 L 56 L 58 L Respiratory Rate 16 Blood Pressure 113/55 L Pulse Oximetry 95 95 09/21/17 10:00 09/21/17 11:00 09/21/17 12:00 Temperature Pulse Rate 60 65 65 Respiratory Rate Blood Pressure Pulse Oximetry 09/21/17 13:00 09/21/17 14:00 09/21/17 14:08 Temperature Pulse Rate 80 70 Respiratory Rate Blood Pressure 161/71 H Pulse Oximetry 09/21/17 15:00 Temperature 99.1 F Pulse Rate 72 Respiratory Rate 16 Blood Pressure 159/81 H Pulse Oximetry 94 L Intake & Output 09/20/17 09/21/17 09/21/17 18:59 06:59 18:59 Intake Total 580 / 580 240 / 240 Output Total 350 / 350 200 / 200 1000 / 1000 Balance 230 / 230 40 / 40 -1000 / -1000 Weight 90.8 kg Intake: IV 100 / 100 Levaquin 500 mg Premix Inj 500 100 / 100 mg In 100 ml @ 100 mls/hr IV. SIG Q48H [facility] Rx#:[id number] Oral 480 / 480 240 / 240 Output: Urine 200 / 200 Hemodialysis Amount 1000 / 1000 Urine Amount (Catheter) 350 / 350 Indwelling Urethral Catheter 350 / 350 Other: Date of Last Bowel Movement 09/17/17 Narrative: ERROR duplicate - Urinary Catheter Management Indwelling Urethral Catheter Cath placed during this visit: yes, but has since been removed by the nurse Reason for continuing: Hourly intake/output Insertion date: 09/16/17 Insertion time: 14:00 Removal date: 09/20/17 Removal time: 16:13 Results - Labs CBC & Chem 7: 09/22/17 05:30 09/22/17 05:30 Laboratory Results - last 24 hr 09/20/17 09/20/17 09/21/17 16:46 21:50 05:00 WBC 10.2 RBC 2.88 L Hgb 9.0 L Hct 26.4 L MCV 91.7 MCH 31.1 MCHC 34.0 RDW 14.5 Plt Count 218 MPV 8.8 Neut % (Auto) 75.6 H Lymph % (Auto) 9.0 [place] % (Auto) 11.3 H Eos % (Auto) 3.3 Baso % (Auto) 0.8 Neut # (Auto) 7.7 Lymph # (Auto) 0.9 L [place] # (Auto) 1.2 H Eos # (Auto) 0.3 Baso # (Auto) 0.1 WBC Differential . Differential Comment Auto diff final Sodium Potassium Chloride Carbon Dioxide Anion Gap BUN Creatinine Estimated GFR POC Glucose 244 H 164 H Random Glucose Calcium 09/21/17 09/21/17 09/21/17 05:00 08:04 11:53 WBC RBC Hgb Hct MCV MCH MCHC RDW Plt Count MPV Neut % (Auto) Lymph % (Auto) [place] % (Auto) Eos % (Auto) Baso % (Auto) Neut # (Auto) Lymph # (Auto) [place] # (Auto) Eos # (Auto) Baso # (Auto) WBC Differential Differential Comment Sodium 135 L Potassium 3.7 Chloride 98 Carbon Dioxide 22.5 Anion Gap 15 BUN 92 H Creatinine 4.84 H Estimated GFR 9 L POC Glucose 191 H 132 H Random Glucose 117 H Calcium 8.4 L 09/21/17 15:15 WBC RBC Hgb Hct MCV MCH MCHC RDW Plt Count MPV Neut % (Auto) Lymph % (Auto) [place] % (Auto) Eos % (Auto) Baso % (Auto) Neut # (Auto) Lymph # (Auto) [place] # (Auto) Eos # (Auto) Baso # (Auto) WBC Differential Differential Comment Sodium Potassium Chloride Carbon Dioxide Anion Gap BUN Creatinine Estimated GFR POC Glucose 322 H Random Glucose Calcium
--- NOTE | 2017-09-21 15:42 | P.PN ---
Physical Exam Vital signs: Vital Signs 09/20/17 16:00 09/20/17 17:00 09/20/17 18:00 Temperature Pulse Rate 62 58 L 62 Respiratory Rate Blood Pressure Pulse Oximetry 09/20/17 19:00 09/20/17 20:00 09/20/17 21:00 Temperature 98.4 F Pulse Rate 64 62 60 Respiratory Rate 20 Blood Pressure 140/65 Pulse Oximetry 94 L 94 L 09/20/17 22:00 09/20/17 23:00 09/21/17 00:00 Temperature 97.4 F L Pulse Rate 62 63 60 Respiratory Rate 18 Blood Pressure 135/62 Pulse Oximetry 95 09/21/17 01:00 09/21/17 02:00 09/21/17 03:00 Temperature 98.2 F Pulse Rate 58 L 59 L 63 Respiratory Rate 18 Blood Pressure 127/59 L Pulse Oximetry 95 09/21/17 04:00 09/21/17 05:00 09/21/17 06:00 Temperature Pulse Rate 58 L 58 L 58 L Respiratory Rate Blood Pressure Pulse Oximetry 09/21/17 07:00 09/21/17 08:00 09/21/17 09:00 Temperature 98.2 F Pulse Rate 58 L 56 L 58 L Respiratory Rate 16 Blood Pressure 113/55 L Pulse Oximetry 95 95 09/21/17 10:00 09/21/17 11:00 09/21/17 12:00 Temperature Pulse Rate 60 65 65 Respiratory Rate Blood Pressure Pulse Oximetry 09/21/17 13:00 09/21/17 14:00 09/21/17 14:08 Temperature Pulse Rate 80 70 Respiratory Rate Blood Pressure 161/71 H Pulse Oximetry 09/21/17 15:00 Temperature 99.1 F Pulse Rate 72 Respiratory Rate 16 Blood Pressure 159/81 H Pulse Oximetry 94 L Intake & Output 09/20/17 09/21/17 09/21/17 18:59 06:59 18:59 Intake Total 580 / 580 240 / 240 Output Total 350 / 350 200 / 200 1000 / 1000 Balance 230 / 230 40 / 40 -1000 / -1000 Weight 90.8 kg Intake: IV 100 / 100 Levaquin 500 mg Premix Inj 500 100 / 100 mg In 100 ml @ 100 mls/hr IV. SIG Q48H [facility] Rx#:[id number] Oral 480 / 480 240 / 240 Output: Urine 200 / 200 Hemodialysis Amount 1000 / 1000 Urine Amount (Catheter) 350 / 350 Indwelling Urethral Catheter 350 / 350 Other: Date of Last Bowel Movement 09/17/17 Narrative: Subjective Interval history: F/up NSTEMI/pulm edema/acute on CKD. Anemia Was seen in dialysis. No chest pain or shortness of breath. Feels tired. No nausea vomiting no diarrhea or constipation. Feels her tongue is dry. Some white discharge start nystatin mouthwash Physical Exam GENERAL: Very pleasant female appears in not acute distress. Oropharynx: Minimal white discharge from tongue thrush NECK: JVD difficult to assess secondary to neck habitus. HEART: RRR no m/r/g. LUNGS: Decreased breath sounds no wheezing. ABDOMEN: +BS, soft, NT, ND. EXTREMITIES: Trace LE edema. NEURO: Awake and alert. Assessment and Plan 77 year old female with IDDM, HTN, CKD, and anxiety presented to [place] ED on 09/10 with chest pain and subsequently transferred to the main hospital when her second troponin was found to be 5 (up from 0.07). 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 Given her renal insufficiency, it was decided to hold off on PCI given the amount of contrast needed for intervention. 77 year old female with IDDM, HTN, CKD, and anxiety presented to [place] ED on 09/10 with chest pain and subsequently transferred to the [facility] hospital when her second troponin was found to be 5 (up from 0.07). 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 Given her renal insufficiency, it was decided to hold off on PCI given the amount of contrast needed for intervention. 1. NSTEMI - Troponins in the ED: 0.07, 5.46 - EKG in the ED with no ST changes - Echo 55-60% - Cardiology ff - Cath done 09/10 showing 2V-CAD involving L circumflex and RCA; PCI held off at the time secondary to renal function - Was scheduled for PCI 09/14 but patient developed acute respiratory distress , hypoxia, and chest pain on the table. Stat EKG showed some ST-depression in the lateral leads and a stat troponin was 1.03 (decreased from troponin on 09/10) - Continue heparin drip - Started on nitro drip today - Continue beta gonzález, Imdur, and ASA - Cardiology ff - received lasix with some improvement - nitro drip titrating down - Nephro considers HD as OP to be arraged by CM, by her nephrology in [place]. s/p vascath placement. -Cardiac cath 09/18/17 Patient with NSTEMI: [facility] 09/10 showed primarily 2 vessel [place] CAD involving the proximal LCx and RCA. stage PCI of RCA and circumflex with BMS 09/18/[address] Foreman. continue aspirin, Plavix, and statin. 2. Pulmonary edema - 7.16 CXR with hazy bilateral central interstitial and alveolar infiltrates, R>L - Lasix 40 mg IV BID - Supplemental O2 - Monitor oxygen saturation 3. PNA - Start Levaquin - Supplemental O2 - DuoNeb Q4 4. Acute on CKD - Renal indices continuing to worsen - Likely secondary to recent contrast exposure during cath as well as cardiorenal decompensation - Nephrology following - Noted with pulmonary edema, treating with diuresis - Avoid nephrotoxic agents, contrast, etc. - Renally dose meds -Per Dr Cedeno nephrology defer follow-up and decision regarding ongoing dialysis to the primary strap cutting machine operator in [place] post discharge. Case management to coordinate. Discharge okay from renal point of view once outpatient dialysis has been arranged in [place]. 5. Anemia. Anemia likely of chronic disease (renal) - Monitor H&H and transfuse if symptomatic and or HGB < 7 - Likely combo of anemia of chronic disease and iron deficiency - Check Hemoccult - Hemodynamically stable - Monitor closely - Consider transfusion if Hb drops below 8 given her cardiac history - S/p colonoscopy EGD. Polyps , biopsies taken. cleared by GI for use of anticoagulation 6. Diabetes mellitus insulin dependent - Continue Levemir 5 units BID - SSI with Accuchecks per protocol 7. HTN - BPs running high - On nitro gtt - Continue hydralazine, atenolol, Norvasc, and Imdur 8. Anxiety - Xanax PRN 9. Oral candidiasis mild. Start nystatin swish and swallow. Patient also with dry mouth to have Biotene as outpatient this is not available here DVT prophylaxis: Heparin gtt Discussed with the patient, nurse, family at bedside Discharge plan Discharge when improved and cleared by consultants. S/p EGD colonoscopy, vas cath placement for HD went for cardiac cath . Her nephrology Dr yasmin Hammond to arrange HD. Dr Cedeno will discuss with her nephrology 09/21/17 for arrangements. CM is also ff for DC. Once HD established as OP patient can be DC. Transfer out of [facility] - Urinary Catheter Management Indwelling Urethral Catheter Cath placed during this visit: yes, but has since been removed by the nurse Reason for continuing: Hourly intake/output Insertion date: 09/16/17 Insertion time: 14:00 Removal date: 09/20/17 Removal time: 16:13 Results - Labs CBC & Chem 7: 09/21/17 05:00 09/21/17 05:00 Laboratory Results - last 24 hr 09/20/17 09/20/17 09/21/17 16:46 21:50 05:00 WBC 10.2 RBC 2.88 L Hgb 9.0 L Hct 26.4 L MCV 91.7 MCH 31.1 MCHC 34.0 RDW 14.5 Plt Count 218 MPV 8.8 Neut % (Auto) 75.6 H Lymph % (Auto) 9.0 [place] % (Auto) 11.3 H Eos % (Auto) 3.3 Baso % (Auto) 0.8 Neut # (Auto) 7.7 Lymph # (Auto) 0.9 L [place] # (Auto) 1.2 H Eos # (Auto) 0.3 Baso # (Auto) 0.1 WBC Differential . Differential Comment Auto diff final Sodium Potassium Chloride Carbon Dioxide Anion Gap BUN Creatinine Estimated GFR POC Glucose 244 H 164 H Random Glucose Calcium 09/21/17 09/21/17 09/21/17 05:00 08:04 11:53 WBC RBC Hgb Hct MCV MCH MCHC RDW Plt Count MPV Neut % (Auto) Lymph % (Auto) [place] % (Auto) Eos % (Auto) Baso % (Auto) Neut # (Auto) Lymph # (Auto) [place] # (Auto) Eos # (Auto) Baso # (Auto) WBC Differential Differential Comment Sodium 135 L Potassium 3.7 Chloride 98 Carbon Dioxide 22.5 Anion Gap 15 BUN 92 H Creatinine 4.84 H Estimated GFR 9 L POC Glucose 191 H 132 H Random Glucose 117 H Calcium 8.4 L 09/21/17 15:15 WBC RBC Hgb Hct MCV MCH MCHC RDW Plt Count MPV Neut % (Auto) Lymph % (Auto) [place] % (Auto) Eos % (Auto) Baso % (Auto) Neut # (Auto) Lymph # (Auto) [place] # (Auto) Eos # (Auto) Baso # (Auto) WBC Differential Differential Comment Sodium Potassium Chloride Carbon Dioxide Anion Gap BUN Creatinine Estimated GFR POC Glucose 322 H Random Glucose Calcium
[2017-09-21] MEDS: ALPRAZolam 0.25 MG Tablet PO PRN (21:46)
[2017-09-22 06:05] LABS: Baso # (Auto) 0.1 th/mm3 (0.0-0.2); Baso % (Auto) 0.7 % (0.0-2.0); Eos # (Auto) 0.2 th/mm3 (0.0-0.4); Eos % (Auto) 1.8 % (0.0-4.0); Hematocrit 26.9 % (35.0-46.0); Lymph # (Auto) 0.8 th/mm3 (1.0-4.8); Lymph % (Auto) 8.1 % (9.0-44.0); Mean Corpuscular HGB Conc 33.4 % (32.0-36.0); Mean Corpuscular Hemoglobin 30.4 pg (27.0-34.0); Mean Platelet Volume 8.5 fL (7.0-11.0); Mono # (Auto) 1.4 th/mm3 (0.0-0.9); Mono % (Auto) 14.6 % (0.0-8.0); Neut # (Auto) 7.4 th/mm3 (1.8-7.7); Neut % (Auto) 74.8 % (16.0-70.0); Platelet Count 235 th/mm3 (150-450); Red Blood Count 2.95 mil/mm3 (4.00-5.30); Red Cell Distribution Width 14.1 % (11.6-17.2); White Blood Count 9.9 th/mm3 (4.0-11.0)
[2017-09-22] MEDS: Isosorbide Mononitrate 60 MG ER 24HR Tablet (Imdur) PO SCH (06:05)
[2017-09-22 06:33] LABS: Albumin 2.2 g/dL (3.4-5.0); Carbon Dioxide 28.1 meq/L (21.0-32.0); Phosphorus 4.1 mg/dL (2.5-4.9); Potassium 3.6 meq/L (3.5-5.1)
[2017-09-22] MEDS: Insulin NovoLOG Aspart Correctional Sugar Inj SQ SCH ×4 (08:50→21:00)
--- NOTE | 2017-09-22 09:58 | P.PNCA ---
Subjective Interval history: no events hemodialysis started Physical Exam Vital signs: Vital Signs 09/21/17 10:00 09/21/17 11:00 09/21/17 12:00 Temperature Pulse Rate 60 65 65 Respiratory Rate Blood Pressure Pulse Oximetry 09/21/17 13:00 09/21/17 14:00 09/21/17 14:08 Temperature Pulse Rate 80 70 Respiratory Rate Blood Pressure 161/71 H Pulse Oximetry 09/21/17 15:00 09/21/17 16:00 09/21/17 17:00 Temperature 99.1 F Pulse Rate 70 67 68 Respiratory Rate 16 Blood Pressure 159/81 H Pulse Oximetry 94 L 09/21/17 18:00 09/21/17 19:00 09/21/17 19:56 Temperature 99.2 F Pulse Rate 67 73 Respiratory Rate 18 Blood Pressure 149/65 H Pulse Oximetry 94 L 94 L 09/21/17 20:00 09/21/17 21:00 09/21/17 22:00 Temperature Pulse Rate 68 64 64 Respiratory Rate Blood Pressure Pulse Oximetry 09/21/17 23:00 09/22/17 00:00 09/22/17 01:00 Temperature 98.6 F Pulse Rate 65 62 58 L Respiratory Rate 18 Blood Pressure 133/67 Pulse Oximetry 93 L 09/22/17 02:00 09/22/17 03:00 09/22/17 03:54 Temperature 97.6 F Pulse Rate 56 L 59 L 59 L Respiratory Rate 18 Blood Pressure 133/66 Pulse Oximetry 93 L 09/22/17 05:00 09/22/17 06:00 Temperature Pulse Rate 56 L 57 L Respiratory Rate Blood Pressure Pulse Oximetry Intake & Output 09/21/17 09/22/17 09/22/17 18:59 06:59 18:59 Intake Total 1040 / 1040 480 / 480 Output Total 1000 / 1000 Balance 40 / 40 480 / 480 Weight 90.1 kg Intake: Oral 1040 / 1040 480 / 480 Output: Hemodialysis Amount 1000 / 1000 Other: # Voids 4 2 - Constitutional no acute distress - Routine HEENT Exam Head: Present: normocephalic Eye: Present: PERRL ENT: Present: mucous membranes moist - Routine Neck Exam Absent: JVD - Routine Respiratory Exam Present: CTA bilaterally - Routine Cardiovascular Exam Present: RRR - Routine Abdominal Exam Present: soft - Urinary Catheter Management Indwelling Urethral Catheter Cath placed during this visit: yes, but has since been removed by the nurse Reason for continuing: Hourly intake/output Insertion date: 09/16/17 Insertion time: 14:00 Removal date: 09/20/17 Removal time: 16:13 Assessment and Plan - Plan 77-year-old Austrian-speaking female with past medical history of HTN, DM, diabetic nephropathy, CKD who presented for chest pain due to non-STEMI. NSTEMI: [facility] 09/10 showed primarily 2 vessel [place] CAD involving the proximal LCx and RCA. staged PCI of RCA and circumflex with BMS 09/18/2017 w/ Dr. Foreman. continue aspirin, Plavix, and statin. Hypertension: Controlled on amlodipine 5mg twice daily, clonidine 0.1mg q8hr, Imdur 60mg daily, Hydralazine to 100mg q8hr, atenolol 50mg bid with holding parameters. DONA on CKD: S/P Vas-Cath placement for initiation of HD. Nephrology on board. Dialysis initiated and outpatient dialysis arrangements being made. Normocytic anemia: Hemoglobin currently stable. Discharge planning from cardiology perspective. will sign off call with questions
--- NOTE | 2017-09-22 12:03 | P.PNNP ---
Subjective Interval history: Pt seen at the end of 2nd HD. Tolerating well. Potential discharge today? Physical Exam Vital signs: Vital Signs 09/21/17 13:00 09/21/17 14:00 09/21/17 14:08 Temperature Pulse Rate 80 70 Respiratory Rate Blood Pressure 161/71 H Pulse Oximetry 09/21/17 15:00 09/21/17 16:00 09/21/17 17:00 Temperature 99.1 F Pulse Rate 70 67 68 Respiratory Rate 16 Blood Pressure 159/81 H Pulse Oximetry 94 L 09/21/17 18:00 09/21/17 19:00 09/21/17 19:56 Temperature 99.2 F Pulse Rate 67 73 Respiratory Rate 18 Blood Pressure 149/65 H Pulse Oximetry 94 L 94 L 09/21/17 20:00 09/21/17 21:00 09/21/17 22:00 Temperature Pulse Rate 68 64 64 Respiratory Rate Blood Pressure Pulse Oximetry 09/21/17 23:00 09/22/17 00:00 09/22/17 01:00 Temperature 98.6 F Pulse Rate 65 62 58 L Respiratory Rate 18 Blood Pressure 133/67 Pulse Oximetry 93 L 09/22/17 02:00 09/22/17 03:00 09/22/17 03:54 Temperature 97.6 F Pulse Rate 56 L 59 L 59 L Respiratory Rate 18 Blood Pressure 133/66 Pulse Oximetry 93 L 09/22/17 05:00 09/22/17 06:00 09/22/17 07:00 Temperature Pulse Rate 56 L 57 L 54 L Respiratory Rate Blood Pressure Pulse Oximetry 09/22/17 08:00 09/22/17 09:00 09/22/17 10:00 Temperature Pulse Rate 56 L 54 L 55 L Respiratory Rate Blood Pressure Pulse Oximetry Intake & Output 09/21/17 09/22/17 09/22/17 18:59 06:59 18:59 Intake Total 1040 / 1040 480 / 480 Output Total 1000 / 1000 1000 / 1000 Balance 40 / 40 480 / 480 -1000 / -1000 Weight 90.1 kg Intake: Oral 1040 / 1040 480 / 480 Output: Hemodialysis Amount 1000 / 1000 1000 / 1000 Other: # Voids 4 2 - Constitutional no acute distress - Routine HEENT Exam Head: Present: normocephalic - Routine Neck Exam Present: supple - Routine Respiratory Exam Present: CTA bilaterally - Routine Cardiovascular Exam Present: RRR, S1, S2 - Routine Abdominal Exam Present: soft - Routine Extremities Exam Absent: edema - Routine Neurological Exam Present: alert, oriented X3 - Urinary Catheter Management Indwelling Urethral Catheter Cath placed during this visit: yes, but has since been removed by the nurse Reason for continuing: Hourly intake/output Insertion date: 09/16/17 Insertion time: 14:00 Removal date: 09/20/17 Removal time: 16:13 Assessment and Plan - Assessment (1) Chronic kidney disease, stage IV (severe) Code(s): N18.4 - Chronic kidney disease, stage 4 (severe) Status: Acute Plan: Pt seen during 2nd dialysis session today. Tolerated well. Case management assistance appreciated to arrange outpatient hemodialysis at [facility] in [place]. This must be arranged prior to the patient's discharge. The patient is clear for discharge after HD 09/22/17 contingent upon outpatient HD arrangements. Medications should be adjusted for the patient's estimated GFR if clinically indicated. Avoid additional agents with significant potential for nephrotoxicity if possible including NSAIDs for analgesia, s. Gadolinium is contraindicated if the GFR is below 30. (2) Essential (primary) hypertension Code(s): I10 - Essential (primary) hypertension Status: Acute Plan: Improved (3) Diabetes mellitus Code(s): E11.9 - Type 2 diabetes mellitus without complications Status: Acute Plan: Mgmt as per primary (4) Anemia Code(s): D64.9 - Anemia, unspecified Status: Acute Plan: Mild iron deficiency. 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
[2017-09-22] MEDS: Insulin Detemir Inj 1,000 UNIT/10 ML Vial SQ SCH ×2 (14:26→21:03)
[2017-09-22] MEDS: Gabapentin 100 MG Capsule PO SCH ×3 (14:26→18:05)
[2017-09-22] MEDS: Nystatin Liq 500,000 UNIT/5 ML UDC SWISH-SWAL SCH ×4 (14:26→21:42)
[2017-09-22] MEDS: Atenolol 50 MG Tablet PO SCH ×2 (14:27→20:59)
[2017-09-22] MEDS: Sodium Bicarbonate 650 MG Tablet PO SCH ×3 (14:27→18:05)
[2017-09-22] MEDS: Furosemide 40 MG Tablet PO SCH (14:35)
[2017-09-22] MEDS: amLODIPine 5 MG Tablet PO SCH (14:35)
[2017-09-22] MEDS: Levofloxacin 500 mg Premix Inj 500 MG/100 ML PIGGYBACK IV.SIG SCH (18:04)
[2017-09-22] MEDS: Witch Hazel 50%/Glyderin 12.5% 40 Pad Jar RECTAL PRN (18:06)
--- NOTE | 2017-09-22 19:07 | P.PN ---
Physical Exam Vital signs: Vital Signs 09/21/17 19:56 09/21/17 20:00 09/21/17 21:00 Temperature Pulse Rate 68 64 Respiratory Rate Blood Pressure Pulse Oximetry 94 L 09/21/17 22:00 09/21/17 23:00 09/22/17 00:00 Temperature 98.6 F Pulse Rate 64 65 62 Respiratory Rate 18 Blood Pressure 133/67 Pulse Oximetry 93 L 09/22/17 01:00 09/22/17 02:00 09/22/17 03:00 Temperature 97.6 F Pulse Rate 58 L 56 L 59 L Respiratory Rate 18 Blood Pressure 133/66 Pulse Oximetry 93 L 09/22/17 03:54 09/22/17 05:00 09/22/17 06:00 Temperature Pulse Rate 59 L 56 L 57 L Respiratory Rate Blood Pressure Pulse Oximetry 09/22/17 07:00 09/22/17 08:00 09/22/17 09:00 Temperature Pulse Rate 54 L 56 L 54 L Respiratory Rate Blood Pressure Pulse Oximetry 09/22/17 10:00 09/22/17 11:00 09/22/17 12:00 Temperature Pulse Rate 55 L 55 L 62 Respiratory Rate 16 Blood Pressure 156/83 H Pulse Oximetry 98 09/22/17 13:00 09/22/17 14:00 09/22/17 15:00 Temperature 98.2 F Pulse Rate 62 66 99 H Respiratory Rate 16 Blood Pressure 160/74 H Pulse Oximetry 98 09/22/17 16:00 09/22/17 17:00 09/22/17 18:00 Temperature Pulse Rate 66 64 72 Respiratory Rate Blood Pressure Pulse Oximetry Intake & Output 09/22/17 09/22/17 09/23/17 06:59 18:59 06:59 Intake Total 480 / 480 Output Total 1000 / 1000 Balance 480 / 480 -1000 / -1000 Weight 90.1 kg Intake: Oral 480 / 480 Output: Hemodialysis Amount 1000 / 1000 Other: # Voids 2 3 Narrative: Subjective Interval history: F/up NSTEMI/pulm edema/acute on CKD. Anemia Had HD No events overnight Family at bedside very supportive Physical Exam GENERAL: Very pleasant female appears in not acute distress. Oropharynx: Minimal white discharge from tongue thrush NECK: JVD difficult to assess secondary to neck habitus. HEART: RRR no m/r/g. LUNGS: Decreased breath sounds no wheezing. ABDOMEN: +BS, soft, NT, ND. EXTREMITIES: Trace LE edema. NEURO: Awake and alert. Assessment and Plan 77 year old female with IDDM, HTN, CKD, and anxiety presented to [place] ED on 09/10 with chest pain and subsequently transferred [facility] when her second troponin was found to be 5 (up from 0.07). 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 Given her renal insufficiency, it was decided to hold off on PCI given the amount of contrast needed for intervention. 77 year old female with IDDM, HTN, CKD, and anxiety presented to [place] ED on 09/10 with chest pain and subsequently transferred to the [facility] when her second troponin was found to be 5 (up from 0.07). 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 Given her renal insufficiency, it was decided to hold off on PCI given the amount of contrast needed for intervention. 1. NSTEMI - Troponins in the ED: 0.07, 5.46 - EKG in the ED with no ST changes - Echo 55-60% - Cardiology ff - Cath done 09/10 showing 2V-CAD involving L circumflex and RCA; PCI held off at the time secondary to renal function - Was scheduled for PCI 09/14 but patient developed acute respiratory distress , hypoxia, and chest pain on the table. Stat EKG showed some ST-depression in the lateral leads and a stat troponin was 1.03 (decreased from troponin on 09/10) - Continue heparin drip - Started on nitro drip today - Continue beta gonzález, Imdur, and ASA - Cardiology ff - received lasix with some improvement - nitro drip titrating down - Nephro considers HD as OP to be arraged by CM, by her nephrology in [place]. s/p vascath placement. -Cardiac cath 09/18/17 Patient with NSTEMI: [facility] 09/10 showed primarily 2 vessel [place] CAD involving the proximal LCx and RCA. stage PCI of RCA and circumflex with BMS 09/18/[address] Foreman. continue aspirin, Plavix, and statin. 2. Pulmonary edema - .16 CXR with hazy bilateral central interstitial and alveolar infiltrates, R>L - Lasix 40 mg IV BID - Supplemental O2 - Monitor oxygen saturation 3. PNA - Start Levaquin - Supplemental O2 - DuoNeb Q4 4. Acute on CKD - Renal indices continuing to worsen - Likely secondary to recent contrast exposure during cath as well as cardiorenal decompensation - Nephrology following - Noted with pulmonary edema, treating with diuresis - Avoid nephrotoxic agents, contrast, etc. - Renally dose meds -Per Dr Cedeno nephrology defer follow-up and decision regarding ongoing dialysis to the primary clinical pharmacy specialist in [place] post discharge. Case management to coordinate. Discharge okay from renal point of view once outpatient dialysis has been arranged in [place]. 5. Anemia. Anemia likely of chronic disease (renal) - Monitor H&H and transfuse if symptomatic and or HGB < 7 - Likely combo of anemia of chronic disease and iron deficiency - Check Hemoccult - Hemodynamically stable - Monitor closely - Consider transfusion if Hb drops below 8 given her cardiac history - S/p colonoscopy EGD. Polyps , biopsies taken. cleared by GI for use of anticoagulation 6. Diabetes mellitus insulin dependent - Continue Levemir 5 units BID - SSI with Accuchecks per protocol 7. HTN - BPs running high - On nitro gtt - Continue hydralazine, atenolol, Norvasc, and Imdur 8. Anxiety - Xanax PRN 9. Oral candidiasis mild. Start nystatin swish and swallow. Patient also with dry mouth to have Biotene as outpatient this is not available here DVT prophylaxis: Heparin gtt Discharge plan Discharge when improved and cleared by consultants. S/p EGD colonoscopy, vas cath placement for HD went for cardiac cath . Her nephrology in [place] to arrange HD. Dr Cedeno will discuss with her nephrology 09/21/17 for arrangements. CM is also ff for DC. Once HD established as OP patient can be DC. Transfer out of [facility] - Urinary Catheter Management Indwelling Urethral Catheter Cath placed during this visit: yes, but has since been removed by the nurse Reason for continuing: Hourly intake/output Insertion date: 09/16/17 Insertion time: 14:00 Removal date: 09/20/17 Removal time: 16:13 Results - Labs CBC & Chem 7: 09/22/17 05:30 09/22/17 05:30 Laboratory Results - last 24 hr 09/21/17 09/22/17 09/22/17 21:44 05:30 05:30 WBC 9.9 RBC 2.95 L Hgb 9.0 L Hct 26.9 L MCV 91.0 MCH 30.4 MCHC 33.4 RDW 14.1 Plt Count 235 MPV 8.5 Neut % (Auto) 74.8 H Lymph % (Auto) 8.1 L [place] % (Auto) 14.6 H Eos % (Auto) 1.8 Baso % (Auto) 0.7 Neut # (Auto) 7.4 Lymph # (Auto) 0.8 L [place] # (Auto) 1.4 H Eos # (Auto) 0.2 Baso # (Auto) 0.1 WBC Differential . Differential Comment Auto diff final Sodium 137 Potassium 3.6 Chloride 98 Carbon Dioxide 28.1 Anion Gap 11 BUN 53 H Creatinine 3.57 H Estimated GFR 12 L POC Glucose 277 H Random Glucose 192 H Calcium 8.0 L Phosphorus 4.1 Albumin 2.2 L 09/22/17 09/22/17 09/22/17 10:36 11:45 17:31 WBC RBC Hgb Hct MCV MCH MCHC RDW Plt Count MPV Neut % (Auto) Lymph % (Auto) [place] % (Auto) Eos % (Auto) Baso % (Auto) Neut # (Auto) Lymph # (Auto) [place] # (Auto) Eos # (Auto) Baso # (Auto) WBC Differential Differential Comment Sodium Potassium Chloride Carbon Dioxide Anion Gap BUN Creatinine Estimated GFR POC Glucose 123 H 158 H 310 H Random Glucose Calcium Phosphorus Albumin
[2017-09-22] MEDS: Senna/Docusate Sodium 8.6/50 MG Tablet PO SCH ×2 (20:57→21:44)
[2017-09-22] MEDS: Ferrous Sulfate 325 MG Tablet PO SCH ×2 (20:58→21:43)
[2017-09-23] MEDS: ALPRAZolam 0.25 MG Tablet PO PRN (00:13)
[2017-09-23] MEDS: Isosorbide Mononitrate 60 MG ER 24HR Tablet (Imdur) PO SCH (06:12)
[2017-09-23] MEDS ORDERED: amLODIPine 5 MG Tablet PO SCH (07:22)
--- NOTE | 2017-09-23 07:24 | P.PNCA ---
Subjective Interval history: no complaints no CP no SOB lying in bed comfortably Physical Exam Vital signs: Vital Signs 09/22/17 08:00 09/22/17 09:00 09/22/17 10:00 Temperature Pulse Rate 56 L 54 L 55 L Respiratory Rate Blood Pressure Pulse Oximetry 09/22/17 11:00 09/22/17 12:00 09/22/17 13:00 Temperature Pulse Rate 55 L 62 62 Respiratory Rate 16 Blood Pressure 156/83 H Pulse Oximetry 98 09/22/17 14:00 09/22/17 15:00 09/22/17 16:00 Temperature 98.2 F Pulse Rate 66 99 H 66 Respiratory Rate 16 Blood Pressure 160/74 H Pulse Oximetry 98 09/22/17 17:00 09/22/17 18:00 09/22/17 20:00 Temperature 98.7 F Pulse Rate 64 72 64 Respiratory Rate 18 Blood Pressure 140/70 Pulse Oximetry 96 09/22/17 21:00 09/22/17 22:00 09/22/17 23:00 Temperature Pulse Rate 62 62 58 L Respiratory Rate Blood Pressure Pulse Oximetry 09/23/17 00:00 09/23/17 01:00 09/23/17 02:00 Temperature 98.5 F Pulse Rate 60 60 60 Respiratory Rate 18 Blood Pressure 146/73 H Pulse Oximetry 95 09/23/17 03:00 09/23/17 04:00 09/23/17 05:00 Temperature 98.3 F Pulse Rate 58 L 63 60 Respiratory Rate 18 Blood Pressure 157/66 H Pulse Oximetry 95 09/23/17 06:00 Temperature Pulse Rate 60 Respiratory Rate Blood Pressure Pulse Oximetry Intake & Output 09/22/17 09/23/17 09/23/17 18:59 06:59 18:59 Intake Total 820 / 820 Output Total 1000 / 1000 Balance -1000 / -1000 820 / 820 Weight 87.9 kg Intake: IV 100 / 100 Levaquin 500 mg Premix Inj 500 100 / 100 mg In 100 ml @ 100 mls/hr IV. SIG Q48H ABHI Rx#:[id number] Oral 720 / 720 Output: Hemodialysis Amount 1000 / 1000 Other: # Voids 3 3 Date of Last Bowel Movement 09/22/17 - Constitutional no acute distress - Routine HEENT Exam Eye: Present: EOMI, PERRL - Routine Neck Exam Absent: JVD - Routine Respiratory Exam Present: CTA bilaterally - Routine Cardiovascular Exam Present: RRR - Routine Abdominal Exam Present: soft, normoactive bowel sounds - Routine Extremities Exam Absent: edema - Urinary Catheter Management Indwelling Urethral Catheter Cath placed during this visit: yes, but has since been removed by the nurse Reason for continuing: Hourly intake/output Insertion date: 09/16/17 Insertion time: 14:00 Removal date: 09/20/17 Removal time: 16:13 Assessment and Plan - Plan 77-year-old Syrian-speaking female with past medical history of HTN, DM, diabetic nephropathy, CKD who presented for chest pain due to non-STEMI. NSTEMI: [facility] 09/10 showed primarily 2 vessel [place] CAD involving the proximal LCx and RCA. staged PCI of RCA and circumflex with BMS 09/18/2017 continue aspirin, Plavix, and statin. Hypertension: improved. will titrate amlodipine to 10 mg dailuy, Imdur 60mg daily, Hydralazine to 100mg q8hr, atenolol 50mg bid with holding parameters. Will hold ACEi or ARB due to DONA. Consider adding as outpatient. DONA on CKD: S/P Vas-Cath placement. Nephrology on board. Dialysis initiated and outpatient dialysis arrangements being made. Normocytic anemia: Hemoglobin currently stable. [place] home
--- NOTE | 2017-09-23 08:29 | P.PN ---
Physical Exam Vital signs: Vital Signs 09/22/17 09:00 09/22/17 10:00 09/22/17 11:00 Temperature Pulse Rate 54 L 55 L 55 L Respiratory Rate 16 Blood Pressure 156/83 H Pulse Oximetry 98 09/22/17 12:00 09/22/17 13:00 09/22/17 14:00 Temperature Pulse Rate 62 62 66 Respiratory Rate Blood Pressure Pulse Oximetry 09/22/17 15:00 09/22/17 16:00 09/22/17 17:00 Temperature 98.2 F Pulse Rate 99 H 66 64 Respiratory Rate 16 Blood Pressure 160/74 H Pulse Oximetry 98 09/22/17 18:00 09/22/17 20:00 09/22/17 21:00 Temperature 98.7 F Pulse Rate 72 64 62 Respiratory Rate 18 Blood Pressure 140/70 Pulse Oximetry 96 09/22/17 22:00 09/22/17 23:00 09/23/17 00:00 Temperature 98.5 F Pulse Rate 62 58 L 60 Respiratory Rate 18 Blood Pressure 146/73 H Pulse Oximetry 95 09/23/17 01:00 09/23/17 02:00 09/23/17 03:00 Temperature Pulse Rate 60 60 58 L Respiratory Rate Blood Pressure Pulse Oximetry 09/23/17 04:00 09/23/17 05:00 09/23/17 06:00 Temperature 98.3 F Pulse Rate 63 60 60 Respiratory Rate 18 Blood Pressure 157/66 H Pulse Oximetry 95 Intake & Output 09/22/17 09/23/17 09/23/17 18:59 06:59 18:59 Intake Total 820 / 820 Output Total 1000 / 1000 Balance -1000 / -1000 820 / 820 Weight 87.9 kg Intake: IV 100 / 100 Levaquin 500 mg Premix Inj 500 100 / 100 mg In 100 ml @ 100 mls/hr IV. SIG Q48H ABHI Rx#:[id number] Oral 720 / 720 Output: Hemodialysis Amount 1000 / 1000 Other: # Voids 3 3 Date of Last Bowel Movement 09/22/17 Narrative: Subjective Interval history: F/up NSTEMI/pulm edema/acute on CKD. Anemia The patient is very pleasant she denies having any complaints at this time. Awaiting for case management to arrange dialysis. Hopes she is going to go home today. She has no chest pain or shortness of breath. No nausea or vomiting. Physical Exam GENERAL: Very pleasant female appears in not acute distress. Oropharynx: Minimal white discharge from tongue thrush NECK: JVD difficult to assess secondary to neck habitus. HEART: RRR no m/r/g. LUNGS: Decreased breath sounds no wheezing. ABDOMEN: +BS, soft, NT, ND. EXTREMITIES: Trace LE edema. NEURO: Awake and alert. Assessment and Plan 77 year old female with IDDM, HTN, CKD, and anxiety presented to [place] ED on 09/10 with chest pain and subsequently transferred to the [facility] when her second troponin was found to be 5 (up from 0.07). 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 Given her renal insufficiency, it was decided to hold off on PCI given the amount of contrast needed for intervention. 77 year old female with IDDM, HTN, CKD, and anxiety presented to [place] ED on 09/10 with chest pain and subsequently transferred to the [facility] when her second troponin was found to be 5 (up from 0.07). 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 Given her renal insufficiency, it was decided to hold off on PCI given the amount of contrast needed for intervention. 1. NSTEMI - Troponins in the ED: 0.07, 5.46 - EKG in the ED with no ST changes - Echo 55-60% - Cardiology ff - Cath done 09/10 showing 2V-CAD involving L circumflex and RCA; PCI held off at the time secondary to renal function - Was scheduled for PCI 09/14 but patient developed acute respiratory distress , hypoxia, and chest pain on the table. Stat EKG showed some ST-depression in the lateral leads and a stat troponin was 1.03 (decreased from troponin on 09/10) - Continue heparin drip - Started on nitro drip today - Continue beta gonzález, Imdur, and ASA - Cardiology ff - received lasix with some improvement - nitro drip titrating down - Nephro considers HD as OP to be arraged by CM, by her nephrology in [place]. s/p vascath placement. -Cardiac cath 09/18/17 Patient with NSTEMI: [facility] 09/10 showed primarily 2 vessel [place] CAD involving the proximal LCx and RCA. stage PCI of RCA and circumflex with BMS 09/18/[address] Foreman. continue aspirin, Plavix, and statin. 2. Pulmonary edema - 7.16 CXR with hazy bilateral central interstitial and alveolar infiltrates, R>L - Lasix 40 mg IV BID - Supplemental O2 - Monitor oxygen saturation 3. PNA - Start Levaquin - Supplemental O2 - DuoNeb Q4 4. Acute on CKD - Renal indices continuing to worsen - Likely secondary to recent contrast exposure during cath as well as cardiorenal decompensation - Nephrology following - Noted with pulmonary edema, treating with diuresis - Avoid nephrotoxic agents, contrast, etc. - Renally dose meds -Per Dr Cedeno nephrology defer follow-up and decision regarding ongoing dialysis to the primary legal receptionist in [place] post discharge. Case management to coordinate. Discharge okay from renal point of view once outpatient dialysis has been arranged in [place]. 5. Anemia. Anemia likely of chronic disease (renal) - Monitor H&H and transfuse if symptomatic and or HGB < 7 - Likely combo of anemia of chronic disease and iron deficiency - Check Hemoccult - Hemodynamically stable - Monitor closely - Consider transfusion if Hb drops below 8 given her cardiac history - S/p colonoscopy EGD. Polyps , biopsies taken. cleared by GI for use of anticoagulation 6. Diabetes mellitus insulin dependent - Continue Levemir 5 units BID - SSI with Accuchecks per protocol 7. HTN - BPs running high - On nitro gtt - Continue hydralazine, atenolol, Norvasc, and Imdur 8. Anxiety - Xanax PRN 9. Oral candidiasis mild. Start nystatin swish and swallow. Patient also with dry mouth to have Biotene as outpatient this is not available here DVT prophylaxis: Heparin gtt Discharge plan Discharge when improved and cleared by consultants. S/p EGD colonoscopy, vas cath placement for HD went for cardiac cath . Her nephrology in [place] to arrange HD. Dr Cedeno will discuss with her nephrology 09/21/17 for arrangements. CM is also ff for DC. Once HD established as OP patient can be DC. - Urinary Catheter Management Indwelling Urethral Catheter Cath placed during this visit: yes, but has since been removed by the nurse Reason for continuing: Hourly intake/output Insertion date: 09/16/17 Insertion time: 14:00 Removal date: 09/20/17 Removal time: 16:13 Results - Labs CBC & Chem 7: 09/22/17 05:30 09/22/17 05:30 Laboratory Results - last 24 hr 09/22/17 09/22/17 09/22/17 10:36 11:45 17:31 POC Glucose 123 H 158 H 310 H 09/22/17 20:48 POC Glucose 244 H - Procedures Cardiac cath 09/18/[address] Foreman Assessment and Plan - Assessment (1) Chronic kidney disease, stage IV (severe) Code(s): N18.4 - Chronic kidney disease, stage 4 (severe) Status: Acute (2) Essential (primary) hypertension Code(s): I10 - Essential (primary) hypertension Status: Acute (3) Diabetes mellitus Code(s): E11.9 - Type 2 diabetes mellitus without complications Status: Acute (4) Anemia Code(s): D64.9 - Anemia, unspecified Status: Acute (5) History of Helicobacter pylori infection Code(s): Z86.19 - Personal history of other infectious and parasitic diseases Status: Acute (6) CAD (coronary artery disease) Code(s): I25.10 - Atherosclerotic heart disease of [place] coronary artery without angina pectoris Status: Acute
[2017-09-23] MEDS: Insulin NovoLOG Aspart Correctional Sugar Inj SQ SCH ×2 (10:28→15:48)
[2017-09-23] MEDS: Insulin Detemir Inj 1,000 UNIT/10 ML Vial SQ SCH (10:29)
[2017-09-23] MEDS: Furosemide 40 MG Tablet PO SCH (10:30)
[2017-09-23] MEDS: Senna/Docusate Sodium 8.6/50 MG Tablet PO SCH (10:30)
[2017-09-23] MEDS: Sodium Bicarbonate 650 MG Tablet PO SCH (10:31)
[2017-09-23] MEDS: Gabapentin 100 MG Capsule PO SCH ×2 (10:32→14:53)
[2017-09-23] MEDS: Atenolol 50 MG Tablet PO SCH (10:32)
[2017-09-23] MEDS: Ferrous Sulfate 325 MG Tablet PO SCH (10:32)
[2017-09-23] MEDS: Nystatin Liq 500,000 UNIT/5 ML UDC SWISH-SWAL SCH (10:33)
== END 2017-09-23 15:51 | disposition home or self-care (01) ==
LOC: NEDDLT 00:07 → N04 07:22 → HIMC 09:02 → HCIS 09-13 21:42
PROVIDERS: ADMIT Hospitalist; ATTEND Hospitalist